=== PATIENT | female | born 1980 | race Caucasian/White ===

== ENCOUNTER 2019-12-13 16:25 | Emergency (ER) | payer OTHER, SELFPAY ==
[2019-12-13 16:40] VITALS: BP 130/88; RESP 18; TEMP 36.8; O2SAT 99
--- NOTE | 2019-12-13 17:20 | ED.URI ---
HPI - URI/Sore Throat General Chief Complaint: Upper Respiratory Infection Stated Complaint: sore throat/headache/bodyaches Source: patient Mode of arrival: ambulatory Limitations: no limitations History of Present Illness HPI Narrative: Patient is a 39-year-old female who presents complaining of sore throat starting this afternoon. Patient son was strep positive today. Patient denies taking grxw-yol-igadbld medications at this time. MD elicited complaint: sore throat Related Data Home Medications Medication Instructions Recorded Confirmed levothyroxine [Synthroid] 50 mcg PO DAILY 08/23/19 12/13/19 rosuvastatin 5 mg PO DAILY 08/23/19 12/13/19 Allergies Allergy/AdvReac Type Severity Reaction Status Date / Time No Known Allergies Allergy Verified 12/13/19 16:43 Review of Systems Review of Systems: Narrative: CONSTITUTIONAL: Denies fever, chills, or sweats. EYES: Denies visual changes, redness, or discharge. ENT: Denies rhinorrhea, congestion, or otalgia. Reports sore throat CARDIOVASCULAR: Denies chest pain, palpitations, or edema. RESPIRATORY: Denies cough or dyspnea. GASTROINTESTINAL: Denies abdominal pain, nausea, vomiting, or diarrhea. GENITOURINARY: Denies dysuria or hematuria. SKIN: Denies rash or itching. MUSCULOSKELETAL: Denies back pain, joint pain, or myalgia. NEUROLOGIC: Denies headache, numbness, dizziness, or weakness. PSYCHIATRIC: Denies anxiety or depression. [facility] Past Medical History Medical History STD (sexually transmitted disease) UTI (urinary tract infection) Surgical History Surgical History H/O dilation and curettage Exam Narrative: Exam Narrative: GENERAL: Well-appearing, well-nourished, and in no acute distress. HEAD: Normocephalic, atraumatic. EYES: EOMI. No redness or drainage. Conjunctiva are normal. ENT: Mucous membranes pink and moist. Nares clear. No rhinorrhea. TMs normal bilaterally. Throat erythema and edema without exudate. Uvula midline. NECK: AROM. Supple. No lymphadenopathy. CHEST: No respiratory distress. Clear to auscultation. HEART: Regular rate and rhythm. No murmur appreciated. Normal peripheral pulses. SKIN: Warm, dry, no rash. NEURO: No focal deficits. Alert and oriented x3. Gait steady. PSYCH: Normal affect. No signs of depression or anxiety. Course Vital Signs Vital signs: Vital Signs Temperature 36.8 C 12/13/19 16:40 Respiratory Rate 18 12/13/19 16:40 Blood Pressure 130/88 12/13/19 16:40 Pulse Oximetry 99 12/13/19 16:40 Temperature 36.8 C 12/13/19 16:40 Respiratory Rate 18 12/13/19 16:40 Blood Pressure 130/88 12/13/19 16:40 Pulse Oximetry 99 12/13/19 16:40 MDM - URI/Sore Throat MDM Narrative Medical decision making narrative: Patient's rapid strep negative, however, patient's symptoms just started this p.m. Patient's son is positive at this time. Patient to be treated in accordance tonsillitis. Patient agrees with plan of care. Patient stable for discharge home with outpatient follow-up as directed. Differential Diagnosis Differential diagnosis: Likely upper respiratory infection, influenza, pharyngitis and other (Strep throat) Lab Data Labs: Strep Screen Presumptive Negative *(Reference Range: Negative)* Critical Care Time Critical Care Time Critical Care Time: No Discharge Plan Discharge Clinical Impression: Strep throat exposure Patient Disposition: Home, Self-Care Condition: Stable Instructions: Antibiotic Form, Tonsillitis (ED) Additional Instructions: Take medication as directed. Follow-up with PCP as needed. Prescriptions: New penicillin V potassium 500 mg tablet 500 mg PO Q12H 10 Days Qty: 20 RF: 0 No Action levothyroxine [Synthroid] 50 mcg Tablet 50 mcg PO DAILY RF: 0 rosuvastatin 5 mg Tablet 5 mg PO DAILY RF
== END 2019-12-13 17:30 | disposition home or self-care (01) ==
PROVIDERS: Emergency Provider Nurse Practitioner; PCP Physician Assistant
DX: Z20.818 Contact with and (suspected) exposure to other bacterial communicable diseases (principal)
CPT/HCPCS: 87081; 87880; 99213; G0463

== ENCOUNTER 2020-04-13 08:05 | Outpatient (CLI) | payer OTHER, SELFPAY ==
--- NOTE | ~2020-04-13 | MM_ITS ---
EXAMINATION: MM screening vimal BI w willis HISTORY: Screening mammogram TECHNIQUE: Craniocaudal and mediolateral oblique 3-D tomosynthesis images were obtained and synthetic 2-D images were generated. CAD analysis was submitted and interpreted. COMPARISON: 03/25/2019 BREAST PARENCHYMAL COMPOSITION: The breasts are extremely dense, which lowers the sensitivity of mamm ography. FINDINGS: There is no evidence of suspicious mass, calcification, or architectural distortion to sugg est malignancy in either breast. There has been no suspicious interval change. IMPRESSION: 1. No mammographic evidence of malignancy. 2. Recommend routine screening mammography in one year. BI-RADS Category 1: Negative Reviewed, dictated and finalized at location A.
== END 2020-04-13 08:06 | disposition home or self-care (01) ==
LOC: ANHIMG 08:08
PROVIDERS: PCP Physician Assistant; Visit Provider Obstetrics & Gynecology Gynecology
DX: Z12.31 Encounter for screening mammogram for malignant neoplasm of breast (principal)
CPT/HCPCS: 77063; 77067

== ENCOUNTER 2020-08-03 09:02 | Outpatient (CLI) | payer OTHER, SELFPAY ==
--- NOTE | ~2020-08-03 | XR_ITS ---
XR cervical spine 4-5V DATE: 08/03/2020 09:49 INDICATION: Neck pain, radiculopathy TECHNIQUE: AP, open-mouth, lateral, swimmer views COMPARISON: None FINDINGS: There is straightening of the cervical spine. C1 and C2 are normally aligned and the odontoid process is intact. There is minimal anterolisthesis at C2-3 and C4-5. There is moderately prominent degenerative disc disease at C3-4, with posterior spurring. There is mild loss of interspace height at C5-6. No fracture or dislocation or locked facet. There is uncovertebral joint spurring, particularly bilaterally at C3-4 and C5-6. IMPRESSION: Straightening Degenerative changes Reviewed, dictated and finalized at location A.
--- NOTE | 2020-08-03 11:00 | NEURO_ITS ---
Patient Number: [id number] Impression: # Complains of numbness of hands. # Mild bilateral Carpal Tunnel Syndrome. 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 # Normal needle/EMG exam. # Clinical correlation recommended. Nerve Conduction Studies Anti Sensory Summary Table Stim Site NR Peak (ms) P-T Amp (?V) Site1 Site2 Delta-P (ms) Dist (cm) Reddy (m/s) Left Median Anti Sensory (2-3nd Digit) Wrist 3.1 89.8 Wrist 2-3nd Digit 3.1 14.0 45 Wrist 3.2 101.3 Wrist 2-3nd Digit 3.1 14.0 45 Right Median Anti Sensory (2-3nd Digit) Wrist 2.9 93.0 Wrist 2-3nd Digit 2.9 14.0 48 Wrist 2.9 95.7 Wrist 2-3nd Digit 2.9 14.0 48 Left Radial Anti Sensory (Base 1st Digit) Wrist 2.1 46.8 Wrist Base 1st Digit 2.1 0.0 Right Radial Anti Sensory (Base 1st Digit) Wrist 2.1 53.1 Wrist Base 1st Digit 2.1 0.0 Left Ulnar Anti Sensory (5th Digit) Wrist 2.5 88.0 Wrist 5th Digit 2.5 14.0 56 Right Ulnar Anti Sensory (5th Digit) Wrist 2.4 42.2 Wrist 5th Digit 2.4 14.0 58 Motor Summary Table Stim Site NR Onset (ms) O-P Amp (mV) Site1 Site2 Delta-0 (ms) Dist (cm) Reddy (m/s) Left Median Motor (Abd Poll Brev) Wrist 3.7 3.5 Elbow Wrist 4.3 26.0 60 Elbow 8.0 3.0 Right Median Motor (Abd Poll Brev) Wrist 3.6 2.6 Elbow Wrist 3.8 24.0 63 Elbow 7.4 2.9 Left Ulnar Motor (Abd Dig Minimi) Wrist 2.2 7.6 A Elbow Wrist 5.5 28.0 51 A Elbow 7.7 6.0 B Elbow Wrist 4.0 22.0 55 B Elbow 6.2 4.3 Right Ulnar Motor (Abd Dig Minimi) Wrist 2.6 6.1 A Elbow Wrist 4.6 27.0 59 A Elbow 7.2 4.7 F Wave Studies NR F-Lat (ms) L-R F-Lat (ms) Left Median (Mrkrs) (Abd Poll Brev) 26.61 0.41 Right Median (Mrkrs) (Abd Poll Brev) 26.20 0.41 Left Ulnar (Mrkrs) (Abd Dig Min) 26.98 0.33 Right Ulnar (Mrkrs) (Abd Dig Min) 27.31 0.33 EMG Side Muscle Nerve Root Ins Act Fibs Amp Dur Recrt Comment Right 1stDorInt Ulnar C8-T1 Nml Nml Nml Nml Nml Right Ext Indicis Radial (Post Int) C7-8 Nml Nml Nml Nml Nml Right Ext Digitorum Radial (Post Int) C7-8 Nml Nml Nml Nml Nml Right BrachioRad Radial C5-6 Nml Nml Nml Nml Nml Right PronatorTeres Median C6-7 Nml Nml Nml Nml Nml Right Abd Poll Brev Median C8-T1 Nml Nml Nml Nml Nml Left 1stDorInt Ulnar C8-T1 Nml Nml Nml Nml Nml Left Ext Indicis Radial (Post Int) C7-8 Nml Nml Nml Nml Nml Left Ext Digitorum Radial (Post Int) C7-8 Nml Nml Nml Nml Nml Left BrachioRad Radial C5-6 Nml Nml Nml Nml Nml Left PronatorTeres Median C6-7 Nml Nml Nml Nml Nml Left Abd Poll Brev Median C8-T1 Nml Nml Nml Nml Nml Right ABD Dig Min Ulnar C8-T1 Nml Nml Nml Nml Nml Left ABD Dig Min Ulnar C8-T1 Nml Nml Nml Nml Nml MTDD
== END 2020-08-03 09:03 | disposition home or self-care (01) ==
PROVIDERS: PCP Physician Assistant; Visit Provider Physician Assistant
DX: G56.03 Carpal tunnel syndrome, bilateral upper limbs (principal); G56.22 Lesion of ulnar nerve, left upper limb; M50.30 Other cervical disc degeneration, unspecified cervical region
CPT/HCPCS: 72050; 95886; 95911

== ENCOUNTER 2021-04-16 08:28 | Outpatient (CLI) | payer BC, SELFPAY ==
--- NOTE | ~2021-04-16 | MM_ITS ---
EXAMINATION: MM screening vimal BI w willis HISTORY: Screening mammogram TECHNIQUE: Craniocaudal and mediolateral oblique 3-D tomosynthesis images were obtained and synthetic 2-D images were generated. CAD analysis was submitted and interpreted. COMPARISON: 04/13/2020, 03/25/2019 BREAST PARENCHYMAL COMPOSITION: The breasts are extremely dense, which lowers the sensitivity of mamm ography. FINDINGS: Scattered benign-appearing calcifications are present. There is no evidence of suspicious m ass, calcification, or architectural distortion to suggest malignancy in either breast. There has bee n no suspicious interval change. IMPRESSION: 1. No mammographic evidence of malignancy. 2. Recommend routine screening mammography in one year. BI-RADS Category 2: Benign finding(s). Reviewed, dictated and finalized at location A.
== END 2021-04-16 08:29 | disposition home or self-care (01) ==
LOC: ANHIMG 08:32
PROVIDERS: PCP Physician Assistant; Visit Provider Obstetrics & Gynecology Gynecology
DX: Z12.31 Encounter for screening mammogram for malignant neoplasm of breast (principal)
CPT/HCPCS: 77063; 77067

== ENCOUNTER 2022-07-08 07:05 | Outpatient (CLI) | payer OTHER, SELFPAY ==
--- NOTE | ~2022-07-08 | MM_ITS ---
EXAMINATION: MM screening [facility] BI w willis HISTORY: Screening mammogram TECHNIQUE: Craniocaudal and mediolateral oblique 3-D tomosynthesis images were obtained and synthetic 2-D images were generated. CAD analysis was submitted and interpreted. COMPARISON: 04/16/2021, 04/13/2020, 03/25/2019 BREAST PARENCHYMAL COMPOSITION: The breasts are extremely dense, which lowers the sensitivity of mamm ography. FINDINGS: There is no suspicious mass, calcification, or architectural distortion to suggest malignan cy in either breast. There has been no suspicious interval change. IMPRESSION: 1. No mammographic evidence of malignancy. 2. Recommend routine screening mammography in one year. BI-RADS Category 1: Negative Reviewed, dictated and finalized at location A.
== END 2022-07-08 07:06 | disposition home or self-care (01) ==
LOC: ANHIMG 07:07
PROVIDERS: PCP Physician Assistant; Visit Provider Obstetrics & Gynecology Gynecology
DX: Z12.31 Encounter for screening mammogram for malignant neoplasm of breast (principal)
CPT/HCPCS: 77063; 77067

== ENCOUNTER 2022-09-02 15:37 | Emergency (ER) | payer OTHER, SELFPAY ==
[2022-09-02 16:18] VITALS: BP 126/85; PULSE 80; RESP 18; TEMP 36.4; O2SAT 100
--- NOTE | 2022-09-02 16:36 | ED.URI ---
HPI - URI/Sore Throat General Chief Complaint: Upper Respiratory Infection Stated Complaint: headache,sorethroat,bodyache Time Seen by Provider: 09/02/22 16:20 Source: patient Mode of arrival: ambulatory Limitations: no limitations History of Present Illness HPI Narrative: Ms. Burleson is a 42-year-old female patient presenting to clinic today with complaints of headache, sore throat, body aches, and fatigue x1 day. She reports her symptoms just started yesterday and she slept most of the day today and her symptoms have gradually gotten worse over the past day. He denies any known fever MD elicited complaint: sore throat and nasal congestion Related Data Home Medications Medication Instructions Recorded Confirmed levothyroxine 50 mcg tablet 50 mcg PO DAILY 08/23/19 09/02/22 (Synthroid) rosuvastatin 5 mg tablet 5 mg PO DAILY 08/23/19 09/02/22 alprazolam 0.5 mg tablet 0.5 mg PO PRN PRN Anxiety 09/02/22 09/02/22 famotidine 20 mg tablet (Pepcid) 20 mg PO DAILY 09/02/22 09/02/22 metformin 500 mg tablet,extended 500 mg PO BID 09/02/22 09/02/22 release 24 hr Allergies Allergy/AdvReac Type Severity Reaction Status Date / Time No Known Allergies Allergy Verified 09/02/22 16:23 Review of Systems Review of Systems: Pertinent positives per HPI. Patient denies any fever, chills, rash, headache, visual changes, dizziness, cough, shortness of breath, chest pain, palpitations, nausea, vomiting, diarrhea, constipation, abdominal pain, or any urinary issues. PMFSH Past Medical History Medical History (Updated 09/02/22 @ 16:53 by Osbaldo San APRN) STD (sexually transmitted disease) UTI (urinary tract infection) Surgical History Surgical History H/O dilation and curettage Comments At the time of my signature, I reviewed and agree with the nursing past medical, surgical, social, and family history. There is no relevant family history pertinent to the patient complaint. Exam Narrative: General: Well-developed, well nourished, in no apparent distress Head: Normocephalic, atraumatic Eyes: Pupils equally round and reactive to light bilaterally, EOM intact, sclera and conjunctive clear, no discharge, lids normal Ears: TMs intact and clear, ear canals clear, no drainage, grossly hearing normal. Nose: Nares patent, clear nasal discharge, no inflammation, no sinus tenderness. Mouth: Oral pharynx without lesions or masses, good dentition, MMM. Neck: Supple, trachea midline, no enlargement of anterior or posterior cervical nodes, no thyroid masses or goiter palpable. Cardio: Regular rate and rhythm, s1 and s2 normal, no murmur appreciated. Resp: Clear to auscultation bilaterally, no rhonchi, rales, wheezing or rubs Course Course Emergency Course: Portions of this record may have been created with voice recognition software. Level of Care: Express Care Visit Vital Signs Vital signs: Vital Signs Temperature 36.4 C L 09/02/22 16:18 Pulse Rate 80 09/02/22 16:18 Respiratory Rate 18 09/02/22 16:18 Blood Pressure 126/85 09/02/22 16:18 Pulse Oximetry 100 09/02/22 16:18 Oxygen Delivery Room Air 09/02/22 16:18 Temperature 36.4 C L 09/02/22 16:18 Pulse Rate 80 09/02/22 16:18 Respiratory Rate 18 09/02/22 16:18 Blood Pressure 126/85 09/02/22 16:18 Pulse Oximetry 100 09/02/22 16:18 Oxygen Delivery Room Air 09/02/22 16:18 Vital signs reviewed MDM - URI/Sore Throat MDM Narrative Medical decision making narrative: at the time of the patient is resting comfortably on exam table. Influenza testing and strep testing was obtained Differential Diagnosis Differential diagnosis: Likely sinusitis, viral infection, influenza and pharyngitis Lab Data Labs: Influenza A Screen Negative Reference Range: Negative Influenza B Screen Negative
== END 2022-09-02 16:55 | disposition home or self-care (01) ==
PROVIDERS: Emergency Provider Nurse Practitioner Family; PCP Physician Assistant
DX: J02.9 Acute pharyngitis, unspecified (principal); B34.9 Viral infection, unspecified
CPT/HCPCS: 87081; 87804; 87880; 99213; G0463

== ENCOUNTER 2022-11-07 11:21 | Emergency (ER) | payer OTHER, SELFPAY ==
[2022-11-07 12:06] VITALS: BP 145/87; PULSE 90; RESP 18; TEMP 36.4; O2SAT 97
[2022-11-07 12:58] LABS: Appearance Urine Clear (Clear); Bilirubin Urine Negative (Negative); Blood Urine Negative (Negative); Color Urine Yellow (Yellow); Glucose Urine UA Negative (Negative); Ketones Urine Negative (Negative); Leukocyte Esterase Ur Negative LEU/UL (Negative); Nitrate Urine Negative (Negative); Protein Urine Negative (Negative); Urobilinogen Urine 0.2 mg/dL (<2.0); pH Urine 5.5 (5.0-9.0)
[2022-11-07 13:03] LABS: Add Urine Microscopic? NO
--- NOTE | 2022-11-07 13:38 | ED.BACK ---
HPI - Back Pain/Injury General Chief Complaint: Back Pain/Injury Stated Complaint: lower back pain Time Seen by Provider: 11/07/22 12:41 History of Present Illness HPI Narrative: Patient is a 42-year-old female who presents ER with left-sided back pain. Sudden onset. Cramping. Associate with nausea. No fevers or chills or sweats. Worse with twisting and moving. No known trauma. No urinary frequency urgency or dysuria. Took some ibuprofen with only mild improvement Related Data Home Medications Medication Instructions Recorded Confirmed levothyroxine 50 mcg tablet 50 mcg PO DAILY 08/23/19 09/02/22 (Synthroid) rosuvastatin 5 mg tablet 5 mg PO DAILY 08/23/19 09/02/22 alprazolam 0.5 mg tablet 0.5 mg PO PRN PRN Anxiety 09/02/22 09/02/22 famotidine 20 mg tablet (Pepcid) 20 mg PO DAILY 09/02/22 09/02/22 metformin 500 mg tablet,extended 500 mg PO BID 09/02/22 09/02/22 release 24 hr Allergies Allergy/AdvReac Type Severity Reaction Status Date / Time No Known Allergies Allergy Verified 09/02/22 16:23 Review of Systems Review of Systems: All systems reviewed & are unremarkable except as noted in HPI and below Constitutional: Constitutional: Denies chills, Denies fatigue and Denies fever(s) Gastrointestinal: Gastrointestinal: Denies abdominal pain, Reports nausea and Denies vomiting Genitourinary: Genitourinary: Denies hematuria, Denies nocturia, Denies dysuria, Reports flank pain and Denies urinary incontinence Musculoskeletal: Musculoskeletal: Reports back pain, Denies arthralgias and Denies joint swelling Neurologic: Denies focal weakness and Denies numbness PMFSH Past Medical History Medical History (Updated 11/07/22 @ 13:41 by Dave Aguirre MD) STD (sexually transmitted disease) UTI (urinary tract infection) Surgical History Surgical History H/O dilation and curettage Exam Narrative: GENERAL: Well-appearing, well-nourished, and in no acute distress. HEAD: Normocephalic, atraumatic. CHEST: Clear to auscultation. No respiratory distress. HEART: Regular rate and rhythm. Normal peripheral pulses. ABDOMEN: Soft, nontender, nondistended. Back: No reproducible midline tenderness to T/L-spine. There is palpable spasm at the level of L2 on the left. No right-sided paraspinal muscular tenderness. EXTREMITIES: Normal range of motion. No edema. NEURO: Alert and oriented x3. PSYCH: Normal mood and affect. Course Course Emergency Course: Patient resting comfortably. Has point tenderness in the lateral musculature of the low lumbar region. No complaints or symptoms of spinal epidural abscess or cauda equina syndrome. No acute injury. Imaging not felt needed at this time and outpatient conservative management recommended. Patient verbalized understanding of this and is in agreement. Protocol orders for blood draw been canceled. Vital Signs Vital signs: Vital Signs Temperature 97.6 F 11/07/22 12:06 Pulse Rate 90 11/07/22 12:06 Respiratory Rate 18 11/07/22 12:06 Blood Pressure 145/87 H 11/07/22 12:06 Pulse Oximetry 97 11/07/22 12:06 Temperature 97.6 F 11/07/22 12:06 Pulse Rate 90 11/07/22 14:15 Respiratory Rate 18 11/07/22 14:15 Blood Pressure 140/80 11/07/22 14:15 Pulse Oximetry 97 11/07/22 14:15 MDM - Back Pain/Injury Lab Data Labs: Lab Results 11/07/22 Range/Units 12:32 Urine Color Yellow (Yellow) Urine Appearance Clear (Clear) Urine pH 5.5 (5.0-9.0) Ur Specific [place] 1.010 (1.001-1.035) Urine Protein Negative (Negative) mg/dL Urine Glucose (UA) Negative (Negative) mg/dL Urine Ketones Negative (Negative) mg/dL Ur Blood (Man) Negative (Negative) Urine Nitrate Negative (Negative) Urine Bilirubin Negative (Negative) Urine Urobilinogen 0.2 (<2.0) mg/dL Leukocyte Esterase Rfl Negative (Negative) DELMY/UL UCG Bedside Result
[2022-11-07 14:15] VITALS: BP 140/80; PULSE 90; RESP 18; O2SAT 97
== END 2022-11-07 14:16 | disposition home or self-care (01) ==
PROVIDERS: Emergency Provider Emergency Medicine; PCP Physician Assistant
DX: M62.830 Muscle spasm of back (principal); R73.03 Prediabetes; Z87.440 Personal history of urinary (tract) infections; Z79.84 Long term (current) use of oral hypoglycemic drugs
CPT/HCPCS: 81003; 81025; 99283

== ENCOUNTER → 2023-09-13 11:14 | Outpatient (CLI) | payer OTHER, SELFPAY ==
--- NOTE | ~2023-09-13 | MM_ITS ---
EXAMINATION: MM screening vimal BI w willis HISTORY: Screening TECHNIQUE: Craniocaudal and mediolateral oblique 3-D tomosynthesis images were obtained and synthetic 2-D images were generated. CAD analysis was submitted and interpreted. COMPARISON: Comparison to multiple prior studies sequentially, with oldest reviewed study dated 03/25. BREAST PARENCHYMAL COMPOSITION: The breasts are extremely dense, which lowers the sensitivity of mamm ography FINDINGS: There is no evidence of suspicious mass, calcification, or architectural distortion to sugg est malignancy in either breast. There has been no suspicious interval change. IMPRESSION: 1. No mammographic evidence of malignancy. 2. Recommend routine screening mammography in one year. BI-RADS Category 1: Negative Reviewed, dictated and finalized at location A. HER DANCING
== END ==
PROVIDERS: PCP Advanced Practice Midwife; Visit Provider Advanced Practice Midwife
DX: Z12.31 Encounter for screening mammogram for malignant neoplasm of breast (principal)
CPT/HCPCS: 77063; 77067

== ENCOUNTER 2023-11-03 16:34 | Emergency (ER) | payer OTHER, SELFPAY | END 2023-11-03 16:56 | disposition left against medical advice (07) | LOC: ANHED 16:51 | PROVIDERS: PCP Advanced Practice Midwife | DX: Z53.21 Procedure and treatment not carried out due to patient leaving prior to being seen by health care provider (principal) | CPT/HCPCS: 99199 ==

== ENCOUNTER 2024-11-23 12:18 | Outpatient (CLI) | payer OTHER, SELFPAY ==
--- NOTE | ~2024-11-23 | MM_ITS ---
EXAMINATION: MM screening vimal BI w willis HISTORY: Screening TECHNIQUE: Craniocaudal and mediolateral oblique 3-D tomosynthesis images were obtained and synthetic 2-D images were generated. CAD analysis was submitted and interpreted. COMPARISON: Comparison to multiple prior studies sequentially, with oldest reviewed study dated 03/25. BREAST PARENCHYMAL COMPOSITION: Dense: The breasts are extremely dense, which lowers the sensitivity of mammography. FINDINGS: There is no evidence of suspicious mass, calcification, or architectural distortion to sugg est malignancy in either breast. There has been no suspicious interval change. IMPRESSION: 1. No mammographic evidence of malignancy. 2. Recommend routine screening mammography in one year. BI-RADS Category 1: Negative Reviewed, dictated and finalized at location B. 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
== END 2024-11-23 12:19 | disposition home or self-care (01) ==
PROVIDERS: PCP Nurse Practitioner; Visit Provider Nurse Practitioner
DX: Z12.31 Encounter for screening mammogram for malignant neoplasm of breast (principal)
CPT/HCPCS: 77063; 77067

== ENCOUNTER 2025-02-07 08:52 | Outpatient (CLI) | payer OTHER, SELFPAY ==
--- NOTE | 2025-02-07 09:00 | ECG_ITS ---
Test Date: 2025-02-07 09:15:25 Measurements Intervals [place] Rate: 71 P: 28 W[place]: 164 QRS: -7 QRSD: 85 T: 39 QT: 387 QTc: 422 Interpretive Statements SINUS RHYTHM LOW QRS VOLTAGE IN PRECORDIAL LEADS [QRS DEFLECTION < 1.0 mV IN CHEST LEADS] POOR R-WAVE PROGRESSION NONSPECIFIC T-WAVE ABNORMALITY ABNORMAL ECG No previous ECG available for comparison Electronically Signed On 02-07-2025 15:40:34 CDT by Jesus Carey M.D.
--- OUTSIDE RECORDS SUMMARY | 2025-02-07 09:22 | XMS_ITS | Referral Summary ---
Author Organization [address] Address [address] [place] [id number] Care Team Providers Care Tick Inspector Name Role Phone Josselyn Garibay Primary Care Pr ovider Allergies No known active allergies Medications Synthroid 75 mcg tablet 08/11/2023 Active metFORMIN XR (GLUCOPHAGE XR) 500 mg 24 hr tablet 08/02/2023 Active rosuvastatin (CRESTOR) 10 mg tablet 08/02/2023 Active cyclobenzaprine (FLEXERIL) 10 mg tabletIndication s:Muscle Spasm Take 1 tablet (10 mg total) by mouth 3 (three) times a day as needed for muscle spasms 20 tablet 11/27/2023 Active Active Problems No known active problems Social History Tobacco Use Types Packs/Day Years Used Date Smoking Tobacco: Never Assessed Comments Unknown Sex and Gender Information Value Date Recorded Sex Assigned at Not on file Legal Sex Female 8:32 AM CDT Gender Identity Not on file Sexual Orientation Not on file Last Filed Vital Signs Vital Sign Reading Time Taken Comments Blood Pressure 120/82 11/27/2023 2:44 PM DRAG SEINER Pulse 82 11/27/2023 2:44 PM DRAG SEINER Temperature 36.9 C (98.4 F) 11/27/2023 2:44 PM DRAG SEINER Respiratory Rate 20 11/27/2023 2:44 PM DRAG SEINER Oxygen Saturation 99% 11/27/2023 2:44 PM DRAG SEINER Inhaled Oxygen Concentration - - Weight 71.7 kg (158 lb) 11/27/2023 2:44 PM DRAG SEINER Height 165.1 cm (5' 5 ) 11/27/2023 2:44 PM DRAG SEINER Body Mass Index 26.29 11/27/2023 2:44 PM DRAG SEINER Plan of Treatment Not on file Insurance [employer] OPEN ACCESS [employer] OPEN ACCESS Care Teams Tick Inspector Relationship Specialty Start Date End Date Josselyn Garibay PA PCP - General Physician Wood Gouger 11/27/23
--- OUTSIDE RECORDS SUMMARY | 2025-02-07 09:22 | XMS_ITS | Clinical Summary ---
Author Organization [address] Address [address] [place] [id number] Care Team Providers Care Project Management Manager Name Role Phone Josselyn Garibay Primary Care [...] on file Sexual Orientation Not on file Obstetrics History Last Filed Vital Signs Vital Sign Reading Time Taken Comments Blood Pressure 120/82 11/27/2023 2:44 PM [employer] Pulse 82 11/27/2023 2:44 PM [employer] Temperature 36.9 C (98.4 F) 11/27/2023 2:44 PM [employer] Respiratory Rate 20 11/27/2023 2:44 PM [employer] Oxygen Saturation 99% 11/27/2023 2:44 PM [employer] Inhaled Oxygen Concentration - - Weight 71.7 kg (158 lb) 11/27/2023 2:44 PM [employer] Height 165.1 cm (5' 5 ) 11/27/2023 2:44 PM [employer] Body Mass Index 26.29 11/27/2023 2:44 PM [employer] Plan of Treatment Health Maintenance Due Date Last Done Comments Breast Cancer Screening-Mammogram 1978 Cervical Cancer Screening 1978 Colon Cancer Screening-Colonoscopy 1978 Depression Screening 1978 Hepatitis C Screening 1978 Hepatitis B Screening 1996 Regular Well Visit/Exam 18-64 1996 DTaP/Tdap/Td Vaccine (2 - Td or Tdap) 08/14/2023 08/14/2013 Covid-19 Vaccine (3 - season) 2024 12/22/2020, 11/28/2020 Influenza Vaccine (#1) 2024 3, 06/20/2020, 06/20/2020, Additional history exists HPV Vaccines Aged Out No longer eligi ble based on patient's age to complete this topic Pneumococcal vaccine <65 Aged Out No longer eligible based on patient's age to complete this topic Insurance [employer] OPEN ACCESS [employer] ACC[employer] Care Teams Project Management Manager Relationship Specialty Start Date End Date Josselyn Garibay PA PCP - General Physician Finish Sander 11/27/23
--- OUTSIDE RECORDS SUMMARY | 2025-02-07 09:22 | XMS_ITS | Encounter Summary ---
Author Organization [facility] Address [address] [place] [address] Care Team Providers Care Sales Representative Advertising Name Role Phone Unavailable Primary Care Provider Unavailabl e Encounter Details Date Type Department Care Team (Late st Contact Info) Description 02/05/2021 Lab Requisition [facility] [address] [place] [phone] Kishan Escobedo MD [address] [place] [address] Social History Tobacco Use Types Packs/Day Years Used Date Smoking Tobacco: Never Assessed Comments Unknown Sex and Gender Information Value Date Recorded Sex Assigned at Not on file Legal Sex Female 4:11 PM CDT Gender Identity Not on file Sexual Orientation Not on file documented as of this encounter Plan of Treatment Not on file documented as of this encounter Procedures Procedure Name Priority Date/Time Associated Diagnosis Comments DERMATOPATHOLOGY Routine 02/02/2021 12:0 0 AM CDT documented in this encounter Results * DERMATOPATHOLOGY (02/02/2021 12:00 AM CDT) Case Report Dermatopathology Report Case: [id number] Authorizing Provider: Kishan Escobedo MD Collected: 02/02/2021 12:00 AM Ordering Location: [facility] Received: 02/05/2021 06:03 AM Pathologist: Brunilda Mackay MD Specimen: Skin, right post thigh 5:13 PM CDT DERMATOPATHOLOGY LABORATORY Final Diagnosis Specimen A. SKIN, right post thigh: SEBORRHEIC KERATOSIS, IRRITATED (L82.0) 5:13 PM CDT DERMATOPATHOLOGY LABORATORY Clinical History Irr nevus. Path#[id number] 5:13 PM CDT DERMATOPATHOLOGY LABORATORY Gross Description Specimen A: Received is one formalin filled container labeled with the patient's name and designated right post thigh. The specimen consists of a shave biopsy measuring 6x4x1 mm. Jar 0. 5:13 PM CDT DERMATOPATHOLOGY LABORATORY Microscopic Description Specimen A. SKIN, right post thigh: There is acanthosis consisting of fairly uniform squamous cells with eosinophilic cytoplasm and squamous eddies. 5:13 PM CDT DERMATOPATHOLOGY LABORATORY Disclaimer An external and internal positive and negative controls are appropriate for the histochemical, immunohistochemical and immunofluorescence stain(s) in this case (if any), except where stated explicitly. The performance characteristics of the stain(s) cited in this report were developed and its performance characteristic determined by the Dermatopathology Laboratory at [facility], directed by Dr. Madie Mackay. These tests need not be, and therefore are not, approved by the [place] Food and Drug Administration. The tests are used for clinical purposes. Billing Codes Specimen Charges Stain Charges 85164 1 5:13 PM CDT DERMATOPATHOLOGY LABORATORY Embedded Images 5:13 PM CDT DERMATOPATHOLOGY LABORATORY Pathology/Cytolog y TISSUE SPECIMEN FROM SKIN / Unknown 02/02/2021 02/05/2021 6:03 AM CDT us Kishan Escobedo MD LAB - PATHOLOGY/CYTOLOGY ORDER RICH Final Result DERMATOPATHOLOGY LABORATORY [facility] - Department of Dermatology [address], [address] [phone] documented in this encounter Visit Diagnoses Not on filedocumented in this encounter
--- OUTSIDE RECORDS SUMMARY | 2025-02-07 09:22 | XMS_ITS | Data Portability ---
Author Organization [facility] SHIRAFrancisco Address [address] [place] [address] Assessment Encounter Date Assessment Date Assessment LastModified by Organization Details LastModified Time 12/15/2024 12/15/2024 mammogram UTD all clear recent UTD pap smear UTD few weeks ago. Dr. Glez office. Not available 12/15/2024 16:25:01 Plan of Treatment Reminders Order Date Submit Date Provider Last Modified By Organization Details Last Modified Time Details Appointments ANY 15 2024 03:00P M BACILIO Acosta Not available Not available Not available Lab HbA1c (hemoglob in A1c), blood 2024 025 [email or web address], [address], [place], [address], 01/19/2025 14:18:29 CMP, serum or plasma 2024 025 [email or web address], [address], [place], [address], 01/19/2025 14:18:29 CBC w/ auto diff 2024 025 [email or web address], [address], [place], [address], 01/19/2025 14:18:29 lipid panel, serum 2024 025 [email or web address], [address], [place], [address], 01/19/2025 14:18:29 TSH + free T4, serum 2024 025 [email or web address] [address], [place], [address], 01/19/2025 14:18:29 HbA1c (hemoglob in A1c), blood 2023 024 [facility], [address], [place], [address], 07/11/2024 07:08:27 CMP, serum or plasma 2023 024 [facility], [address], [place], [address], 07/11/2024 07:08:26 [facility] w/ auto diff 2023 024 [facility] [address], [place], [address], 07/11/2024 07:08:28 lipid panel, serum 2023 024 [facility], [address], [place], [address], 07/11/2024 07:08:24 TSH + free T4, serum 2023 024 [facility] [address], [place], [address], 07/11/2024 07:08:25 HbA1c (hemoglob in A1c), blood 2023 024 JOAQUINJESSEE Mustafa, [address], [place], [address], 12/20/2023 06:18:43 CMP, serum or plasma 2023 024 JOAQUINJESSEE Mustafa, [address], [place], [address], 12/20/2023 06:18:42 CBC w/ auto diff 2023 024 [facility], [address], [place], [address], 12/20/2023 06:18:44 vitamin B12 + folate, serum or blood 2023 024 [facility], [address], [place], [address], 12/20/2023 06:18:43 iron + TIBC + ferritin, serum 2023 024 [facility], [address], [place], [address], 12/20/2023 06:18:44 lipid panel, serum 2023 024 [facility] [address], [place], [address], 12/20/2023 06:18:41 TSH + free T4, serum 2023 024 [facility] [address], [place], [address], 12/20/2023 06:18:41 Referral None recorded. Procedures None recorded. Surgeries None recorded. Imaging None recorded. Medication Orders Wegovy 0.25 mg/0.5 mL subcutane ous pen injector 2024 025 RAMEY [id number], [address], [place], [place], [id number], 12/15/2024 16:36:54 metformin ER 500 mg tablet,ex tended release 24 hr 2023 024 RAMEY [facility], [address], [place], [address], 06/11/2024 16:18:29 rosuvasta tin 10 mg tablet 2023 024 JOAQUIN [facility], [address], [place], [address], 06/11/2024 16:18:29 alprazola m 0.5 mg tablet 2023 024 [facility] #[id number], [address], [place], [id number], 06/11/2024 16:18:34 cefdinir 300 mg capsule 2023 024 [facility] #[id number], [address], [place], [id number], 01/16/2024 14:18:31 hydrochlo rothiazid e 12.5 mg tablet 2023 024 [facility] #[id number], [address], [place], [id number], 12/20/2023 16:50:58 Patient TargetsNo targets recorded. Patient Instructions Encounter Date Encounter Id Patient Instructions Last Modified By Organization Details Last Modified Time 12/15/2024 [id number] A healthy lifestyle: care instructions Not available 12/15/2024 16:36:49 Reason for Referral None Reported. Results Created Date Observation Date Name Description Value Unit Range Abnormal Flag Note LastModifiedBy Organization Detail LastModifiedTime 12/18/1912/19/2023 TSH+F REE T4 TSH 0.286 uIU/m L 0.450- 4.500 below low normal Not Available [facility] ([facility]) [address], [place], [address], 12/20/2023 06:18:41 12/18/1912/19/2023 TSH+F REE T4 T4,free(dire ct) 1.71 NG/dL 0.82-1 .77 Not Available [facility] ([facility]) [address] [place], [address], 12/20/2023 06:18:41 12/18/19 24 12/19/2023 LIPID PANEL cholesterol, total 114 mg/dL 100-19 9 Not Available [facility] ([facility]) [address] [place], [address], 12/20/2023 06:18:41 12/18/19 24 12/19/2023 LIPID PANEL triglyceride s 115 mg/dL 0-149 Not Available [facility] ([facility]) [address] [place], [address], 12/20/2023 06:18:41 12/18/19 24 12/19/2023 LIPID PANEL HDL cholesterol 50 mg/dL >39 Not Available [facility]) [address] [place], [address], 12/20/2023 06:18:41 12/18/19 24 12/19/2023 LIPID PANEL VLDL cholesterol maritza 21 mg/dL 5-40 Not Available [facility] ([facility]) [address] [place], [address], 12/20/2023 06:18:41 12/18/19 24 12/19/2023 LIPID PANEL LDL chol calc ([facility]) 43 mg/dL 0-99 Not Available [facility]) [address] [place], [address], 12/20/2023 06:18:41 12/18/19 24 12/19/2023 CMP14 +EGFR glucose 98 mg/dL 70-99 Not Available [facility] ([facility]) [address] [place], [address], 12/20/2023 06:18:42 12/18/19 24 12/19/2023 CMP14 +EGFR BUN 11 mg/dL 6-24 Not Available [facility] ([facility]) [address] [place], [address], 12/20/2023 06:18:42 12/18/19 24 12/19/2023 CMP14 +EGFR creatinine 0.71 mg/dL 0.57-1 .00 Not Available [facility] ([facility]) [address], [place], [address], 12/20/2023 06:18:42 12/18/19 24 12/19/2023 CMP14 +EGFR eGFR 107 mL/mi n/1.7 3 >59 Not Available [facility] ([facility]) [address], [place], [address], 12/20/2023 06:18:42 12/18/19 24 12/19/2023 CMP14 +EGFR BUN/creatini ne ratio 15 9-23 Not Available [facility] ([facility]) [address], [place], [address], 12/20/2023 06:18:42 12/18/19 24 12/19/2023 CMP14 +EGFR sodium 144 mmol/ L 134-14 4 Not Available [facility] ([facility]) [address], [place], [address], 12/20/2023 06:18:42 12/18/19 24 12/19/2023 CMP14 +EGFR potassium 4.4 mmol/ L 3.5-5. 2 Not Available [facility] ([facility]) [address] [place], [address], 12/20/2023 06:18:42 12/18/19 24 12/19/2023 CMP14 +EGFR chloride 106 mmol/ L 96-106 Not Available [facility] ([facility]) [address] [place], [address], 12/20/2023 06:18:42 12/18/19 24 12/19/2023 CMP14 +EGFR carbon dioxide, total 23 mmol/ L 20-29 Not Available [facility] ([facility]) [address], [place], [address], 12/20/2023 06:18:42 12/18/1912/19/2023 CMP14 +EGFR calcium 10.1 mg/dL 8.7-10 .2 Not Available [facility] ([facility]) [address], [place], [address], 12/20/2023 06:18:42 12/18/19 24 12/19/2023 CMP14 +EGFR protein, total 6.9 g/dL 6.0-8. 5 Not Available [facility] ([facility]) [address], [place], [address], 12/20/2023 06:18:42 12/18/19 24 12/19/2023 CMP14 +EGFR albumin 4.8 g/dL 3.9-4. 9 Not Available [facility] ([facility]) [address], [place], [address], 12/20/2023 06:18:42 12/18/1912/19/2023 CMP14 +EGFR globulin, total 2.1 g/dL 1.5-4. 5 Not Available [facility] ([facility]) [address], [place], [address], 12/20/2023 06:18:42 12/18/1912/19/2023 CMP14 +EGFR A/G ratio 2.3 1.2-2. 2 above high normal Not Available [facility] ([facility]) [address] [place] [place], [address], 12/20/2023 06:18:42 12/18/1912/19/2023 CMP14 +EGFR bilirubin, total 0.5 mg/dL 0.0-1. 2 Not Available [facility] ([facility]) [address] [place] [place], [address], 12/20/2023 06:18:42 12/18/19 24 12/19/2023 CMP14 +EGFR alkaline phosphatase 66 IU/L 44-121 Not Available [facility]) [address], [place], [address], 12/20/2023 06:18:42 12/18/19 24 12/19/2023 CMP14 +EGFR AST (SGOT) 13 IU/L 0-40 Not Available [facility] ([facility]) [address], [place], [address], 12/20/2023 06:18:42 12/18/19 24 12/19/2023 CMP14 +EGFR ALT (SGPT) 19 IU/L 0-32 Not Available [facility] ([facility]) [address], [place], [address], 12/20/2023 06:18:42 12/18/19 24 12/19/2023 VITAM IN B12 AND FOLAT E vitamin B12 1899 pg/mL 232-12 45 above high normal Not Available [facility] ([facility]) [address], [place], [address], 12/20/2023 06:18:42 12/18/1912/20/2023 VITAM IN B12 AND FOLAT E folate (folic acid), serum 19.2 NG/mL >3.0 A serum folat e laena ntrat ion of less than 3.1 ng/mL is consi dered to repre sent clini maritza defic iency . Not Available [facility] ([facility]) [address], [place], [address], 12/20/2023 06:18:42 12/18/1912/19/2023 HEMOG LOBIN A1C hemoglobin A1C 5.7 % 4.8-5. 6 above high normal Predi abete s: 5.7 - 6.4 Diabe glory: >6.4 Glyce corrine contr ol for adult s with diabe glory: <7.0 Not Available [facility] ([facility]) [address], [place], [address], 12/20/2023 06:18:43 12/18/1912/19/2023 CBC WITH DIFFE RENTI AL/PL ATELE T WBC 5.4 x10e3 /uL 3.4-10 .8 Not Available [facility] ([facility]) [address], [place], [address], 12/20/2023 06:18:44 12/18/19 24 12/19/2023 CBC WITH DIFFE RENTI AL/PL ATELE T RBC 4.79 x10e6 /uL 3.77-5 .28 Not Available [facility] ([facility]) [address], [place], [address], 12/20/2023 06:18:44 12/18/19 24 12/19/2023 CBC WITH DIFFE RENTI AL/PL ATELE T hemoglobin 14.8 g/dL 11.1-1 5.9 Not Available [facility] ([facility]) [address], [place], [address], 12/20/2023 06:18:44 12/18/19 24 12/19/2023 CBC WITH DIFFE RENTI AL/PL ATELE T hematocrit 43.8 % 34.0-4 6.6 Not Available [facility] ([facility]) [address], [place], [address], 12/20/2023 06:18:44 12/18/19 24 12/19/2023 CBC WITH DIFFE RENTI AL/PL ATELE T MCV 91 fL 79-97 Not Available [facility] ([facility]) [address], [place], [address], 12/20/2023 06:18:44 12/18/19 24 12/19/2023 CBC WITH DIFFE RENTI AL/PL ATELE T MCH 30.9 pg 26.6-3 3.0 Not Available [facility] ([facility]) [address], [place], [address], 12/20/2023 06:18:44 12/18/19 24 12/19/2023 CBC WITH DIFFE RENTI AL/PL ATELE T MCHC 33.8 g/dL 31.5-3 5.7 Not Available [facility] ([facility]) [address], [place], [address], 12/20/2023 06:18:44 12/18/19 24 12/19/2023 CBC WITH DIFFE RENTI AL/PL ATELE T RDW 12.4 % 11.7-1 5.4 Not Available [facility] ([facility]) [address], [place], [address], 12/20/2023 06:18:44 12/18/19 24 12/19/2023 CBC WITH DIFFE RENTI AL/PL ATELE T platelets 327 x10e3 /uL 150-45 0 Not Available [facility] ([facility]) [address], [place], [address], 12/20/2023 06:18:44 12/18/19 24 12/19/2023 CBC WITH DIFFE RENTI AL/PL ATELE T neutrophils 61 % notest ab. Not Available [facility] ([facility]) [address], [place], [address], 12/20/2023 06:18:44 12/18/19 24 12/19/2023 CBC WITH DIFFE RENTI AL/PL ATELE T lymphs 28 % notest ab. Not Available [facility] ([facility]) [address] [place], [address], 12/20/2023 06:18:44 12/18/19 24 12/19/2023 CBC WITH DIFFE RENTI AL/PL ATELE T monocytes 8 % notest ab. Not Available [facility] ([facility]) [address], [place], [address], 12/20/2023 06:18:44 12/18/19 24 12/19/2023 CBC WITH DIFFE RENTI AL/PL ATELE T eos 2 % notest ab. Not Available [facility] ([facility]) [address], [place], [address], 12/20/2023 06:18:44 12/18/19 24 12/19/2023 CBC WITH DIFFE RENTI AL/PL ATELE T basos 1 % notest ab. Not Available [facility] ([facility]) [address], [place], [address], 12/20/2023 06:18:44 12/18/19 24 12/19/2023 CBC WITH DIFFE RENTI AL/PL ATELE T neutrophils (absolute) 3.3 x10e3 /uL 1.4-7. 0 Not Available [facility] ([facility]) [address], [place], [address], 12/20/2023 06:18:44 12/18/19 24 12/19/2023 CBC WITH DIFFE RENTI AL/PL ATELE T lymphs (absolute) 1.5 x10e3 /uL 0.7-3. 1 Not Available [facility] ([facility]) [address], [place], [address], 12/20/2023 06:18:44 12/18/19 24 12/19/2023 CBC WITH DIFFE RENTI AL/PL ATELE T monocytes(ab solute) 0.4 x10e3 /uL 0.1-0. 9 Not Available [facility] ([facility]) [address], [place], [address], 12/20/2023 06:18:44 12/18/19 24 12/19/2023 CBC WITH DIFFE RENTI AL/PL ATELE T eos (absolute) 0.1 x10e3 /uL 0.0-0. 4 Not Available [facility] ([facility]) [address] [place], [address], 12/20/2023 06:18:44 12/18/19 24 12/19/2023 CBC WITH DIFFE RENTI AL/PL ATELE T baso (absolute) 0.0 x10e3 /uL 0.0-0. 2 Not Available [facility] ([facility]) [address] [place], [address], 12/20/2023 06:18:44 12/18/19 24 12/19/2023 CBC WITH DIFFE RENTI AL/PL ATELE T immature granulocytes 0 % notest ab. Not Available [facility] ([facility]) [address] [place], [address], 12/20/2023 06:18:44 12/18/19 24 12/19/2023 CBC WITH DIFFE RENTI AL/PL ATELE T immature grans (abs) 0.0 x10e3 /uL 0.0-0. 1 Not Available [facility] ([facility]) [address] [place], [address], 12/20/2023 06:18:44 12/18/19 24 12/19/2023 FE+TI BC+FE R iron bind.cap.(TI BC) 311 ug/dL 250-45 0 Not Available [facility] ([facility]) [address] [place], [address], 12/20/2023 06:18:44 12/18/19 24 12/19/2023 FE+TI BC+FE R UIBC 210 ug/dL 131-42 5 Not Available [facility] ([facility]) [address] [place], [address], 12/20/2023 06:18:44 12/18/19 24 12/19/2023 FE+TI BC+FE R iron 101 ug/dL 27-159 Not Available [facility] ([facility]) [address] [place], [address], 12/20/2023 06:18:44 12/18/19 24 12/19/2023 FE+TI BC+FE R iron saturation 32 % 15-55 Not Available [facility] ([facility]) [address], [place], [address], 12/20/2023 06:18:44 12/18/19 24 12/19/2023 FE+TI BC+FE R ferritin 48 NG/mL 15-150 Not Available [facility] ([facility]) [address], [place], [address], 12/20/2023 06:18:44 07/10/20 24 07/11/2024 LIPID PANEL W/ CHOL/ HDL RATIO cholesterol, total 124 mg/dL 100-19 9 Not Available [facility] ([facility]) [address] [place], [address], 07/11/2024 07:08:24 07/10/20 24 07/11/2024 LIPID PANEL W/ CHOL/ HDL RATIO triglyceride s 85 mg/dL 0-149 Not Available [facility] ([facility]) [address] [place], [address], 07/11/2024 07:08:24 07/10/20 24 07/11/2024 LIPID PANEL W/ CHOL/ HDL RATIO HDL cholesterol 57 mg/dL >39 Not Available [facility] ([facility]) [address] [place], [address], 07/11/2024 07:08:24 07/10/20 24 07/11/2024 LIPID PANEL W/ CHOL/ HDL RATIO VLDL cholesterol maritza 16 mg/dL 5-40 Not Available [facility] ([facility]) [address] [place], [address], 07/11/2024 07:08:24 07/10/20 24 07/11/2024 LIPID PANEL W/ CHOL/ HDL RATIO LDL chol calc (nih) 51 mg/dL 0-99 Not Available [facility] ([facility]) [address] [place], [address], 07/11/2024 07:08:24 07/10/20 24 07/11/2024 LIPID PANEL W/ CHOL/ HDL RATIO T. chol/HDL ratio 2.2 ratio 0.0-4. 4 T. Chol/ HDL Ratio Men Women 1/2 Avg.R isk 3.4 3.3 Avg.R isk 5.0 4.4 2X Avg.R isk 9.6 7.1 3X Avg.R isk 23.4 11.0 Not Available [facility] ([facility]) [address] [place], [address], 07/11/2024 07:08:24 07/10/20 24 07/11/2024 TSH+F REE T4 TSH 0.723 uIU/m L 0.450- 4.500 Not Available [facility] ([facility]) [address] [place], [address], 07/11/2024 07:08:25 07/10/20 24 07/11/2024 TSH+F REE T4 T4,free(dire ct) 1.11 NG/dL 0.82-1 .77 Not Available [facility] ([facility]) [address] [place], [address], 07/11/2024 07:08:25 07/10/20 24 07/11/2024 COMP. METAB OLIC PANEL (14) glucose 95 mg/dL 70-99 Not Available [facility] ([facility]) [address] [place], [address], 07/11/2024 07:08:26 07/10/20 24 07/11/2024 COMP. METAB OLIC PANEL (14) BUN 11 mg/dL 6-24 Not Available [facility] ([facility]) [address] [place], [address], 07/11/2024 07:08:26 07/10/20 24 07/11/2024 COMP. METAB OLIC PANEL (14) creatinine 0.75 mg/dL 0.57-1 .00 Not Available [facility] ([facility]) [address], [place], [address], 07/11/2024 07:08:26 07/10/20 24 07/11/2024 COMP. METAB OLIC PANEL (14) eGFR 100 mL/mi n/1.7 3 >59 Not Available [facility] ([facility]) [address], [place], [address], 07/11/2024 07:08:26 07/10/20 24 07/11/2024 COMP. METAB OLIC PANEL (14) BUN/creatini ne ratio 15 9-23 Not Available [facility] ([facility]) [address], [place], [address], 07/11/2024 07:08:26 07/10/20 24 07/11/2024 COMP. METAB OLIC PANEL (14) sodium 142 mmol/ L 134-14 4 Not Available [facility] ([facility]) [address], [place], [address], 07/11/2024 07:08:26 07/10/20 24 07/11/2024 COMP. METAB OLIC PANEL (14) potassium 4.3 mmol/ L 3.5-5. 2 Not Available [facility] ([facility]) [address], [place], [address], 07/11/2024 07:08:26 07/10/20 24 07/11/2024 COMP. METAB OLIC PANEL (14) chloride 107 mmol/ L 96-106 above high normal Not Available [facility] ([facility]) [address], [place], [address], 07/11/2024 07:08:26 07/10/20 24 07/11/2024 COMP. METAB OLIC PANEL (14) carbon dioxide, total 23 mmol/ L 20-29 Not Available [facility] ([facility]) [address], [place], [address], 07/11/2024 07:08:26 07/10/20 24 07/11/2024 COMP. METAB OLIC PANEL (14) calcium 9.4 mg/dL 8.7-10 .2 Not Available [facility] ([facility]) [address], [place], [address], 07/11/2024 07:08:26 07/10/20 24 07/11/2024 COMP. METAB OLIC PANEL (14) protein, total 6.3 g/dL 6.0-8. 5 Not Available [facility] ([facility]) [address] [facility] [address], [place], [address], 07/11/2024 07:08:26 07/10/20 24 07/11/2024 COMP. METAB OLIC PANEL (14) albumin 4.4 g/dL 3.9-4. 9 Not Available [facility] ([facility]) [address] [place] [place], [address], 07/11/2024 07:08:26 07/10/20 24 07/11/2024 COMP. METAB OLIC PANEL (14) globulin, total 1.9 g/dL 1.5-4. 5 Not Available [facility] ([facility]) [address] [place], [address], 07/11/2024 07:08:26 07/10/20 24 07/11/2024 COMP. METAB OLIC PANEL (14) bilirubin, total 0.4 mg/dL 0.0-1. 2 Not Available [facility] ([facility]) [address], [place], [address], 07/11/2024 07:08:26 07/10/20 24 07/11/2024 COMP. METAB OLIC PANEL (14) alkaline phosphatase 69 IU/L 44-121 Not Available [facility] ([facility]) [address] [place] [place], [address], 07/11/2024 07:08:26 07/10/20 24 07/11/2024 COMP. METAB OLIC PANEL (14) AST (SGOT) 13 IU/L 0-40 Not Available [facility] ([facility]) [address] [place] [place], [address], 07/11/2024 07:08:26 07/10/20 24 07/11/2024 COMP. METAB OLIC PANEL (14) ALT (SGPT) 15 IU/L 0-32 Not Available [facility] ([facility]) [address], [place], [address], 07/11/2024 07:08:26 07/10/2007/11/2024 HEMOG LOBIN A1C hemoglobin A1C 5.5 % 4.8-5. 6 Predi abete s: 5.7 - 6.4 Diabe glory: >6.4 Glyce corrine contr ol for adult s with diabe glory: <7.0 Not Available [facility] ([facility]) [address] [place] [place], [address], 07/11/2024 07:08:27 07/10/20 24 07/11/2024 CBC WITH DIFFE RENTI AL/PL ATELE T WBC 6.2 x10e3 /uL 3.4-10 .8 Not Available [facility] ([facility]) [address] [place] [place], [address], 07/11/2024 07:08:28 07/10/2007/11/2024 CBC WITH DIFFE RENTI AL/PL ATELE T RBC 4.26 x10e6 /uL 3.77-5 .28 Not Available [facility] ([facility]) [address] [facility] [facility] [address], [place], [address], 07/11/2024 07:08:28 07/10/20 07/11/2024 CBC WITH DIFFE RENTI AL/PL ATELE T hemoglobin 13.4 g/dL 11.1-1 5.9 Not Available [facility] ([facility]) [address] [facility] [address], [place], [address], 07/11/2024 07:08:28 07/10/20 24 07/11/2024 CBC WITH DIFFE RENTI AL/PL ATELE T hematocrit 40.6 % 34.0-4 6.6 Not Available [facility] ([facility]) [address] [facility], [place], [address], 07/11/2024 07:08:28 07/10/2007/11/2024 CBC WITH DIFFE RENTI AL/PL ATELE T MCV 95 fL 79-97 Not Available [facility] ([facility]) [address] [facility], [place], [address], 07/11/2024 07:08:28 07/10/2007/11/2024 CBC WITH DIFFE RENTI AL/PL ATELE T MCH 31.5 pg 26.6-3 3.0 Not Available [facility] ([facility]) [address] [facility], [place], [address], 07/11/2024 07:08:28 07/10/20 24 07/11/2024 CBC WITH DIFFE RENTI AL/PL ATELE T MCHC 33.0 g/dL 31.5-3 5.7 Not Available [facility] ([facility]) [address] [facility], [place], [address], 07/11/2024 07:08:28 07/10/2007/11/2024 CBC WITH DIFFE RENTI AL/PL ATELE T RDW 12.4 % 11.7-1 5.4 Not Available [facility] ([facility]) [address] [facility], [place], [address], 07/11/2024 07:08:28 07/10/2007/1107/11/2024 CBC WITH DIFFE RENTI AL/PL ATELE T platelets 352 x10e3 /uL 150-45 0 Not Available [facility] Services [facility]) [address] [facility], [place], [address], 07/11/2024 07:08:28 07/10/20 24 07/11/2024 CBC WITH DIFFE RENTI AL/PL ATELE T neutrophils 67 % notest ab. Not Available [facility] ([facility]) [address] [facility], [place], [address], 07/11/2024 07:08:28 07/10/2007/11/2024 CBC WITH DIFFE RENTI AL/PL ATELE T lymphs 21 % notest ab. Not Available [facility] ([facility]) [address] [facility], [place], [address], 07/11/2024 07:08:28 07/10/20 24 07/11/2024 CBC WITH DIFFE RENTI AL/PL ATELE T monocytes 7 % notest ab. Not Available [facility] ([facility]) [address] [facility], [place], [address], 07/11/2024 07:08:28 07/10/20 24 07/11/2024 CBC WITH DIFFE RENTI AL/PL ATELE T eos 3 % notest ab. Not Available [facility] ([facility]) [address] [facility], [place], [address], 07/11/2024 07:08:28 07/10/20 24 07/11/2024 CBC WITH DIFFE RENTI AL/PL ATELE T basos 1 % notest ab. Not Available [facility] ([facility]) [address] [facility], [place], [address], 07/11/2024 07:08:28 07/10/20 24 07/11/2024 CBC WITH DIFFE RENTI AL/PL ATELE T neutrophils (absolute) 4.2 x10e3 /uL 1.4-7. 0 Not Available [facility] ([facility]) [address] [facility], [place], [address], 07/11/2024 07:08:28 07/10/20 24 07/11/2024 CBC WITH DIFFE RENTI AL/PL ATELE T lymphs (absolute) 1.3 x10e3 /uL 0.7-3. 1 Not Available [facility] ([facility]) [address] [facility], [place], [address], 07/11/2024 07:08:28 07/10/20 24 07/11/2024 CBC WITH DIFFE RENTI AL/PL ATELE T monocytes(ab solute) 0.4 x10e3 /uL 0.1-0. 9 Not Available [facility] ([facility]) [address] [facility], [place], [address], 07/11/2024 07:08:28 07/10/20 24 07/11/2024 CBC WITH DIFFE RENTI AL/PL ATELE T eos (absolute) 0.2 x10e3 /uL 0.0-0. 4 Not Available [facility] ([facility]) [address] [facility], [place], [address], 07/11/2024 07:08:28 07/10/20 24 07/11/2024 CBC WITH DIFFE RENTI AL/PL ATELE T baso (absolute) 0.0 x10e3 /uL 0.0-0. 2 Not Available [facility] ([facility]) [address] [facility], [place], [address], 07/11/2024 07:08:28 07/10/20 24 07/11/2024 CBC WITH DIFFE RENTI AL/PL ATELE T immature granulocytes 1 % notest ab. Not Available [facility] ([facility]) [address] [facility], [place], [address], 07/11/2024 07:08:28 07/10/20 24 07/11/2024 CBC WITH DIFFE RENTI AL/PL ATELE T immature grans (abs) 0.0 x10e3 /uL 0.0-0. 1 Not Available [facility] ([facility]) [address] [facility], [place], [address], 07/11/2024 07:08:28 Result Notes None recorded. Problems Name Problem SNOMED Code Status Onset Date Resolution Date Notes Provider Name and Address Organization Details Recorded Time Hypothyroid ism 86894962 Active 2023 Katia Worthy [facility], [place] - [facility] 4 14:31:05 Feeling stressed 539060067 Active 2023 BACILIO Acosta Attn: David echevarria,[address] [place], [place], [address] [place] [address] 2, [place] - [facility] 4 16:18:29 Long-term drug therapy Active 2023 BACILIO Acosta Attn: David echevarria,[address] [place], [place], [address] [place] [address] 2, [place] - [facility] 4 16:18:31 Hyperlipide alonso 63280825 Active 2023 BACILIO Acosta Attn: David echevarria,[address] [place], [place], [address] [place] [address] 2, [place] [facility] 4 16:18:32 Prediabetes 768291152 Active 2023 BACILIO Acosta Attn: David echevarria,[address] [place], [place], [address] [place] [address] 2, [place] - [facility] 4 16:18:33 Benign essential hypertensio n 8684683 Active 2023 BACILIO Acosta Attn: David echevarria,[address] [place], [place], [address] [place] [address], [place] [facility] 4 16:18:36 Body mass index 30+ - obesity 612577020 Active 2024 BACILIO Acosta Attn: David echevarria,[address] [facility] [place], [address], [place] [facility] 5 16:25:25 Obesity 139152596 Active 2024 BACILIO Acosta Attn: David echevarria,[address] [facility], [place], [address], [place] [facility] 5 16:25:26 Positive screening for depression on PHQ-9 (Patient Health Questionnai re 9) 2101518944955 00 Active 2024 BACILIO Acosta Attn: David echevarria,[address] [facility], [place], [address], [place] [facility] 5 16:25:27 Problem Notes None recorded. Medical Equipment None Reported. Allergies No known drug allergies Medications Name Sig Start Date Stop Date Status Note LastModified by Organization Details LastModified Time cyclobenzap rine 10 mg tablet 06/11 completed Not Available Not Available Not Available doxycycline hyclate 100 mg capsule TAKE 1 CAPSULE BY MOUTH TWICE DAILY FOR 7 DAYS 06/11 completed Not Available Not Available Not Available tizanidine 2 mg tablet TAKE 1 TO 2 TABLETS BY MOUTH THREE TIMES DAILY NEEDED active Not Available Not Available No t Available trazodone 50 mg tablet TAKE 1 TO 2 TABLETS BY MOUTH EVERY NIGHT AT BEDTIME FOR SLEEP 06/11 completed Not Available Not Available Not Available meloxicam 15 mg tablet TAKE 1 TABLET BY MOUTH EVERY DAY active Not Available Not Available No t Available metronidazo le 500 mg tablet TAKE 1 TABLET BY MOUTH EVERY 12 HOURS 03/10 completed Not Available Not Available Not Available valacyclovi r 500 mg tablet active Not Available Not Available Not Available triamcinolo ne acetonide 0.1 % topical cream 12/07 completed Not Available Not Available Not Available alprazolam 0.5 mg tablet TAKE 1 TABLET BY MOUTH THREE TIMES DAILY active Not Available Not Available No t Available amoxicillin 875 mg tablet TAKE 1 TABLET BY MOUTH EVERY 12 HOURS 12/15 completed Not Available Not Available Not Available hydrocodone 7.5 mg-acetamin ophen 325 mg tablet TAKE ONE TABLET EVERY 4-6 HOURS NEEDED FOR PAIN 12/15 completed Not Available Not Available Not Available oseltamivir 75 mg capsule TAKE 1 CAPSULE BY MOUTH TWICE DAILY FOR 5 DAYS 12/15 completed Not Available Not Available Not Available Synthroid 75 mcg tablet 01/15 completed Not Available Not Available Not Available Synthroid 50 mcg tablet Take 1 tablet every day by oral route. active Not Available Not Available No t Available estradiol 2 mg tablet TAKE 1 TABLET BY MOUTH EVERY DAY FOR 14 DAYS active Not Available Not Available No t Available cefdinir 300 mg capsule TAKE 1 CAPSULE BY MOUTH EVERY 12 HOURS 01/15 completed Not Available Not Available Not Available metformin ER 500 mg tablet,exte nded release 24 hr Take 1 tablet every day by oral route. 2023 active Not Available Not Available Not Avai lable amoxicillin 875 mg-potassiu m clavulanate 125 mg tablet TAKE 1 TABLET BY MOUTH EVERY 12 HOURS FOR UTI 12/07 completed Not Available Not Available Not Available cyclobenzap rine 5 mg tablet TAKE 1 TABLET BY MOUTH THREE TIMES DAILY NEEDED FOR SPASMS 12/15 completed Not Available Not Available Not Available rosuvastati n 10 mg tablet Take 1 tablet every day by oral route. 2023 active Not Available Not Available Not Avai lable hydrochloro thiazide 12.5 mg tablet Take 1 tablet every day by oral route. active Not Available Not Available No t Available Wegovy 0.25 mg/0.5 mL subcutaneou s pen injector Inject 0.25 mg every week by subcutane ous route. 2024 active Not Available Not Available Not Avai lable Vitals Date Recorded Body weight Body mass index (BMI) Body height Heart rate Oxygen saturation Oxygen saturation in Arterial blood by Pulse oximetry Systolic blood pressure Diastolic blood pressure Provider Name and Address Organization Details Last Updated DateTime 4 85283.2 2 g 29.1 kg/m2 154.94 cm 82 /min 98 % 98 % 144 mm[Hg] 90 mm[Hg] Salena Loo [place] [facility] 4 11:47:07 Date Recorded Systolic blood pressure Diastolic blood pressure Provider Name and Address Organization Details Last Updated DateTime 12/08/2023 130 mm[Hg] 82 mm[Hg] BACILIO Acosta Attn: Accounting,[address] [place], [address], [facility] 12/08/2023 12:26:00 Date Recorded Body height Body mass index (BMI) Body weight Heart rate Oxygen saturation Oxygen saturation in Arterial blood by Pulse oximetry Systolic blood pressure Diastolic blood pressure Provider Name and Address Organization Details Last Updated DateTime 4 154.94 cm 28.9 kg/m2 93765.6 3 g 86 /min 97 % 97 % 138 mm[Hg] 76 mm[Hg] Liliam Downey MA [facility] 4 15:39:17 Date Recorded Systolic blood pressure Diastolic blood pressure Provider Name and Address Organization Details Last Updated DateTime 06/11/2024 130 mm[Hg] 84 mm[Hg] BAICLIO Acosta Attn: Accounting, [place], [address] 06/11/2024 16:17:59 Date Recorded Body height Body mass index (BMI) Body weight Heart rate Oxygen saturation Oxygen saturation in Arterial blood by Pulse oximetry Systolic blood pressure Diastolic blood pressure Provider Name and Address Organization Details Last Updated DateTime 5 154.94 cm 30.7 kg/m2 12663.4 g 78 /min 99 % 99 % 138 mm[Hg] 78 mm[Hg] Norris Weiss MA [facility] 5 16:11:58 Date Recorded Respiratory rate Systolic blood pressure Diastolic blood pressure Provider Name and Address Organization Details Last Updated DateTime 12/15/2024 16 /min 130 mm[Hg] 80 mm[Hg] BACILIO Acosta Attn: Accounting, [address] [place], [address] 12/15/2024 16:36:19 Social History Question Answer Notes LastModified by Organizat ion Details LastModified Time Tobacco Smoking Status Never Smoker Salena Loo MA [facility], [facility] 12/08/2023 11:47:56 Do You Have An Advance Directive? No Information not available 12/15/2024 What Is Your Level Of Alcohol Consumption? Occasional Information not available 12/15/2024 Are You Blind Or Do You Have Difficulty Seeing? Yes Information not available 12/15/2024 What Is Your Level Of Caffeine Consumption? Heavy Information not available 12/15/2024 Are You Currently Employed? Yes Information not available 12/15/2024 Are You Deaf Or Do You Have Serious Difficulty Hearing? No Information not available 12/15/2024 What Type Of Diet Are You Following? 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 No Information not available 12/15/2024 What Was The Date Of Your Most Recent Tobacco Screening? 12/15/2024 Information not available 12/15/2024 What Is Your Relationship Status? Single Information not available 12/15/2024 Do You Use Your Seat Belt Or Car Seat Routinely? Yes Information not available 12/15/2024 Do You Have Smoke And Carbon Monoxide Detectors In Your Home? Yes Information not available 12/15/2024 Do You Feel Stressed (tense, Restless, Nervous, Or Anxious, Or Unable To Sleep At Night)? [id number] Information not available 12/15/2024 Do You Use Any Illicit Or Recreational Drugs? No Information not available 12/15/2024 Do You Use Sunscreen Routinely? No Information not available 12/15/2024 Has Tobacco Cessation Counseling Been Provided? No Information not available 12/08/2023 Do You Or Have You Ever Used Any Other Forms Of Tobacco Or Nicotine? No Information not available 12/08/2023 Sex: Unknown Functional Status Question Answer Note LastModified by Organization D etails LastModified Time Are you able to care for yourself? Yes Information not available 12/15/2024 What is your exercise level? Moderate Information not available 12/15/2024 Mental Status None recorded. Family History Relationship Description Onset Age of this Age Resolved Age Notes LastModified by Organization Details LastModified Time Father No current problems or disability [email or web address] Not available 12/07 11:47:49 Mother No current problems or disability [email or web address] Not available 12/07 11:47:49 Medical History No medical history recorded. Gynecological History Statement/Question Response Date of LMP 11/22/2024 Obstetrics History GPAL:G 6 P 4 0 0 4 Type Value Full Term 4 Living 4 Total 6 Immunizations Vaccine Type Date Status Note Provider Nam e and Address Organization Details Recorded Time Influenza, recombinant, quadrivalent, PF 3 completed PORTIA [place], [place] - [facility] 12/15/2024 16:07:34 COVID-19, mRNA, LNP-S, PF, 30 mcg/0.3 mL dose 1 completed Norris Weiss [place], [place] [facility] 12/15/2024 16:07:34 COVID-19, mRNA, LNP-S, PF, 30 mcg/0.3 mL dose 1 completed Norris Weiss [place], [place] [facility] 12/15/2024 16:07:34 Tdap 3 completed Norris Weiss [place], [place] [facility] 12/15/2024 16:07:34 Influenza, split virus, trivalent, preservative 3 completed PORT[place] [facility] 12/15/2024 16:07:34 Influenza, split virus, quadrivalent, PF 0 completed [place] [facility] 12/15/2024 16:07:34 Influenza, split virus, quadrivalent, PF 8 completed [place] [facility] 12/15/2024 16:07:34 Influenza, split virus, quadrivalent, PF 9 completed PORT[place] [facility] 12/15/2024 16:07:34 Past Encounters Encounter ID Performer Location Encounter Start Date Encounter Closed Date Diagnosis/Indication Diagnosis SNOMED-CT Code Diagnosis ICD10 Code Diagnosis Note [id number] Jesus Crow MD [facility] [address] [place] [address] 12/08/2023 11:26:16 12/08/2023 12:36:49 Adult health examination 531334768 Z00.01 wellness exam completed Benign ess ential hypertension 8411862 I10 start HCTZ 12.5mg daily to help with borderline bp control. Hypothyroidism 33572015 E03.9 on synthroid 75mcg daily and due for labs Hyperlipidemia 80508671 E78.5 on crestor 10mg daily. due for fasting lipids. Long-term drug therapy 107527710 Z79.899 routine cbc, cmp, b12, folate, and iron studies due Prediabetes 442938004 R7 3.03 a1c screening due. on metformin ER 500mg daily Acute left otitis media 187239572 H66.92 start cefdinir 300mg bid course. [id number] Jesus Crow MD [facility] [address] [place] [address] 06/11/2024 15:33:13 06/11/2024 16:27:27 Benign essential hypertension 5778006 I10 Stable on hCTZ 12.5mg daily, BP is 130/84 today Hypothyroidism 56179282 E03.9 on synthroid 75mcg daily and due for labs Prediabetes 655664833 R7 3.03 a1c screening due. on metformin ER 500mg daily and refill given Hyperlipidemia 29506175 E78.5 on crestor 10mg daily. due for fasting lipids. Refill given on medication Long-term drug therapy 999192916 Z79.899 routine cbc, cmp due Feeling stressed 4872251 06 Z73.3 Refill given on alprazolam 0.5 mg 3 times daily as needed for stress/anx [facility] [id number] Jesus Crow MD [facility] [address] [place] [address] 12/15/2024 15:29:14 12/21/2024 12:02:50 Body mass index 30+ - obesity 711002470 Z68.30 bmi 30.7 Obesity 120131883 E66.9 Continue diet and exercise modificati ons Positive s creening for depression on PHQ-9 (Patient Health Questionnaire 9) 1100314410 79936 Z13.31 Patient scored a 7 on screening today. No acute concerns or questions. Uses p.r.n. alprazolam a lot of scoring comes from just stress Benign ess ential hypertension 5402639 I10 Stable on hCTZ 12.5mg daily, BP is 130/80 today Hypothyroidism 75889305 E03.9 on synthroid 50 mcg daily and due for labs Prediabetes 992217447 R7 3.03 a1c screening due. on metformin ER 500mg daily Hyperlipidemia 88431771 E78.5 on crestor 10mg daily. due for fasting lipids. Long-term drug therapy 720360495 Z79.899 routine cbc, cmp due Feeling stressed 9828435 06 Z73.3 Stable on alprazolam 0.5 mg 3 times daily as needed for stress/anx iety [facility] Adult heal th examination 781234102 Z00.01 wellness exam completed Health Concerns Section Related Observation LastModified by Organization Helio diane LastModified Time None Recorded Concern Status LastModified by Organization Details LastModified Time None Recorded Advance Directives Directive N: Payers Encounter Date Sequence Insurance Name Policy Number Policy Ordonez Covered Member ID Ordonez Member ID Guarantor Name 12/08/2023 1 [facility] [id number] Jessie Burleson [id number] Jessie Burleson 06/11/2024 1 [facility] [id number] Jessie Burleson [id number] Jessie Burleson 12/15/2024 1 [facility] [id number] Jessie Burleson [id number] Jessie Burleson Notes Date Note Type Note Provider Name and Address Organization Details Recorded Time 12/08/19 24 text/htm l Anxiety/DepressionReported bypatient.Notes:stable on alprazolam PRN useHyperlipidemiaReported bypatient.Notes:stable on rosuvastatin 10mg daily. due for labsThyroidReported bypatient.Notes:stable on synthroid 75mcg daily. due for labs. Prediabetes: taking metformin therapy, stable. BACILIO Acosta Attn: Accounting,[address] [facility], [place], [address], [facility] 12/20/2023 16:57:39 06/11/20 24 text/htm l Anxiety/DepressionReported bypatient.Notes:stable on alprazolam PRN useHyperlipidemiaReported bypatient.Notes:stable on rosuvastatin 10mg daily. due for labsThyroidReported bypatient.Notes:stable on synthroid 75mcg daily. due for labs. Prediabetes: taking metformin therapy, stable. BACILIO Acosta Attn: Accounting,[address] [facility], [place], [address], [facility] 07/04/2024 00:59:04 12/16/19 25 text/htm l Anxiety/DepressionReported bypatient.Notes:stable on alprazolam PRN useHyperlipidemiaReported bypatient.Notes:stable on rosuvastatin 10mg daily. due for labsThyroidReported bypatient.Notes:stable on synthroid 50mcg daily. due for labs. Prediabetes: taking metformin therapy, stable. BACILIO Acosta Attn: Accounting,[address] [facility], [place], [address], [facility] 01/03/2025 22:21:40 OBGyn Episode No OBEpisode recorded.
--- OUTSIDE RECORDS SUMMARY | 2025-02-07 09:22 | XMS_ITS | Clinical Summary ---
Author Organization [facility] Address [address] [place] [address] Care Team Providers Care Awning Erector Name Role Phone Unavailable Primary Care Provider Unavailabl e Source Comments [facility],non-owned Affiliates and Associated Physician Practices is amultiple site organization consisting of ambulatory clinics and hospital sitesin [place], [place], [place] and [place]. This disclosure is being madepursuant to the Care Everywhere program and may not contain all information available regarding this patient. Last updated 18.[facility] Social History Tobacco Use Types Packs/Day Years Used Date Smoking Tobacco: Never Assessed Comments Unknown Sex and Gender Information Value Date Recorded Sex Assigned at Not on file Legal Sex Female 4:11 PM CDT Gender Identity Not on file Sexual Orientation Not on file Plan of Treatment Health Maintenance Due Date Last Done Comments COLOGUARD (AGES 45-75) - COL ON CA SCREENING 1978 COLON MONITORING 1978 COLONOSCOPY - COLON CA SCREENING 1978 CT COLONOGRAPHY - COLON CA SCREENING 1978 Colorectal Cancer Screening 1978 FIT - COLON CA SCREENING 1978 FLEX SIG - COLON CA SCREENING 1978 LIPID TESTING 1978 MAMMOGRAM 1978 HIV SCREENING 1993 HEPATITIS C SCREENING 07/30/1996 DTAP/TDAP/TD VACCINES (1 - Tdap) 1997 HEPATITIS B VACCINE (1 of 3 - 19+ 3-dose series) 1997 COVID-19 VACCINE ( - 2023-2 5 season) 2024 DEPRESSION SCREENING 10/06/2024 INFLUENZA VACCINE (Season Ended) 2025 ZOSTER VACCINE (1 of 2) 2028 HIB VACCINE Aged Out No longer eligi ble based on patient's age to complete this topic HPV VACCINE Aged Out No longer eligi ble based on patient's age to complete this topic MENINGOCOCCAL (Group B) VACC INE SHARED DECISION-MAKING Aged Out No longer eligibl e based on patient's age to complete this topic MENINGOCOCCAL GROUPS A/C/Y/W VACCINE Aged Out No longer eligible b ased on patient's age to complete this topic PNEUMOCOCCAL VACCINE Aged Out No long er eligible based on patient's age to complete this topic [facility] [place] [id number] [facility]TH
--- OUTSIDE RECORDS SUMMARY | 2025-02-07 09:23 | XMS_ITS | Data Portability ---
Author Organization [facility] Address [address] [place] [address] Assessment Encounter Date Assessment Date Assessment LastModified by Organization Details LastModified Time 11/17/2024 11/17/2024 Annual gynecological exam performed. Patient will come back in a year unless there are new symptoms. [email or web address] Not available 11/17/2024 09:32:45 Plan of Treatment Reminders Order Date Submit Date Provider Last Modified By Organization Details Last Modified Time Details Appointments SURG PRE OP 2024 09:45A Brunilda GLEZ MD Not available Not available Not available Robotic TLH 2024 07:30A Brunilda GLEZ MD Not available Not available Not available SURG POST OP 2024 09:00A Brunilda GLEZ MD Not available Not available Not available Lab hormone panel, serum or plasma 2024 025 [facility] (Lab), [address], [place], [address], 11/10/2024 19:00:23 progester one, serum 2024 025 [facility] (Lab), [address], [place], [address], 11/10/2024 19:00:22 testoster one free/test osterone total, ratio, serum 2024 025 [facility] (Lab), [address], [place], [address], 11/10/2024 19:00:24 prolactin , serum 2024 025 [facility] (Lab), [address], [place], [address], 11/10/2024 19:00:23 Referral None recorded. Procedures None recorded. Surgeries robotic assisted hysterect eligio with salpingec flavio (SURG) 2024 025 [facility], [address], [place], [address], 12/16/2024 11:34:23 Imaging MAMMO, screening , digital, bilateral 2024 025 [facility], [address], [place], [address], 11/23/2024 15:39:21 US, transvagi nal [email or web address] [place] [address], [facility] [address], [place], [address], 11/12/2024 14:13:12 US, transvagi nal 2024 025 [facility], [address], [address], [place], [address], 02/06/2025 04:01:18 Medication Orders doxycycli ne hyclate 100 mg capsule 2023 024 [email or web address] [id number], [address], [place], [place], [id number], 11/04/2024 10:51:32 Patient TargetsNo targets recorded. Patient InstructionsNo instructions recorded. Reason for Referral None Reported. Results Created Date Observation Date Name Description Value Unit Range Abnormal Flag Note LastModifiedBy Organization Detail LastModifiedTime 02/19/20 24 02/19/2024 CULTU RE: AEROB IC/AN AEROB IC culture: aerobic/anae robic CANCEL LED Reord ered Not Available [facility] (Lab) [address], [place], [address], 02/20/2024 06:43:11 02/19/20 24 02/19/2024 HERPE S SIMPL EX VIRUS , TYPE 1 AND 2 MRNA, TMA,S URESW FRANK?? sureswab?, herpes simplex virus, type 1 and 2 MRNA,tma CANCEL LED Wrong Conta iner/ Swab Not Available [facility] (Lab) [address], [place], [address], 02/20/2024 10:03:51 02/19/20 24 02/19/2024 HERPE S SIMPL EX 1 & 2 PCR, LESIO N herpes simplex 1 PCR Not Detect ed not detect ed Not Available [facility] (Lab) [address], [place], [address], 02/23/2024 16:46:22 02/19/20 24 02/19/2024 HERPE S SIMPL EX 1 & 2 PCR, LESIO N herpes simplex 2 PCR Not Detect ed not detect ed Not Available [facility] (Lab) [address], [place], [address], 02/23/2024 16:46:22 02/19/20 24 02/19/2024 CULTU RE: GENIT AL result report SEE RESULT S BELOW Test: Cultu re: Genit al Speci men Sourc e: Vagin a Speci men Type: Swab Speci men Date: 2023 4:18 PM Resul t Date: 2023 3:43 PM Resul t Statu s: Final resul t Resul ting Lab: [facility] [address] [facility] [address] Tel: CULTU RE ----- ----- ----- --- No Neiss eria gonor rhoea e isola jason Moder ate Growt h Catherine l Vagin al Edenilson STAIN ----- ----- ----- --- Alter ed vagin al edenilson , indet ermin ate for bacte rial vagin osis Not Available [facility] (Lab) [address] [place], [address], 02/23/2024 16:46:22 11/04/19 25 11/04/2024 PROGE STERO NE progesterone 0.16 NG/mL This assay was perfo rmed using [employer] ratio n reage nts and test kits. Value s obtai mahesh with other assay metho ds or kits canno t be used inter [facility] . Femal e Proge stero ne Range s: Folli cular phase 0.06- 0.89 ng/mL Ovula tion phase 0.12- 12.00 ng/mL Lutea l phase 1.83- 23.90 ng/mL Postm enopa usal <0.05 -0.13 ng/mL Healt hy Pregn ant Women 1st Trime ster 11.0- 44.30 2nd Trime ster 25.40 -83.3 0 3rd Trime ster 58.70 -214. 00 Not Available [facility] (Lab) [address], [place], [address], 11/10/2024 19:00:22 11/04/19 25 11/04/2024 PROLA CTIN prolactin, total 10.70 NG/mL 4.79-2 3.30 This assay was perfo rmed using [employer] ratio n reage nts and test kits. Value s obtai mahesh with other assay metho ds or kits canno t be used inter [facility] . Not Available [facility] (Lab) [address] [place], [address], 11/10/2024 19:00:23 11/04/19 25 11/04/2024 FSH, LH, ESTRA DIOL estradiol 140.0 pg/mL This assay was perfo rmed using [employer] ratio n reage nts and test kits. Value s obtai mahesh with other assay metho ds or kits canno t be used inter [facility] . Femal e Estra diol Range s: Folli cular phase 12.4- 233 pg/mL Ovula tion phase 41.0- 398 pg/mL Lutea l phase 22.3- 341 pg/mL Postm enopa usal <5-13 8 pg/mL Healt hy Pregn ant Women 1st Trime ster 154-3 243 pg/mL 2nd Trime ster 1561- 75137 pg/mL 3rd Trime ster 8525- >3000 0 pg/mL Not Available [facility] (Lab) [address], [place], [address], 11/10/2024 19:00:23 11/04/19 25 11/04/2024 FSH, LH, ESTRA DIOL FSH 9.7 mIU/m L This assay was perfo rmed using [employer] ratio n reage nts and test kits. Value s obtai mahesh with other assay metho ds or kits canno t be used inter [facility] . Femal es Folli cular : 3.5-1 2.5 mIU/m L Ovula tion: 4.7-2 1.5 mIU/m L Lutea l: 1.7-7 .7 mIU/m L Postm enopa use: 25.8- 134.8 mIU/m L Not Available [facility] (Lab) [address], [place], [address], 11/10/2024 19:00:23 11/04/19 25 11/04/2024 FSH, LH, ESTRA DIOL LH 21.2 mIU/m L This assay was perfo rmed using [employer] ratio n reage nts and test kits. Value s obtai mahesh with other assay metho ds or kits canno t be used inter [facility] . Femal es Mid-F ollic ular: 2.4-1 2.6 mIU/m L Mid-C ycle: 14.0- 95.6 mIU/m L Mid-L uteal : 1.0-1 1.4 mIU/m L Postm enopa use: 7.7-5 8.5 mIU/m L Not Available [facility] (Lab) [address] [place], [address], 11/10/2024 19:00:23 11/04/19 25 11/04/2024 TESTO STERO NE, FREE( DIALY SIS) AND TOTAL (LC/M S/MS) testosterone , total 30 NG/dL 2-45 For addit ional ricki dangelo refer to http: //debby rizo.que stdia gnost ics.c om/fa q/ Total Testo stero neLCM SMSFA Q165 (This link is being provi ded for infor caity nal/ educa laura l purpo ses only. ) This test was devel oped and its roberto tical perfo rmanc e marcella cteri stics have been deter mined by [employer] ostic s [place], [place]. It has not been clear ed or appro lizbet by the U.S. Food and Drug Admin istra tion. This assay has been valid ated pursu ant to the [facility] regul ation s and is used for clini dimitry purpo ses. Not Available [facility] (Lab) [address], [place], [address], 11/10/2024 19:00:24 11/04/19 25 11/04/2024 TESTO STERO NE, FREE( DIALY SIS) AND TOTAL (LC/M S/MS) testosterone , free 3.0 pg/mL 0.1-6. 4 This test was devel oped and its roberto tical perfo rmanc e marcella cteri stics have been deter mined by [employer] ostheena s [place], [place]. It has not been clear ed or appro lizbet by the U.S. Food and Drug Admin istra tion. This assay has been valid ated pursu ant to the CLIA regul ation s and is used for clini dimitry purpo ses. Perfo rming Organ izati on [facility] Hospitalyordan davondavid rizo: Site ID: AMD Name: [employer] kim Luiso ls Insti jamie Addre ss: [id number] [facility] [employer] [place], [place] Direc tor: Ines Flores MD PhD Not Available [facility] (Lab) [address], [place], [address], 11/10/2024 19:00:24 11/17/19 25 11/17/2024 IMAGE GUIDE D PAP AND HPV REGAR DLESS image guided Pap, HPV regardless of Pap result SEE RESULT S BELOW CASE REPOR T: Cytol ogy Gynec ologi dimitry Repor t Case: [id number] Autho sol echevarria Provi kayode: Andressa Lynn, REINIER Colle cted: 11/17 1351 Order ing Locat ion: [place] Patho wandy Recei lizbet: 11/18 0150 First Scree n: Jose bridges, Garett don, CT Rescr een: Ariana Loo, CT Speci men: Ganesh alfonso Pap - Image d, Cervi x STATE MENT OF ADEQU ACY: Satis facto ry for evalu ation Trans forma tion zone compo nent prese nt Parti ally obscu ring infla mmati on prese nt. ----- ----- ----- ----- ----- ----- ----- ----- ----- ----- ----- ----- ----- ----- ----- ----- ----- ---- FINAL DIAGN OSIS: Negat angel for Intra epith elial Lesdavid n or Raphael swift (NIL) . 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 COMME NT: This speci men was revie wed by a Cytot echno logis t and/o r Patho logis t (as indic ated in this repor t) after evalu ation using the Thinp rep Imagi ng Syste m. CLINI DIMITRY INFOR MATIO N: Menst rual Statu s: LMP (if appli cable ): Clini dimitry Histo ry/Pr eviou s Pap: Type of Neopl landen (if appli cable ): Signi fican t Clini dimitry Findi ngs: Other Histo ry: Hormo lexis (if appli cable ): PAP EDUCA LAURA L NOTE: The Pap Test is a scree kaden test with an inher ent false negat angel rate. Liqui d-bas ed sampl ing may decre ase, but will not elimi jose, false negat angel resul ts. A negat angel resul t does not precl ude the prese nce and/o r devel opmen t of disea se, since the prese nce of abnor mal cells in the sampl e depen ds on the locat ion of the lesio n and sampl ing techn ique. Anatoly nued regul ar scree kaden is the best metho d of cance r preve ntion . If repor jason cytol ogic findi ng do not corre late with physi dimitry and/o r histo rical findi ngs, furth er inves tigat ion is recom etienne d, as clini sam matos nted. Not Available [facility] (Lab) [address], [place], [address], 11/21/2024 11:26:15 12/10/19 25 12/09/2024 OVA 1 scan result See Kandy sandy Result Not Available [facility] (Lab) [address], [place], [address], 12/14/2024 10:22:06 12/10/19 25 12/09/2024 EMPOW ER COMPR EHENS ANGEL (2+79 ) report summary NEGATI VE normal Negat angel for 81 out of 81 genes . A varia nt of uncer tain signi fican ce (VUS) was detec jason in the MSH6 gene( s). A VUS means that a bowden e in the DNA was detec jason, but there is not enoug h infor matio n to deter mine wheth er or not the bowden e incre ases the risk of cance r. The Ameri can Colle ge of Medic al Lizzeth ics and Genom ics ([facility] ) state s that VUS shoul d NOT be used in clini dimitry decis ion makin g. Tyrer -Cuzi ck breas t cance r risk asses sment : 12.3% . Pleas e see below for addit ional findi ngs. VUS: Gene: MSH6 , Varia nt: c.375 8T>A (p.V1 253E) Note: A heter ozygo us varia nt of uncer tain signi fican ce (VUS) was detec jason in the MSH6 gene as tabul ated above . Not Available [facility] [address], [place], [address], 12/26/2024 06:51:34 12/10/1912/09/2024 EMPOW ER COMPR EHENS ANGEL (2+79 ) footnotes See Notes CLIA: ID #[id number] 2 Test perfo rmed by [employer]. [address] [place] [address] Mk Mckeon, Ph.D. , [facility] , Labor atory Direc tor Not Available [facility] [address], [place], [address], 12/26/2024 06:51:34 11/11/1911/11/2024 US, trans vagin al No observ ation record ed. [email or web address] [place] [address], [place], [address], 11/11/2024 18:39:43 11/11/19 11/11/2024 US, trans vagin al No observ ation record ed. [email or web address] [address], [place], [address], 11/16/2024 14:13:46 11/23/19 25 11/23/2024 MAMMO , scree kaden, digit al, bilat eral No observ ation record ed. [facility] [address], [place], [address], 11/27/2024 13:09:54 Result Notes None recorded. Problems Name Problem SNOMED Code Status Onset Date Resolution Date Notes Provider Name and Address Organization Details Recorded Time Threaten ed miscarri age 04970359 Completed 201208/22/2021 Threaten ed , antepart um;Pract ice ID: 0001 Leah Lara [facility] 17:42:31 Multigra gabi of advanced maternal age [id number] Completed 201208/22/2021 Other advanced maternal age, antepart um conditio n or complica tion;Pra ctice ID: 0001 Leah Lara [facility], [facility] 17:41:51 Routine antenata l care Completed 201208/22/2021 Supervis ion of other normal pregnanc y;Practi ce ID: 0001 Leah posey, [facility] 17:42:19 Speciali zed medical examinat ion Completed 201208/22/2021 Routine gynecolo gical examinat ion;Prac elias ID: 0001 Leah Lara [facility] 17:42:28 Ultrason ography Completed 201208/22/2021 Antenata l screenin g for malforma tion using ultrason ics;Prac elias ID: 0001 Leah posey [facility] 17:42:33 Antenata l screenin g Completed 201208/22/2021 Antenata l screenin g for malforma tion using ultrason ics;Prac elias ID: 0001 Leahbarbara posey, [facility] 17:40:48 Congenit al malforma tion [id number] Completed 201208/22/2021 Antenata l screenin g for malforma tion using ultrason ics;Prac elias ID: 0001 Leahbarbara Lara [facility], [facility] 17:40:57 Maternal care for diminish ed movement s Completed 201208/22/2021 Decrease d movement s, affectin g manageme nt of mother, antepart um conditio n or complica tion;Pra ctice ID: 0001 Leah Lara [facility] 17:41:46 Dietary manageme nt surveill ance Completed 201208/22/2021 Dietary surveill ance and counseli ng;Pract ice ID: 0001 Leah Lara [facility], [facility] 17:41:01 Uncertai n viabilit y of pregnanc y [id number] Completed 201108/22/2021 PREG W INCONCLU SIVE VIABIL;P ractice ID: 0001 Leah posey [facility] 17:42:34 anatomy study Completed 201108/22/2021 [facility] ANATMC SURVEY;P ractice ID: 0001 Leah Lara [facility] 17:41:13 Missed miscarri age [id number] Completed 201108/22/2021 Missed ;Practic e ID: 0001 Leah posey [facility] 17:41:49 , affectin g manageme nt of mother [id number] Completed 201108/22/2021 Intraute rine , affectin g manageme nt of mother, antepart um;Pract ice ID: 0001 Leah Lara [facility], [facility] 17:41:17 Dysfunct ional uterine bleeding Completed 201108/22/2021 DUB;Prac elias ID: 0001 Leah Lara [facility], [facility] 17:41:03 Noninfla mmatory disorder of the vagina [id number] Completed 201108/22/2021 Other specifie d noninfla mmatory disorder s of vagina;P ractice ID: 0001 Leah Lara [facility], [facility] 17:41:58 Uses oral contrace ption [id number] Completed 201108/22/2021 Surveill ance of contrace ptive pill;Pra ctice ID: 0001 Leah Lara [facility] 17:42:00 Screenin g for malignan t neoplasm of cervix Completed 201208/22/2021 Pap Smear;Pr actice ID: 0001 Leah Jane [facility], [facility] 17:42:21 Vaginiti s and vulvovag initis Completed 201208/22/2021 Vaginiti s and vulvovag initis, unspecif ied;Prac elias ID: 0001 Leah Lara [facility], [facility] 17:42:37 Pregnanc y test positive [id number] Completed 201208/22/2021 Positive Pregnanc y Test;Pra ctice ID: 0001 Leah Lara [facility] 17:42:10 Amenorrh ea [id number] Completed 201208/22/2021 AMENORRH EA;Pract ice ID: 0001 Leah Lara null, [facility] 17:40:46 Glucose toleranc e test during pregnanc y - baby not yet delivere d outside referenc e range 180072102 Completed 201208/22/2021 Gestatat ional Diabetes Antepart um;Pract ice ID: 0001 Leah Lara [facility], [facility] 17:40:41 Excessiv e growth affectin g manageme nt of mother [id number] Completed 201208/22/2021 GROWTH LARGE LGA;Prac elias ID: 0001 Leah Lara [facility], [facility] 17:41:09 Primary focal hyperhid rosis of axilla [id number] 473907 Completed 201808/22/2021 Primary focal hyperhid rosis, axilla;P ractice ID: 0001 Leah Lara [facility], [facility] 17:42:12 Finding of menstrua l bleeding Completed 201808/22/2021 Excessiv e and frequent menstrua tion with regular cycle;Pr actice ID: 0001 Leah Lara [facility], [facility] 17:41:19 Finding of pattern of menstrua l cycle [id number] Completed 201608/22/2021 Menometr orrhagia ;Recorde d Elsewher e: No Locat ion: Pineda beltrán [facility] S ource: [facility] [employer] Worker jolene: N Practi ce ID: 0001 Fausto lable Time: 06:15:00 PM Leah Lara [facility] 17:41:34 Finding of pattern of menstrua l cycle Completed 201808/22/2021 Other specifie d irregula r menstrua tion;Pra ctice ID: 0001 Leah Lara [facility], [facility] 17:41:22 Procedur e on genitour inary system Completed 201408/22/2021 Encounte r for female steriliz ation;Re corded Elsewher e: No Locat ion: [facility] S ource: [facility] [employer] Worker jolene: N Bev ce ID: 0001 Fausto lable Time: 04:00:00 PM Leah posey [facility] 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 17:42:26 Neoplast ic disease [id number] Completed 201808/22/2021 Neoplasm of unsp behavior of bone, soft tissue, and skin;Pra ctice ID: 0001 Leah posey [facility] 17:41:53 Atypical squamous cells of undeterm ined signific ance on cervical Papanico laou smear [id number] Completed 201608/22/2021 Atyp squam cell of undet signfc cyto smr crvx (ASC-US) ;Recorde d Elsewher e: No Locat ion: [facility] S ource: [employer] Worker jolene: N Bev ce ID: 0001 Fausto lable Time: 08:30:00 AM Leah posey [facility] 1 17:40:52 Past pregnanc y history of gestatio nal diabetes mellitus [id number] Completed 201608/22/2021 Personal history of gestatio nal diabetes ;Recorde d Elsewher e: No Locat ion: [facility] S ource: [employer] [employer] Worker jolene: N Bev ce ID: 0001 Fausto lable Time: 03:21:25 PM Leah posey [facility] 17:41:36 Neoplasm of uncertai n behavior of breast [id number] Completed 201108/22/2021 Neoplasm of uncertai n behavior of breast;R ecorded Elsewher e: No [facility] [employer] Worker jolene: N Jammieti ce ID: 0001 Fausto lable Time: 08:30:00 AM Leah posey [facility] 1 17:41:55 Human papillom avirus deoxyrib onucleic acid detected , high risk on cervical specimen [id number] Completed 201508/22/2021 Cervical high risk HPV DNA test positive ;Recorde d Elsewher e: No [facility]: [employer] Worker jolene: N Jammieti ce ID: 0001 Fausto lable Time: 04:36:45 PM Leah Lara [facility] 1 17:41:43 Postpart um care Completed 201308/22/2021 Post Followup ;Recorde d Elsewher e: No Locat ion: [facility] S ource: EHR [employer] Worker jolene: N Jammieti ce ID: 0001 Fausto lable Time: 01:00:00 PM Leah posey [facility] 1 17:42:05 Right upper quadrant pain [id number] Completed 201208/22/2021 Abdomina l pain, right upper quadrant ;Recorde d Elsewher e: No [facility]: [facility] [employer] Worker jolene: N Jammieti ce ID: 0001 Fausto lable Time: 11:30:00 AM Leah posey [facility] 1 17:42:17 Pelvic and perineal pain [id number] Completed 201508/22/2021 Pelvic and perineal pain;Rec orded Elsewher e: No [facility]: [employer] Worker jolene: N Jammieti ce ID: 0001 Fausto lable Time: 05:00:00 PM Leah Lara null, [facility] 1 17:42:01 Educatio n about sexually transmit jason disease preventi on Completed 201408/22/2021 Counseli ng on STDs;Rec orded Elsewher e: No Locat ion: [facility] S ource: [employer] Worker jolene: N Practi ce ID: 0001 Fausto lable Time: 02:00:00 PM Leah posey, [facility] 1 17:41:05 Emotiona l state finding Completed 201708/22/2021 Anxiety depressi on;Recor ded Elsewher e: No Locat ion: [facility] S ource: [employer]er jolene: N Practi ce ID: 0001 Fausto lable Time: 08:30:00 AM Leah posey, [facility] 1 17:41:07 Postoper ative follow-u p visit Completed 201408/22/2021 Post operativ e follow-u p;Record ed Elsewher e: No Locat ion: [facility] S ource: [employer] Worker jolene: N Practi ce ID: 0001 Fausto lable Time: 04:00:00 PM Leah posey, [facility] 1 17:42:03 Glucose level outside referenc e range [id number] Completed 201408/22/2021 OTHER ABNORMAL GLUCOSE; Recorded Elsewher e: No Locat ion: [facility] S ource: [employer] Worker jolene: N Practi ce ID: 0001 Fausto lable Time: 05:01:47 PM Leah Lara [facility], [facility] 1 17:40:39 Pre-surg shelby evaluati on Completed 201408/22/2021 Pre-oper ative examinat ion, unspecif ied;Geoffrey rded Elsewher e: No Locat ion: [facility] S ource: [employer] Worker jolene: N Practi ce ID: [id number] Fausto lable Time: 04:00:00 PM Leah posey [facility] 17:42:07 Adult health examinat ion Completed 201408/22/2021 ROUTINE MEDICAL EXAM;Rec orded Elsewher e: No Locat ion: [facility] S ource: [employer] Worker jolene: N Practi ce ID: 0001 Fausto lable Time: 04:30:00 PM Leah posey [facility] 17:40:44 Pregnanc y test negative [id number] Completed 201308/22/2021 Pregnanc y examinat ion or test, negative result;R ecorded Elsewher e: No Locat ion: [facility] S ource: [employer] Worker jolene: N Jammieti ce ID: 0001 Fausto lable Time: 01:00:00 PM Leahbarbara posey [facility] 17:42:[address] Concept Completed 201608/22/2021 Encntr for general adult medical exam w/o abnormal findings ;Recorde d Elsewher e: No Locat ion: [facility] S ource: E[employer] Worker jolene: N Jammieti ce ID: 0001 Fausto lable Time: 08:30:00 AM Leahbarbara Lara kalpesh [facility] 17:42:24 History of tubal ligation [id number] Completed 201408/22/2021 Tubal ligation status;P ractice ID: 0001 Leah posey [facility] 17:41:38 Hypertro phic conditio n of skin [id number] Completed 201608/22/2021 Other hypertro phic disorder s of the skin;Pra ctice ID: 0001 Leah Lara null, [facility] 17:41:44 False labor at or after 37 complete d weeks of gestatio n [id number] Completed 201208/22/2021 Other threaten ed labor, antepart um;Pract ice ID: 0001 Leah Jane posey [facility] 17:41:11 Complica tion related to pregnanc y Completed 201208/22/2021 Weight Insuffic ient Antepart um;Pract ice ID: 0001 Leah Jane posey [facility] 17:40:55 Delivery normal [id number] Completed 201208/22/2021 Normal delivery ;Practic e ID: 0001 Leah Jane posey [facility] 17:40:59 Single live from singleto n pregnanc y [id number] Completed 201208/22/2021 Mother with single liveborn ;Practic e ID: 0001 Leah Jane posey [facility] 17:42:23 Problem Notes None recorded. Procedures Surgical History Date Name Laterality Status Provider Name and Address Organization Details Recorded Time 2023 Date of Last Pap Smear completed [facility] 11/04/2024 11:08:43 2022 Date of Last Mammogram completed [facility] 11/04/2024 11:09:33 2020 [facility] 12:01:28 2018 excision of skin tag completed Leahbarbara Lara [facility] 08/23/2021 12:05:34 2016 endometrial biopsy completed [facility] 08/23/2021 12:06:54 2016 excision of skin tag [facility] 08/23/2021 12:06:01 2016 Colposcopy completed Leah Lara [facility] 08/23/2021 10:36:50 2016 Colposcopy completed Leah Lara [facility] 08/23/2021 12:07:46 2014 fluoroscopic hysterosalpingography with contrast [facility] 08/23/2021 12:03:08 Imaging Results Imaging Date Name Status LastModified by Organization Details LastModified Time 11/11/2024 US, transvaginal completed [email or web address] Pineda beltrán [facility] [address], [place], [address], 11/11/2024 18:39:43 11/11/2024 US, transvaginal completed [email or web address], [facility], [place], [address], 11/16/2024 14:13:46 11/23/2024 MAMMO, screening, digital, bilateral completed [facility] [address], [place], [address], 11/27/2024 13:09:54 Procedure Notes None recorded. Medical Equipment None Reported. Allergies No known drug allergies Medications Name Sig Start Date Stop Date Status Note LastModified by Organization Details LastModified Time cyclobenz aprine 10 mg tablet TAKE 1 TABLET BY MOUTH THREE TIMES DAILY NEEDED FOR MUSCLE SPASM 02/18 completed Not Available Not Available Not Available amoxicill in 500 mg capsule TAKE 1 CAPSULE BY MOUTH EVERY 8 HOURS UNTIL ALL TAKEN. 08/22 completed Not Available Not Available Not Available methocarb zoie 500 mg tablet 07/04 completed Not Available Not Available Not Available Aviane 0.1 mg-20 mcg tablet take 1 tablet by oral route every day 02/05 completed Prescrib ed Elsewher e: No Locat ion: Pineda beltrán [facility] M odify By: [email or web address] trick En counter DateTime : 12/17/19 13 10:40:07 AM Not Available Not Available Not Available doxycycli ne hyclate 100 mg capsule TAKE 1 CAPSULE BY MOUTH TWICE DAILY FOR 7 DAYS 11/04 completed Not Available Not Available Not Available naproxen 375 mg tablet TAKE 1 TABLET BY MOUTH TWICE DAILY 10/31 completed Not Available Not Available Not Available tizanidin e 2 mg tablet TAKE 1 TO 2 TABLETS BY MOUTH THREE TIMES DAILY NEEDED 02/18 completed Not Available Not Available Not Available trazodone 50 mg tablet TAKE 1 TO 2 TABLETS BY MOUTH EVERY NIGHT AT BEDTIME FOR SLEEP 11/04 completed Not Available Not Available Not Available triamcino lone acetonide 0.5 % topical cream APPLY A THIN LAYER TO THE ABDOMEN AREA TWICE DAILY DIRECTED 08/22 completed Not Available Not Available Not Available tizanidin e 4 mg tablet TAKE 1 TABLET BY MOUTH EVERY 6 HOURS NEEDED 10/31 completed Not Available Not Available Not Available benzonata te 200 mg capsule TK 1 C PO TID 08/22 completed Not Available Not Available Not Available Loestrin Fe 10/25 (28-Day) 1 mg-20 mcg (21)/75 mg (7) tablet take 1 tablet by oral route every day 05/08 completed Prescrib ed Elsewher e: No Locat ion: [facility] odify By: [email or web address] Beltrán ncoluz DateTime : 04/01/20 16 05:00:00 PM Not Available Not Available Not Available meloxicam 15 mg tablet TAKE 1 TABLET BY MOUTH EVERY DAY active Not Available Not Available No t Available Paxil 20 mg tablet take 1 tablet by oral route every day 08/22 completed Prescrib ed Elsewher e: No Locat ion: [facility] M odify By: tarun norris DateTime : 09/14/20 18 01:55:31 PM Not Available Not Available Not Available prednison e 20 mg tablet TAKE 2 TABLETS BY MOUTH EVERY DAY FOR 5 DAYS 09/11 completed Not Available Not Available Not Available penicilli n V potassium 500 mg tablet 07/04 completed Not Available Not Available Not Available metronida zole 500 mg tablet TAKE 1 TABLET BY MOUTH EVERY 12 HOURS 02/18 completed Not Available Not Available Not Available valacyclo vir 500 mg tablet TAKE 1 TABLET DAILY active Not Available Not Available No t Available Reglan 10 mg tablet take 1 tablet (10MG) by oral route 4 times every day 30 minutes before meals and at bedtime 12/06 completed Prescrib ed Elsewher e: No Locat ion: [facility] odify By: [email or web address] trick En counter DateTime : 10/21/19 14 01:00:00 PM Not Available Not Available Not Available tramadol 50 mg tablet 07/04 completed Not Available Not Available Not Available triamcino lone acetonide 0.1 % topical cream 10/31 completed Not Available Not Available Not Available amoxicill in 500 mg tablet TAKE 1 TABLET BY MOUTH EVERY 8 HOURS UNTIL ALL TAKEN active Not Available Not Available No t Available ketorolac 10 mg tablet 08/22 completed Not Available Not Available Not Available Nexium 20 mg capsule,d elayed release take 1 capsule (20MG) by oral route every day 10/21 completed Prescrib ed Elsewher e: No Locat ion: [facility] odify By: [email or web address] trick En counter DateTime : 06/02/20 13 05:15:00 PM Not Available Not Available Not Available alprazola m 0.5 mg tablet TAKE 1 TABLET BY MOUTH THREE TIMES DAILY active Not Available Not Available No t Available amoxicill in 875 mg tablet TAKE 1 TABLET BY MOUTH EVERY 12 HOURS 11/04 completed Not Available Not Available Not Available alprazola m 0.25 mg tablet TAKE 1/2 TO 1 TABLET BY MOUTH TWICE DAILY NEEDED 09/11 completed Not Available Not Available Not Available Synthroid 25 mcg tablet take 1 tablet by oral route every day 09/11 completed Prescrib ed Elsewher e: Yes Loca tion: [facility] odify By: [email or web address] farr DateTime : 07/20/20 19 03:15:00 PM Not Available Not Available Not Available hydrocodo ne 7.5 mg-acetam inophen 325 mg tablet TAKE ONE TABLET EVERY 4-6 HOURS NEEDED FOR PAIN 11/04 completed Not Available Not Available Not Available Micronor (28) 0.35 mg tablet take 1 tablet by oral route every day 12/06 completed Prescrib ed Elsewher e: No Locat ion: Herminio jerel [facility] odify By: [email or web address] trick En counter DateTime : 10/21/19 14 01:00:00 PM Not Available Not Available Not Available oseltamiv ir 75 mg capsule active Not Available Not Available Not Available Synthroid 75 mcg tablet TAKE 1 TABLET BY MOUTH DAILY IN THE MORNING 02/18 completed Not Available Not Available Not Available Synthroid 50 mcg tablet active Not Available Not Available Not Available estradiol 2 mg tablet TAKE 1 TABLET BY MOUTH EVERY DAY FOR 14 DAYS active Not Available Not Available No t Available diclofena c sodium 75 mg tablet,de layed release 07/04 completed Not Available Not Available Not Available hydroxyzi ne HCl 25 mg tablet 2 tabs po take 2 hours before procedur e and prn for post op nausea 03/30 completed Prescrib ed Elsewher e: No Locat ion: [facility] odify By: [email or web address] trick En counter DateTime : 02/21/20 15 04:29:30 PM Not Available Not Available Not Available diazepam 10 mg tablet po 1-2 hours before the procedur e 03/30 completed Prescrib ed Elsewher e: No Locat ion: [facility] odify By: [email or web address] trick En counter DateTime : 02/21/20 15 04:29:30 PM Not Available Not Available Not Available levofloxa vicente 750 mg tablet 07/04 completed Not Available Not Available Not Available methylpre dnisolone 4 mg tablets in a dose pack FOLLOW PACKAGE DIRECTIO NS 08/22 completed Not Available Not Available Not Available Vitamin D2 1,250 mcg (50,000 unit) capsule take 1 capsule ([id number] ITS) by oral route every week 10/21 completed Prescrib ed Elsewher e: No Locat ion: [facility] odify By: [email or web address] trick En counter DateTime : 07/07/20 13 09:30:43 AM Not Available Not Available Not Available ketorolac 60 mg/2 mL intramusc ular solution bring to the office and given 30 minuntes before procedur e 03/30 completed Prescrib ed Elsewher e: No Locat ion: [facility] odify By: [email or web address] froylan En counter DateTime : 02/21/20 04:29:30 PM Not Available Not Available Not Available Paxil 10 mg tablet take 1 tablet by oral route every day 08/22 completed Prescrib ed Elsewher e: No Locat ion: [facility] odify By: [email or web address] tz Encou nter DateTime : 06/24/20 08:30:00 AM Not Available Not Available Not Available cefdinir 300 mg capsule TAKE 1 CAPSULE BY MOUTH EVERY 12 HOURS 02/18 completed Not Available Not Available Not Available metformin ER 500 mg tablet,ex tended release 24 hr TAKE 1 TABLET BY MOUTH EVERY DAY AT DINNER active Not Available Not Available No t Available amoxicill in 875 mg-potass ium clavulana te 125 mg tablet TAKE 1 TABLET BY MOUTH EVERY 12 HOURS FOR UTI 10/31 completed Not Available Not Available Not Available cyclobenz aprine 5 mg tablet TAKE 1 TABLET BY MOUTH THREE TIMES DAILY NEEDED FOR SPASMS 11/04 completed Not Available Not Available Not Available rosuvasta tin 5 mg tablet take 1 tablet by oral route every day 08/22 completed Not Available Not Available Not Available rosuvasta tin 10 mg tablet TAKE 1 TABLET BY MOUTH EVERY DAY active Not Available Not Available No t Available nitrofura ntoin monohydra te/macroc rystals 100 mg capsule take 1 capsule (100MG) by oral route every 12 hours with food 07/04 completed Not Available Not Available Not Available chlorhexi dine gluconate 0.12 % mouthwash SWISH 1/2 OZ FOR 30 SECONDS THEN SPIT OUT 2-3 TIMES EVERY DAY active Not Available Not Available No t Available omeprazol e active Not Available Not Available Not Available Fish Oil active Not Available Not Avai lable Not Available valacyclo vir 07/04 completed Not Available Not Available Not Available Paxil 07/04 completed Not Available Not Available Not Available Synthroid 08/22 completed Not Available Not Available Not Available rosuvasta tin 08/22 completed Not Available Not Available Not Available hydrochlo rothiazid e 12.5 mg tablet TAKE 1 TABLET BY MOUTH EVERY DAY 02/18 completed Not Available Not Available Not Available tranexami c acid 650 mg tablet take 2 tablet by oral route 3 times every day during menses 07/04 completed Not Available Not Available Not Available Lysteda 07/04 completed Not Available Not Available Not Available Lo Loestrin Fe 1 mg-10 mcg (24)/10 mcg (2) tablet take 1 tablet by oral route every day 12/31 completed Prescrib ed Elsewher e: Yes [facility] odify By: [email or web address] trick En counter DateTime : 03/30/20 15 04:00:00 PM Not Available Not Available Not Available Triveen-D uo DHA 29 mg-1 mg-400 mg oral pack take 2 by Oral route every day 10/21 completed Prescrib ed Elsewher e: No [facility] By: [email or web address] trick En counter DateTime : 03/15/20 13 04:30:00 PM Not Available Not Available Not Available Vicodin 5 mg-300 mg tablet 2 tabs po 2 hours before the procedur e and 1-2 tabs every 4 hours prn for post op pain 03/30 completed Prescrib ed Elsewher e: No Locat ion: [facility] odify By: [email or web address] trick En counter DateTime : 02/21/20 15 04:29:30 PM Not Available Not Available Not Available COVID-19 test specimen collectio n TEST DIRECTED 10/31 completed Not Available Not Available Not Available Paxlovid 300 mg (150 mg x 2)-100 mg tablets in a dose pack FOLLOW PACKAGE DIRECTIO NS 09/11 completed Not Available Not Available Not Available Vitals Date Recorded Body height Body mass index (BMI) Body weight Systolic blood pressure Diastolic blood pressure Provider Name and Address Organization Details Last Updated DateTime 02/19/2024 154.94 cm 27.6 kg/m2 79889.49 g 134 mm[Hg] 84 mm[Hg] Donna Page [facility] 4 15:29:02 Date Recorded Body height Body mass index (BMI) Body weight Systolic blood pressure Diastolic blood pressure Provider Name and Address Organization Details Last Updated DateTime 11/04/2024 154.94 cm 31.3 kg/m2 72278.9 g 137 mm[Hg] 88 mm[Hg] Ruth Mccormack [facility] 5 11:06:31 Date Recorded Body height Body mass index (BMI) Body weight Systolic blood pressure Diastolic blood pressure Provider Name and Address Organization Details Last Updated DateTime 11/17/2024 154.94 cm 31.5 kg/m2 97491.49 g 127 mm[Hg] 87 mm[Hg] Janet Rosen [facility] 5 09:34:05 Date Recorded Body height Body mass index (BMI) Body weight Systolic blood pressure Diastolic blood pressure Provider Name and Address Organization Details Last Updated DateTime 12/09/2024 154.94 cm 31.2 kg/m2 45260.74 g 134 mm[Hg] 84 mm[Hg] Daina Edgardo [facility] 5 16:37:44 Social History Question Answer Notes LastModified by Organizat ion Details LastModified Time Tobacco Smoking Status Never Smoker Carrington posey, [facility] 10/09/2022 18:19:30 Do You Have An Advance Directive? No [email or web address] Information not available 08/22/2021 What Is Your Level Of Alcohol Consumption? Occasional [email or web address] Information not available 07/04/2020 How Many Years Have You Consumed Alcohol? 20 [email or web address] Information not available 08/22/2021 Are You Blind Or Do You Have Difficulty Seeing? No [email or web address] Information not available 08/22/2021 What Is Your Level Of Caffeine Consumption? Heavy [email or web address] Information not available 08/22/2021 How Much Tobacco Do You Chew? None [email or web address] Information not available 08/22/2021 In The 14 Days Before Symptom Onset, Have You Had Close Contact With A Laboratory-confir med COVID-19 While That Case Was Ill? No [email or web address] Information not available 08/22/2021 In The 14 Days Before Symptom Onset, Have You Had Close Contact With A Person Who Is Under Investigation For COVID-19 While That Person Was Ill? No [email or web address] Information not available 08/22/2021 Have You Been To An Area Known To Be High Risk For COVID-19? No [email or web address] Information not available 08/22/2021 Are You Deaf Or Do You Have Serious Difficulty Hearing? No [email or web address] Information not available 08/22/2021 What Type Of Diet Are You Following? REGULAR [email or web address] Information not available 08/22/2021 What Is The Highest Grade Or Level Of School You Have Completed Or The Highest Degree You Have Received? 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 No [email or web address] Information not available 08/22/2021 Do You Use Protection During Sex? No [email or web address] Information not available 08/22/2021 Do You Use Your Seat Belt Or Car Seat Routinely? Yes [email or web address] Information not available 08/22/2021 Do You Have Smoke And Carbon Monoxide Detectors In Your Home? Yes [email or web address] Information not available 08/22/2021 How Much Tobacco Do You Smoke? No [email or web address] Information not available 08/22/2021 Do You Feel Stressed (tense, Restless, Nervous, Or Anxious, Or Unable To Sleep At Night)? [id number] [email or web address] Information not available 08/22/2021 Do You Use Any Illicit Or Recreational Drugs? No [email or web address] Information not available 08/22/2021 Do You Use Sunscreen Routinely? No [email or web address] Information not available 08/22/2021 Have You Used IV Drugs? No [email or web address] Information not available 08/22/2021 Sex: Unknown Functional Status Question Answer Note LastModified by Organizat ion Details LastModified Time Do you have difficulty walking or climbing stairs? No [email or web address] Information not available 10/09/2022 Are you able to walk? YESWOREST [email or web address] Information not available 08/22/2021 Are you able to care for yourself? Yes [email or web address] Information not available 10/09/2022 Do you have difficulty dressing or bathing? No [email or web address] Information not available 10/09/2022 What is your exercise level? Occasional [email or web address] Information not available 08/22/2021 Mental Status None recorded. Family History Relationship Description Onset Age of this Age Resolved Age Notes LastModified by Organization Details LastModified Time Father No current problems or disability [email or web address] Not available 03/2025 16:21:07 Father Diabetes mellitus [email or web address] Not available 08/23 12:14:17 Mother No current problems or disability [email or web address] Not available 03/2025 16:21:07 Mother Malignant neoplasm of lung 52 [email or web address] Not available 03/2025 16:21:07 Mother Malignant neoplasm of ovary [email or web address] Not available 2024 10:50:16 Maternal Aunt Malignant tumor of breast 75 [email or web address] Not available 03/2025 16:21:07 Maternal Grandmother Malignant tumor of breast [email or web address] Not available 08/23 12:14:10 Maternal Grandfather Malignant neoplasm of lung [email or web address] Not available 2024 10:50:16 Medical History Condition Response Allergies (Food, seasonal, environmental ) N Other N Breast Cancer N Drug/Latex Allergies/Reactions N Blood Transfusion N Dermatologic Disorders N Lung Disease N Defects or Inherited Disease N Breast Problem N Gestational Diabetes N Hematologic disorders N Anesthesia Complications N History of STI Y Deep Vein Thrombosis N Polycystic ovary syndrome N Anxiety Disorder Y Autoimmune disease N Arthritis N Infertility N Polyps N Acid Reflux (GERD) N History of abnormal pap Y Cancer N Stroke N Varicosities N Neurologic/Epilepsy N Endometriosis N High Cholesterol Y Headaches N Fibromyalgia N Kidney Disease N Heart Problems N Kidney or Bladder Problems N Thyroid Problems Y GI Problems N Eating Disorder N Anemia N Art (IVF or FET) N Psychiatric Illness N Ovarian Cancer N Diabetes N Pulmonary (TB, Asthma) N Hepatitis/Liver Disease N No Past Medical History N Eczema N Urinary Tract Infection N Abuse/Domestic Violence N Asthma N Trauma/Violence N Depression/ depression Y Pre-Eclampsia N Hypertension N Osteoporosis N Thrombophilias N Gynecological History Statement/Question Response Date of Last Mammogram 01/14/2023 Flow Heavy Date of LMP 11/25/2024 N Was last menstrual period normal Y STIs/STDs N Date of Last Colonoscopy Unknown Desired Control Method None Abnormal Pap Yes On BCP's at Conception? N Colposcopy 02/06/2017 HPV Vaccine N Duration of Flow (days) 7 Current Control Method Ablation Age at First Child 17 Frequency of Cycle (Q days) 28 Sexually Active? Y Menses Monthly Y Date of DEXA bone scan Age of first menstrual cycle 9 Date of Last Pap Smear 10/31/2023 Sexual Problems? N LMP Approximate N 01/06/2017 Obstetrics History GPAL:G 6 P 4 1 1 4 Type Value Full Term 4 Spontaneous 1 Premature 1 Living 4 Total 6 Past Encounters Encounter ID Performer Location Encounter Start Date Encounter Closed Date Diagnosis/Indication Diagnosis SNOMED-CT Code Diagnosis ICD10 Code Diagnosis Note [id number] Theresa Dennis CNM [place] [address] [address] 07/04/2020 17:11:46 07/04/2020 17:47:35 [id number] Theresa Dennis CNM [place] [address],[place] [address] 08/22/2021 17:15:47 08/22/2021 18:02:42 Menorrhagia 605200187 N92.0 plan us discussed slynd as an option, will f/u by phone Gynecologi c examination [id number] Z01.419 [id number] Jamal Glez MD [place] [address],[place] [address] 08/28/2021 16:39:29 08/28/2021 17:27:09 Menorrhagia 002467234 N92.0 [id number] Jamal Glez MD [place] [address],[place] [address] 10/10/2021 17:46:14 10/11/2021 10:48:14 Menorrhagia 021761933 N92.0 N83.201 [id number] Theresa Dennis CNM [place] [address],[facility] [place] [address] 09/11/2022 17:36:03 09/13/2022 15:54:00 Gynecologic examination 13745959 Z01.419 Z11.51 Herpes simplex 00483391 B00.9 Menorrhagia 470300315 N9 2.0 plan us discussed slynd as an option, will f/u by phone [id number] Jamal Glez MD [place] [address],[place] [address] 10/09/2022 18:18:06 10/10/2022 10:28:21 Dysmenorrhea [id number] N94.6 Menorrhagia 401241623 N9 2.0 N83.201 this patient is a 42-year-ol d female. She has very heavy vaginal bleeding at the time of her menses. She also has severe pain. These are both debilitati ng. They are factoring her quality of life activities daily living. She has longstandi ng very heavy bleeding. Her menses are regular. However, they require double protection . Patient has accidents, getting blood on her bedding and clothing. Is affected work. She changes a pad or tampon every hour. She leaks blood around the pad and tampon. This bleeding has a profound impact on her quality of life and her activities of daily living. We had a lengthy discussion regarding treatment. Talked about medical treatment options and surgical treatment options. Patient has tried and failed office medical treatment. She would like to proceed with definitive surgical treatment. We spent over 40 minutes face-to-fa ce. More than 50% was counseling . We made a decision day to perform surgery. We have agreed to perform robotic assisted hysterecto my with bilateral salpingect eligio for severe menorrhagi a and severe dysmenorrh ea. 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 Genital he rpes simplex [id number] A60.9 [id number] Jamal Glez MD [place] [address],[place] [address] 11/04/2024 10:39:27 11/04/2024 11:54:17 Irregular periods [id number] N92.6 Discussed possible causes of abnormal, irregular bleeding.W e discussed multiple options for menorrhagi a and irregular bleeding including: IUDs, Patch, Ring, Pills, Nexplanon, Lysteda; Endometria l ablation and hysterecto my (requires MD consult). We discussed if any are contraindi cated with her current health Hx.Recomme nded pelvic u/s to evaluate for abnormalit ies. Will check labs for perimenopa use. Patient gets thyroid checked routinely d/t hx of hypothyroi dism and she gets annual labs. Ultrasound follow-up with Dr. Glez to further discuss surgical treatments options for menorrhagi a if symptoms return. [id number] Jamal Glze MD [place] [address],[place] [address] 11/11/2024 16:56:00 11/12/2024 14:13:12 Abnormal uterine bleeding [id number] 9100 N93.9 [id number] DARBY Burrell [place] [address],[place] [address] 11/17/2024 09:16:43 11/17/2024 11:29:00 Gynecologic examination [id number] Z01.419 WWEB - EssurePap - done todaySTI screen - declinedMa mmogram - order givenColon cancer screening - options discussed. Opts to do cologuard, order placedRout ine labs - UTD/PCPRTC in 1 yr or sooner if needed Suggested Calcium with Vitamin D daily. Patient advised to get an annual flu shot in the fall and she could obtain at local pharmacy. Also to obtain TDap vaccinatio n if you have not had one in the last 10 years. Recommend yearly mammograms . Encouraged monthly self breast exams. Encourage safe sexual practices, to use condoms and limit partners if not already in a monogamous relationsh ip. Engage in regular exercise. Avoid tobacco and illicit drugs. This lifestyle behavior pattern will lead to less health conditions and longer life span. If BMI greater than 25 dietary consult advised. All questions have been answered. Screening for malignant neoplasm of breast [id number] Z12.39 Dysmenorrhea [id number] N 94.[address] Glez, pt int in surgical interventi on Family his tory of neoplasm of breast [id number] Z84.89 genetic testing discussedh andout givenif desired can place order Family his tory of malignant neoplasm of ovary [id number] Z80.41 [id number] Jamal Glez MD [place] [address],[place] [address] 12/09/2024 16:20:30 12/09/2024 17:40:22 Menorrhagia [id number] N92.0 N83.201 THIS PATIENT IS A 44-YEAR-OL D FEMALE WHO presents for heavy vaginal bleeding. She has longstandi ng very heavy bleeding. Her menses are regular. However, they require double protection . Patient has accidents, getting blood on her bedding and clothing. Is affected work. She changes a pad or tampon every hour. She leaks blood around the pad and tampon. This bleeding has a profound impact on her quality of life and her activities of daily living. SHE HAS AN ENLARGED HETEROGENE OUS UTERUS THAT APPEARS TO HAVE ADENOMYOSI S TYPE CHANGES. We discussed these findings. I shared images with her. we discussed endometria l ablation and hysterecto my. She would like to proceed with definitive surgical treatment. Discussion of the details we agreed to robotic assisted hysterecto my with bilateral salpingect eligio. She understand s the risks, benefits, and alternativ es to ovarian removal or preservati on. She does have family history of breast cancer. The patient understand s the procedure. The procedure was described to the patient in great detail. the patient also understand s the risks. The risks were also explained in detail. She understand s that injuries May occur during surgery. She understand s these injuries can result in hospitaliz ation, more surgery, and severe illness. She understand s there is risk of hemorrhage and infection. I spent over 40 minutes in the patient's care in total. Health Concerns Section Related Observation LastModified by Organization Detai ls LastModified Time None Recorded Concern Status LastModified by Organization Details LastModified Time None Recorded Advance Directives Directive N: Payers Encounter Date Sequence Insurance Name Policy Number Policy Ordonez Covered Member ID Ordonez Member ID Guarantor Name 02/19/2024 2 [facility] [id number] Jessie Burleson [id number] Jessie R Burleson 02/19/2024 1 [facility] [id number] Jessie Burleson [id number] Jessie R Burleson 11/04/2024 1 [facility] [id number] Jessie Burleson [id number] Jessie R Burleson 11/11/2024 1 [facility] [id number] Jessie Burleson [id number] Jessie R Burleson 11/17/2024 1 [facility] [id number] Jessie Burleson [id number] Jessie R Burleson 12/09/2024 1 [facility] [id number] Jessie Burleson [id number] Jessie R Burleson Notes Date Note Type Note Provider Name and Address Organization Details Recorded Time 4 text/html 43yopresents for vulvar lesion bump on right labia for the past week. Feels similar to ingrown hair/boil. Squeezed it a few days ago and it leaked blood tinged fluid. Tender to touch. - [facility], not currently SAh/o HSV, takes daily valtrex for suppression, states this feels different than previous HSV outbreaks she has had neg n/v/fneg flu-like symptomsneg pelvic painneg d/c, odors, itching DARBY Burrell [address], [place], [address], [place] [facility] 02/19/2024 16:26:42 5 text/html Patient has not had period since August, still having PMS sx closer to when she is supposed to have period. Home tests have been negative, hx of Essure in 2014. Patient states that she has never skipped a period before, and reports history of painful, heavy periods with 28 days cycles. Pt had consult with Dr. Glez in 2022 for possible hysterectomy d/t menorrhagia. Denies vasomotor symptoms. MISSY PANTOJA, REINIER [address], [place], [address], [facility] 11/04/2024 11:52:26 5 text/html Annual GYNReported bypatient.Menstrual cycle:Normal menses Urinary symptoms:No hematuria; No incontinence Vulva:No genital lesion Vagina:Normal vaginal discharge Breast:No breast pain; No breast lump; No nipple discharge Current Contraception:essure Sexual complaints:No sexual complaints; No pain during intercourse; Normal libido Menopausal Symptoms:No menopausal symptoms; Normal vaginal lubrication Psychological symptoms:No depression; No anxiety; No PMDD Preventive measures:Encourage self breast examination; Encourage regular exercise; Encourage no tobacco use; Encourage regular mammograms starting age 38Notes:44yo wweBC - essurelast pap 10/31/2023 : nilm, HPV (-)Periods painful/heavy for the past 2-3 yrs. Has MD consult scheduled with Dr. Glez to discuss surgical options.mammogram - scheduled for this monthhas not had colon cancer screening yet fam hx of mother with ovarian cancer, unknown age at diagnosismaternal aunt and maternal grandmother with BC at unknown age of diagnosis DARBY Burrell [address], [place], [address], [facility] 11/17/2024 11:23:08 5 text/html THIS PATIENT IS A 44-YEAR-OLD FEMALE WHO presents for heavy vaginal bleeding. She has longstanding very heavy bleeding. Her menses are regular. However, they require double protection. Patient has accidents, getting blood on her bedding and clothing. Is affected work. She changes a pad or tampon every hour. She leaks blood around the pad and tampon. This bleeding has a profound impact on her quality of life and her activities of daily living. SHE HAS AN ENLARGED HETEROGENEOUS UTERUS THAT APPEARS TO HAVE ADENOMYOSIS TYPE CHANGES. We discussed these findings. I shared images with her. we discussed endometrial ablation and hysterectomy. She would like to proceed with definitive surgical treatment. Discussion of the details we agreed to robotic assisted hysterectomy with bilateral salpingectomy. She understands the risks, benefits, and alternatives to ovarian removal or preservation. She does have family history of breast cancer. The patient understands the procedure. The procedure was described to the patient in great detail. the patient also understands the risks. The risks were also explained in detail. She understands that injuries May occur during surgery. She understands these injuries can result in hospitalization, more surgery, and severe illness. She understands there is risk of hemorrhage and infection. Jamal Glez MD [address], [place], [address], [facility] 12/09/2024 17:25:08 OBGyn Episode Ob Episode Information Episode Created Date Number of Fetuses Patient Bloodtype Patient rh Status Prepregnancy Weight lbs Domestic Partner Domestic Partner Phone Father Name Hostess Cashier Status 07/04/20 20 1 CLOSED Fetus Data First Name Last Name Admitted to NICU Weight (g) Sex Living Outcome Pediatric Complications Fetus ID Race Codes Race Delivery Type 3600.15 9704 M Full Term 4890 Vaginal Delivery Rohan Calculation Initial Rohan Date Initial Exam Date Initial Exam Provider Initial Ultrasound Date Last Menstrual Period Date Ultra Sound Weeks Gestation 0 Eighteen To Twenty Week Rohan Update Ultra Sound Date Fundal Height At Umbil Quickening Date Ultra Sound Latest Weeks Gestation Final Rohan Confirmed By Final Rohan Confirmed Date Final Rohan Date Ultra Sound Latest Days Gestation 0 0 Menstrual History Last Menstrual Date Menses Monthly On Bcp Conception Prior Menses Frequency Hcg Plus Date Menarche Onset Age Delivery Information Delivery Date Delivery Type Labor Anesthesia Weeks Gestation Incision Type Labor Labor Length Hrs Delivered By Post Complications Tubal Sterilization Discharge Date Comments 7 40 Discharge Information Feeding Method Contraceptive Method Maternal HG B and HCT Levels Ob Episode Information Episode Created Date Number of Fetuses Patient Bloodtype Patient rh Status Prepregnancy Weight lbs Domestic Partner Domestic Partner Phone Father Name Hostess Cashier Status 07/04/20 20 1 CLOSED Fetus Data First Name Last Name Admitted to NICU Weight (g) Sex Living Outcome Pediatric Complications Fetus ID Race Codes Race Delivery Type 4195.72 6 F Full Term 4891 Vaginal Delivery Rohan Calculation Initial Rohan Date Initial Exam Date Initial Exam Provider Initial Ultrasound Date Last Menstrual Period Date Ultra Sound Weeks Gestation 0 Eighteen To Twenty Week Rohan Update Ultra Sound Date Fundal Height At Umbil Quickening Date Ultra Sound Latest Weeks Gestation Final Rohan Confirmed By Final Rohan Confirmed Date Final Rohan Date Ultra Sound Latest Days Gestation 0 0 Menstrual History Last Menstrual Date Menses Monthly On Bcp Conception Prior Menses Frequency Hcg Plus Date Menarche Onset Age Delivery Information Delivery Date Delivery Type Labor Anesthesia Weeks Gestation Incision Type Labor Labor Length Hrs Delivered By Post Complications Tubal Sterilization Discharge Date Comments 6 40 Discharge Information Feeding Method Contraceptive Method Maternal HG B and HCT Levels Ob Episode Information Episode Created Date Number of Fetuses Patient Bloodtype Patient rh Status Prepregnancy Weight lbs Domestic Partner Domestic Partner Phone Father Name Hostess Cashier Status 07/04/20 20 1 CLOSED Fetus Data First Name Last Name Admitted to NICU Weight (g) Sex Living Outcome Pediatric Complications Fetus ID Race Codes Race Delivery Type 4082.32 8 M Full Term 4893 Vaginal Delivery Rohan Calculation Initial Rohan Date Initial Exam Date Initial Exam Provider Initial Ultrasound Date Last Menstrual Period Date Ultra Sound Weeks Gestation 0 Eighteen To Twenty Week Rohan Update Ultra Sound Date Fundal Height At Umbil Quickening Date Ultra Sound Latest Weeks Gestation Final Rohan Confirmed By Final Rohan Confirmed Date Final Rohan Date Ultra Sound Latest Days Gestation 0 0 Menstrual History Last Menstrual Date Menses Monthly On Bcp Conception Prior Menses Frequency Hcg Plus Date Menarche Onset Age Delivery Information Delivery Date Delivery Type Labor Anesthesia Weeks Gestation Incision Type Labor Labor Length Hrs Delivered By Post Complications Tubal Sterilization Discharge Date Comments 3 39 Discharge Information Feeding Method Contraceptive Method Maternal HG B and HCT Levels Ob Episode Information Episode Created Date Number of Fetuses Patient Bloodtype Patient rh Status Prepregnancy Weight lbs Domestic Partner Domestic Partner Phone Father Name Hostess Cashier Status 07/04/20 20 1 CLOSED Fetus Data First Name Last Name Admitted to NICU Weight (g) Sex Living Outcome Pediatric Complications Fetus ID Race Codes Race Delivery Type , Spontane ous 4892 Rohan Calculation Initial Rohan Date Initial Exam Date Initial Exam Provider Initial Ultrasound Date Last Menstrual Period Date Ultra Sound Weeks Gestation 0 Eighteen To Twenty Week Rohan Update Ultra Sound Date Fundal Height At Umbil Quickening Date Ultra Sound Latest Weeks Gestation Final Rohan Confirmed By Final Rohan Confirmed Date Final Rohan Date Ultra Sound Latest Days Gestation 0 0 Menstrual History Last Menstrual Date Menses Monthly On Bcp Conception Prior Menses Frequency Hcg Plus Date Menarche Onset Age Delivery Information Delivery Date Delivery Type Labor Anesthesia Weeks Gestation Incision Type Labor Labor Length Hrs Delivered By Post Complications Tubal Sterilization Discharge Date Comments 1 Discharge Information Feeding Method Contraceptive Method Maternal HG B and HCT Levels Ob Episode Information Episode Created Date Number of Fetuses Patient Bloodtype Patient rh Status Prepregnancy Weight lbs Domestic Partner Domestic Partner Phone Father Name Hostess Cashier Status 07/04/20 20 1 CLOSED Fetus Data First Name Last Name Admitted to NICU Weight (g) Sex Living Outcome Pediatric Complications Fetus ID Race Codes Race Delivery Type 4053.75 1704 F Full Term 4894 Vaginal Delivery Rohan Calculation Initial Rohan Date Initial Exam Date Initial Exam Provider Initial Ultrasound Date Last Menstrual Period Date Ultra Sound Weeks Gestation 0 Eighteen To Twenty Week Rohan Update Ultra Sound Date Fundal Height At Umbil Quickening Date Ultra Sound Latest Weeks Gestation Final Rohan Confirmed By Final Rohan Confirmed Date Final Rohan Date Ultra Sound Latest Days Gestation 0 0 Menstrual History Last Menstrual Date Menses Monthly On Bcp Conception Prior Menses Frequency Hcg Plus Date Menarche Onset Age Delivery Information Delivery Date Delivery Type Labor Anesthesia Weeks Gestation Incision Type Labor Labor Length Hrs Delivered By Post Complications Tubal Sterilization Discharge Date Comments 0 40 Discharge Information Feeding Method Contraceptive Method Maternal HG B and HCT Levels Ob Episode Information Episode Created Date Number of Fetuses Patient Bloodtype Patient rh Status Prepregnancy Weight lbs Domestic Partner Domestic Partner Phone Father Name Hostess Cashier Status 07/04/20 20 1 CLOSED Fetus Data First Name Last Name Admitted to NICU Weight (g) Sex Living Outcome Pediatric Complications Fetus ID Race Codes Race Delivery Type Demise 4895 Rohan Calculation Initial Rohan Date Initial Exam Date Initial Exam Provider Initial Ultrasound Date Last Menstrual Period Date Ultra Sound Weeks Gestation 0 Eighteen To Twenty Week Rohan Update Ultra Sound Date Fundal Height At Umbil Quickening Date Ultra Sound Latest Weeks Gestation Final Rohan Confirmed By Final Rohan Confirmed Date Final Rohan Date Ultra Sound Latest Days Gestation 0 0 Menstrual History Last Menstrual Date Menses Monthly On Bcp Conception Prior Menses Frequency Hcg Plus Date Menarche Onset Age Delivery Information Delivery Date Delivery Type Labor Anesthesia Weeks Gestation Incision Type Labor Labor Length Hrs Delivered By Post Complications Tubal Sterilization Discharge Date Comments 2 demise Discharge Information Feeding Method Contraceptive Method Maternal HG B and HCT Levels
--- OUTSIDE RECORDS SUMMARY | 2025-02-07 09:23 | XMS_ITS | CONTINUITY OF CARE DOCUMENT ---
Author Name isra dhaliwal Address Unknown Organization [facility] Address [address] [place] [address] Phone [phone] Care Team Providers Care Air Brake Tester Name Role Phone isra dhaliwal Unavailable Unavailable INSURANCE PROVIDERS Payer name Policy type / Coverage type [place] red green party ID [facility] [id number]
--- OUTSIDE RECORDS SUMMARY | 2025-02-07 09:23 | XMS_ITS | Data Portability ---
Author Organization [place] [facility] [place], Main Office Address [address] [place] [address] Assessment No assessment recorded. Plan of Treatment Reminders Order Date Submit Date Provider Last Modified By Organization Details Last Modified Time Details Appointments None recorded. Lab CBC w/ auto diff 2022 [address] [place] [id number] [facility], [address], [address], [place], [address], 3 15:08:18 urinalysis complete, reflex culture 2022 [address] [place] [address] [facility], 2022 [address]ena, [address], [place], [address], 3 15:08:18 CMP, serum or plasma 2022 [address] [place] [address] [facility], 2022 Louis[address], [place], [address], 3 15:08:18 TSH + free T4, serum 2022 023 JO[place]QUIN [facility], 2022 [address], [address], [place], [address], 3 14:21:23 T3, free, serum or plasma 2022 [address] [place] [address] [facility], 2022 Louis[address] Mena, [address], [place], [address], 3 15:08:17 lipid panel, serum 2022 023 [email or web address] [address] [facility], 2022 Louisa Mena, [address], [place], [address], 3 15:08:17 Referral None recorded. Procedures None recorded. Surgeries None recorded. Imaging None recorded. Medication Orders doxycycline hyclate 100 mg capsule 2022 023 [facility] #[id number], [address] [facility], [place], [place], [id number], 3 17:12:17 triamcinolo ne acetonide 0.1 % topical cream 2022 023 [facility] #[id number], [address] [facility], [place], [place], [id number], 3 17:12:19 Patient TargetsNo targets recorded. Patient InstructionsNo instructions recorded. Reason for Referral None Reported. Results Created Date Observation Date Name Description Value Unit Range Abnormal Flag Note LastModifiedBy Organization Detail LastModifiedTime 02/09/20 22 02/09/2022 TRIIO DOTHY ANABELA E (T3), FREE triiodothyro nine (T3), free 3.2 pg/mL 2.0-4. 4 Not Available [facility] ([facility]) [address] [facility], [place], [address], 02/09/2022 05:09:49 02/09/20 22 02/09/2022 HEMOG LOBIN A1C hemoglobin A1C 5.8 % 4.8-5. 6 above high normal Predi abete s: 5.7 - 6.4 Diabe glory: >6.4 Glyce corrine contr ol for adult s with diabe glory: <7.0 Not Available [facility] ([facility]) [address] [facility], [place], [address], 02/09/2022 05:09:48 02/09/20 22 02/09/2022 LIPID PANEL WITH LDL/H DL RATIO cholesterol, total 162 mg/dL 100-19 9 Not Available [facility] ([facility]) [address] [facility], [place], [address], 02/09/2022 05:09:48 02/09/20 22 02/09/2022 LIPID PANEL WITH LDL/H DL RATIO LDL chol calc ([facility]) 98 mg/dL 0-99 Not Available [facility] ([facility]) [address], [place], [address], 02/09/2022 05:09:48 02/09/20 22 02/09/2022 LIPID PANEL WITH LDL/H DL RATIO triglyceride s 87 mg/dL 0-149 Not Available [facility] ([facility]) [address] [facility], [place], [address], 02/09/2022 05:09:48 02/09/20 22 02/09/2022 LIPID PANEL WITH LDL/H DL RATIO HDL cholesterol 48 mg/dL >39 Not Available [facility] ([facility]) [address] [facility], [place], [address], 02/09/2022 05:09:48 02/09/20 22 02/09/2022 LIPID PANEL WITH LDL/H DL RATIO VLDL cholesterol maritza 16 mg/dL 5-40 Not Available [facility] ([facility]) [address] [place], [address], 02/09/2022 05:09:48 02/09/20 22 02/09/2022 LIPID PANEL WITH LDL/H DL RATIO comment: oncology rep specialist Not Available [facility] ([facility]) [address], [place], [address], 02/09/2022 05:09:48 02/09/20 22 02/09/2022 LIPID PANEL WITH LDL/H DL RATIO LDL/HDL ratio 2.0 ratio 0.0-3. 2 LDL/H DL Ratio Men Women 1/2 Avg.R isk 1.0 1.5 Avg.R isk 3.6 3.2 2X Avg.R isk 6.2 5.0 3X Avg.R isk 8.0 6.1 Not Available [facility] ([facility]) [address] [place], [address], 02/09/2022 05:09:48 02/09/20 22 02/09/2022 TSH+F REE T4 TSH 0.446 uIU/m L 0.450- 4.500 below low normal Not Available [facility] ([facility]) [address] [place], [address], 02/09/2022 05:09:48 02/09/20 22 02/09/2022 TSH+F REE T4 T4,free(dire ct) 1.28 NG/dL 0.82-1 .77 Not Available [facility] ([facility]) [address] [place], [address], 02/09/2022 05:09:48 02/09/20 22 02/09/2022 CMP14 +EGFR eGFR 100 mL/mi n/1.7 3 >59 Not Available [facility] ([facility]) [address] [place], [address], 02/09/2022 05:09:47 02/09/20 22 02/09/2022 CMP14 +EGFR glucose 114 mg/dL 65-99 above high normal Not Available [facility] ([facility]) [address] [place], [address], 02/09/2022 05:09:47 02/09/20 22 02/09/2022 CMP14 +EGFR BUN 11 mg/dL 6-24 Not Available [facility] ([facility]) [address] [place], [address], 02/09/2022 05:09:47 02/09/20 22 02/09/2022 CMP14 +EGFR creatinine 0.76 mg/dL 0.57-1 .00 Not Available [facility] ([facility]) [address] [place], [address], 02/09/2022 05:09:47 02/09/20 22 02/09/2022 CMP14 +EGFR BUN/creatini ne ratio 14 9-23 Not Available [facility] ([facility]) [address] [place], [address], 02/09/2022 05:09:47 02/09/20 22 02/09/2022 CMP14 +EGFR sodium 138 mmol/ L 134-14 4 Not Available [facility] ([facility]) [address] [place], [address], 02/09/2022 05:09:47 02/09/20 22 02/09/2022 CMP14 +EGFR potassium 4.8 mmol/ L 3.5-5. 2 Not Available [facility] ([facility]) [address] [place], [address], 02/09/2022 05:09:47 02/09/20 22 02/09/2022 CMP14 +EGFR chloride 101 mmol/ L 96-106 Not Available [facility] ([facility]) [address] [place], [address], 02/09/2022 05:09:47 02/09/20 22 02/09/2022 CMP14 +EGFR carbon dioxide, total 20 mmol/ L 20-29 Not Available [facility] ([facility]) [address] [place], [address], 02/09/2022 05:09:47 02/09/20 22 02/09/2022 CMP14 +EGFR calcium 9.8 mg/dL 8.7-10 .2 Not Available [facility] ([facility]) [address] [place], [address], 02/09/2022 05:09:47 02/09/20 22 02/09/2022 CMP14 +EGFR protein, total 7.1 g/dL 6.0-8. 5 Not Available [facility] ([facility]) [address] [place], [address], 02/09/2022 05:09:47 02/09/20 22 02/09/2022 CMP14 +EGFR albumin 5.0 g/dL 3.8-4. 8 above high normal Not Available [facility] ([facility]) [address] [place], [address], 02/09/2022 05:09:47 02/09/20 22 02/09/2022 CMP14 +EGFR globulin, total 2.1 g/dL 1.5-4. 5 Not Available [facility] ([facility]) [address] [place], [address], 02/09/2022 05:09:47 02/09/20 22 02/09/2022 CMP14 +EGFR A/G ratio 2.4 1.2-2. 2 above high normal Not Available [facility] ([facility]) [address] [place], [address], 02/09/2022 05:09:47 02/09/20 22 02/09/2022 CMP14 +EGFR bilirubin, total 0.3 mg/dL 0.0-1. 2 Not Available [facility] ([facility]) [address] [place], [address], 02/09/2022 05:09:47 02/09/20 22 02/09/2022 CMP14 +EGFR alkaline phosphatase 115 IU/L 44-121 Not Available [facility] ([facility]) [address] [place], [address], 02/09/2022 05:09:47 02/09/20 22 02/09/2022 CMP14 +EGFR AST (SGOT) 36 IU/L 0-40 Not Available [facility] ([facility]) [address] [place], [address], 02/09/2022 05:09:47 05/06/20 22 02/09/2022 CMP14 +EGFR ALT (SGPT) 49 IU/L 0-32 above high normal Not Available [facility] ([facility]) [address] [facility], [place], [address], 02/09/2022 05:09:47 01/15/20 23 04/16/2021 MAMMO , scree kaden, digit al, bilat eral No observ ation record ed. BARCODE Not Available 2022 15:36:19 01/15/20 23 07/08/2022 MAMMO , scree kaden, digit al, bilat eral No observ ation record ed. BARCODE Not Available 2022 15:37:47 Result Notes None recorded. Problems Name Problem SNOMED Code Status Onset Date Resolution Date Notes Provider Name and Address Organization Details Recorded Time Abnormal weight gain 371426161 Active Not Available [facility] 3 02:48:40 Generalized headache 115623380 Active Not Available [facility] 3 02:48:40 Nausea and vomiting 98365361 Active Not Available [facility] 3 02:48:40 Pain of joint of wrist 955760551 Active Not Available [facility] 3 02:48:40 Feeling stressed 820950382 Active Not Available [facility] 3 02:48:40 Muscle tension 157334882 Active Not Available [facility] 3 02:48:40 Eruption 536709332 Active Not Available [facility] 3 02:48:41 Right upper quadrant pain 046073593 Active Not Available [facility] 3 02:48:41 Vitamin D deficiency 85717572 Active Not Available [facility] 3 02:48:41 Hypothyroidis m 30977595 Active 2020 Not Available [facility] 3 02:48:41 Anxiety 03274522 Active Not Available [facility] 3 02:48:41 Flood red spot 65118770 Active 2022 Not Available [facility] 3 02:48:41 Cough 61617967 Active Not Available [facility] 3 02:48:41 Hyperlipidemi a 00563319 Active Not Available [facility] 3 02:48:41 Referred pain 2401766 Active Not Available [facility] 3 02:48:41 Strain of thoracic region 93411341 Active Not Available [facility] 3 02:48:41 Common cold 72324424 Active Not Available [facility] 3 02:48:41 COVID-19 240835314 Active 2021 Not Available [facility] 3 02:48:41 Fatigue 86308955 Active Not Available [facility] 3 02:48:41 Impaired glucose tolerance 0493308 Active 2021 Not Available [facility] 3 02:48:42 Skin lesion 94114210 Active 2022 Not Available [facility] 3 02:48:42 Folliculitis 83034580 Active 2022 BACILIO Acosta [address] [facility], [address], [address] , [employer] 3 17:11:24 Acute urinary tract infection 315263498 Active 2022 BACILIO Acosta [address] [facility], [place] [address], [place], [address] , [employer] 3 08:36:04 Problem Notes None recorded. Procedures Surgical History Date Name Laterality Status Provider Name and Address Organization Details Recorded Time Orthopedic Surgery completed Not Available [facility] 12/04/2022 02:42:54 Imaging Results Imaging Date Name Status LastModified by Organiz ation Details LastModified Time 04/16/2021 MAMMO, screening, digital, bilateral completed [facility] Information not available 01/14/2023 15:36:19 07/08/2022 MAMMO, screening, digital, bilateral completed [facility] Information not available 01/14/2023 15:37:47 Procedure Notes None recorded. Medical Equipment None Reported. Allergies No known drug allergies Medications Name Sig Start Date Stop Date Status Note LastModified by Organization Details LastModified Time celecoxib 200 mg capsule 01/05 completed Not Available Not Available Not Available cyclobenza blair 10 mg tablet TK 1 T PO TID PRN active Not Available Not Available No t Available amoxicilli n 500 mg capsule 11/20 completed Not Available Not Available Not Available methocarba mol 500 mg tablet 12/30 completed Not Available Not Available Not Available hydrocodon e 7.5 mg-ibuprof en 200 mg tablet active Not Available Not Available Not Available prednisone 10 mg tablet TAKE 8 TABS/DAY X2 DAYS, 6 TABS/DAY X 2 DAYS, 4 TABS/DAY X 2 DAYS, THEN 1/2 TAB/DAY X 8 DAYS 05/14 completed Not Available Not Available Not Available doxycyclin e hyclate 100 mg capsule TAKE 1 CAPSULE BY MOUTH TWICE DAILY active Not Available Not Available No t Available paroxetine 10 mg tablet TAKE 1 TABLET BY MOUTH EVERY DAY 01/05 completed Not Available Not Available Not Available naproxen 375 mg tablet active Not Available Not Available Not Available ipratropiu m 0.5 mg-albuter ol 3 mg (2.5 mg base)/3 mL nebulizati on soln VVN Q 6 H PRF SOB 03/15 completed Not Available Not Available Not Available triamcinol one acetonide 0.5 % topical cream APPLY A THIN LAYER TO THE Abdomen area BY TOPICAL ROUTE 2 TIMES PER DAY active Not Available Not Available No t Available cetirizine 10 mg tablet TK 1 T PO D 03/15 completed Not Available Not Available Not Available tizanidine 4 mg tablet TAKE 1 TABLET BY MOUTH EVERY 6 HOURS NEEDED active Not Available Not Available No t Available benzonatat e 200 mg capsule TK 1 C PO TID active Not Available Not Available No t Available hydrocodon e 5 mg-acetami nophen 325 mg tablet 03/10 completed Not Available Not Available Not Available phenazopyr idine 200 mg tablet active Not Available Not Available No t Available Medrol (Edison) 4 mg tablets in a dose pack use as directed active Not Available Not Available No t Available prednisone 20 mg tablet TAKE 2 TABLETS BY MOUTH EVERY DAY FOR 5 DAYS 06/28 completed Not Available Not Available Not Available prednisone 5 mg tablet 05/15 completed Not Available Not Available Not Available clobetasol 0.05 % topical cream APPLY TO AFFECTED AREA TWICE A DAY NEEDED TO HANDS 03/15 completed Not Available Not Available Not Available clindamyci n HCl 150 mg capsule 03/10 completed Not Available Not Available Not Available penicillin V potassium 500 mg tablet 12/30 completed Not Available Not Available Not Available valacyclov ir 500 mg tablet TK 1 T PO QD active Not Available Not Available No t Available ciprofloxa vicente 500 mg tablet active Not Available Not Available Not Available sulfametho xazole 800 mg-trimeth oprim 160 mg tablet Take 1 tablet every 12 hours by oral route. 03/24 completed Not Available Not Available Not Available tramadol 50 mg tablet TK 1 T PO Q 6 H PRF PAIN 01/05 completed Not Available Not Available Not Available triamcinol one acetonide 0.1 % topical cream APPLY A THIN LAYER TO THE AFFECTED AREA(S) of leg BY TOPICAL ROUTE 2 TIMES PER DAY active Not Available Not Available No t Available amoxicilli n 500 mg tablet TK 1 T PO Q 8 H TAT active Not Available Not Available No t Available ketorolac 10 mg tablet TAKE 1 TABLET BY MOUTH EVERY 6 HOURS WITH MEALS FOR 5 DAYS active Not Available Not Available No t Available levothyrox ine 75 mcg tablet TAKE 1 TABLET DAILY IN THE MORNING 2022 active Not Available Not Available Not Avai lable Kenalog 40 mg/mL suspension for injection Take 2 mL by injection route. 03/24 completed [facility]# [id number] [phone] Not Available Not Available Not Available cyprohepta dine 4 mg tablet TAKE 1 TABLET BY MOUTH TWICE A DAY FOP 3 WEEKS 05/15 completed Not Available Not Available Not Available alprazolam 0.5 mg tablet TAKE 1 TABLET BY MOUTH TWICE DAILY NEEDED 2022 active Not Available Not Available Not Avai lable amoxicilli n 875 mg tablet TAKE 1 TABLET BY MOUTH TWICE DAILY FOR 10 DAYS 06/28 completed Not Available Not Available Not Available alprazolam 0.25 mg tablet TAKE 1/2 TO 1 TABLET BY MOUTH TWICE DAILY NEEDED 07/02 completed Not Available Not Available Not Available famotidine 20 mg tablet Take by oral route as needed for 10 days. 05/15 completed Not Available Not Available Not Available methocarba mol 750 mg tablet Take 1 tablet every 4-6 hours by oral route as needed. 11/03 completed Not Available Not Available Not Available Kenalog 10 mg/mL suspension for injection In office injection administe red by the provider 06/25 completed [facility]: [phone] Not Available Not Available Not Available hydrocodon e 7.5 mg-acetami nophen 325 mg tablet TAKE 1 TABLET BY MOUTH EVERY 6 HOURS NEEDED FOR PAIN. 06/25 completed Not Available Not Available Not Available cephalexin 500 mg capsule active Not Available Not Available Not Available paroxetine 20 mg tablet TAKE 1 TABLET BY MOUTH EVERY DAY 01/05 completed Not Available Not Available Not Available prednisone 50 mg tablet 03/24 completed Not Available Not Available Not Available Synthroid 50 mcg tablet TK 1 T PO QD IN THE MORNING 12/07 completed Not Available Not Available Not Available diclofenac sodium 75 mg tablet,del ayed release TK 1 T PO BID WC active Not Available Not Available No t Available hydroxyzin e HCl 25 mg tablet Take 1 tablet every day by oral route at bedtime. active Not Available Not Available No t Available mupirocin 2 % topical ointment 05/15 completed Not Available Not Available Not Available diazepam 10 mg tablet active Not Available Not Available Not Available ibuprofen 600 mg tablet active Not Available Not Available Not Available levofloxac in 750 mg tablet Take 1 tablet every day by oral route for 5 days. 12/30 completed Not Available Not Available Not Available ketorolac 60 mg/2 mL intramuscu lar solution active Not Available Not Available Not Available ondansetro n 4 mg disintegra ting tablet active Not Available Not Available Not Available cefdinir 300 mg capsule Take 1 capsule every 12 hours by oral route. active Not Available Not Available No t Available fluticason e propionate 50 mcg/actuat ion nasal spray,susp ension 03/15 completed Not Available Not Available Not Available metformin ER 500 mg tablet,ext ended release 24 hr TAKE 1 TABLET DAILY AT DINNER 2022 active Not Available Not Available Not Avai lable Sudafed 12 Hour 120 mg tablet,ext ended release Take 1 tablet every day by oral route. 03/24 completed as needed . Not Available Not Available Not Available naproxen 500 mg tablet TK 1 T PO BID WF 03/15 completed Not Available Not Available Not Available amoxicilli n 875 mg-potassi um clavulanat e 125 mg tablet TK 1 T PO Q 12 H for UTI active Not Available Not Available No t Available Ventolin HFA 90 mcg/actuat ion aerosol inhaler INL 2 PFS PO Q 6 H PRF SOB 03/15 completed Not Available Not Available Not Available escitalopr am 10 mg tablet TAKE 1 TABLET DAILY active Not Available Not Available No t Available escitalopr am 20 mg tablet TAKE 1 TABLET BY MOUTH EVERY DAY 01/12 completed Not Available Not Available Not Available cyclobenza blair 5 mg tablet Take 1 tablet every day by oral route at bedtime. active Not Available Not Available No t Available rosuvastat in 5 mg tablet TK 1 T PO QD IN THE PHYLLIS 09/20 completed takes every other day Not Available Not Available Not Available rosuvastat in 10 mg tablet TAKE 1 TABLET DAILY 2022 active Not Available Not Available Not Avai lable nitrofuran toin monohydrat e/macrocry stals 100 mg capsule TK 1 C PO Q 12 H 12/30 completed Not Available Not Available Not Available hydrocodon e 5 mg-acetami nophen 300 mg tablet active Not Available Not Available No t Available lidocaine (PF) 10 mg/mL (1 %) injection solution In office injection administe red by the provider 06/25 completed [facility]: [phone] Not Available Not Available Not Available Gildess FE 10/25 (28) 1 mg-20 mcg (21)/75 mg (7) tablet 05/15 completed Not Available Not Available Not Available tranexamic acid 650 mg tablet 12/30 completed Not Available Not Available Not Available Lo Loestrin Fe 1 mg-10 mcg (24)/10 mcg (2) tablet active Not Available Not Available Not Available [facility]ic[facility] spacer U UTD 03/15 completed Not Available Not Available Not Available Virtussin AC 10 mg-100 mg/5 mL oral liquid TK 5 TO 10 ML PO Q 6 H PRN COU 08/13 completed Not Available Not Available Not Available Mucus Relief D (pseudoeph ed) 60 mg-600 mg tablet,ext ended release TK 1 T PO BID 03/15 completed Not Available Not Available Not Available Fluzone Quad (PF) 60 mcg (15 mcg x 4)/0.5 mL IM syringe PHARMACIS T ADMINISTE RED IMMUNIZAT ION ADMINISTE RED AT TIME OF DISPENSIN G 12/30 completed Not Available Not Available Not Available COVID-19 test specimen collection TEST DIRECTED 07/19 completed Not Available Not Available Not Available Fluzone Quad (PF) 60 mcg (15 mcg x 4)/0.5 mL IM syringe PHARMACIS T ADMINISTE RED IMMUNIZAT ION ADMINISTE RED AT TIME OF DISPENSIN G 06/23 completed Not Available Not Available Not Available Paxlovid 300 mg (150 mg x 2)-100 mg tablets in a dose pack 300 mg nirmatrel vir (two 150 mg tablets) with 100 mg ritonavir (one 100 mg tablet) with all three tablets taken together orally twice daily for 5 days. do not take rosuvasta tin 7 days active Not Available Not Available No t Available Vitals Date Recorded Body height Body temperature Body mass index (BMI) Body weight Heart rate Oxygen saturation Oxygen saturation in Arterial blood by Pulse oximetry Systolic blood pressure Diastolic blood pressure Provider Name and Address Organization Details Last Updated DateTime 3 154.94 cm 97.5 [degF] 30.6 kg/m2 77514.9 6 g 101 /min 98 % 98 % 116 mm[Hg] 74 mm[Hg] Breanna Disla RN [place] - [employer] [facility] 3 16:46:02 Date Recorded Body mass index (BMI) Body height Pain severity - 0-10 verbal numeric rating [Score] - Reported Body weight Provider Name and Address Organization Details Last Updated DateTime 11/20/2021 31.2 kg/m2 154.94 cm 2 94579.74 g Not Available [facility] 12/04/2022 02:46:42 Date Recorded Body mass index (BMI) Body height Oxygen saturation Oxygen saturation in Arterial blood by Pulse oximetry Heart rate Respiratory rate Body temperature Body weight Systolic blood pressure Diastolic blood pressure Provider Name and Address Organization Details Last Updated DateTime 2 32.4 kg/m2 154.94 cm 97 % 97 % 73 /min 16 /min 98.1 [degF] 32228.4 5 g 120 mm[Hg] 78 mm[Hg] Not Available [facility] 3 02:46:35 Date Recorded Body mass index (BMI) Body height Oxygen saturation Oxygen saturation in Arterial blood by Pulse oximetry Heart rate Body temperature Body weight Systolic blood pressure Diastolic blood pressure Provider Name and Address Organization Details Last Updated DateTime 3 32.5 kg/m2 154.94 cm 98 % 98 % 85 /min 97.9 [degF] 04323.8 9 g 120 mm[Hg] 76 mm[Hg] Not Available [facility] 3 02:46:35 Date Recorded Body height Oxygen saturation Oxygen saturation in Arterial blood by Pulse oximetry Heart rate Respiratory rate Body temperature Systolic blood pressure Diastolic blood pressure Provider Name and Address Organization Details Last Updated DateTime 2 154.94 cm 99 % 99 % 92 /min 16 /min 97.3 [degF] 122 mm[Hg] 78 mm[Hg] Not Available [facility] 3 02:46:35 Social History Question Answer Notes LastModified by Organizat ion Details LastModified Time Tobacco Smoking Status Never Smoker Not Available [facility] 12/04/2022 02:39:15 What Is Your Level Of Alcohol Consumption? Occasional [id number] Information not available 12/04/2022 What Is Your Level Of Caffeine Consumption? Moderate [id number] Information not available 12/04/2022 How Much Tobacco Do You Chew? None [id number] Information not available 12/04/2022 In The 14 Days Before Symptom Onset, Have You Had Close Contact With A Laboratory-confir med COVID-19 While That Case Was Ill? No [id number] Information not available 12/04/2022 In The 14 Days Before Symptom Onset, Have You Had Close Contact With A Person Who Is Under Investigation For COVID-19 While That Person Was Ill? No [id number] Information not available 12/04/2022 Are You Currently Employed? Yes [email or web address] Information not available 12/27/2022 What Type Of Diet Are You Following? REGULAR [id number] Information not available 12/04/2022 Which Illicit Or Recreational Drugs Have You Used? None [id number] Information not available 12/04/2022 Do You Or Have You Ever Used E-cigarettes Or Vape? 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 No [id number] Information not available 12/04/2022 Are There Any Guns Present In Your Home? No [id number] Information not available 12/04/2022 Do You Use Insect Repellent Routinely? No [id number] Information not available 12/04/2022 What Was The Date Of Your Most Recent Tobacco Screening? 11/20/2021 [id number] Information not available 12/04/2022 What Is Your Relationship Status? Single MIGRATION.61594 [id number] Information not available 12/04/2022 Do You Use Your Seat Belt Or Car Seat Routinely? Yes MIGRATION.20818 [id number] Information not available 12/04/2022 Do You Have Smoke And Carbon Monoxide Detectors In Your Home? Yes MIGRATION.70553 [id number] Information not available 12/04/2022 Do You Or Have You Ever Used Smokeless Tobacco? Never Used Smokeless Tobacco MIGRATION.20186 [id number] Information not available 12/04/2022 How Much Tobacco Do You Smoke? No MIGRATION.81874 [id number] Information not available 12/04/2022 Do You Use Any Illicit Or Recreational Drugs? No MIGRATION.01057 [id number] Information not available 12/04/2022 Do You Use Sunscreen Routinely? Yes MIGRATION.43551 [id number] Information not available 12/04/2022 How Many Years Have You Smoked Tobacco? 0 MIGRATION.75841 [id number] Information not available 12/04/2022 Have You Recently Traveled Abroad? No MIGRATION.58216 [id number] Information not available 12/04/2022 Do You Have Any Dietary Restrictions? No MIGRATION.53248 90565 Information not available 12/04/2022 Do You Or Have You Ever Used Any Other Forms Of Tobacco Or Nicotine? No MIGRATION.79936 [id number] Information not available 12/04/2022 Sex: Unknown Functional Status Question Answer Note LastModified by Organizat ion Details LastModified Time What is your exercise level? None [id number] Information not available 12/04/2022 Mental Status None recorded. Family History Relationship Description Onset Age of this Age Resolved Age Notes LastModified by Organization Details LastModified Time Mother Malignant neoplastic disease [id number] Not available 12/04/2022 02:42:58 Unspecified Relation Myocardial infarction [id number].[id number] Not available 12/04/2022 02:42:58 Father Type 2 diabetes mellitus MIGRATION.[id number] Not available 12/04/2022 02:42:58 Medical History Condition Response NERVE DISEASE N BLINDNESS N RHEUMATIC FEVER N KIDNEY STONES N BLADDER PROBLEMS N MRSA N OTHER # 1 N POLIO N LUNG DISEASE/DISORDER N RADIATION / CHEMOTHERAPY N COPD N Other # 2 N BLOOD DISEASES N SURGERY N EAR OR HEARING PROBLEMS N MUMPS N DEPRESSION (INCLUDING POST ) N BOWEL PROBLEMS N STROKE/TIA N ULCERS N BENIGN PROSTATIC HYPERPLASIA N MEASLES N MYOCARDIAL INFARCTION N OBESITY N GERD/NAUSEA N ANEURYSM N URINARY/BLADDER/KIDNEY PROBLEMS N CORONARY ARTERY DISEASE (CAD) N ADDICTION CONCERNS N Impotence N ENDOMETRIOSIS N USE OF BLOOD THINNERS N SKIN PROBLEMS Y GASTROINTESTINAL DISORDER N PERIPHERAL VASCULAR DISEASE N MUSCLE,JOINT OR BONE PROBLEMS N GASTROINTESTINAL BLEEDING N BLOOD CLOTS N ASTHMA N CATARACTS N ERECTILE DYSFUNCTION N VARICOSITIES N GI PROBLEMS N Low Testosterone N INFERTILITY N AIDS/HIV N CHEMOTHERAPY / RADIATION N LIVER DISEASE N MALE HYPOGONADISM N HYPERTENSION N Deficiency N ANXIETY DISORDER Y BLOOD TRANSFUSION N ANEMIA/BLOOD DISORDER N CHRONIC EAR INFECTIONS N BRONCHITIS Y TUBERCULOSIS N GLAUCOMA N FOOT PROBLEM N DIVERTICULITIS N SLEEP APNEA N CHICKENPOX N INFECTIOUS DISEASE N PROSTATE N HEART ARRHYTHMIA N INSOMNIA N HIGH CHOLESTEROL / HYPERLIPIDEMIA N EYE PROBLEMS N HYPERTHYROIDISM N NEUROLOGICAL PROBLEMS N EDEMA N CHRONIC PAIN SYNDROME N HYPOTHYROIDISM N CAROTID BLOCKAGE N CONSTIPATION N BACK / NECK PROBLEMS N HAVE YOU BEEN HOSPITALIZED OR SEEN IN [facility] IN THE PAST YEAR ? N ATHEROSCLEROSIS N BREAST PROBLEMS N DIALYSIS N ECZEMA N OSTEOPOROSIS N ARTHRITIS N NO SIGNIFICANT PAST MEDICAL HISTORY N APPENDICITIS N DIABETES, TYPE N BAD TEETH N ENT N HEARTBURN / REFLUX Y AUTISM SPECTRUM DISORDER (ASD) N HEPATITIS / LIVER DISEASE N GOUT N SLEEP DISORDER N ALZHEIMER'S DISEASE N Brain Problems N DEMENTIA N HERPES N SEIZURES/EPILEPSY N HEADACHES/MIGRAINES Y VASCULAR DISEASE N PACEMAKER N Blood Disorder N DIZZINESS N HEART DISEASE/HEART PROBLEMS N KIDNEY DISEASE N MULTIPLE SCLEROSIS N CANCER: SPECIFY N CARDIAC ARRHYTHMIA N ATRIAL FIBRILLATION N Gall Stones N PULMONARY EMBOLISM N AUTOIMMUNE DISEASE N Gynecological History Statement/Question Response Menses Monthly Y Abnormal Pap Y Date of Last Pap 07/04/2020 Date of Last Mammogram 04/16/2021 Sexually Active? Y Obstetrics History GPAL:G 0 P 0 0 0 0 Immunizations Vaccine Type Date Status Note Provider Nam e and Address Organization Details Recorded Time Influenza, split virus, quadrivalent, preservative 0 completed Not Available [facility] 12/04/2022 02:56:10 Influenza, split virus, quadrivalent, preservative 9 completed Not Available [facility] 12/04/2022 02:56:10 influenza, unspecified formulation 6 completed Not Available [facility] 12/04/2022 02:56:10 influenza, unspecified formulation 5 completed Not Available [facility] 12/04/2022 02:56:10 influenza, unspecified formulation 4 completed Not Available [facility] 12/04/2022 02:56:10 Past Encounters Encounter ID Performer Location Encounter Start Date Encounter Closed Date Diagnosis/Indication Diagnosis SNOMED-CT Code Diagnosis ICD10 Code Diagnosis Note [id number] [facility] [place] [address] [facility] [address] [place] [address] 12/19/2020 00:00:00 12/19/2020 17:47:50 [id number] BACILIO Acosta [facility] [place] [address] [place] [address] 12/25/2020 00:00:00 12/26/2020 15:02:54 [id number] Dwain Haskins MD [facility] [place] [address] [place] [address] 01/16/2021 00:00:00 01/16/2021 15:09:25 [id number] Dwain Haskins MD [facility] [place] [address] [place] [address] 02/13/2021 00:00:00 02/13/2021 16:22:14 [id number] Dwain Haskins MD [facility] [place] [address] [place] [address] 02/27/2021 00:00:00 02/27/2021 17:48:38 [id number] Dwain Haskins MD [facility] [place] [address] [place] [address] 04/10/2021 00:00:00 04/10/2021 16:43:00 [id number] Dwain Haskins MD [facility] [place] [address] [place] [address] 05/01/2021 00:00:00 05/01/2021 09:05:52 [id number] Dwain Haskins MD [facility] [place] [address] [place] [address] 06/12/2021 00:00:00 06/12/2021 09:40:06 [id number] BACILIO Acosta [facility] [place] [address] [place] [address] 06/25/2021 00:00:00 07/04/2021 00:27:12 [id number] BACILIO Acosta [facility] [place] [address] [place] [address] 07/19/2021 00:00:00 08/05/2021 01:26:47 [id number] Dwain Haskins MD [facility] [place] [address] [place] [address] 08/08/2021 00:00:00 08/08/2021 17:19:27 [id number] Dwain Haskins MD [facility] [place] [address] [place] [address] 11/20/2021 00:00:00 11/20/2021 15:04:54 [id number] BACILIO Acosta [facility] [place] [address] [place] [address] 12/24/2021 00:00:00 01/02/2022 00:09:09 [id number] BACILIO Acosta [facility] [place] [address] [place] [address] 07/01/2022 00:00:00 07/01/2022 23:20:36 [id number] BACILIO Acosta [facility] [place] [address] [place] [address] 11/08/2022 00:00:00 12/03/2022 17:52:28 [id number] BACILIO Acosta [facility] [place] [address] [place] [address] 12/30/2022 16:38:13 12/30/2022 17:15:55 Hyperlipidemia 62368068 E78.5 fasting lipids due before next appt, stable on statin therapy Hypothyroidism 69265725 E03.9 on supplement , due for TFTs before next appt Anxiety 28420627 F41.9 stable Long-term drug therapy [id number] Z79.899 Folliculitis 74482555 L7 3.9 Rx for doxy 100mg bid course plus triamcinol one cream Health Concerns Section Related Observation LastModified by Organization Detai ls LastModified Time None Recorded Concern Status LastModified by Organization Details LastModified Time None Recorded Advance Directives Directive None Recorded Payers Encounter Date Sequence Insurance Name Policy Number Policy Ordonez Covered Member ID Ordonez Member ID Guarantor Name 12/30/2022 1 [employer] [place] ACCESS PLUS [id number] Jessie Burleson [id number] Jessie Burleson Notes Date Note Type Note Provider Name and Address Organization Details Recorded Time 022 text/h tml Anxiety/DepressionReported bypatient.Quality:symptoms worse in the evening Severity:denies suicidal ideations; able to maintain relationships;interference with sleep Duration:symptoms lasting over 2 weeks Onset/Timing:still present Context:no major life stressors Modifying Factors:medications as directed Associated Symptoms:denies homicidal ideations; no significant weight gain; no significant weight loss; no visual/auditory hallucinations; no delusions; no shortness of breath; mood good; no anxiety; no crying spells; no panic; no isolation; sleeping well; appetite good; energy good; no apathy; maintaining functionality HyperlipidemiaReported bypatient.Duration:chronic Control:usually well controlled Current Therapy:currently taking: (rosuvastatin 10mg) Compliance:compliant; exercises;noncompliant with diet Complications:no coronary artery disease; no peripheral artery disease; no cardiovascular diseaseHypothyroidismReported bypatient.Quality:not changing Duration:constant Onset/Timing:still present Context/Risk:normal thyroid levels; no history of head or neck radiation during childhood; no history of thyroid disease; no history of hyperthyroidism; no excess iron exposure;history of hypothyroidism;female gender Modifying Factors:medication Exercisegets exercise Associated Symptoms:no cold intolerance; no heat intolerance; no weight loss; no weight gain; no double vision; no dry eyes; no hoarseness; no difficulty swallowing; no neck masses; no deepening of the voice; no fast heart rate; no increased blood pressure; no palpitations; no chest pain; no chest tightess or pressure; no constipation; no diarrhea; no vomiting; no decreased appetite; no loose stools; no irregular menstrual periods; no excessive sweating; no joint pain; no numbness; no tingling of the hands or feet; no dry skin; no tremor; no nervousness; no anxiety; no depression; no fatigue; no sleep difficulties; no skin changes; no hair changes Not Available [facility] [employer] [facility] 01/02/2022 00:09:09 022 text/h tml Anxiety/DepressionReported bypatient.Quality:All the time. Severity:denies suicidal ideations; able to maintain relationships;interference with sleep Duration:symptoms lasting over 2 weeks Onset/Timing:still present Context:major life stressors Modifying Factors:medications as directed Associated Symptoms:denies homicidal ideations; no significant weight gain; no significant weight loss; no visual/auditory hallucinations; no delusions; no shortness of breath; mood good; no anxiety; no crying spells; no panic; no isolation; sleeping well; appetite good; energy good; no apathy; maintaining functionalityHyperlipidemiaReported bypatient.Duration:chronic Control:usually well controlled Current Therapy:currently taking: (rosuvastatin 10mg) Compliance:compliant; exercises;noncompliant with diet Complications:no coronary artery disease; no peripheral artery disease; no cardiovascular diseaseHypothyroidismReported bypatient.Quality:not changing Duration:constant Onset/Timing:still present Context/Risk:normal thyroid levels; no history of head or neck radiation during childhood; no history of thyroid disease; no history of hyperthyroidism; no excess iron exposure;history of hypothyroidism;female gender Modifying Factors:medication Exercisegets exercise Associated Symptoms:no cold intolerance; no heat intolerance; no weight loss; no weight gain; no double vision; no dry eyes; no hoarseness; no difficulty swallowing; no neck masses; no deepening of the voice; no fast heart rate; no increased blood pressure; no palpitations; no chest pain; no chest tightess or pressure; no constipation; no diarrhea; no vomiting; no decreased appetite; no loose stools; no irregular menstrual periods; no excessive sweating; no joint pain; no numbness; no tingling of the hands or feet; no dry skin; no tremor; no nervousness; no anxiety; no depression; no sleep difficulties; no skin changes;fatigue;hair changes Not Available [facility] 07/01/2022 23:20:36 023 text/h tml Generic HPI TemplateReported bypatient.Location:abdomen Quality:red, small, pin prick sized spots Duration:year Not Available [facility] 12/03/2022 17:52:28 023 text/h tml Anxiety/DepressionReported bypatient.Severity:denies suicidal ideations; able to maintain relationships; does not interfere with activities of daily living Context:major life stressors Associated Symptoms:denies homicidal ideations; no significant weight gain; no significant weight loss; no visual/auditory hallucinations; no delusions; no shortness of breathHyperlipidemiaReported bypatient.Duration:chronic Control:usually well controlled; improving; at goal Compliance:compliant; compliant with diet; exercises Complications:no coronary artery disease; no peripheral artery disease; no cardiovascular diseaseHypothyroidismReported bypatient.Onset/Timing:better Context/Risk:normal thyroid levels; no history of head or neck radiation during childhood; no history of thyroid disease; no history of hypothyroidism; no history of hyperthyroidism; no excess iron exposure Exercisegets exercise Associated Symptoms:no cold intolerance; no heat intolerance; no weight loss; no weight gain; no double vision; no dry eyes; no hoarseness; no difficulty swallowing; no neck masses; no deepening of the voice; no fast heart rate; no increased blood pressure; no palpitations; no chest pain; no chest tightess or pressure; no constipation; no diarrhea; no vomiting; no decreased appetite; no loose stools; no irregular menstrual periods; no excessive sweating; no joint pain; no numbness; no tingling of the hands or feet; no dry skin; no tremor; no nervousness; no anxiety; no depression; no fatigue; no sleep difficulties; no skin changes; no hair changes pt c/o also having rash on her bilat hips BACILIO Acosta [address] [facility] [facility] [address], [place], [address], [place] [facility] [employer] [facility] 12/30/2022 23:17:59 OBGyn Episode No OBEpisode recorded.
[2025-02-07 09:42] LABS: Alanine Aminotransferase 21 U/L (6-35); Albumin Level 4.7 g/dL (3.5-5.1); Alkaline Phosphatase 64 U/L (38-126); Anion Gap 8 mmol/L (4-12); Aspartate Amino Transferase 24 U/L (14-36); Bilirubin,Total 0.3 mg/dL (0.2-1.3); Blood Urea Nitrogen 8 mg/dL (7-17); Calcium 9.4 mg/dL (8.4-10.2); Carbon Dioxide 27 mmol/L (22-30); Chloride 107 mmol/L (98-107); Estimated Glomerular Filt Rate > 60; Glucose 100 mg/dL (65-110); Potassium 4.3 mmol/L (3.4-5.0); Sodium 142 mmol/L (137-145)
== END 2025-02-07 08:53 | disposition home or self-care (01) ==
LOC: ANHSURGERY 08:55
PROVIDERS: PCP Physician Assistant; Visit Provider Obstetrics & Gynecology
DX: N92.0 Excessive and frequent menstruation with regular cycle (principal); E78.00 Pure hypercholesterolemia, unspecified
CPT/HCPCS: 36415; 80053; 86850; 86900; 86901; 93005

== ENCOUNTER 2025-02-14 00:36 | Day surgery (SDC) | payer OTHER, SELFPAY ==
[2025-02-01 13:22] VITALS: BMI 29.2
--- NOTE | 2025-02-01 13:23 | PC.NURSE ---
Report to the Outpatient Waiting Room, entrance under the green pavilion located off [facility], at time _6:00am on date __[id number] . Planned Procedure Time: ___7:30am .? Time changes happen often and if your time is changed the preop area will call you the afternoon before. - You and your visitor will be asked to self-screen and do not enter if you have any COVID symptoms. Please call surgeon if you need to reschedule. - A mask is optional within the hospital at this time. Patients may have clear liquids (water, carbonated beverages, clear teas, apple juice) until 3 hours prior to surgery with a maximum of 20 ounces. (STOP DRINKING CLEAR FLUIDS BY 4:30AM) - No food from midnight until time of surgery and no smoking, or chewing tobacco (or any form of nicotine). No chewing gum, candy or mints. Take only the following medications with a SIP of water on the morning of surgery: XANAX (ONLY IF NEEDED), SYNTHROID, CRESTOR. DO NOT TAKE YOUR PEPCID OR METFORMIN THE MORNING OF SURGERY. Hold all vitamins and supplements for 3 days per anesthesiologist. (LAST DAY TO TAKE YOUR FISH OIL IS ON 02-10-2025) Please no make-up, nail persian, hairspray, perfume, deodorant, or body powder the day of surgery.? No jewelry (including any body piercings) or valuables the day of surgery, leave them at home.? Please take a shower or bath the night before, or the morning of, surgery with an antibacterial soap.? Wear comfortable, loose fitting clothing.? - Jewelry must be removed prior to entering the operating room.? Rings and piercings that are not removed may be cut off. - The hospital will not accept responsibility for valuables.? - Please leave all valuables, including medications, at home the day of surgery. If you are going home after surgery, a licensed new car driver must drive you home.? - NO public transportation without another adult if you receive anesthesia. - We recommend that an adult stay with you for 24 hours following discharge. - We also recommend that you do not drive, make important decision, drink alcoholic beverages, or take any drugs that were not prescribed by your health care provider for at least 24 hours after your discharge time. Follow any additional instructions given to you from your surgeon. Telephone instructions given to ___PATIENT (JEM) and asked if any additional questions and then verbalized understanding. Patient advised to call surgeon office or pre surgery nurse liaison [phone] if any additional questions.
[2025-02-14] VITALS (10 sets, daily range): BP systolic 93–133; BP diastolic 50–91; PULSE 68–77; RESP 12–18; TEMP 36.1–36.6; O2SAT 92–100; BMI 30.9
--- OUTSIDE RECORDS SUMMARY | 2025-02-14 00:38 | XMS_ITS | Data Portability ---
Author Organization [facility] Address [address] [place] [address] Assessment Encounter Date Assessment Date Assessment LastModified by Organization Details LastModified Time 11/17/2024 11/17/2024 Annual gynecological exam performed. Patient will come back in a year unless there are new symptoms. [email or web address] Not available 11/17/2024 09:32:45 Plan of Treatment Reminders Order Date Submit Date Provider Last Modified By Organization Details Last Modified Time Details Appointments Robotic TLH 2024 07:30A Brunilda GLEZ MD Not available Not available Not available SURG POST OP 2024 09:00A Brunilda GLEZ MD Not available Not available Not available Lab hormone panel, serum or plasma 2024 025 [facility] (Lab), [address] , [place], [address], 11/10/2024 19:00:23 progester one, serum 2024 025 [facility] (Lab), [address], [place], [address], 11/10/2024 19:00:22 testoster one free/test osterone total, ratio, serum 2024 025 [facility] (Lab), [address] [place], [address], 11/10/2024 19:00:24 prolactin , serum 2024 025 [facility] (Lab), [address], [place], [address], 11/10/2024 19:00:23 Referral None recorded. Procedures None recorded. Surgeries robotic assisted hysterect eligio with salpingec flavio (SURG) 2024 025 [id number] [facility], [address], [place], [address], 02/10/2025 09:35:36 Imaging MAMMO, screening , digital, bilateral 2024 025 [facility], [address], [place], [address], 11/23/2024 15:39:21 US, transvagi nal 2024 025 [email or web address] [place], [facility] [address], [place], [address], 11/12/2024 14:13:12 US, transvagi nal [email or web address] [facility], [address], [place], [address], 02/11/2025 10:43:18 Medication Orders None recorded. Patient TargetsNo targets recorded. Patient InstructionsNo instructions recorded. Reason for Referral None Reported. Results Created Date Observation Date Name Description Value Unit Range Abnormal Flag Note LastModifiedBy Organization Detail LastModifiedTime 11/04/1911/04/2024 PROGE STERO NE progesterone 0.16 NG/mL This assay was perfo rmed using [employer] ratio n reage nts and test kits. Value s obtai mahesh with other assay metho ds or kits canno t be used inter bow[place] eably . Femal e Proge stero ne Range s: Folli cular phase 0.06- 0.89 ng/mL Ovula tion phase 0.12- 12.00 ng/mL Lutea l phase 1.83- 23.90 ng/mL Postm enopa usal <0.05 -0.13 ng/mL Healt hy Pregn ant Women 1st Trime ster 11.0- 44.30 2nd Trime ster 25.40 -83.3 0 3rd Trime ster 58.70 -214. 00 Not Available [facility] (Lab) [address] [place], [address], 11/10/2024 19:00:22 11/04/1911/04/2024 PROLA CTIN prolactin, total 10.70 NG/mL 4.79-2 3.30 This assay was perfo rmed using [employer] ratio n reage nts and test kits. Value s obtai mahesh with other assay metho ds or kits canno t be used inter [place] eay . Not Available [facility] (Lab) [address] [place], [address], 11/10/2024 19:00:23 11/04/1911/04/2024 FSH, LH, ESTRA DIOL estradiol 140.0 pg/mL This assay was perfo rmed using [employer] ratio n reage nts and test kits. Value s obtai mahesh with other assay metho ds or kits canno t be used inter [facility] eay . Femal e Estra diol Range s: Folli cular phase 12.4- 233 pg/mL Ovula tion phase 41.0- 398 pg/mL Lutea l phase 22.3- 341 pg/mL Postm enopa usal <5-13 8 pg/mL Healt hy Pregn ant Women 1st Trime ster 154-3 243 pg/mL 2nd Trime ster 1561- 51057 pg/mL 3rd Trime ster 8525- >3000 0 pg/mL Not Available [facility] (Lab) [address] [facility], [place], [address], 11/10/2024 19:00:23 11/04/1911/04/2024 FSH, LH, ESTRA DIOL FSH 9.7 mIU/m L This assay was perfo rmed using [employer] ratio n reage nts and test kits. Value s obtai mahesh with other assay metho ds or kits canno t be used inter [facility] . Femal es Folli cular : 3.5-1 2.5 mIU/m L Ovula tion: 4.7-2 1.5 mIU/m L Lutea l: 1.7-7 .7 mIU/m L Postm enopa use: 25.8- 134.8 mIU/m L Not Available [facility] (Lab) [address] [place], [address], 11/10/2024 19:00:23 11/04/19 25 11/04/2024 FSH, LH, ESTRA DIOL LH 21.2 mIU/m L This assay was perfo rmed using [employer] ratio n reage nts and test kits. Value s obtai mahesh with other assay metho ds or kits canno t be used inter [facility] . Femal es Mid-F ollic ular: 2.4-1 2.6 mIU/m L Mid-C ycle: 14.0- 95.6 mIU/m L Mid-L uteal : 1.0-1 1.4 mIU/m L Postm enopa use: 7.7-5 8.5 mIU/m L Not Available [facility] (Lab) [address] [place], [address], 11/10/2024 19:00:23 11/04/19 25 11/04/2024 TESTO STERO NE, FREE( DIALY SIS) AND TOTAL (LC/M S/MS) testosterone , total 30 NG/dL 2-45 For addit ional infor ricki mendez e refer to http: //debby rizo.que stdia gnost ics.c om/fa q/ Total Testo stero neLCM [facility] Q165 (This link is being provi ded for infor caity lorenzo/ educa laura l purpo ses only. ) This test was devel oped and its roberto tical perfo rmanc e marcella cteri stics have been deter mined by [facility] [place]. It has not been clear ed or appro lizbet by the U.S. Food and Drug Admin istra tion. This assay has been valid ated pursu ant to the CLIA regul ation s and is used for clini dimitry purpo ses. Not Available [facility] (Lab) [address] [facility], [place], [address], 11/10/2024 19:00:24 11/04/19 25 11/04/2024 TESTO STERO NE, FREE( DIALY SIS) AND TOTAL (LC/M S/MS) testosterone , free 3.0 pg/mL 0.1-6. 4 This test was devel toried and its roberto tical perfo rmanc e marcella cteri stics have been deter mined by [employer] [place], [place]. It has not been clear ed or appro lizbet by the U.S. Food and Drug Admin istra tion. This assay has been valid ated pursu ant to the CLIA regul ation s and is used for clini dimitry purpo ses. Perfo rming Organ izati on Infor matio n: Site ID: AMD Name: [employer] [facility] [facility] Addre ss: [id number] [place], [place] Direc tor: Ines Flores MD PhD Not Available [facility] (Lab) [address] [facility] [facility], [place], [address], 11/10/2024 19:00:24 11/17/19 25 11/17/2024 IMAGE GUIDE D PAP AND HPV REGAR DLESS image guided Pap, HPV regardless of Pap result SEE RESULT S BELOW CASE REPOR T: Cytol ogy Gynec ologi dimitry Repor t Case: [id number] Autho sol g Provi kayode: Andressa Lynn, LACQUER MIXER Colle cted: 11/17 1351 Order ing Locat ion: [place] [facility] Recei lizbet: 11/18 0150 First Scree n: Garett Merida ed, CT Rescr een: Ariana Loo ay, CT Speci men: Scree kaden Pap - Image d, Cervi x STATE MENT OF ADEQU ACY: Satis facto ry for evalu ation Trans forma tion zone compo jaime prese nt Caleb porter ring infla mmati on prese nt. ----- ----- ----- ----- ----- ----- ----- ----- ----- ----- ----- ----- ----- ----- ----- ----- ----- ---- FINAL DIAGN OSIS: Negat angel for Intra epith linda rizo or Raphael swift ([facility]) . Elect eliud sandy by Ariana Loo , [place] on 2024 at 1022 [employer] PAR[employer]OF[employer]AL ----- ----- ----- ----- ----- ----- ----- [...] lesio n and sampl ing techn ique. Antaoly nued regul ar scree kaden is the best metho d of cance r preve ntion . If repor jason cytol ogic findi ng do not corre late with physi dimitry and/o r histo rical findi ngs, furth er inves tigat ion is recom etienne d, as clini sam matos nted. Not Available [facility] (Lab) [address] [facility], [place], [address], 11/21/2024 11:26:15 12/10/19 25 12/09/2024 OVA 1 scan result See Scanne d Result Not Available [facility] (Lab) [address] [facility], [place], [address], 12/14/2024 10:22:06 12/10/19 25 12/09/2024 EMPOW ER COMPR EHENS ANGEL (2+79 ) report summary NEGATI VE normal Negat angel for 81 out of 81 genes . A varia nt of anam grier ce (VUS) was detec jason in the MSH6 gene( s). A VUS means that a bowden e in the DNA was detec jason, but there is not enoug h infor matio n to deter mine wheth er or not the bowden e incre ases the risk of cance r. The [employer] al Lizzeth ics and Genom ics (AC ) state s that VUS shoul d NOT be used in clini dimitry decis ion arsalan Zhang -Jailyn ck breas t cance r risk asses sment : 12.3% . Pleas e see below for addit ional findi ngs. VUS: Gene: MSH6 , Varia nt: c.375 8T>A (p.V1 253E) Note: A heter ozygo us varia nt of anam senior (VUS) was detec jason in the MSH6 gene as tabul ated above . Not Available [facility] [address], [place], [address], 12/26/2024 06:51:34 12/10/19 25 12/09/2024 EMPOW ER COMPR EHENS ANGEL (2+79 ) footnotes See Notes CLIA: ID #[id number] 2 Test perfo rmed by [employer]. [address] [facility] [address] [place] [address] Mk Mckeon, Ph.D. , [facility] , Labor atory Dire tor Not Available [facility] [address], [place], [address], 12/26/2024 06:51:34 11/11/19 25 11/11/2024 US, trans vagin al No observ ation record ed. [email or web address] [place] [address], [place], [address], 11/11/2024 18:39:43 11/11/19 25 11/11/2024 US, trans vagin al No observ ation record ed. [email or web address] [address] [address], [place], [address], 11/16/2024 14:13:46 11/23/19 25 11/23/2024 MAMMO , scree kaden, digit al, bilat eral No observ ation record ed. JOAQUIN [facility] [address], [place], [address], 11/27/2024 13:09:54 Result Notes None recorded. Problems Name Problem SNOMED Code Status Onset Date Resolution Date Notes Provider Name and Address Organization Details Recorded Time Threaten ed miscarri age [id number] Completed 201208/22/2021 Threaten ed , antepart um;Pract ice ID: 0001 Leah posey, [facility] 17:42:31 Multigra gabi of advanced maternal age [id number] Completed 201208/22/2021 Other advanced maternal age, antepart um conditio n or complica tion;Pra ctice ID: 0001 Leah posey, [facility] 17:41:51 Routine antenata l care Completed 201208/22/2021 Supervis ion of other normal pregnanc y;Jammieti ce ID: 0001 [facility], [facility] 17:42:19 Speciali zed medical examinat ion Completed 201208/22/2021 Routine gynecolo gical examinat ion;Prac elias ID: 0001 [facility], [facility] 17:42:28 Ultrason ography Completed 201208/22/2021 Antenata l screenin g for malforma tion using ultrason ics;Prac elias ID: 0001 Leahbarbara Lara [facility], [facility] 17:42:33 Antenata l screenin g Completed 201208/22/2021 Antenata l screenin g for malforma tion using ultrason ics;Prac elias ID: 0001 Leahbarbara Lara [facility], [facility] 17:40:48 Congenit al malforma tion [id number] Completed 201208/22/2021 Antenata l screenin g for malforma tion using ultrason ics;Prac elias ID: 0001 [facility]barbara Lara [facility], [facility] 17:40:57 Maternal care for diminish ed movement s Completed 201208/22/2021 Decrease d movement s, affectin g manageme nt of mother, antepart um conditio n or complica tion;Pra ctice ID: 0001 Leah posey, [facility] 17:41:46 Dietary manageme nt surveill ance Completed 201208/22/2021 Dietary surveill ance and counseli ng;Pract ice ID: 0001 Leah posey, [facility] 17:41:01 Uncertai n viabilit y of pregnanc y [id number] Completed 201108/22/2021 PREG W INCONCLU SIVE VIABIL;P ractice ID: 0001 Leah posey [facility] 17:42:34 anatomy study Completed 201108/22/2021 [facility] SURVEY;P ractice ID: 0001 Leah posey [facility] 17:41:13 Missed miscarri age 07504056 Completed 201108/22/2021 Missed ;Practic e ID: 0001 Leah posey, [facility] 17:41:49 , affectin g manageme nt of mother 54977037 Completed 201108/22/2021 Intraute rine , affectin g manageme nt of mother, antepart um;Pract ice ID: 0001 Leah posey, [facility] 17:41:17 Dysfunct ional uterine bleeding Completed 201108/22/2021 DUB;Prac elias ID: 0001 Leah posey [facility] 17:41:03 Noninfla mmatory disorder of the vagina 42191301 Completed 201108/22/2021 Other specifie d noninfla mmatory disorder s of vagina;P ractice ID: 0001 Leah posey [facility] 17:41:58 Uses oral contrace ption 5166813 Completed 201108/22/2021 Surveill ance of contrace ptive pill;Pra ctice ID: 0001 Leah posey, [facility] 17:42:00 Screenin g for malignan t neoplasm of cervix Completed 201208/22/2021 Pap Smear;Pr actice ID: 0001 [facility], [facility] 17:42:21 Vaginiti s and vulvovag initis Completed 201208/22/2021 Vaginiti s and vulvovag initis, unspecif ied;Prac elias ID: 0001 Leah Lara [facility] 17:42:37 Pregnanc y test positive 433865675 Completed 201208/22/2021 Positive Pregnanc y Test;Pra ctice ID: 0001 Leah Lara [facility] 17:42:10 Amenorrh ea [id number] Completed 201208/22/2021 AMENORRH EA;Pract ice ID: 0001 Leah Lara [facility] 17:40:46 Glucose toleranc e test during pregnanc y - baby not yet delivere d outside referenc e range 105465373 Completed 201208/22/2021 Gestatat ional Diabetes Antepart um;Pract ice ID: 0001 Leah Lara [facility] 17:40:41 Excessiv e growth affectin g manageme nt of mother 02160481 Completed 201208/22/2021 GROWTH LARGE LGA;Prac elias ID: 0001 Leahbarbara Lara [facility] 17:41:09 Primary focal hyperhid rosis of axilla [id number] 440280 Completed 201808/22/2021 Primary focal hyperhid rosis, axilla;P ractice ID: 0001 [facility] 17:42:12 Finding of menstrua l bleeding Completed 201808/22/2021 Excessiv e and frequent menstrua tion with regular cycle;Pr actice ID: 0001 Leah posey, [facility] 17:41:19 Finding of pattern of menstrua l cycle 763196945 Completed 201608/22/2021 Menometr orrhagia ;Recorde d Elsewher e: No Locat ion: [facility] S ource: EHR Personnel Recruiter jolene: N Practi ce ID: 0001 Fausto lable Time: 06:15:00 PM [facility] 17:41:34 Finding of pattern of menstrua l cycle Completed 201808/22/2021 Other specifie d irregula r menstrua tion;Pra ctice ID: 0001 Leah Lara [facility] 17:41:22 Procedur e on genitour inary system Completed 201408/22/2021 Encounte r for female steriliz ation;Re corded Elsewher e: No Locat ion: [facility] S ource: EHR Personnel Recruiter jolene: N Practi ce ID: 0001 Fausto lable Time: 04:00:00 PM Leah Larestz kalpesh [facility] 17:42:[address] Concept Completed 201708/22/2021 Encntr for revenue field agent exam (general ) (routine ) w/o abn findings ;Practic e ID: 0001 Leah Larestz kalpesh [facility] 17:42:26 Neoplast ic disease [id number] Completed 201808/22/2021 Neoplasm of unsp behavior of bone, soft tissue, and skin;Pra ctice ID: 0001 Leah posey [facility] 1 17:41:53 Atypical squamous cells of undeterm ined signific ance on cervical Papanico laou smear 258974346 Completed 201608/22/2021 Atyp squam cell of undet signfc cyto smr crvx (ASC-US) ;Recorde d Elsewher e: No Locat ion: [facility] S ource: EHR Personnel Recruiter jolene: N Practi ce ID: 0001 Fausto lable Time: 08:30:00 AM Leah posey [facility] 17:40:52 Past pregnanc y history of gestatio nal diabetes mellitus 648297727 Completed 201608/22/2021 Personal history of gestatio nal diabetes ;Recorde d Elsewher e: No Locat ion: [facility] S ource: EHR Personnel Recruiter jolene: N Practi ce ID: 0001 Fausto lable Time: 03:21:25 PM Leah posey [facility] 1 17:41:36 Neoplasm of uncertai n behavior of breast 659692590 Completed 201108/22/2021 Neoplasm of uncertai n behavior of breast;R ecorded Elsewher e: No Locat ion: [facility] S ource: EHR Personnel Recruiter jolene: N Practi ce ID: 0001 Fausto lable Time: 08:30:00 AM Leah posey [facility] 1 17:41:55 Human papillom avirus deoxyrib onucleic acid detected , high risk on cervical specimen 077030638 Completed 201508/22/2021 Cervical high risk HPV DNA test positive ;Recorde d Elsewher e: No [facility]: EHR Personnel Recruiter jolene: N Practi ce ID: 0001 Fausto lable Time: 04:36:45 PM Leah posey, [facility] 1 17:41:43 Postpart um care Completed 201308/22/2021 Post Followup ;Recordjerel d Elsewher e: No [facility]: E[facility] Personnel Recruiter jolene: N Practi ce ID: 0001 Fausto lable Time: 01:00:00 PM Leah posey, [facility] 1 17:42:05 Right upper quadrant pain 014977777 Completed 201208/22/2021 Abdomina l pain, right upper quadrant ;Recordjerel sandy Elsewher e: No [facility]at [facility] N Jammieti ce ID: 0001 Fausto lable Time: 11:30:00 AM Leah posey, [facility] 1 17:42:17 Pelvic and perineal pain 254505095 Completed 201508/22/2021 Pelvic and perineal pain;Rec orded Elsewher e: No Locat ion: [facility] S ource: EHR Personnel Recruiter jolene: N Jammieti ce ID: 0001 Fausto lable Time: 05:00:00 PM Leah posey, [facility] 17:42:01 Educatio n about sexually transmit jason disease preventi on Completed 201408/22/2021 Counseli ng on STDs;Rec orded Elsewher e: No Locat ion: [facility] S ource: EHR Personnel Recruiter jolene: N Practi ce ID: 0001 Fausto lable Time: 02:00:00 PM Leah posey [facility] 17:41:05 Emotiona l state finding Completed 201708/22/2021 Anxiety depressi on;Recor ded Elsewher e: No Locat ion: [facility] S ource: EHR Personnel Recruiter jolene: N Practi ce ID: 0001 Fausto lable Time: 08:30:00 AM Leah posey, [facility] 17:41:07 Postoper ative follow-u p visit Completed 201408/22/2021 Post operativ e follow-u p;Record ed Elsewher e: No Locat ion: [facility] S ource: EHR Personnel Recruiter jolene: N Jammieti ce ID: 0001 Fausto lable Time: 04:00:00 PM Leah posey, [facility] 17:42:03 Glucose level outside referenc e range 780168560 Completed 201408/22/2021 OTHER ABNORMAL GLUCOSE; Recorded Elsewher e: No Locat ion: [facility] S ource: EHR Personnel Recruiter jolene: N Jammieti ce ID: 0001 Fausto lable Time: 05:01:47 PM [facility], [facility] 17:40:39 Pre-surg shelby evaluati on Completed 201408/22/2021 Pre-oper ative examinat ion, unspecif ied;Geoffrey rded Elsewher e: No Locat ion: [facility] S ource: EHR [facility] jolene: N Jammieti ce ID: 0001 Fausto lable Time: 04:00:00 PM Leah posey, [facility] 17:42:07 Adult health examinat ion Completed 201408/22/2021 ROUTINE MEDICAL EXAM;Rec orded Elsewher e: No Locat ion: [facility] S ource: EHR [facility] jolene: N Jammieti ce ID: 0001 Fausto lable Time: 04:30:00 PM Leah posey, [facility] 17:40:44 Pregnanc y test negative [id number] Completed 201308/22/2021 Pregnanc y examinat ion or test, negative result;R ecorded Elsewher e: No Locat ion: [facility] S ource: EHR Personnel Recruiter jolene: N Jammieti ce ID: 0001 Fausto lable Time: 01:00:00 PM Leah Jane posey [facility] 17:42:[address] Concept Completed 201608/22/2021 Encntr for general adult medical exam w/o abnormal findings ;Recorde d Elsewher e: No Locat ion: [facility] S ource: EHR Personnel Recruiter jolene: N Practi ce ID: 0001 Fausto lable Time: 08:30:00 AM Leah Jane kalpesh [facility] 17:42:24 History of tubal ligation 332922197 Completed 201408/22/2021 Tubal ligation status;P ractice ID: 0001 [facility] 17:41:38 Hypertro phic conditio n of skin 85656008 Completed 201608/22/2021 Other hypertro phic disorder s of the skin;Pra ctice ID: 0001 [facility] 17:41:44 False labor at or after 37 complete d weeks of gestatio n [id number] Completed 201208/22/2021 Other threaten ed labor, antepart um;Pract ice ID: 0001 Leah posey [facility] 17:41:11 Complica tion related to pregnanc y Completed 201208/22/2021 Weight Insuffic ient Antepart um;Pract ice ID: 0001 [facility] 17:40:55 Delivery normal 57461792 Completed 201208/22/2021 Normal delivery ;Practic e ID: 0001 Leah posey [facility] 17:40:59 Single live from [place] n fabriceanc y 616970753 Completed 201208/22/2021 Mother with single liveborn ;Practic e ID: 0001 Leah Lara [facility] 17:42:23 Problem Notes None recorded. Procedures Surgical History Date Name Laterality Status Provider Name and Address Organization Details Recorded Time 2024 Date of Last Colonoscopy completed [facility] 02/07/2025 10:37:23 2024 Date of Last Mammogram completed [facility] 02/07/2025 10:36:38 2024 Date of Last Pap Smear completed [facility] 02/07/2025 10:36:05 2020 Orthopedic Surgery completed Leah Lara [facility] 08/23/2021 12:01:28 2018 excision of skin tag completed Leah Lara [facility] 08/23/2021 12:05:34 2016 endometrial biopsy completed Leahbarbara Lara [facility] 08/23/2021 12:06:54 2016 excision of skin tag completed Leah Lara [facility] 08/23/2021 12:06:01 2016 Colposcopy completed Leah Lara [facility] 08/23/2021 10:36:50 2016 Colposcopy completed Leah Lara [facility] 08/23/2021 12:07:46 2014 fluoroscopic hysterosalpingography with contrast completed Leahbarbara Lara [facility] 08/23/2021 12:03:08 Imaging Results Imaging Date Name Status LastModified by Organization Details LastModified Time 11/11/2024 [facility], [facility]inal [email or web address] [address], [place], [address], 11/11/2024 18:39:43 11/11/2024 US, transvaginal completed [email or web address] [facility] [address], [place], [address], 11/16/2024 14:13:46 11/23/2024 MAMMO, screening, digital, bilateral completed JOAQUIN [facility] [address], [place], [address], 11/27/2024 13:09:54 Procedure Notes None recorded. Medical [...] Elsewher e: No Locat ion: [facility] M odify By: [email or web address] trick En [...] Prescrib ed Elsewher e: No Locat ion: [facility] odify By: bossman whitehead DateTime : 04/01/20 16 05:00:00 PM Not Available Not Available Not Available meloxicam 15 mg tablet TAKE 1 TABLET BY MOUTH EVERY DAY 02/07 completed Not Available Not Available Not Available Paxil 20 mg tablet take 1 tablet by oral route every day 08/22 completed Prescrib ed Elsewher e: No Locat ion: [facility] odify By: tarun norris DateTime : 09/14/20 [...] Prescrib ed Elsewher e: No Locat ion: [facility] odify By: [email or web address] trick En counter DateTime : 10/21/19 14 01:00:00 PM Not Available Not Available Not Available tramadol 50 mg tablet 07/04 completed Not Available Not Available Not Available triamcino lone acetonide 0.1 % topical cream 10/31 completed Not Available Not Available Not Available amoxicill in 500 mg tablet TAKE 1 TABLET BY MOUTH EVERY 8 HOURS UNTIL ALL TAKEN 02/07 completed Not Available Not Available Not Available ketorolac 10 mg tablet 08/22 completed Not Available Not Available Not Available Nexium 20 mg capsule,d elayed release take 1 capsule (20MG) by oral route every day 10/21 completed Prescrib ed Elsewher e: No Locat ion: [facility] odify By: [email or web address] trick En counter [...] Prescrib ed Elsewher e: Yes [facility] By: [email or web address] farr DateTime : [...] Prescrib ed Elsewher e: No Locat ion: [facility] odify By: [email or web address] trick En counter DateTime : 10/21/19 14 01:00:00 PM Not Available Not Available Not Available oseltamiv ir 75 mg capsule 02/07 completed Not Available Not Available Not Available Synthroid 75 mcg tablet TAKE 1 TABLET BY MOUTH DAILY IN THE MORNING 02/18 completed Not Available Not Available Not Available Synthroid 50 mcg tablet 02/07 completed Not Available Not Available Not Available estradiol 2 mg tablet TAKE 1 TABLET BY MOUTH EVERY DAY FOR 14 DAYS 02/07 completed Not Available Not Available Not Available diclofena c sodium 75 mg tablet,de layed release 07/04 completed Not Available Not Available Not Available hydroxyzi ne HCl 25 mg tablet 2 tabs po take 2 hours before procedur e and prn for post op nausea 03/30 completed Prescrib ed Elsewher e: No Locat ion: [facility] odify By: [email or web address] trick En counter DateTime : 02/21/20 15 04:29:30 PM Not Available Not Available Not Available diazepam 10 mg tablet po 1-2 hours before the procedur e 03/30 completed Prescrib ed Elsewher e: No Locat ion: [facility] odify By: [email or web address] trick En counter DateTime : 02/21/20 15 04:29:30 PM Not Available Not Available Not Available levofloxa vicente 750 mg tablet 07/04 completed Not Available Not Available Not Available methylpre dnisolone 4 mg tablets in a dose pack FOLLOW PACKAGE DIRECTIO NS 08/22 completed Not Available Not Available Not Available Vitamin D2 1,250 mcg (50,000 unit) capsule take 1 capsule (16776FR ITS) by oral route every week 10/21 completed Prescrib ed Elsewher e: No Locat ion: [facility] odify By: [email or web address] trick En counter DateTime : 07/07/20 13 09:30:43 AM Not Available Not Available Not Available ketorolac 60 mg/2 mL intramusc ular solution bring to the office and given 30 minuntes before procedur e 03/30 completed Prescrib ed Elsewher e: No Locat ion: [facility] odify By: [email or web address] trick En counter DateTime : 02/21/20 15 04:29:30 PM Not Available Not Available Not Available Paxil 10 mg tablet take 1 tablet by oral route every day 08/22 completed Prescrib ed Elsewher e: No Locat ion: [facility] Brunilda odify By: [email or web address] tz Encou nter DateTime : 06/24/20 18 08:30:00 AM Not Available Not Available Not Available cefdinir 300 mg capsule TAKE 1 CAPSULE BY MOUTH EVERY 12 HOURS 02/18 completed Not Available Not Available Not Available metformin ER 500 mg tablet,ex tended release 24 hr TAKE 1 TABLET BY MOUTH EVERY DAY AT DINNER 02/07 completed Not Available Not Available Not Available amoxicill in 875 mg-potass ium clavulana [...] TAKE 1 TABLET BY MOUTH EVERY DAY 02/07 completed Not Available Not Available Not Available nitrofura ntoin monohydra te/macroc rystals 100 mg capsule take 1 capsule (100MG) by oral route every 12 hours with food 07/04 completed Not Available Not Available Not Available chlorhexi dine gluconate 0.12 % mouthwash SWISH 1/2 OZ FOR 30 SECONDS THEN SPIT OUT 2-3 TIMES EVERY DAY 02/07 completed Not Available Not Available Not Available omeprazol e active Not Available Not [...] Prescrib ed Elsewher e: Yes Loca tion: [facility] odify By: [email or web address] trick En counter DateTime : 03/30/20 15 04:00:00 PM Not Available Not Available Not Available Radha-D uo DHA 29 mg-1 mg-400 mg oral pack take 2 by Oral route every day 10/21 completed Prescrib ed Elsewher e: No Locat ion: [facility] odify By: [email or web address] trick En counter DateTime : 03/15/20 13 04:30:00 PM Not Available Not Available Not Available Vicodin 5 mg-300 mg tablet 2 tabs po 2 hours before the procedur e and 1-2 tabs every 4 hours prn for post op pain 03/30 completed Prescrib ed Elsewher e: No Locat ion: [facility] odify By: [email or web address] trick En counter [...] Updated DateTime 11/04/2024 154.94 cm 31.3 kg/m2 18161.9 g 137 mm[Hg] 88 mm[Hg] Ruth Mccormack [facility] 11:06:31 Date Recorded Body height Body mass index (BMI) Body weight Systolic blood pressure Diastolic blood pressure Provider Name and Address Organization Details Last Updated DateTime 11/17/2024 154.94 cm 31.5 kg/m2 58489.49 g 127 mm[Hg] 87 mm[Hg] Janet Rosen [facility] 5 09:34:05 Date Recorded Body height Body mass index (BMI) Body weight Systolic blood pressure Diastolic blood pressure Provider Name and Address Organization Details Last Updated DateTime 12/09/2024 154.94 cm 31.2 kg/m2 43370.74 g 134 mm[Hg] 84 mm[Hg] Daina [facility] 5 16:37:44 Date Recorded Body height Body mass index (BMI) Body weight Systolic blood pressure Diastolic blood pressure Provider Name and Address Organization Details Last Updated DateTime 02/07/2025 154.94 cm 29.9 kg/m2 25476.59 g 134 mm[Hg] 81 mm[Hg] Daina [facility] 5 10:34:53 Social History Question Answer Notes LastModified by Organizat ion Details LastModified Time Tobacco Smoking Status Never Smoker Carrington posey, [facility] 10/09/2022 18:19:30 Do You Have An Advance Directive? No Information n ot available 08/22/2021 How Many Years Have You Consumed Alcohol? 20 [email or web address] Information not available 08/22/2021 Are You Blind Or Do You Have Difficulty Seeing? No [email or web address] Information n ot available 08/22/2021 What Is Your Level Of Caffeine Consumption? Heavy Information not available 08/22/2021 How Much Tobacco Do You Chew? None [email or web address] Information not available 08/22/2021 In The 14 Days Before Symptom Onset, Have You Had Close Contact With A Laboratory-confirm ed COVID-19 While That Case Was Ill? No [email or web address] Information n ot available 08/22/2021 In The 14 Days Before Symptom Onset, Have You Had Close Contact With A Person Who Is Under Investigation For COVID-19 While That Person Was Ill? No [email or web address] Information not available 08/22/2021 Have You Been To An Area Known To Be High Risk For COVID-19? No [email or web address] Information not available 08/22/2021 Are You Deaf Or Do You Have Serious Difficulty Hearing? No [email or web address] Information not available 08/22/2021 What Type Of Diet Are You Following? REGULAR [email or web address] Information n ot available 08/22/2021 What Is The Highest Grade Or Level Of School You Have Completed Or The Highest Degree You Have Received? [id number] [email or web address] Information not available 08/22/2021 Are There Any Guns Present In Your Home? No [email or web address] Information not available 08/22/2021 Do You Use Protection During Sex? No [email or web address] Information not available 08/22/2021 Do You Use Your Seat Belt Or Car Seat Routinely? Yes [email or web address] Information not available 08/22/2021 Do You Have Smoke And Carbon Monoxide Detectors In Your Home? Yes [email or web address] Information not available 08/22/2021 How Much Tobacco Do You Smoke? No [email or web address] Information not available 08/22/2021 Do You Use Sunscreen Routinely? No [email or web address] Information not available 08/22/2021 Have You Used IV Drugs? No [email or web address] Information not available 08/22/2021 Sex: Unknown Functional Status Question Answer Note LastModified by Organizat ion Details LastModified Time Do you use any illicit or recreational drugs? No [email or web address] Information not available 08/22/2021 What is your level of alcohol consumption? Occasional jgumber Information not available 07/04/2020 Do you have difficulty walking or climbing stairs? No [email or web address] Information not available 10/09/2022 Are you able to walk? YESWOREST [email or web address] Information not available 08/22/2021 Are you able to care for yourself? 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 No [email or web address] Information not available 10/09/2022 What is your exercise level? Occasional [email or web address] Information not available 08/22/2021 Mental Status Question Answer Note LastModified by Organization D etails LastModified Time Do you feel stressed (tense, restless, nervous, or anxious, or unable to sleep at night)? [id number] [email or web address] Information not available 08/22/2021 Family History Relationship Description Onset Age of this Age Resolved Age Notes LastModified by Organization Details LastModified Time Father No current problems or disability [email or web address] Not available 03/2025 16:21:07 Father Diabetes mellitus [email or web address] Not available 08/23 12:14:17 Mother No current problems or disability [email or web address] Not available 03/2025 16:21:07 Mother Malignant neoplasm of lung 52 [email or web address] Not available 03/2025 16:21:07 Mother Malignant neoplasm of ovary [email or web address] Not available 2024 10:50:16 Maternal Aunt Malignant tumor of breast 75 [email or web address] Not available 03/2025 16:21:07 Maternal Grandmother Malignant tumor of breast [email or web address] Not available 08/23 12:14:10 Maternal Grandfather Malignant neoplasm of lung [email or web address] Not available 2024 10:50:16 Medical History Condition Response Other N Blood Transfusion N Dermatologic Disorders N Gestational Diabetes N Anxiety Disorder Y Autoimmune disease N Arthritis N Polyps N Infertility N Acid Reflux (GERD) N Cancer N Varicosities N Stroke N Neurologic/Epilepsy N Fibromyalgia N Headaches N Kidney Disease N Heart Problems N Kidney or Bladder Problems N Eating Disorder N Art (IVF or FET) N Hepatitis/Liver Disease N No Past Medical History N Urinary Tract Infection N Asthma N Trauma/Violence N Thrombophilias N Allergies (Food, seasonal, environmental ) N Breast Cancer N Drug/Latex Allergies/Reactions N Lung Disease N Defects or Inherited Disease N Breast Problem N Hematologic disorders N Anesthesia Complications N History of STI Y Deep Vein Thrombosis N Polycystic ovary syndrome N History of abnormal pap Y Endometriosis N High Cholesterol Y Thyroid Problems Y GI Problems N Anemia N Psychiatric Illness N Ovarian Cancer N Diabetes N Pulmonary (TB, Asthma) N Eczema N Abuse/Domestic Violence N Depression/ depression Y Pre-Eclampsia N Hypertension N Osteoporosis N Gynecological History Statement/Question Response Date of Last Mammogram 11/23/2024 Flow Heavy Date of LMP 02/03/2025 N Was last menstrual period normal Y STIs/STDs N Date of Last Colonoscopy 12/21/2024 Unknown Desired Control Method Hysterectom y Abnormal Pap Yes On BCP's at Conception? N Colposcopy 02/06/2017 HPV Vaccine N Duration of Flow (days) 7 Current Control Method Ablation Age at First Child 17 Frequency of Cycle (Q days) 30 Sexually Active? Y Menses Monthly Y Date of DEXA bone scan Age of first menstrual cycle 9 Date of Last Pap Smear 11/17/2024 Sexual Problems? N LMP Approximate N 01/06/2017 Obstetrics History GPAL:G 6 P 4 1 1 4 Type Value Full Term 4 Spontaneous 1 Premature 1 Living 4 Total 6 Past Encounters Encounter ID Performer Location Encounter Start Date Encounter Closed Date Diagnosis/Indication Diagnosis SNOMED-CT Code Diagnosis ICD10 Code [id number] [address] [address] 07/04/2020 17:11:46 07/04/2020 17:47:35 [id number] [address],[place] [address] 08/22/2021 17:15:47 08/22/2021 18:02:42 Menorrhagia 936194469 N92.0 plan us discussed slynd as an option, will f/u by phone Gynecologi c examination 69325759 Z01.419 [id number] Jamal Glez MD [place] [address],[place] [address] 08/28/2021 16:39:29 08/28/2021 17:27:09 Menorrhagia 615254545 N92.0 [id number] Jamal Glez MD [place] [address],[place] [address] 10/10/2021 17:46:14 10/11/2021 10:48:14 Menorrhagia 475045969 N92.0 N83.201 [id number] [facility] [address],[place] [address] 09/11/2022 17:36:03 09/13/2022 15:54:00 Gynecologic examination 60842451 Z01.419 Z11.51 Herpes simplex 19971891 B00.9 Menorrhagia 536619124 N9 2.0 plan us discussed slynd as an option, will f/u by phone [id number] Jamal Glez MD [place] [facility] [address] [address] 10/09/2022 18:18:06 10/10/2022 10:28:21 Dysmenorrhea 622876763 N94.6 Menorrhagia 093150279 N9 2.0 N83.201 this patient is a [...] severe menorrhagi a and severe dysmenorrh ea. [id number] Theresa Dennis CNM [place] [address] [address] 10/31/2023 10:32:51 10/31/2023 11:02:04 Gynecologic examination 08263550 Z01.419 Z11.51 [id number] DARBY Burrell [facility] [address] [address] 02/19/2024 15:21:03 02/19/2024 17:02:13 Lesion of vulva 575556762 N90.89 cx sentHSV PCR sentdiscus sed HSV [...] plan of care. Genital he rpes simplex 43117737 A60.9 [id number] Jamal Glez MD [place] [facility] [address],[place] [address] 11/04/2024 10:39:27 11/04/2024 11:54:17 Irregular periods 74854078 N92.6 Discussed possible causes of abnormal, irregular [...] options for menorrhagi a if symptoms return. [id number] Jamal Glez MD [place] [address],[place] [address] 11/11/2024 16:56:00 11/12/2024 14:13:12 Abnormal uterine bleeding 1592553179 9100 N93.9 [id number] DARBY Burrell [facility] [address],[place] [address] 11/17/2024 09:16:43 11/17/2024 11:29:00 Gynecologic examination 07941583 Z01.419 WWEB - EssurePap - done todaySTI [...] answered. Screening for malignant neoplasm of breast 250712365 Z12.39 Dysmenorrhea 005828515 N 94.[address] Glez, pt int in surgical interventi on Family his tory of neoplasm of breast 240917626 Z84.89 genetic testing discussedh andout givenif desired can place order Family his tory of malignant neoplasm of ovary 864752405 Z80.41 [id number] Jamal Glez MD [place] [address] [address] 12/09/2024 16:20:30 12/09/2024 17:40:22 Menorrhagia 194842879 N92.0 N83.201 THIS PATIENT IS A 44-YEAR-OL [...] minutes in the patient's care in total. [id number] Jamal Glez MD [place] [facility] [address] [address] 02/07/2025 10:23:59 02/07/2025 11:50:59 Menorrhagia 242128634 N92.0 This patient is a 44-year-ol d female with severe menorrhagi a. We have agreed to perform robotic assisted hysterecto my with bilateral salpingect eligio. She understand s the risks, benefits, and alternativ es. She has completed the informed consent process and is ready to proceed. Health Concerns Section Related Observation LastModified by Organization Detai ls LastModified Time None Recorded Concern Status LastModified by Organization Details LastModified Time None Recorded Advance Directives Directive N: Payers Encounter Date Sequence Insurance Name Policy Number Policy Ordonez Covered Member ID Ordonez Member ID Guarantor Name 11/04/2024 1 [facility] [id number] Jessie Burleson [id number] Jessie R Burleson 11/11/2024 1 [facility] [id number] Jessie Burleson [id number] Jessie R Burleson 11/17/2024 1 [facility] [id number] Jessie Burleson [id number] Jessie R Burleson 12/09/2024 1 [facility] [id number] Jessie Burleson [id number] Jessie R Burleson 02/07/2025 1 [facility] [id number] Jessie Burleson [id number] Jessie R Burleson Notes Date Note Type Note Provider Name and Address Organization Details Recorded Time 5 text/html Patient has not had period [...] hysterectomy d/t menorrhagia. Denies vasomotor symptoms. MISSY PANTOJA NP [address], [place], [address], [facility] 11/04/2024 11:52:26 5 text/html Annual GYNReported [...] unknown age of diagnosis DARBY Burrell [address], [place], [address], [facility] 11/17/2024 11:23:08 5 text/html THIS PATIENT [...] infection. Jamal Glez MD [address], [place], [address], [facility] 12/09/2024 17:25:08 5 text/html This patient is a 44-year-old female with severe menorrhagia. We have agreed to perform robotic assisted hysterectomy with bilateral salpingectomy. She understands the risks, benefits, and alternatives. She has completed the informed consent process and is ready to proceed. The patient understands the procedure. The procedure was described to the patient in great detail. the patient also understands the risks. The risks were also explained in detail. She understands that injuries May occur during surgery. She understands these injuries can result in hospitalization, more surgery, and severe illness. She understands there is risk of hemorrhage and infection. Jamal Glez MD [address], [place], [address], [facility] 02/07/2025 11:48:16 OBGyn Episode Ob Episode Information Episode Created Date Number of Fetuses Patient Bloodtype Patient rh Status Prepregnancy Weight lbs Domestic Partner Domestic Partner Phone Father Name [employer] Consultant Status 07/04/20 20 1 CLOSED Fetus Data [...] Domestic Partner Domestic Partner Phone Father Name [employer] Consultant Status 07/04/20 20 1 CLOSED Fetus Data [...] Domestic Partner Domestic Partner Phone Father Name [employer] Consultant Status 07/04/20 20 1 CLOSED Fetus Data [...] Domestic Partner Domestic Partner Phone Father Name [employer] Consultant Status 07/04/20 20 1 CLOSED Fetus Data [...] Domestic Partner Domestic Partner Phone Father Name [employer] Consultant Status 07/04/20 20 1 CLOSED Fetus Data [...] Domestic Partner Domestic Partner Phone Father Name [employer] Consultant Status 07/04/20 20 1 CLOSED Fetus Data [...]
--- OUTSIDE RECORDS SUMMARY | 2025-02-14 00:38 | XMS_ITS | Encounter Summary ---
Author Organization [facility] Address [address] [facility] [facility] [place] [address] Care Team Providers Care Lead Mechanical Engineer Name Role Phone Unavailable Primary Care Provider Unavailabl e Encounter Details Date Type Department Care Team (Late st Contact Info) Description 02/05/2021 Lab Requisition [facility] [address] [place] [id number] Kishan Escobedo MD [address] [place] [address] Social History Tobacco Use Types Packs/Day Years [...] AM CDT) Case Report Dermatopathology Report Case: [id number] Authorizing Provider: Kishan Escobedo MD Collected: 02/02/2021 12:00 AM Ordering Location: [facility] Received: 02/05/2021 06:03 AM Pathologist: Brunilda Mackay MD Specimen: Skin, right post thigh 5:13 PM CDT DERMATOPATHOLOGY LABORATORY Final Diagnosis Specimen A. SKIN, right post thigh: SEBORRHEIC KERATOSIS, IRRITATED (L82.0) 5:13 PM CDT DERMATOPATHOLOGY LABORATORY Clinical History Irr nevus. Path#[id number] 5:13 PM CDT DERMATOPATHOLOGY LABORATORY Gross Description [...] characteristic determined by the Dermatopathology Laboratory at [facility], directed by Dr. Madie Mackay. These tests need not be, and therefore are not, approved by the [place] Food and Drug Administration. The tests are used for clinical purposes. Billing Codes Specimen Charges Stain Charges 45332 1 5:13 PM CDT DERMATOPATHOLOGY LABORATORY Embedded Images 5:13 PM CDT DERMATOPATHOLOGY LABORATORY Pathology/Cytolog y TISSUE SPECIMEN FROM SKIN / Unknown 02/02/2021 02/05/2021 6:03 AM CDT us Kishan Escobedo MD LAB - PATHOLOGY/CYTOLOGY ORDER RICH Final Result DERMATOPATHOLOGY LABORATORY [facility] - Department of Dermatology [address], [address] [phone] documented in this encounter Visit Diagnoses Not on filedocumented in this encounter
--- OUTSIDE RECORDS SUMMARY | 2025-02-14 00:38 | XMS_ITS | Clinical Summary ---
Author Organization [facility] Address [address] [facility] [facility] [place] [address] Care Team Providers Care Care Transitions Nurse Name Role Phone Unavailable Primary Care Provider Unavailabl e Source Comments [facility] [employer],non-owned Affiliates and Associated Physician Practices is amultiple site organization consisting of ambulatory clinics and hospital sitesin [place], [place], [place] and [place]. This disclosure is being madepursuant to the Care Everywhere program and may not contain all information available regarding this patient. Last updated 18.[facility] [employer] Social History Tobacco Use Types Packs/Day Years [...] patient's age to complete this topic [facility] [place] [id number] [facility]
--- OUTSIDE RECORDS SUMMARY | 2025-02-14 00:38 | XMS_ITS | Data Portability ---
Author Organization [facility] SHIRAFranc[place] Address [address] [place] [address] Assessment Encounter Date Assessment Date Assessment LastModified [...] HbA1c (hemoglob in A1c), blood 2024 025 JOAQUIN Mustafa, [address], [place], [address], 02/13/2025 09:08:17 CMP, serum or plasma 2024 025 JOAQUIN Mustafa, [address], [place], [address], 02/13/2025 09:08:16 CBC w/ auto diff 2024 025 JOAQUIN Mustafa, [address], [place], [address], 02/13/2025 09:08:18 lipid panel, serum 2024 025 JOAQUIN Mustafa, [address], [place], [address], 02/13/2025 09:08:15 TSH + free T4, serum 2024 025 JOAQUIN Mustafa, [address], [place], [address], 02/13/2025 09:08:15 HbA1c (hemoglob in A1c), blood 2023 024 JOAQUIN Mustafa, [address], [place], [address], 07/11/2024 07:08:27 CMP, serum or plasma 2023 024 JOAQUIN Mustafa, [address], [place], [address], 07/11/2024 07:08:26 CBC w/ auto diff 2023 024 JOAQUIN Mustafa, [address], [place], [address], 07/11/2024 07:08:28 lipid panel, serum 2023 024 JOAQUIN Mustafa, [address], [place], [address], 07/11/2024 07:08:24 TSH + free T4, serum 2023 024 JOAQUIN Mustafa, [address], [place], [address], 07/11/2024 07:08:25 HbA1c (hemoglob in A1c), blood 2023 024 JOAQUIN Mustafa, [address], [place], [address], 12/20/2023 06:18:43 CMP, serum or plasma 2023 024 JOAQUIN Mustafa, [address], [place], [address], 12/20/2023 06:18:42 CBC w/ auto diff 2023 024 [facility], [address], [place], [address], 12/20/2023 06:18:44 vitamin B12 + folate, serum or blood 2023 024 [facility], [address], [place], [address], 12/20/2023 06:18:43 iron + TIBC + ferritin, serum 2023 024 [facility], [address], [place], [address], 12/20/2023 06:18:44 lipid panel, serum 2023 024 [facility], [address], [place], [address], 12/20/2023 06:18:41 TSH + free T4, serum 2023 024 [facility], [address], [place], [address], 12/20/2023 06:18:41 Referral None recorded. Procedures None recorded. Surgeries None recorded. Imaging None recorded. Medication Orders Wegovy 0.25 mg/0.5 mL subcutane ous pen injector 2024 025 [facility][id number], [address], [place], [place], [id number], 12/15/2024 16:36:54 metformin ER 500 mg tablet,ex tended release 24 hr 2023 024 [facility], [address], [place], [address], 06/11/2024 16:18:29 rosuvasta tin 10 mg tablet 2023 024 JOAQUIN [facility], [address], [place], [address], 06/11/2024 16:18:29 alprazola m 0.5 mg tablet 2023 024 [facility] #[id number], [address], [place], [id number], 06/11/2024 16:18:34 cefdinir 300 mg capsule 2023 024 [facility] #[id number], [address], [place], [id number], 01/16/2024 14:18:31 hydrochlo rothiazid e 12.5 mg tablet 2023 024 [facility] #[id number], [address], [place], [id number], 12/20/2023 16:50:58 Patient TargetsNo targets recorded. Patient Instructions Encounter Date Encounter Id Patient Instructions Last Modified By Organization Details Last Modified Time 12/15/2024 [id number] A healthy lifestyle: care instructions Not available 12/15/2024 16:36:49 Reason for Referral None Reported. Results Created Date Observation Date Name Description Value Unit Range Abnormal Flag Note LastModifiedBy Organization Detail LastModifiedTime 12/18/1912/19/2023 TSH+F REE T4 TSH 0.286 uIU/m L 0.450- 4.500 below low normal Not Available [facility] ([facility]) [address] [place], [address], 12/20/2023 06:18:41 12/18/1912/19/2023 TSH+F REE T4 T4,free(dire ct) 1.71 NG/dL 0.82-1 .77 Not Available [facility] ([facility]) [address] [facility] [place], [address], 12/20/2023 06:18:41 12/18/19 24 12/19/2023 LIPID PANEL cholesterol, total 114 mg/dL 100-19 9 Not Available [facility] ([facility]) [address] [facility], [place], [address], 12/20/2023 06:18:41 12/18/19 24 12/19/2023 LIPID PANEL triglyceride s 115 mg/dL 0-149 Not Available [facility] ([facility]) [address] [place], [address], 12/20/2023 06:18:41 12/18/1912/19/2023 LIPID PANEL HDL cholesterol 50 mg/dL >39 Not Available [facility] ([facility]) [address] [place], [address], 12/20/2023 06:18:41 12/18/19 24 12/19/2023 LIPID PANEL VLDL cholesterol maritza 21 mg/dL 5-40 Not Available [facility] ([facility]) [address] [place], [address], 12/20/2023 06:18:41 12/18/19 24 12/19/2023 LIPID PANEL LDL chol calc ([facility]) 43 mg/dL 0-99 Not Available [facility] ([facility]) [address] [place], [address], 12/20/2023 06:18:41 12/18/19 24 12/19/2023 CMP14 +EGFR glucose 98 mg/dL 70-99 Not Available [facility] ([facility]) [address] [place], [address], 12/20/2023 06:18:42 12/18/19 24 12/19/2023 CMP14 +EGFR BUN 11 mg/dL 6-24 Not Available [facility] ([facility]) [address] [place], [address], 12/20/2023 06:18:42 12/18/19 24 12/19/2023 CMP14 +EGFR creatinine 0.71 mg/dL 0.57-1 .00 Not Available [facility] ([facility]) [address] [facility], [place], [address], 12/20/2023 06:18:42 12/18/19 24 12/19/2023 CMP14 +EGFR eGFR 107 mL/mi n/1.7 3 >59 Not Available [facility] ([facility]) [address] [facility], [place], [address], 12/20/2023 06:18:42 12/18/19 24 12/19/2023 CMP14 +EGFR BUN/creatini ne ratio 15 9-23 Not Available [facility] ([facility]) [address] [facility], [place], [address], 12/20/2023 06:18:42 12/18/19 24 12/19/2023 CMP14 +EGFR sodium 144 mmol/ L 134-14 4 Not Available [facility] ([facility]) [address] [facility], [place], [address], 12/20/2023 06:18:42 12/18/19 24 12/19/2023 CMP14 +EGFR potassium 4.4 mmol/ L 3.5-5. 2 Not Available [facility] ([facility]) [address] [place], [address], 12/20/2023 06:18:42 12/18/19 24 12/19/2023 CMP14 +EGFR chloride 106 mmol/ L 96-106 Not Available [facility] ([facility]) [address] [place], [address], 12/20/2023 06:18:42 12/18/19 24 12/19/2023 CMP14 +EGFR carbon dioxide, total 23 mmol/ L 20-29 Not Available [facility] ([facility]) [address], [place], [address], 12/20/2023 06:18:42 12/18/1912/19/2023 CMP14 +EGFR calcium 10.1 mg/dL 8.7-10 .2 Not Available [facility] ([facility]) [address], [place], [address], 12/20/2023 06:18:42 12/18/1912/19/2023 CMP14 +EGFR protein, total 6.9 g/dL 6.0-8. 5 Not Available [facility] ([facility]) [address] [place], [address], 12/20/2023 06:18:42 12/18/19 24 12/19/2023 CMP14 +EGFR albumin 4.8 g/dL 3.9-4. 9 Not Available [facility] ([facility]) [address] [place], [address], 12/20/2023 06:18:42 12/18/1912/19/2023 CMP14 +EGFR globulin, total 2.1 g/dL 1.5-4. 5 Not Available [facility] ([facility]) [address] [place], [address], 12/20/2023 06:18:42 12/18/1912/19/2023 CMP14 +EGFR A/G ratio 2.3 1.2-2. 2 above high normal Not Available [facility] ([facility]) [address] [place], [address], 12/20/2023 06:18:42 12/18/1912/19/2023 CMP14 +EGFR bilirubin, total 0.5 mg/dL 0.0-1. 2 Not Available [facility] ([facility] [address] [place], [address], 12/20/2023 06:18:42 12/18/19 24 12/19/2023 CMP14 +EGFR alkaline phosphatase 66 IU/L 44-121 Not Available [facility] ([facility]) [address] [facility], [place], [address], 12/20/2023 06:18:42 12/18/19 24 12/19/2023 CMP14 +EGFR AST (SGOT) 13 IU/L 0-40 Not Available [facility] ([facility]) [address] [facility], [place], [address], 12/20/2023 06:18:42 12/18/19 24 12/19/2023 CMP14 +EGFR ALT (SGPT) 19 IU/L 0-32 Not Available [facility] ([facility]) [address], [place], [address], 12/20/2023 06:18:42 12/18/19 24 12/19/2023 VITAM IN B12 AND FOLAT E vitamin B12 1899 pg/mL 232-12 45 above high normal Not Available [facility] ([facility]) [address] [facility], [place], [address], 12/20/2023 06:18:42 12/18/19 24 12/20/2023 VITAM IN B12 AND FOLAT E folate (folic acid), serum 19.2 NG/mL >3.0 A serum folat e leana ntrat ion of less than 3.1 ng/mL is consi dered to repre sent clini maritza defic iency . Not Available [facility] ([facility]) [address], [place], [address], 12/20/2023 06:18:42 12/18/1912/19/2023 HEMOG LOBIN A1C hemoglobin A1C 5.7 % 4.8-5. 6 above high normal Predi abete s: 5.7 - 6.4 Diabe glory: >6.4 Glyce corrine contr ol for adult s with diabe glory: <7.0 Not Available [facility] ([facility]) [address] [facility] [address], [place], [address], 12/20/2023 06:18:43 12/18/1912/19/2023 CBC WITH DIFFE RENTI AL/PL ATELE T WBC 5.4 x10e3 /uL 3.4-10 .8 Not Available [facility] ([facility]) [address] [facility], [place], [address], 12/20/2023 06:18:44 12/18/19 24 12/19/2023 CBC WITH DIFFE RENTI AL/PL ATELE T RBC 4.79 x10e6 /uL 3.77-5 .28 Not Available [facility] ([facility]) [address], [place], [address], 12/20/2023 06:18:44 12/18/19 24 12/19/2023 CBC WITH DIFFE RENTI AL/PL ATELE T hemoglobin 14.8 g/dL 11.1-1 5.9 Not Available [facility] ([facility]) [address], [place], [address], 12/20/2023 06:18:44 12/18/19 24 12/19/2023 CBC WITH DIFFE RENTI AL/PL ATELE T hematocrit 43.8 % 34.0-4 6.6 Not Available [facility] ([facility]) [address] [facility], [place], [address], 12/20/2023 06:18:44 12/18/19 24 12/19/2023 CBC WITH DIFFE RENTI AL/PL ATELE T MCV 91 fL 79-97 Not Available [facility] ([facility]) [address], [place], [address], 12/20/2023 06:18:44 12/18/19 24 12/19/2023 CBC WITH DIFFE RENTI AL/PL ATELE T MCH 30.9 pg 26.6-3 3.0 Not Available [facility] ([facility]) [address], [place], [address], 12/20/2023 06:18:44 12/18/19 24 12/19/2023 CBC WITH DIFFE RENTI AL/PL ATELE T MCHC 33.8 g/dL 31.5-3 5.7 Not Available [facility] ([facility]) [address], [place], [address], 12/20/2023 06:18:44 12/18/19 24 12/19/2023 CBC WITH DIFFE RENTI AL/PL ATELE T RDW 12.4 % 11.7-1 5.4 Not Available [facility] ([facility]) [address], [place], [address], 12/20/2023 06:18:44 12/18/19 24 12/19/2023 CBC WITH DIFFE RENTI AL/PL ATELE T platelets 327 x10e3 /uL 150-45 0 Not Available [facility] ([facility]) [address], [place], [address], 12/20/2023 06:18:44 12/18/19 24 12/19/2023 CBC WITH DIFFE RENTI AL/PL ATELE T neutrophils 61 % notest ab. Not Available [facility] ([facility]) [address], [place], [address], 12/20/2023 06:18:44 12/18/19 24 12/19/2023 CBC WITH DIFFE RENTI AL/PL ATELE T lymphs 28 % notest ab. Not Available [facility] ([facility]) [address] [facility], [place], [address], 12/20/2023 06:18:44 12/18/19 24 12/19/2023 CBC WITH DIFFE RENTI AL/PL ATELE T monocytes 8 % notest ab. Not Available [facility] ([facility]) [address] [facility], [place], [address], 12/20/2023 06:18:44 12/18/19 24 12/19/2023 CBC WITH DIFFE RENTI AL/PL ATELE T eos 2 % notest ab. Not Available [facility] ([facility]) [address] [facility] [address] [facility], [place], [address], 12/20/2023 06:18:44 12/18/19 24 12/19/2023 CBC WITH DIFFE RENTI AL/PL ATELE T basos 1 % notest ab. Not Available [facility] ([facility]) [address] [place], [address], 12/20/2023 06:18:44 12/18/19 24 12/19/2023 CBC WITH DIFFE RENTI AL/PL ATELE T neutrophils (absolute) 3.3 x10e3 /uL 1.4-7. 0 Not Available [facility] ([facility]) [address] [place], [address], 12/20/2023 06:18:44 12/18/19 24 12/19/2023 CBC WITH DIFFE RENTI AL/PL ATELE T lymphs (absolute) 1.5 x10e3 /uL 0.7-3. 1 Not Available [facility] ([facility]) [address] [place], [address], 12/20/2023 06:18:44 12/18/19 24 12/19/2023 CBC WITH DIFFE RENTI AL/PL ATELE T monocytes(ab solute) 0.4 x10e3 /uL 0.1-0. 9 Not Available [facility] ([facility]) [address] [place], [address], 12/20/2023 06:18:44 12/18/19 24 12/19/2023 CBC WITH DIFFE RENTI AL/PL ATELE T eos (absolute) 0.1 x10e3 /uL 0.0-0. 4 Not Available [facility] ([facility]) [address] [facility], [place], [address], 12/20/2023 06:18:44 12/18/19 24 12/19/2023 CBC WITH DIFFE RENTI AL/PL ATELE T baso (absolute) 0.0 x10e3 /uL 0.0-0. 2 Not Available [facility] ([facility]) [address] [facility] [address] [facility], [place], [address], 12/20/2023 06:18:44 12/18/19 24 12/19/2023 CBC WITH DIFFE RENTI AL/PL ATELE T immature granulocytes 0 % notest ab. Not Available [facility] ([facility]) [address] [facility], [place], [address], 12/20/2023 06:18:44 12/18/19 24 12/19/2023 CBC WITH DIFFE RENTI AL/PL ATELE T immature grans (abs) 0.0 x10e3 /uL 0.0-0. 1 Not Available [facility] ([facility]) [address] [facility], [place], [address], 12/20/2023 06:18:44 12/18/19 24 12/19/2023 FE+TI BC+FE R iron bind.cap.(TI BC) 311 ug/dL 250-45 0 Not Available [facility] ([facility]) [address] [place], [address], 12/20/2023 06:18:44 12/18/19 24 12/19/2023 FE+TI BC+FE R UIBC 210 ug/dL 131-42 5 Not Available [facility] ([facility]) [address] [place], [address], 12/20/2023 06:18:44 12/18/19 24 12/19/2023 FE+TI BC+FE R iron 101 ug/dL 27-159 Not Available [facility] ([facility]) [address] [place], [address], 12/20/2023 06:18:44 12/18/19 24 12/19/2023 FE+TI BC+FE R iron saturation 32 % 15-55 Not Available [facility] ([facility]) [address] [place], [address], 12/20/2023 06:18:44 12/18/19 24 12/19/2023 FE+TI BC+FE R ferritin 48 NG/mL 15-150 Not Available [facility] ([facility]) [address] [facility], [place], [address], 12/20/2023 06:18:44 07/10/20 24 07/11/2024 LIPID PANEL W/ CHOL/ HDL RATIO cholesterol, total 124 mg/dL 100-19 9 Not Available [facility] ([facility]) [address] [place], [address], 07/11/2024 07:08:24 07/10/20 24 07/11/2024 LIPID PANEL W/ CHOL/ HDL RATIO triglyceride s 85 mg/dL 0-149 Not Available [facility] ([facility]) [address] [place], [address], 07/11/2024 07:08:24 07/10/20 24 07/11/2024 LIPID PANEL W/ CHOL/ HDL RATIO HDL cholesterol 57 mg/dL >39 Not Available [facility] ([facility]) [address] [place], [address], 07/11/2024 07:08:24 07/10/20 24 07/11/2024 LIPID PANEL W/ CHOL/ HDL RATIO VLDL cholesterol maritza 16 mg/dL 5-40 Not Available [facility] ([facility]) [address] [place], [address], 07/11/2024 07:08:24 07/10/20 24 07/11/2024 LIPID PANEL W/ CHOL/ HDL RATIO LDL chol calc ([facility]) 51 mg/dL 0-99 Not Available [facility] ([facility]) [address] [place], [address], 07/11/2024 07:08:24 07/10/20 24 07/11/2024 LIPID PANEL W/ CHOL/ HDL RATIO T. chol/HDL ratio 2.2 ratio 0.0-4. 4 T. Chol/ HDL Ratio Men Women 1/2 Avg.R isk 3.4 3.3 Avg.R isk 5.0 4.4 2X Avg.R isk 9.6 7.1 3X Avg.R isk 23.4 11.0 Not Available [facility] ([facility]) [address] [place], [address], 07/11/2024 07:08:24 07/10/20 24 07/11/2024 TSH+F REE T4 TSH 0.723 uIU/m L 0.450- 4.500 Not Available [facility] ([facility]) [address] [place], [address], 07/11/2024 07:08:25 07/10/20 24 07/11/2024 TSH+F REE T4 T4,free(dire ct) 1.11 NG/dL 0.82-1 .77 Not Available [facility] ([facility]) [address] [place], [address], 07/11/2024 07:08:25 07/10/20 24 07/11/2024 COMP. METAB OLIC PANEL (14) glucose 95 mg/dL 70-99 Not Available [facility] ([facility]) [address] [place], [address], 07/11/2024 07:08:26 07/10/20 24 07/11/2024 COMP. METAB OLIC PANEL (14) BUN 11 mg/dL 6-24 Not Available [facility] ([facility]) [address] [place], [address], 07/11/2024 07:08:26 07/10/20 24 07/11/2024 COMP. METAB OLIC PANEL (14) creatinine 0.75 mg/dL 0.57-1 .00 Not Available [facility] ([facility]) [address] [facility], [place], [address], 07/11/2024 07:08:26 07/10/20 24 07/11/2024 COMP. METAB OLIC PANEL (14) eGFR 100 mL/mi n/1.7 3 >59 Not Available [facility] ([facility]) [address] [facility], [place], [address], 07/11/2024 07:08:26 07/10/20 24 07/11/2024 COMP. METAB OLIC PANEL (14) BUN/creatini ne ratio 15 9-23 Not Available [facility] ([facility]) [address] [facility], [place], [address], 07/11/2024 07:08:26 07/10/20 24 07/11/2024 COMP. METAB OLIC PANEL (14) sodium 142 mmol/ L 134-14 4 Not Available [facility] ([facility]) [address] [facility], [place], [address], 07/11/2024 07:08:26 07/10/20 24 07/11/2024 COMP. METAB OLIC PANEL (14) potassium 4.3 mmol/ L 3.5-5. 2 Not Available [facility] ([facility]) [address] [facility], [place], [address], 07/11/2024 07:08:26 07/10/20 24 07/11/2024 COMP. METAB OLIC PANEL (14) chloride 107 mmol/ L 96-106 above high normal Not Available [facility] ([facility]) [address] [facility], [place], [address], 07/11/2024 07:08:26 07/10/20 24 07/11/2024 COMP. METAB OLIC PANEL (14) carbon dioxide, total 23 mmol/ L 20-29 Not Available [facility] ([facility]) [address] [facility], [place], [address], 07/11/2024 07:08:26 07/10/20 24 07/11/2024 COMP. METAB OLIC PANEL (14) calcium 9.4 mg/dL 8.7-10 .2 Not Available [facility] ([facility]) [address] [facility], [place], [address], 07/11/2024 07:08:26 07/10/20 24 07/11/2024 COMP. METAB OLIC PANEL (14) protein, total 6.3 g/dL 6.0-8. 5 Not Available [facility] ([facility]) [address] [facility], [place], [address], 07/11/2024 07:08:26 07/10/20 24 07/11/2024 COMP. METAB OLIC PANEL (14) albumin 4.4 g/dL 3.9-4. 9 Not Available [facility] ([facility]) [address] [place], [address], 07/11/2024 07:08:26 07/10/20 24 07/11/2024 COMP. METAB OLIC PANEL (14) globulin, total 1.9 g/dL 1.5-4. 5 Not Available [facility] ([facility]) [address] [place], [address], 07/11/2024 07:08:26 07/10/20 24 07/11/2024 COMP. METAB OLIC PANEL (14) bilirubin, total 0.4 mg/dL 0.0-1. 2 Not Available [facility] ([facility]) [address] [facility], [place], [address], 07/11/2024 07:08:26 07/10/20 24 07/11/2024 COMP. METAB OLIC PANEL (14) alkaline phosphatase 69 IU/L 44-121 Not Available [facility] ([facility]) [address] [facility], [place], [address], 07/11/2024 07:08:26 07/10/20 24 07/11/2024 COMP. METAB OLIC PANEL (14) AST (SGOT) 13 IU/L 0-40 Not Available [facility] ([facility]) [address] [facility], [place], [address], 07/11/2024 07:08:26 07/10/20 24 07/11/2024 COMP. METAB OLIC PANEL (14) ALT (SGPT) 15 IU/L 0-32 Not Available [facility] ([facility]) [address] [facility], [place], [address], 07/11/2024 07:08:26 07/10/20 24 07/11/2024 HEMOG LOBIN A1C hemoglobin A1C 5.5 % 4.8-5. 6 Predi abete s: 5.7 - 6.4 Diabe glory: >6.4 Glyce corrine contr ol for adult s with diabe glory: <7.0 Not Available [facility] ([facility]) [address] [facility], [place], [address], 07/11/2024 07:08:27 07/10/20 24 07/11/2024 CBC WITH DIFFE RENTI AL/PL ATELE T WBC 6.2 x10e3 /uL 3.4-10 .8 Not Available [facility] ([facility]) [address] [place], [address], 07/11/2024 07:08:28 07/10/20 24 07/11/2024 CBC WITH DIFFE RENTI AL/PL ATELE T RBC 4.26 x10e6 /uL 3.77-5 .28 Not Available [facility] ([facility]) [address] [facility], [place], [address], 07/11/2024 07:08:28 1007/11/2024 CBC WITH DIFFE RENTI AL/PL ATELE T hemoglobin 13.4 g/dL 11.1-1 5.9 Not Available [facility] ([facility]) [address] [facility], [place], [address], 07/11/2024 07:08:28 07/10/20 24 07/11/2024 CBC WITH DIFFE RENTI AL/PL ATELE T hematocrit 40.6 % 34.0-4 6.6 Not Available [facility] ([facility]) [address] [facility], [place], [address], 07/11/2024 07:08:28 07/10/2007/11/2024 CBC WITH DIFFE RENTI AL/PL ATELE T MCV 95 fL 79-97 Not Available [facility] ([facility]) [address] [facility], [place], [address], 07/11/2024 07:08:28 07/10/2007/11/2024 CBC WITH DIFFE RENTI AL/PL ATELE T MCH 31.5 pg 26.6-3 3.0 Not Available [facility] ([facility]) [address] [place], [address], 07/11/2024 07:08:28 07/10/20 24 07/11/2024 CBC WITH DIFFE RENTI AL/PL ATELE T MCHC 33.0 g/dL 31.5-3 5.7 Not Available [facility] ([facility]) [address] [place], [address], 07/11/2024 07:08:28 07/10/2007/11/2024 CBC WITH DIFFE RENTI AL/PL ATELE T RDW 12.4 % 11.7-1 5.4 Not Available [facility] ([facility]) [address] [place], [address], 07/11/2024 07:08:28 07/10/2007/11/2024 CBC WITH DIFFE RENTI AL/PL ATELE T platelets 352 x10e3 /uL 150-45 0 Not Available [facility] ([facility]) [address] [facility], [place], [address], 07/11/2024 07:08:28 07/10/20 24 07/11/2024 CBC WITH DIFFE RENTI AL/PL ATELE T neutrophils 67 % notest ab. Not Available [facility] ([facility]) [address] [facility], [place], [address], 07/11/2024 07:08:28 07/10/2007/11/2024 CBC WITH DIFFE RENTI AL/PL ATELE T lymphs 21 % notest ab. Not Available [facility] ([facility]) [address] [facility], [place], [address], 07/11/2024 07:08:28 07/10/20 24 07/11/2024 CBC WITH DIFFE RENTI AL/PL ATELE T monocytes 7 % notest ab. Not Available [facility] ([facility]) [address] [facility], [place], [address], 07/11/2024 07:08:28 07/10/20 24 07/11/2024 CBC WITH DIFFE RENTI AL/PL ATELE T eos 3 % notest ab. Not Available [facility] ([facility]) [address] [facility], [place], [address], 07/11/2024 07:08:28 07/10/20 24 07/11/2024 CBC WITH DIFFE RENTI AL/PL ATELE T basos 1 % notest ab. Not Available [facility] ([facility]) [address] [facility], [place], [address], 07/11/2024 07:08:28 07/10/20 24 07/11/2024 CBC WITH DIFFE RENTI AL/PL ATELE T neutrophils (absolute) 4.2 x10e3 /uL 1.4-7. 0 Not Available [facility] ([facility]) [address] [facility], [place], [address], 07/11/2024 07:08:28 07/10/20 24 07/11/2024 CBC WITH DIFFE RENTI AL/PL ATELE T lymphs (absolute) 1.3 x10e3 /uL 0.7-3. 1 Not Available [facility] ([facility]) [address] [facility], [place], [address], 07/11/2024 07:08:28 07/10/20 24 07/11/2024 CBC WITH DIFFE RENTI AL/PL ATELE T monocytes(ab solute) 0.4 x10e3 /uL 0.1-0. 9 Not Available [facility] ([facility]) [address] [facility], [place], [address], 07/11/2024 07:08:28 07/10/20 24 07/11/2024 CBC WITH DIFFE RENTI AL/PL ATELE T eos (absolute) 0.2 x10e3 /uL 0.0-0. 4 Not Available [facility] [place] [facility] [address] [facility], [place], [address], 07/11/2024 07:08:28 07/10/20 24 07/11/2024 CBC WITH DIFFE RENTI AL/PL ATELE T baso (absolute) 0.0 x10e3 /uL 0.0-0. 2 Not Available [facility] ([facility]) [address] [facility], [place], [address], 07/11/2024 07:08:28 07/10/20 24 07/11/2024 CBC WITH DIFFE RENTI AL/PL ATELE T immature granulocytes 1 % notest ab. Not Available [facility] ([facility]) [address] [facility], [place], [address], 07/11/2024 07:08:28 07/10/20 24 07/11/2024 CBC WITH DIFFE RENTI AL/PL ATELE T immature grans (abs) 0.0 x10e3 /uL 0.0-0. 1 Not Available [facility] ([facility]) [address] [facility], [place], [address], 07/11/2024 07:08:28 Result Notes None recorded. Problems Name Problem SNOMED Code Status Onset Date Resolution Date Notes Provider Name and Address Organization Details Recorded Time Hypothyroid ism 76794325 Active 2023 Katia Worthy [facility], [place] - [facility] 4 14:31:05 Feeling stressed 655373574 Active 2023 BACILIO Acosta Attn: David echevarria,[address] [place], [place], [address] [place] [address] 2, [facility] [place] 4 16:18:29 Long-term drug therapy Active 2023 BACILIO Acosta Attn: David echevarria,[address] [place], [place], [address] [place] [address] 2, [facility] - [facility] 4 16:18:31 Hyperlipide alonso 51326097 Active 2023 BACILIO Acosta Attn: David echevarria,[address] [place], [place], [address] [place] [address] 2, [facility] 4 16:18:32 Prediabetes 745510678 Active 2023 BACILIO Acosta Attn: David echevarria,[address] [place], [place], [address] [place] [address] 2, [facility] - [facility] 4 16:18:33 Benign essential hypertensio n 0323890 Active 2023 BACILIO Acosta Attn: David echevarria,[address] [place], [place], [address] [place] [address] 2, [facility] - [facility] 4 16:18:36 Body mass index 30+ - obesity 110730204 Active 2024 BACILIO Acosta Attn: David echevarria,[address] [place], [address], [place] [facility] 5 16:25:25 Obesity 214316148 Active 2024 BACILIO Acosta Attn: Daivd echevarria,[address], [place], [address], [place] [facility] 5 16:25:26 Positive screening for depression on PHQ-9 (Patient Health Questionnai re 9) 4283998664198 00 Active 2024 BACILIO Acosta Attn: David echevarria,[address], [place], [address], [place] [facility] 5 16:25:27 Problem Notes None recorded. Medical [...] Available Not Available alprazolam 0.5 mg tablet Take 1 tablet 3 times a day by oral route. 2024 active Not Available Not Available Not Avai lable amoxicillin 875 mg tablet TAKE 1 TABLET BY MOUTH EVERY 12 HOURS 12/15 completed Not Available Not Available Not Available hydrocodone 7.5 mg-acetamin ophen 325 mg tablet TAKE ONE TABLET EVERY 4-6 HOURS NEEDED FOR PAIN 03/12 /2025 completed Not Available Not Available Not Available [...] Address Organization Details Last Updated DateTime 4 09024.2 2 g 29.1 kg/m2 154.94 cm 82 /min 98 % 98 % 144 mm[Hg] 90 mm[Hg] Salena Loo [place] - [facility] 4 11:47:07 Date Recorded Systolic blood pressure Diastolic blood pressure Provider Name and Address Organization Details Last Updated DateTime 12/08/2023 130 mm[Hg] 82 mm[Hg] BACILIO Acosta Attn: Accounting,[address] [place], [address], [facility] 12/08/2023 12:26:00 Date Recorded Body height Body mass index (BMI) Body weight Heart rate Oxygen saturation Oxygen saturation in Arterial blood by Pulse oximetry Systolic blood pressure Diastolic blood pressure Provider Name and Address Organization Details Last Updated DateTime 4 154.94 cm 28.9 kg/m2 02275.6 3 g 86 /min 97 % 97 % 138 mm[Hg] 76 mm[Hg] Liliam Downey MA [facility] 4 15:39:17 Date Recorded Systolic blood pressure Diastolic blood pressure Provider Name and Address Organization Details Last Updated DateTime 06/11/2024 130 mm[Hg] 84 mm[Hg] BACILIO Acosta Attn: Accounting, [place], [address], [facility] 06/11/2024 16:17:59 Date Recorded Body height Body mass index (BMI) Body weight Heart rate Oxygen saturation Oxygen saturation in Arterial blood by Pulse oximetry Systolic blood pressure Diastolic blood pressure Provider Name and Address Organization Details Last Updated DateTime 154.94 cm 30.7 kg/m2 60374.4 g 78 /min 99 % 99 % 138 mm[Hg] 78 mm[Hg] Norris Weiss MA [facility] 16:11:58 Date Recorded Respiratory rate Systolic blood pressure Diastolic blood pressure Provider Name and Address Organization Details Last Updated DateTime 12/15/2024 16 /min 130 mm[Hg] 80 mm[Hg] BACILIO Acosta Attn: Accounting, [address] [place], [address], [facility] 12/15/2024 16:36:19 Social History Question Answer Notes LastModified by Organizat ion Details LastModified Time Tobacco Smoking Status Never Smoker Salena Loo MA [facility], [facility] 12/08/2023 11:47:56 Do You Have An Advance Directive? No Information not available 12/15/2024 Are You Blind Or Do You Have Difficulty Seeing? Yes Information not available 12/15/2024 What Is Your Level Of Caffeine Consumption? Heavy Information not available 12/15/2024 Are You Deaf Or Do You Have Serious Difficulty Hearing? No Information not available 12/15/2024 What Type Of Diet Are You Following? REGULAR Information not available 12/15/2024 Are There Any [...] Yes Information not available 12/15/2024 Do You Use Sunscreen Routinely? No Information not available 12/15/2024 Has Tobacco Cessation Counseling Been Provided? No Information not available 12/08/2023 Sex: Unknown Functional Status Question Answer Note LastModified by Organizat ion Details LastModified Time Do you use any illicit or recreational drugs? No Information not available 12/15/2024 Do you or have you ever used any other forms of tobacco or nicotine? No Information not available 12/08/2023 What is your level of alcohol consumption? Occasional Information not available 12/15/2024 Are you currently employed? Yes Information not available 12/15/2024 Are you able to care for yourself? 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 Moderate Information not available 12/15/2024 Mental Status Question Answer Note LastModified by Organization D etails LastModified Time Do you feel stressed (tense, restless, nervous, or anxious, or unable to sleep at night)? [id number] Information not available 12/15/2024 Family History Relationship Description Onset Age of [...] PF, 30 mcg/0.3 mL dose 1 completed PORTIA [place], [place] - [facility] 12/15/2024 16:07:34 COVID-19, mRNA, LNP-S, PF, 30 mcg/0.3 mL dose 1 completed [place] [facility] 12/15/2024 16:07:34 Tdap 3 completed [place] [facility] 12/15/2024 16:07:34 Influenza, split virus, trivalent, preservative 3 completed Norris Weiss [place] null, [place] [...] SNOMED-CT Code Diagnosis ICD10 Code Diagnosis Note [id number] Jesus Crow MD [facility] [address] [place] [address] 12/08/2023 11:26:16 12/08/2023 12:36:49 Adult health examination 382850733 Z00.01 wellness exam completed Benign ess ential hypertension 6478700 I10 start HCTZ 12.5mg daily to help with borderline bp control. Hypothyroidism 31948146 E03.9 on synthroid 75mcg daily and due for labs Hyperlipidemia 64787940 E78.5 on crestor 10mg daily. due for fasting lipids. Long-term drug therapy 499793494 Z79.899 routine cbc, cmp, b12, folate, and iron studies due Prediabetes 327236201 R7 3.03 a1c screening due. on metformin ER 500mg daily Acute left otitis media 649521588 H66.92 start cefdinir 300mg bid course. [id number] Jesus Crow MD [facility] [address] [place] [address] 06/11/2024 15:33:13 06/11/2024 16:27:27 Benign essential hypertension 7222469 I10 Stable on hCTZ 12.5mg daily, BP is 130/84 today Hypothyroidism 74955423 E03.9 on synthroid 75mcg daily and due for labs Prediabetes 666520638 R7 3.03 a1c screening due. on metformin ER 500mg daily and refill given Hyperlipidemia 54991281 E78.5 on crestor 10mg daily. due for fasting lipids. Refill given on medication Long-term drug therapy 568504224 Z79.899 routine cbc, cmp due Feeling stressed 3132942 06 Z73.3 Refill given on alprazolam 0.5 mg 3 times daily as needed for stress/anx [facility] [id number] Jesus Crow MD [facility] [address] [place] [address] 12/15/2024 15:29:14 12/21/2024 12:02:50 Body mass index 30+ - obesity 183779417 Z68.30 bmi 30.7 Obesity 262496383 E66.9 Continue diet and exercise modificati ons Positive s creening for depression on PHQ-9 (Patient Health Questionnaire 9) 7254068800 32576 Z13.31 Patient scored a 7 on screening today. No acute concerns or questions. Uses p.r.n. alprazolam a lot of scoring comes from just stress Benign ess ential hypertension 7093056 I10 Stable on hCTZ 12.5mg daily, BP is 130/80 today Hypothyroidism 84960395 E03.9 on synthroid 50 mcg daily and due for labs Prediabetes 456591645 R7 3.03 a1c screening due. on metformin ER 500mg daily Hyperlipidemia 43324014 E78.5 on crestor 10mg daily. due for fasting lipids. Long-term drug therapy 940750769 Z79.899 routine cbc, cmp due Feeling stressed 7344064 06 Z73.3 Stable on alprazolam 0.5 mg 3 times daily as needed for stress/anx iety [facility] Adult heal th examination 789822374 Z00.01 wellness exam completed Health Concerns Section Related Observation LastModified by Organization Detai ls LastModified Time None Recorded Concern Status LastModified by Organization Details LastModified Time None Recorded Advance Directives Directive N: Payers Encounter Date Sequence Insurance Name Policy Number Policy Ordonez Covered Member ID Ordonez Member ID Guarantor Name 12/08/2023 1 [facility] [id number] Jessie Burleson [id number] Jessie Burleson 06/11/2024 1 [facility] [id number] Jessie Burleson [id number] Jessie Burleson 12/15/2024 1 [facility] [id number] Jessie Burleson [id number] Jessie Burleson Notes Date Note Type Note Provider Name and Address Organization Details Recorded Time 12/08/19 24 text/htm l Anxiety/DepressionReported bypatient.Notes:stable on alprazolam PRN useHyperlipidemiaReported bypatient.Notes:stable on rosuvastatin 10mg daily. due for labsThyroidReported bypatient.Notes:stable on synthroid 75mcg daily. due for labs. Prediabetes: taking metformin therapy, stable. BACILIO Acosta Attn: Accounting,[address], [place], [address], [place] [facility] 12/20/2023 16:57:39 06/11/20 24 text/htm l Anxiety/DepressionReported bypatient.Notes:stable on alprazolam PRN useHyperlipidemiaReported bypatient.Notes:stable on rosuvastatin 10mg daily. due for labsThyroidReported bypatient.Notes:stable on synthroid 75mcg daily. due for labs. Prediabetes: taking metformin therapy, stable. BACILIO Acosta Attn: Accounting,[address], [place], [address], [facility] 07/04/2024 00:59:04 12/16/19 25 text/htm l Anxiety/DepressionReported bypatient.Notes:stable on alprazolam PRN useHyperlipidemiaReported bypatient.Notes:stable on rosuvastatin 10mg daily. due for labsThyroidReported bypatient.Notes:stable on synthroid 50mcg daily. due for labs. Prediabetes: taking metformin therapy, stable. BACILIO Acosta Attn: Accounting,[address], [place], [address], [facility] 01/03/2025 22:21:40 OBGyn Episode No OBEpisode recorded.
--- OUTSIDE RECORDS SUMMARY | 2025-02-14 00:38 | XMS_ITS | Data Portability ---
Author Organization [facility], Main Office Address [address] [place] [address] Assessment No assessment recorded. Plan of Treatment Reminders Order Date Submit Date Provider Last Modified By Organization Details Last Modified Time Details Appointments None recorded. Lab CBC w/ auto diff 2022 023 [place] [address] [facility], [address], [place], [address], 3 15:08:18 urinalysis complete, reflex culture 2022 023 [place] [address] [facility], 2022 Louis[address], [place], [address], 3 15:08:18 CMP, serum or plasma 2022 023 [place] [address] [facility], 2022 Louis[address]ena[address], [place], [address], 3 15:08:18 TSH + free T4, serum 2022 023 [email or web address] [facility], 2022 Louis[address], [place], [address], 3 14:21:23 T3, free, serum or plasma 2022 023 [place] [address] [facility], 2022 Louisa Mena[address], [place], [address], 3 15:08:17 lipid panel, serum 2022 023 [email or web address] [facility], 2022 Louisa Mena, [address], [place], [address], 3 15:08:17 Referral None recorded. Procedures None recorded. Surgeries None recorded. Imaging None recorded. Medication Orders doxycycline hyclate 100 mg capsule 2022 023 [facility] #[id number], [address] [facility], [place], [place], [id number], 3 17:12:17 triamcinolo ne acetonide 0.1 % topical cream 2022 023 [facility] #[id number], [address] [facility], [place], [place], [id number], 3 17:12:19 Patient TargetsNo targets recorded. Patient InstructionsNo instructions recorded. Reason for Referral None Reported. Results Created Date Observation Date Name Description Value Unit Range Abnormal Flag Note LastModifiedBy Organization Detail LastModifiedTime 02/09/20 22 02/09/2022 TRIIO DOTHY ANABELA E (T3), FREE triiodothyro nine (T3), free 3.2 pg/mL 2.0-4. 4 Not Available [facility] ([facility]) [address] [facility], [place], [address], 02/09/2022 05:09:49 02/09/20 22 02/09/2022 HEMOG LOBIN A1C hemoglobin A1C 5.8 % 4.8-5. 6 above high normal Predi abete s: 5.7 - 6.4 Diabe glory: >6.4 Glyce corrine contr ol for adult s with diabe glory: <7.0 Not Available [facility] ([facility]) [address] [facility] [facility], [place], [address], 02/09/2022 05:09:48 02/09/20 22 02/09/2022 LIPID PANEL WITH LDL/H DL RATIO cholesterol, total 162 mg/dL 100-19 9 Not Available [facility] ([facility]) [address] [facility], [place], [address], 02/09/2022 05:09:48 02/09/20 22 02/09/2022 LIPID PANEL WITH LDL/H DL RATIO LDL chol calc ([facility]) 98 mg/dL 0-99 Not Available [facility] ([facility]) [address] [facility] [facility], [place], [address], 02/09/2022 05:09:48 02/09/20 22 02/09/2022 LIPID PANEL WITH LDL/H DL RATIO triglyceride s 87 mg/dL 0-149 Not Available [facility] ([facility]) [address] [facility] [facility], [place], [address], 02/09/2022 05:09:48 02/09/20 22 02/09/2022 LIPID PANEL WITH LDL/H DL RATIO HDL cholesterol 48 mg/dL >39 Not Available [facility] ([facility]) [address] [facility] [facility], [place], [address], 02/09/2022 05:09:48 02/09/20 22 02/09/2022 LIPID PANEL WITH LDL/H DL RATIO VLDL cholesterol maritza 16 mg/dL 5-40 Not Available [facility] ([facility]) [address] [place], [address], 02/09/2022 05:09:48 02/09/20 22 02/09/2022 LIPID PANEL WITH LDL/H DL 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 2 LDL/H DL Ratio Men Women 1/2 Avg.R isk 1.0 1.5 Avg.R isk 3.6 3.2 2X Avg.R isk 6.2 5.0 3X Avg.R isk 8.0 6.1 Not Available [facility] ([facility]) [address] [place], [address], 02/09/2022 05:09:48 02/09/20 22 02/09/2022 TSH+F REE T4 TSH 0.446 uIU/m L 0.450- 4.500 below low normal Not Available [facility] ([facility]) [address] [place], [address], 02/09/2022 05:09:48 02/09/20 22 02/09/2022 TSH+F REE T4 T4,free(dire ct) 1.28 NG/dL 0.82-1 .77 Not Available [facility] ([facility]) [address] [place], [address], 02/09/2022 05:09:48 02/09/20 22 02/09/2022 CMP14 +EGFR eGFR 100 mL/mi n/1.7 3 >59 Not Available [facility] ([facility]) [address] [place], [address], 02/09/2022 05:09:47 02/09/20 22 02/09/2022 CMP14 +EGFR glucose 114 mg/dL 65-99 above high normal Not Available [facility] ([facility]) [address] [place], [address], 02/09/2022 05:09:47 02/09/20 22 02/09/2022 CMP14 +EGFR BUN 11 mg/dL 6-24 Not Available [facility] ([facility]) [address] [place], [address], 02/09/2022 05:09:47 02/09/20 22 02/09/2022 CMP14 +EGFR creatinine 0.76 mg/dL 0.57-1 .00 Not Available [facility] ([facility]) [address] [place], [address], 02/09/2022 05:09:47 02/09/20 22 02/09/2022 CMP14 +EGFR BUN/creatini ne ratio 14 9-23 Not Available [facility] ([facility]) [address] [facility] [place], [address], 02/09/2022 05:09:47 02/09/20 22 02/09/2022 CMP14 +EGFR sodium 138 mmol/ L 134-14 4 Not Available [facility] ([facility]) [address] [facility] [place], [address], 02/09/2022 05:09:47 02/09/20 22 02/09/2022 CMP14 +EGFR potassium 4.8 mmol/ L 3.5-5. 2 Not Available [facility] ([facility]) [address] [place], [address], 02/09/2022 05:09:47 02/09/20 22 02/09/2022 CMP14 +EGFR chloride 101 mmol/ L 96-106 Not Available [facility] ([facility]) [address] [place], [address], 02/09/2022 05:09:47 02/09/20 22 02/09/2022 CMP14 +EGFR carbon dioxide, total 20 mmol/ L 20-29 Not Available [facility] ([facility]) [address] [place], [address], 02/09/2022 05:09:47 02/09/20 22 02/09/2022 CMP14 +EGFR calcium 9.8 mg/dL 8.7-10 .2 Not Available [facility] ([facility]) [address] [place], [address], 02/09/2022 05:09:47 02/09/20 22 02/09/2022 CMP14 +EGFR protein, total 7.1 g/dL 6.0-8. 5 Not Available [facility] ([facility]) [address] [place], [address], 02/09/2022 05:09:47 02/09/20 22 02/09/2022 CMP14 +EGFR albumin 5.0 g/dL 3.8-4. 8 above high normal Not Available [facility] ([facility]) [address] [place], [address], 02/09/2022 05:09:47 02/09/20 22 02/09/2022 CMP14 +EGFR globulin, total 2.1 g/dL 1.5-4. 5 Not Available [facility] ([facility]) [address] [place], [address], 02/09/2022 05:09:47 02/09/20 22 02/09/2022 CMP14 +EGFR A/G ratio 2.4 1.2-2. 2 above high normal Not Available [facility] ([facility]) [address] [facility] [place], [address], 02/09/2022 05:09:47 02/09/20 22 02/09/2022 CMP14 +EGFR bilirubin, total 0.3 mg/dL 0.0-1. 2 Not Available [facility] ([facility]) [address] [facility] [place], [address], 02/09/2022 05:09:47 02/09/20 22 02/09/2022 CMP14 +EGFR alkaline phosphatase 115 IU/L 44-121 Not Available [facility] ([facility]) [address] [facility] [place], [address], 02/09/2022 05:09:47 02/09/20 22 02/09/2022 CMP14 +EGFR AST (SGOT) 36 IU/L 0-40 Not Available [facility] ([facility]) [address] [facility] [place], [address], 02/09/2022 05:09:47 05/06/20 22 02/09/2022 CMP14 +EGFR ALT (SGPT) 49 IU/L 0-32 above high normal Not Available [facility] ([facility]) [address] [facility], [place], [address], 02/09/2022 05:09:47 01/15/20 23 04/16/2021 MAMMO , [...] Organization Details Recorded Time Abnormal weight gain 752155841 Active Not Available [facility] 3 02:48:40 Generalized headache 379827094 Active Not Available [facility] 3 02:48:40 Nausea and vomiting 76058738 Active Not Available [facility] 3 02:48:40 Pain of joint of wrist 659927568 Active Not Available [facility] 3 02:48:40 Feeling stressed 736239465 Active Not Available [facility] 3 02:48:40 Muscle tension 273593073 Active Not Available [facility] 3 02:48:40 Eruption 861692927 Active Not Available [facility] 3 02:48:41 Right upper quadrant pain 846166067 Active Not Available [facility] 3 02:48:41 Vitamin D deficiency 78623559 Active Not Available [facility] 3 02:48:41 Hypothyroidis m 51879448 Active 2020 Not Available [facility] 3 02:48:41 Anxiety 25948759 Active Not Available [facility] 3 02:48:41 Flood red spot 77374919 Active 2022 Not Available [facility] 3 02:48:41 Cough 86855530 Active Not Available [facility] 3 02:48:41 Hyperlipidemi a 84886776 Active Not Available [facility] 3 02:48:41 Referred pain 2413693 Active Not Available [facility] 3 02:48:41 Strain of thoracic region 97775770 Active Not Available [facility] 3 02:48:41 Common cold 33069625 Active Not Available [facility] 3 02:48:41 COVID-19 769553911 Active 2021 Not Available [facility] 3 02:48:41 Fatigue 83261433 Active Not Available [facility] 3 02:48:41 Impaired glucose tolerance 6296751 Active 2021 Not Available [facility] 3 02:48:42 Skin lesion 60458839 Active 2022 Not Available [facility] 3 02:48:42 Folliculitis 45141014 Active 2022 BACILIO Acosta [address] [facility], [address], [address] , [facility] 3 17:11:24 Acute urinary tract infection 054515716 Active 2022 BACILIO Acosta [address] [facility], [place] [address], [place], [address] , [facility] 3 08:36:04 Problem Notes None recorded. Procedures Surgical History Date Name Laterality Status Provider Name and Address Organization Details Recorded Time Orthopedic Surgery completed Not Available [facility] 12/04/2022 02:42:54 Imaging Results Imaging Date [...] 2 mL by injection route. 03/24 completed [facility]# [id number] 8 Not Available Not Available Not [...] administe red by the provider 06/25 completed [facility]: 0003-0 494-20 Not Available Not Available [...] administe red by the provider 06/25 completed [facility]: 0409-4 276-17 Not Available Not Available Not Available [facility] 10/25 (28) 1 mg-20 mcg (21)/75 mg (7) tablet 05/15 completed Not Available Not Available Not Available tranexamic acid 650 mg tablet 12/30 completed Not Available Not Available Not Available Lo Loestrin Fe 1 mg-10 mcg (24)/10 mcg (2) tablet active Not Available Not Available Not Available Carl Hickey [facility] spacer U UTD 03/15 completed Not Available [...] 3 154.94 cm 97.5 [degF] 30.6 kg/m2 99441.9 6 g 101 /min 98 % 98 % 116 mm[Hg] 74 mm[Hg] Breanna Disla RN [place] [facility] 3 16:46:02 Date Recorded Body mass index (BMI) Body height Pain severity - 0-10 verbal numeric rating [Score] - Reported Body weight Provider Name and Address Organization Details Last Updated DateTime 11/20/2021 31.2 kg/m2 154.94 cm 2 53658.74 g Not Available [facility] 12/04/2022 02:46:42 Date Recorded Body mass index (BMI) Body height Oxygen saturation Oxygen saturation in Arterial blood by Pulse oximetry Heart rate Respiratory rate Body temperature Body weight Systolic blood pressure Diastolic blood pressure Provider Name and Address Organization Details Last Updated DateTime 2 32.4 kg/m2 154.94 cm 97 % 97 % 73 /min 16 /min 98.1 [degF] 35627.4 5 g 120 mm[Hg] 78 mm[Hg] Not Available [facility] 3 02:46:35 Date Recorded Body mass index (BMI) Body height Oxygen saturation Oxygen saturation in Arterial blood by Pulse oximetry Heart rate Body temperature Body weight Systolic blood pressure Diastolic blood pressure Provider Name and Address Organization Details Last Updated DateTime 3 32.5 kg/m2 154.94 cm 98 % 98 % 85 /min 97.9 [degF] 87242.8 9 g 120 mm[Hg] 76 mm[Hg] Not Available [facility] 3 02:46:35 Date Recorded Body height Oxygen saturation Oxygen saturation in Arterial blood by Pulse oximetry Heart rate Respiratory rate Body temperature Systolic blood pressure Diastolic blood pressure Provider Name and Address Organization Details Last Updated DateTime 2 154.94 cm 99 % 99 % 92 /min 16 /min 97.3 [degF] 122 mm[Hg] 78 mm[Hg] Not Available [facility] 3 02:46:35 Social History Question Answer Notes LastModified by Organizat ion Details LastModified Time Tobacco Smoking Status Never Smoker Not Available [facility] 12/04/2022 02:39:15 What Is Your Level Of Caffeine Consumption? Moderate [id number] Information not available 12/04/2022 How Much Tobacco Do You Chew? None MIGRATION.[id number] 5479 Information not available 12/04/2022 In The 14 Days Before Symptom Onset, Have You Had Close Contact With A Laboratory-confirm ed COVID-19 While That Case Was Ill? No [id number] 1822 Information not available 12/04/2022 In The 14 Days Before Symptom Onset, Have You Had Close Contact With A Person Who Is Under Investigation For COVID-19 While That Person Was Ill? No [id number].[id number] 4031 Information not available 12/04/2022 What Type Of Diet Are You Following? REGULAR MIGRATION.149480 3594 Information not available 12/04/2022 Which Illicit Or Recreational Drugs Have You Used? None MIGRATION.768981 9030 Information not available 12/04/2022 Have There Been Any Changes To Your Family Or Social Situation? No MIGRATION.877883 2392 Information not available 12/04/2022 Are There Any Guns Present In Your Home? No MIGRATION.578535 0890 Information not available 12/04/2022 Do You Use Insect Repellent Routinely? No MIGRATION.794296 2966 Information not available 12/04/2022 What Was The Date Of Your Most Recent Tobacco Screening? 11/20/2021 [id number].[id number] 6386 Information not available 12/04/2022 What Is Your Relationship Status? Single MIGRATION.700737 6525 Information not available 12/04/2022 Do You Use Your Seat Belt Or Car Seat Routinely? Yes MIGRATION.144861 6200 Information not available 12/04/2022 Do You Have Smoke And Carbon Monoxide Detectors In Your Home? Yes MIGRATION.050484 3735 Information not available 12/04/2022 How Much Tobacco Do You Smoke? No MIGRATION.610320 0538 Information not available 12/04/2022 Do You Use Sunscreen Routinely? Yes MIGRATION.528630 4608 Information not available 12/04/2022 How Many Years Have You Smoked Tobacco? 0 MIGRATION.851442 6566 Information not available 12/04/2022 Have You Recently Traveled Abroad? No MIGRATION.039824 5407 Information not available 12/04/2022 Do You Have Any Dietary Restrictions? No MIGRATION.625552 1528 Information not available 12/04/2022 Sex: Unknown Functional Status Question Answer Note LastModified by Organizat ion Details LastModified Time Do you use any illicit or recreational drugs? No MIGRATION.904569 2078 Information not available 12/04/2022 Do you or have you ever used any other forms of tobacco or nicotine? No MIGRATION.041701 5682 Information not available 12/04/2022 What is your level of alcohol consumption? Occasional MIGRATION.949866 4404 Information not available 12/04/2022 Do you or have you ever used smokeless tobacco? Never used smokeless tobacco MIGRATION.823388 1742 Information not available 12/04/2022 Are you currently employed? 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 Never used electronic cigarettes MIGRATION.669387 4358 Information not available 12/04/2022 What is your exercise level? None MIGRATION.528696 5227 Information not available 12/04/2022 Mental Status None recorded. Family History Relationship Description Onset Age of this Age Resolved Age Notes LastModified by Organization Details LastModified Time Mother Malignant neoplastic disease [id number].[id number] Not available 12/04/2022 02:42:58 Unspecified Relation Myocardial infarction MIGRATION.[id number] Not available 12/04/2022 02:42:58 Father Type 2 diabetes mellitus MIGRATION.170 [id number] Not available 12/04/2022 02:42:58 Medical History Condition Response BLINDNESS N NERVE DISEASE N RHEUMATIC FEVER N BLADDER PROBLEMS N KIDNEY STONES N MRSA N OTHER # 1 N POLIO N LUNG DISEASE/DISORDER N RADIATION / CHEMOTHERAPY N COPD N Other # 2 N BLOOD DISEASES N SURGERY N EAR OR HEARING PROBLEMS N MUMPS N BOWEL PROBLEMS N DEPRESSION (INCLUDING POST ) N STROKE/TIA N ULCERS N BENIGN PROSTATIC [...] HAVE YOU BEEN HOSPITALIZED OR SEEN IN [facility] IN THE PAST YEAR ? N ATHEROSCLEROSIS [...] virus, quadrivalent, preservative 0 completed Not Available [facility] 12/04/2022 02:56:10 Influenza, split virus, quadrivalent, preservative 9 completed Not Available [facility] 12/04/2022 02:56:10 influenza, unspecified formulation 6 completed Not Available [facility] 12/04/2022 02:56:10 influenza, unspecified formulation 5 completed Not Available [facility] 12/04/2022 02:56:10 influenza, unspecified formulation 4 completed Not Available [facility] 12/04/2022 02:56:10 Past Encounters Encounter ID Performer Location Encounter Start Date Encounter Closed Date Diagnosis/Indication Diagnosis SNOMED-CT Code Diagnosis ICD10 Code Diagnosis Note [id number] [facility] [address] [place] [address] 12/19/2020 00:00:00 12/19/2020 17:47:50 [id number] BACILIO Acosta [facility] [address] [place] [address] 12/25/2020 00:00:00 12/26/2020 15:02:54 [id number] Dwain Haskins MD [facility] [address] [place] [address] 01/16/2021 00:00:00 01/16/2021 15:09:25 [id number] Dwain Haskins MD [facility] [address] [place] [address] 02/13/2021 00:00:00 02/13/2021 16:22:14 [id number] Dwain Haskins MD [facility] [address] [place] [address] 02/27/2021 00:00:00 02/27/2021 17:48:38 [id number] Dwain Haskins MD [facility] [address] [place] [address] 04/10/2021 00:00:00 04/10/2021 16:43:00 [id number] Dwain Haskins MD [facility] [address] [place] [address] 05/01/2021 00:00:00 05/01/2021 09:05:52 [id number] Dwain Haskins MD [facility] [address] [place] [address] 06/12/2021 00:00:00 06/12/2021 09:40:06 [id number] BACILIO Acosta [facility] [address] [place] [address] 06/25/2021 00:00:00 07/04/2021 00:27:12 [id number] BACILIO Acosta [facility] [address] [place] [address] 07/19/2021 00:00:00 08/05/2021 01:26:47 [id number] Dwain Haskins MD [facility] [address] [place] [address] 08/08/2021 00:00:00 08/08/2021 17:19:27 [id number] Dwain Haskins MD [facility] [address] [place] [address] 11/20/2021 00:00:00 11/20/2021 15:04:54 [id number] BACILIO Acosta [facility] [address] [place] [address] 12/24/2021 00:00:00 01/02/2022 00:09:09 [id number] BACILIO Acosta [facility] [address] [place] [address] 07/01/2022 00:00:00 07/01/2022 23:20:36 [id number] BACILIO Acosta [facility] [address] [place] [address] 11/08/2022 00:00:00 12/03/2022 17:52:28 [id number] [facility] Ac[facility] [address] [place] [address] 12/30/2022 16:38:13 12/30/2022 17:15:55 Hyperlipidemia 12743970 E78.5 fasting lipids due before next appt, stable on statin therapy Hypothyroidism 89632037 E03.9 on supplement , due for TFTs before next appt Anxiety 17931207 F41.9 stable Long-term drug therapy 746573574 Z79.899 Folliculitis 22643098 L7 3.9 Rx for doxy 100mg bid course plus triamcinol one cream Health Concerns Section Related Observation LastModified by Organization Detai ls LastModified Time None Recorded Concern Status LastModified by Organization Details LastModified Time None Recorded Advance Directives Directive None Recorded Payers Encounter Date Sequence Insurance Name Policy Number Policy Ordonez Covered Member ID Ordonez Member ID Guarantor Name 12/30/2022 1 [employer] - [employer] ACCESS PLUS [id number] Jessie Burleson [id number] Jessie Burleson Notes Date Note Type Note [...] skin changes; no hair changes Not Available [facility] 01/02/2022 00:09:09 022 text/h tml Anxiety/DepressionReported [...] difficulties; no skin changes;fatigue;hair changes Not Available [facility] 07/01/2022 23:20:36 023 text/h tml Generic HPI TemplateReported bypatient.Location:abdomen Quality:red, small, pin prick sized spots Duration:year Not Available [facility] 12/03/2022 17:52:28 023 text/h tml Anxiety/DepressionReported bypatient.Severity:denies [...] on her bilat hips BACILIO Acosta [address] [facility], [facility] [address], [place], [address], [place] [facility] [place] [facility] [facility] 12/30/2022 23:17:59 OBGyn Episode No OBEpisode recorded.
--- OUTSIDE RECORDS SUMMARY | 2025-02-14 00:39 | XMS_ITS | CONTINUITY OF CARE DOCUMENT ---
Author Name isra dhaliwal Address Unknown Organization [facility] Address [address] [place] [address] Phone [phone] Care Team Providers Care Sampler And Test Preparer Name Role Phone isra dhaliwal Unavailable Unavailable INSURANCE PROVIDERS Payer name Policy type / Coverage type [place] red democrat ID [facility] [id number]
[2025-02-14 06:30] LABS: Glucose Point of Care 100 mg/dl (65-105)
[2025-02-14] MEDS: LACTATED RINGERS 1,000 ML 30 ML IV CONT ×2 (06:45→10:09)
[2025-02-14] MEDS: KETOROLAC 15 MG/ML VIAL (*BKC) IV PUSH (07:00)
[2025-02-14] MEDS: ACETAMINOPHEN 500 MG TABLET 1000 MG PO ×3 (07:00→17:59)
--- NOTE | 2025-02-14 07:16 | WPDHPUPDATE1 ---
History and Physical Update Update Date/Time: 02/14/25 07:16 History and Physical has been reviewed, including an updated exam of the patient. There are NO changes in the patient's condition. Risks, benefits, and alternatives have been discussed and questions answered. Patient agrees to proceed with procedure.
[2025-02-14 07:25] LABS: BEDSIDEPREGUCG Negative (Negative)
[2025-02-14] MEDS: ceFAZolin 2 GM/D5W 50 ML 2 GM/50 ML BAG IVPB (07:27)
[2025-02-14] MEDS: ceFAZolin SODIUM 1 GM VIAL (08:15)
[2025-02-14] MEDS: METHYLENE BLUE 0.5% INJ 10 ML AMPULE IV PUSH (09:05)
--- NOTE | 2025-02-14 09:53 | W.PM.PROC2 ---
Procedure Note - Detailed Date of Procedure 02/14/25 Pre-op Diagnosis menorrhagia Post-op Diagnosis Same Procedure Performed Robot assisted Total hysterectomy with bilateral salpingectomy. Surgeon Jamal Glez MD Anesthesia General Indications heavy vaginal bleeding Findings normal-appearing uterus, ovaries,and fallopian tubes. Description of Procedure This patient was taken to the operating room. She was prepped and draped in the dorsal lithotomy position after induction of general anesthesia. The uterine manipulator and Darnell cup were placed. This was done with a speculum and tenaculum. The speculum was placed. The cervix was grasped with a tenaculum. The stay sutures were placed at 3 and 9:00 a.m.. The stay sutures of 0 Vicryl were tied to the appropriately Size scope after it was slipped around the cervix.. The tip of the JAY manipulator was placed in the intrauterine cavity. The cup was slid into place around the cervix and into the fornices. It was locked into place. The sutures were then wrapped around the handle and tied under tension. A 8 mm skin incision was made in the left upper quadrant the abdomen. a 5 mm Visiport trocar was inserted into abdominal cavity and pneumoperitoneum was achieved. A 8 mm supraumbilical incision was made and a 8 mm trocar was inserted into the intrauterine cavity under direct visualization of the scope. an 8 mm incision was made in the right upper quadrant of the abdomen and an 8 mm robotic trocar was placed the inter uterine cavity under direct visualization the scope. An 11 mm trocar was inserted in the right upper quadrant of the abdomen rectal is a cystoscope after an incision was made there as well. The robot was docked. Electronic Orientation of the robot was performed. Bilateral ureteral lysis was performed. This was done from the pelvic brim down to the uterine artery. This was done with careful dissection using sharp and blunt dissection. The fallopian tubes were removed bilaterally. The mesosalpinx around the fallopian tubes were cauterized transected with LigaSure cautery. This was done in a bilateral fashion from the ovary to the uterine cornua. The fallopian tube was transected at the uterine cornu and amputated. The tube was taken out the left lower quadrant trocar site. In a stepwise fashion along the lateral aspects of the uterus the round ligament and broad ligaments were cauterized transected down to the level of the uterine arteries. A bladder flap was created in the bladder was moved distally to the end of the cervix and over the Darnell cup. The bilateral uterine arteries were cauterized and transected. Colpotomy was then performed. In a circumferential fashion the vagina was transected using unipolar cautery. The incision was made down on the Darnell cup. The uterus and cervix were taken out through the vagina. A pneumo occluder was placed in the vagina. The vaginal cuff was closed with a 0 V lock suture in a running fashion. The pelvis was irrigated with copious amounts antibiotic irrigation. The ureters were again examined and found to be intact and flowing freely under the uterine arteries into the bladder. The bladder was intact. It was examined directly. Cystoscopy was performed after administration of methylene blue. The cystoscope was inserted. Bladder was distended with fluid. The ureteric meatus was observed bilaterally. Blue fluid was seen to egress bilaterally. The bladder was drained and the cystoscope was withdrawn. The vagina was irrigated with Betadine solution after removal of the Pneumo occluder. the trocars were removed after the robot was undocked. The skin was closed with subacute or Dermabond. The patient was taken to recovery room. She was stable condition. Sponge lap and needle counts were correct x2. Estimated Blood Loss 125 Urine Output 800 Drains Yes Packing No Pathology Yes Complications No immediate complications Condition Stable Disposition Floor
[2025-02-14 10:14] LABS: Glucose Point of Care 133 mg/dl (65-105)
--- NOTE | 2025-02-14 10:25 | P.PNAN_ITS ---
Anes - Initial Pre Proc Eval Procedure: Operation Date: 02/14/25 07:30 Proposed Procedures p Robotic Assisted Hysterectomy with Bilateral Salpingectomy - Jamal Glez MD Date/Time: 02/14/25 10:25 Surgeon: Jamal Glez MD Pre Op Diagnosis: menorrhagia Patient Data Age: 44 Gender: F Height: 1.52 m Weight: 71.7 kg Last Vital Signs Temp 36.3 C L 02/14/25 09:47 Pulse 77 02/14/25 10:15 Resp 14 02/14/25 10:15 BP 107/59 L 02/14/25 10:15 Pulse Ox 99 02/14/25 10:15 O2 Del Method Simple Face Mask 02/14/25 10:15 O2 Flow Rate 6 02/14/25 10:15 Allergies Allergy/AdvReac Type Severity Reaction Status Date / Time No Known Allergies Allergy Verified 02/14/25 07:26 Home Medications ?Medication ?Instructions ?Recorded ?Confirmed ?Type levothyroxine 50 mcg tablet 50 mcg PO DAILY 08/23/19 02/14/25 History (Synthroid) rosuvastatin 5 mg tablet 5 mg PO DAILY 08/23/19 02/14/25 History alprazolam 0.5 mg tablet 0.5 mg PO PRN PRN Anxiety 09/02/22 02/14/25 History famotidine 20 mg tablet (Pepcid) 20 mg PO DAILY 09/02/22 02/14/25 History metformin 500 mg tablet,extended 500 mg PO BID 09/02/22 02/14/25 History release 24 hr Fish Oil 3000 3,000 mg PO DAILY 02/01/25 02/14/25 History Laboratory Tests 02/14/25 02/14/25 02/14/25 06:15 06:27 10:12 POC Capillary Glucose 100 mg/dl 133 H mg/dl (65-105) (65-105) POC Urine HCG, Qual Negative (Negative) Patient hx anesthesia problems: none Family hx anesthesia problems: none Results Review: All pre-operative results and documents have been reviewed as part of the pre- operative evaluation. [facility] Past Medical History Medical History Partial tear of common extensor tendon of left elbow 2020- Dr. 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 Informed Consent: The patient's anesthetic plan and its attendant risks and benefits were discussed with the patient/family/POA. Questions were solicited and answers provided to the satisfaction of the patient/family/POA.
[2025-02-14] MEDS: LACTATED RINGERS 1,000 ML 125 ML IV CONT (11:32)
[2025-02-14] MEDS: SIMETHICONE 80 MG TAB.CHEW PO ×2 (12:00→16:57)
[2025-02-14] MEDS: KETOROLAC 30 MG/ML VIAL (*BKC) IV PUSH ×2 (12:00→17:58)
[2025-02-14] MEDS: metFORMIN HCL XR 500 MG TAB.SR.24H PO (16:57)
[2025-02-14] MEDS: DOCUSATE SODIUM 100 MG CAPSULE PO (16:57)
[2025-02-14] MEDS: oxyCODONE HCL (*CRX) 5 MG TAB IR PO (22:09)
[2025-02-15] MEDS: KETOROLAC 30 MG/ML VIAL (*BKC) IV PUSH
[2025-02-15 00:07] VITALS: BP 112/68; PULSE 62; RESP 16; TEMP 36.6; O2SAT 98
[2025-02-15 05:06] VITALS: BP 92/59; PULSE 60; RESP 16; TEMP 36.6; O2SAT 99
[2025-02-15] MEDS: LEVOTHYROXINE SODIUM 50 MCG TABLET PO (05:57)
[2025-02-15] MEDS: ACETAMINOPHEN 500 MG TABLET 1000 MG PO ×2 (05:57)
[2025-02-15] MEDS: IBUPROFEN 600 MG TABLET PO (05:58)
[2025-02-15 07:25] VITALS: BP 113/70; PULSE 72; RESP 16; TEMP 37.3; O2SAT 99
[2025-02-15] MEDS: DOCUSATE SODIUM 100 MG CAPSULE PO (08:14)
[2025-02-15] MEDS: SIMETHICONE 80 MG TAB.CHEW PO (08:14)
[2025-02-15] MEDS: OMEGA 3 POLYUNSAT FATTY ACIDS 1 GM CAP 3 GM PO (08:15)
[2025-02-15] MEDS: ROSUVASTATIN 5 MG TABLET PO (08:16)
[2025-02-15] MEDS: metFORMIN HCL XR 500 MG TAB.SR.24H PO (08:16)
--- NOTE | 2025-02-15 10:31 | PM.GYNPNOP ---
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 Postoperative Procedures: Procedures Operation Date: 02/14/25 07:30 Actual Procedure Side Surgeon p Robotic Assisted Hysterectomy with Bilateral Salpingectomy Bilateral Jamal Glez MD Postoperative day: 1 Postoperative status: doing well Postoperative plan: see orders Time Spent With Patient Time: Total time spent is greater than 50% in coordination of care (as documented) at patient's floor/unit and/or counseling patient: Time with patient: less than 15 minutes POLYSTYRENE MOLDING MACHINE TENDER- PN:Subj Post-Op Subjective Date/time seen: 02/15/25 10:31 Subjective: patient reports feeling better, patient has no complaints and pain is well controlled Exam Const: General: healthy appearing, comfortable and no acute distress Resp: Auscultation: clear to auscultation bilaterally, no rales, no rhonchi and no wheezes Cardio: Rate: regular rate Heart sounds: no click, no murmurs and no rubs GI: Inspection: non-distended Auscultation: normal bowel sounds Extrem: General: normal to inspection, no pedal edema and no calf tenderness POLYSTYRENE MOLDING MACHINE TENDER - PN: Obj Data Vital Signs Vital Signs: Vital Signs - 24 hr 02/14/25 10:45 02/14/25 10:53 02/14/25 10:55 Temperature 97.0 F L Pulse Rate 69 72 Respiratory Rate 14 16 Blood Pressure 112/61 105/61 Pulse Oximetry 94 95 Oxygen Delivery Room Air Room Air 02/14/25 12:00 02/14/25 16:00 02/14/25 16:00 Temperature 97.4 F L 97.6 F Pulse Rate 68 Respiratory Rate 18 Blood Pressure 109/66 Pulse Oximetry 97 Oxygen Delivery Room Air 02/14/25 20:05 02/14/25 20:05 02/15/25 00:07 Temperature 97.9 F 98 F Pulse Rate 74 74 62 Respiratory Rate 16 16 16 Blood Pressure 102/60 112/68 Pulse Oximetry 98 98 98 Oxygen Delivery Room Air 02/15/25 05:06 02/15/25 07:25 02/15/25 08:00 Temperature 97.9 F 99.2 F Pulse Rate 60 72 Respiratory Rate 16 16 Blood Pressure 92/59 L 113/70 Pulse Oximetry 99 99 Oxygen Delivery Room Air Intake/Output Intake/Output: Intake & Output 02/12/25 02/13/25 02/14/25 02/15/25 23:59 23:59 23:59 23:59 Intake Total 1730 Output Total 1370 Balance 360 Meds/Results Medications: Active Medications Generic Name Dose Route Start Last Admin Trade Name Genaroq PRN Reason Stop Dose Admin Acetaminophen 1,000 mg 02/14/25 12:00 02/15/25 05:57 Acetaminophen 500 Mg Tablet PO 1,000 mg Q6HR YAMILETH Administration Alprazolam 0.5 mg 02/14/25 10:49 Alprazolam (*Crx) 0.5 Mg Tablet PO PRN PRN Anxiety Docusate Sodium 100 mg 02/14/25 17:00 02/15/25 08:14 Docusate Sodium 100 Mg Capsule PO 100 mg BID YAMILETH Administration Famotidine 20 mg 02/15/25 09:00 Famotidine 20 Mg Tablet PO DAILY YAMILETH Fish Oil 3 gm 02/15/25 09:00 02/15/25 08:15 [place] 3 Polyunsat Fatty Acids 1 Gm Cap PO 3 gm QAM YAMILETH Administration Lactated Ringer's 1,000 mls @ 125 mls/hr 02/14/25 11:15 02/14/25 11:32 Lr - Lactated Ringers Iv IV CONT 125 mls/hr .Q8H YAMILETH Administration Ibuprofen 600 mg 02/15/25 06:00 02/15/25 05:58 Ibuprofen 600 Mg Tablet PO 600 mg Q6HR YAMILETH Administration Levothyroxine Sodium 50 mcg 02/15/25 06:30 02/15/25 05:57 Levothyroxine Sodium 50 Mcg Tablet PO 50 mcg DAILY@0630 YAMILETH Administration Metformin HCl 500 mg 02/14/25 17:00 02/15/25 08:16 Metformin Hcl Xr 500 Mg Tab.Sr.24h PO 500 mg BIDWM YAMILETH Administration Naloxone HCl 0.1 mg 02/14/25 10:49 Naloxone Hcl 0.4 Mg/Ml Vial IV PUSH Q2M PRN Respiratory rate less than 10 Ondansetron HCl 4 mg 02/14/25 10:49 Ondansetron Inj 4 Mg/2 Ml Vial IV PUSH Q6H PRN Nausea And Vomiting Oxycodone HCl 5 mg 02/14/25 10:49 02/14/25 22:09 Oxycodone Hcl (*Crx) 5 Mg Tab Ir PO 5 mg Q4H PRN Administration Pain Rated 4-6 Oxycodone HCl 10 mg 02/14/25 10:49 Oxycodone Hcl (*Crx) 5 Mg Tab Ir PO Q6H PRN Pain Rated 7-10 Rosuvastatin Calcium 5 mg 02/15/25 09:00 02/15/25 08:16 Rosuvastatin 5 Mg Tablet PO 5 mg DAILY YAMILETH Administration Simethicone 80 mg 02/14/25 12:00 02/15/25 08:14 Simethicone 80 Mg Tab.Chew PO 80 mg TIDWM YAMILETH Administration
== END 2025-02-15 10:37 | disposition home or self-care (01) ==
LOC: ANHSURGERY 05:54 → ANHOB2 10:52
PROVIDERS: PCP Physician Assistant; Visit Provider Obstetrics & Gynecology
PROC: (CPT 58571; principal; 2025-02-14 07:30)
DX: N92.0 Excessive and frequent menstruation with regular cycle (principal); G89.18 Other acute postprocedural pain; F41.9 Anxiety disorder, unspecified; F32.A Depression, unspecified; E78.00 Pure hypercholesterolemia, unspecified; E07.9 Disorder of thyroid, unspecified; Z79.84 Long term (current) use of oral hypoglycemic drugs; Z98.890 Other specified postprocedural states; Z80.41 Family history of malignant neoplasm of ovary; Z80.3 Family history of malignant neoplasm of breast; Z80.1 Family history of malignant neoplasm of trachea, bronchus and lung
CPT/HCPCS: 58571; S2900; 82948; 88307; 99199; A9270; J0690; J1100; J1165; J1885; J2250; J2270; J2405; J2704; J7030; J7120; Q9968

== ENCOUNTER 2025-03-02 14:28 | Outpatient (CLI) | payer OTHER, SELFPAY ==
--- NOTE | ~2025-03-02 | MR_ITS ---
EXAMINATION: MR elbow RT wo con DATE: 03/02/2025 15:08 INDICATION: Right elbow lateral epicondylitis TECHNIQUE: Magnetic resonance imaging (MRI) of the right elbow was performed without intravenous cont rast. Sequences included coronal, axial, and sagittal PD-weighted FS FSE and coronal, axial, and sagi ttal PD-weighted FSE. COMPARISON: None FINDINGS: Osseous/other: Normal alignment. Normal marrow signal with no marrow edema, fracture, osteochondral lesion or abnor mal marrow replacing process. Tendons: Triceps, biceps brachii and brachialis tendons are normal. Common flexor tendon wad is normal. There is moderate tendinopathy without discrete tear of the common extensor tendon wad. Ligaments: The medial collateral ligament complex is normal. There is at least partial if not complete tear of t he humeral attachment of the radial collateral ligament. The lateral ulnar collateral ligament and th e annular ligament remains normal. Cubital tunnel: There is a normal variant anconeus epitrochlear is muscle which appears to narrow the AP diameter of the cubital tunnel with flattening of the ulnar nerve as it passes through the tunnel. Fluid: Physiologic amount of fluid the elbow joint. IMPRESSION: 1. Lateral epicondylitis with partial if not complete tear of the humeral attachment of the radial co llateral ligament and moderate tendinopathy without discrete tear at the lateral epicondylar origin o f the common extensor tendon wad. 2. Normal variant and conus epitrochlear is muscle which appears to compress the ulnar nerve as it pa sses through the narrowed tibial tunnel. Correlate clinically for signs/symptoms of cubital tunnel sy ndrome. Reviewed, dictated and finalized at location A. IMPRESSION: 1. Lateral epicondylitis with partial if not complete tear of the humeral attac hment of the radial collateral ligament and moderate tendinopathy without discr ete tear at the lateral epicondylar origin of the common extensor tendon wad. 2. Normal variant and conus epitrochlear is muscle which appears to compress th e ulnar nerve as it passes through the narrowed tibial tunnel. Correlate clinic ally for signs/symptoms of cubital tunnel syndrome.
== END 2025-03-02 14:29 | disposition home or self-care (01) ==
PROVIDERS: PCP Orthopaedic Surgery; Visit Provider Orthopaedic Surgery
DX: M77.11 Lateral epicondylitis, right elbow (principal); S53.431A Radial collateral ligament sprain of right elbow, initial encounter; X58.XXXA Exposure to other specified factors, initial encounter; G56.21 Lesion of ulnar nerve, right upper limb
CPT/HCPCS: 73221

== ENCOUNTER 2025-04-07 14:23 | Outpatient (CLI) | payer OTHER, SELFPAY ==
--- OUTSIDE RECORDS SUMMARY | 2025-04-07 14:27 | XMS_ITS | Referral Summary ---
Author Organization [address] Address [address] [place] [id number] Care Team Providers Care Shot Hole Shooter Name Role Phone Josselyn Garibay Primary Care [...] Comments Blood Pressure 120/82 11/27/2023 2:44 PM COOKER SULFATE Pulse 82 11/27/2023 2:44 PM COOKER SULFATE Temperature 36.9 C (98.4 F) 11/27/2023 2:44 PM COOKER SULFATE Respiratory Rate 20 11/27/2023 2:44 PM COOKER SULFATE Oxygen Saturation 99% 11/27/2023 2:44 PM COOKER SULFATE Inhaled Oxygen Concentration - - Weight 71.7 kg (158 lb) 11/27/2023 2:44 PM COOKER SULFATE Height 165.1 cm (5' 5) 11/27/2023 2:44 PM COOKER SULFATE Body Mass Index 26.29 11/27/2023 2:44 PM COOKER SULFATE Plan of Treatment Not on file Insurance [employer] OPEN ACCESS [employer] OPEN ACCESS Care Teams Shot Hole Shooter Relationship Specialty Start Date End Date Josselyn Garibay PA PCP - General 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
--- OUTSIDE RECORDS SUMMARY | 2025-04-07 14:27 | XMS_ITS | Clinical Summary ---
Author Organization [facility] Address [address] [place] [address] Care Team Providers Care Parachute Panel Joiner Name Role Phone Unavailable Primary Care Provider Unavailabl e Source Comments [facility],non-owned Affiliates and Associated Physician Practices is amultiple site organization consisting of ambulatory clinics and hospital sitesin [place], [place], [place] and [place]. This disclosure is being madepursuant to the Care Everywhere program and may not contain all information available regarding this patient. Last updated 18.[facility] [employer] Social History Tobacco Use Types Packs/Day Years [...] of 3 - 19+ 3-dose series) 1997 PAP SMEAR 1999 COVID-19 VACCINE ( - 2023-2 5 season) [...] patient's age to complete this topic Insurance [employer] SELF PAY NO INSURANCE Member Subscriber Plan / Payer (Ef fective for All Dates) Name:Jem Burleson Member ID:Not on file Relation to Subscriber:Not on file Name:JEM BURLESON Subscriber ID:Not on file (Home) Address: [address] [place] [id number] Payer ID:Not on file Group ID:Not on file Type:Self Pay Address: [facility]
--- OUTSIDE RECORDS SUMMARY | 2025-04-07 14:27 | XMS_ITS | Clinical Summary ---
Author Organization [address] Address [address] [place] [id number] Care Team Providers Care Color Blender Name Role Phone Josselyn Garibay Primary Care [...] Comments Blood Pressure 120/82 11/27/2023 2:44 PM TOOLS DEVELOPER Pulse 82 11/27/2023 2:44 PM TOOLS DEVELOPER Temperature 36.9 C (98.4 F) 11/27/2023 2:44 PM TOOLS DEVELOPER Respiratory Rate 20 11/27/2023 2:44 PM TOOLS DEVELOPER Oxygen Saturation 99% 11/27/2023 2:44 PM TOOLS DEVELOPER Inhaled Oxygen Concentration - - Weight 71.7 kg (158 lb) 11/27/2023 2:44 PM TOOLS DEVELOPER Height 165.1 cm (5' 5) 11/27/2023 2:44 PM TOOLS DEVELOPER Body Mass Index 26.29 11/27/2023 2:44 PM TOOLS DEVELOPER Plan of Treatment Health Maintenance Due Date Last Done Comments Breast Cancer Screening-Mammogram 1978 Cervical Cancer Screening 1978 Colon Cancer Screening-Colonoscopy 1978 Depression Screening 1978 Hepatitis C Screening 1978 Hepatitis B Screening 1996 Regular Well Visit/Exam 18-64 1996 DTaP/Tdap/Td Vaccine (2 - Td or Tdap) 08/14/2023 08/14/2013 Covid-19 Vaccine (3 - season) 2024 12/22/2020, 11/28/2020 Influenza Vaccine (Season Ended) 2025 08/11/2023, 06/20/2020, 06/20/2020, Additional history exists HPV Vaccines Aged Out No longer eligi ble based on patient's age to complete this topic Pneumococcal vaccine <65 Aged Out No longer eligible based on patient's age to complete this topic Insurance [employer] OPEN ACCESS [employer] ACCESS Care Teams Color Blender Relationship Specialty Start Date End Date Josselyn Garibay PA PCP - General Physician Industrial Robotics Mechanic 11/27/23
--- OUTSIDE RECORDS SUMMARY | 2025-04-07 14:27 | XMS_ITS | Data Portability ---
Author Organization [facility] Address [address] [place] [address] Assessment Encounter Date Assessment Date Assessment LastModified [...] JOAQUIN Mustafa, [address], [place], [address], 02/13/2025 09:08:17 CMP, serum or plasma 2024 025 JOAQUIN Mustafa, [address], [place], [address], 02/13/2025 09:08:16 CBC w/ auto diff 2024 025 JOAQUIN Mustafa, [address], [place], [address], 02/13/2025 09:08:18 lipid panel, serum 2024 025 JOAQUIN Mustafa, [address], [place], [address], 02/13/2025 09:08:15 TSH + free T4, serum 2024 025 JOAQUIN Mustafa, [address], [place], [address], 02/13/2025 09:08:15 HbA1c (hemoglob in A1c), blood 2023 024 JOAQUIN Mustafa, [address], [place], [address], 07/11/2024 07:08:27 CMP, serum or plasma 2023 024 JOAQUIN Mustafa, [address], [place], [address], 07/11/2024 07:08:26 CBC w/ auto diff 2023 024 JOAQUIN Mustafa, [address], [place], [address], 07/11/2024 07:08:28 lipid panel, serum 2023 024 JOAQUIN Mustafa, [address], [place], [address], 07/11/2024 07:08:24 TSH + free T4, serum 2023 024 JOAQUIN Mustafa, [address], [place], [address], 07/11/2024 07:08:25 HbA1c (hemoglob in A1c), blood 2023 024 JOAQUIN Mustafa, [address], [place], [address], 12/20/2023 06:18:43 CMP, serum or plasma 2023 024 JOAQUIN Mustafa, [address], [place], [address], 12/20/2023 06:18:42 CBC w/ auto diff 2023 024 [facility], [address], [place], [address], 12/20/2023 06:18:44 vitamin B12 + folate, serum or blood 2023 024 [facility], [address], [place], [address], 12/20/2023 06:18:43 iron + TIBC + ferritin, serum 2023 024 [facility], [address], [place], [address], 12/20/2023 06:18:44 lipid panel, serum 2023 024 [facility], [address], [place], [address], 12/20/2023 06:18:41 TSH + free T4, serum 2023 024 [facility], [address], [place], [address], 12/20/2023 06:18:41 Referral None recorded. Procedures None recorded. Surgeries None recorded. Imaging None recorded. Medication Orders Wegovy 0.25 mg/0.5 mL subcutane ous pen injector 2024 025 JULIAN [id number], [address], [place], [place], [id number], 12/15/2024 16:36:54 metformin ER 500 mg tablet,ex tended release 24 hr 2023 024 JULIAN [facility], [address], [place], [address], 06/11/2024 16:18:29 rosuvasta tin 10 mg tablet 2023 024 JOAQUIN [facility], [address], [place], [address], 06/11/2024 16:18:29 alprazola m 0.5 mg tablet 2023 024 [facility] [place] [facility] #[id number], [address], [place], [place], [id number], 06/11/2024 16:18:34 cefdinir 300 mg capsule 2023 024 [facility] #[id number], [address], [place], [id number], 01/16/2024 14:18:31 hydrochlo rothiazid e 12.5 mg tablet 2023 024 [facility] #[id number], [address], [place], [id number], 12/20/2023 16:50:58 Patient TargetsNo targets recorded. Patient Instructions Encounter Date Encounter Id Patient Instructions Last Modified By Organization Details Last Modified Time 12/15/2024 [id number] A healthy lifestyle: care instructions Not available 12/15/2024 16:36:49 Reason for Referral None Reported. Results Created Date Observation Date Name Description Value Unit Range Abnormal Flag Note LastModifiedBy Organization Detail LastModifiedTime 12/18/1912/19/2023 TSH+F REE T4 TSH 0.286 uIU/m L 0.450- 4.500 below low normal Not Available [facility] ([facility]) [address], [place], [address], 12/20/2023 06:18:41 12/18/1912/19/2023 TSH+F REE T4 T4,free(dire ct) 1.71 NG/dL 0.82-1 .77 Not Available [facility] ([facility]) [address] [place], [address], 12/20/2023 06:18:41 12/18/19 24 12/19/2023 LIPID PANEL cholesterol, total 114 mg/dL 100-19 9 Not Available [facility] ([facility]) [address] [place], [address], 12/20/2023 06:18:41 12/18/19 24 12/19/2023 LIPID PANEL triglyceride s 115 mg/dL 0-149 Not Available [facility]) [address] [place], [address], 12/20/2023 06:18:41 12/18/19 24 12/19/2023 LIPID PANEL HDL cholesterol 50 mg/dL >39 Not Available [facility]) [address] [place], [address], 12/20/2023 06:18:41 12/18/19 24 12/19/2023 LIPID PANEL VLDL cholesterol maritza 21 mg/dL 5-40 Not Available [facility] ([facility]) [address] [place], [address], 12/20/2023 06:18:41 12/18/19 24 12/19/2023 LIPID PANEL LDL chol calc ([email or web address] 43 mg/dL 0-99 Not Available [facility]) [address] [place], [address], 12/20/2023 06:18:41 12/18/19 24 12/19/2023 CMP14 +EGFR glucose 98 mg/dL 70-99 Not Available [facility] ([facility]) [address] [place], [address], 12/20/2023 06:18:42 12/18/19 24 12/19/2023 CMP14 +EGFR BUN 11 mg/dL 6-24 Not Available [facility] ([facility]) [address] [place], [address], 12/20/2023 06:18:42 12/18/19 24 12/19/2023 CMP14 +EGFR creatinine 0.71 mg/dL 0.57-1 .00 Not Available [facility] ([facility]) [address], [place], [address], 12/20/2023 06:18:42 12/18/19 24 12/19/2023 CMP14 +EGFR eGFR 107 mL/mi n/1.7 3 >59 Not Available [facility] ([facility]) [address], [place], [address], 12/20/2023 06:18:42 12/18/19 24 12/19/2023 CMP14 +EGFR BUN/creatini ne ratio 15 9-23 Not Available [facility] ([facility]) [address], [place], [address], 12/20/2023 06:18:42 12/18/19 24 12/19/2023 CMP14 +EGFR sodium 144 mmol/ L 134-14 4 Not Available [facility] ([facility]) [address], [place], [address], 12/20/2023 06:18:42 12/18/19 24 12/19/2023 CMP14 +EGFR potassium 4.4 mmol/ L 3.5-5. 2 Not Available [facility] ([facility]) [address], [place], [address], 12/20/2023 06:18:42 12/18/19 24 12/19/2023 CMP14 +EGFR chloride 106 mmol/ L 96-106 Not Available [facility] ([facility]) [address], [place], [address], 12/20/2023 06:18:42 12/18/19 24 12/19/2023 CMP14 +EGFR carbon dioxide, total 23 mmol/ L 20-29 Not Available [facility] ([facility]) [address], [place], [address], 12/20/2023 06:18:42 12/18/19 24 12/19/2023 CMP14 +EGFR calcium 10.1 mg/dL 8.7-10 .2 Not Available [facility] ([facility]) [address] [place], [address], 12/20/2023 06:18:42 12/18/19 24 12/19/2023 CMP14 +EGFR protein, total 6.9 g/dL 6.0-8. 5 Not Available [facility] ([facility]) [address], [place], [address], 12/20/2023 06:18:42 12/18/19 24 12/19/2023 CMP14 +EGFR albumin 4.8 g/dL 3.9-4. 9 Not Available [facility] ([facility]) [address], [place], [address], 12/20/2023 06:18:42 12/18/19 24 12/19/2023 CMP14 +EGFR globulin, total 2.1 g/dL 1.5-4. 5 Not Available [facility] ([facility]) [address], [place], [address], 12/20/2023 06:18:42 12/18/19 24 12/19/2023 CMP14 +EGFR A/G ratio 2.3 1.2-2. 2 above high normal Not Available [facility] ([facility]) [address] [facility] [place], [address], 12/20/2023 06:18:42 12/18/19 24 12/19/2023 CMP14 +EGFR bilirubin, total 0.5 mg/dL 0.0-1. 2 Not Available [facility] ([facility]) [address] [facility] [place], [address], 12/20/2023 06:18:42 12/18/19 24 12/19/2023 CMP14 +EGFR alkaline phosphatase 66 IU/L 44-121 Not Available [facility] ([facility]) [address], [place], [address], 12/20/2023 06:18:42 12/18/19 24 12/19/2023 CMP14 +EGFR AST (SGOT) 13 IU/L 0-40 Not Available [facility] ([facility]) [address], [place], [address], 12/20/2023 06:18:42 12/18/19 24 12/19/2023 CMP14 +EGFR ALT (SGPT) 19 IU/L 0-32 Not Available [facility] ([facility]) [address], [place], [address], 12/20/2023 06:18:42 12/18/19 24 12/19/2023 VITAM IN B12 AND FOLAT E vitamin B12 1899 pg/mL 232-12 45 above high normal Not Available [facility] ([facility]) [address], [place], [address], 12/20/2023 06:18:42 12/18/1912/20/2023 VITAM IN B12 AND FOLAT E folate (folic acid), serum 19.2 NG/mL >3.0 A serum folat e leana ntrat ion of less than 3.1 ng/mL is consi dered to repre sent clini maritza defic iency . Not Available [facility] ([facility]) [address], [place], [address], 12/20/2023 06:18:42 12/18/19 24 12/19/2023 HEMOG LOBIN A1C hemoglobin A1C 5.7 % 4.8-5. 6 above high normal Predi abete s: 5.7 - 6.4 Diabe glory: >6.4 Glyce corrine contr ol for adult s with diabe glory: <7.0 Not Available [facility] ([facility]) [address], [place], [address], 12/20/2023 06:18:43 12/18/1912/19/2023 CBC WITH DIFFE RENTI AL/PL ATELE T WBC 5.4 x10e3 /uL 3.4-10 .8 Not Available [facility] ([facility]) [address], [place], [address], 12/20/2023 06:18:44 12/18/19 24 12/19/2023 CBC WITH DIFFE RENTI AL/PL ATELE T RBC 4.79 x10e6 /uL 3.77-5 .28 Not Available [facility] ([facility]) [address], [place], [address], 12/20/2023 06:18:44 12/18/19 24 12/19/2023 CBC WITH DIFFE RENTI AL/PL ATELE T hemoglobin 14.8 g/dL 11.1-1 5.9 Not Available [facility] ([facility]) [address], [place], [address], 12/20/2023 06:18:44 12/18/19 24 12/19/2023 CBC WITH DIFFE RENTI AL/PL ATELE T hematocrit 43.8 % 34.0-4 6.6 Not Available [facility] ([facility]) [address], [place], [address], 12/20/2023 06:18:44 12/18/19 24 12/19/2023 CBC WITH DIFFE RENTI AL/PL ATELE T MCV 91 fL 79-97 Not Available [facility] ([facility]) [address], [place], [address], 12/20/2023 06:18:44 12/18/19 24 12/19/2023 CBC WITH DIFFE RENTI AL/PL ATELE T MCH 30.9 pg 26.6-3 3.0 Not Available [facility] ([facility]) [address], [place], [address], 12/20/2023 06:18:44 12/18/19 24 12/19/2023 CBC WITH DIFFE RENTI AL/PL ATELE T MCHC 33.8 g/dL 31.5-3 5.7 Not Available [facility] ([facility]) [address], [place], [address], 12/20/2023 06:18:44 12/18/19 24 12/19/2023 CBC WITH DIFFE RENTI AL/PL ATELE T RDW 12.4 % 11.7-1 5.4 Not Available [facility] ([facility]) [address], [place], [address], 12/20/2023 06:18:44 12/18/19 24 12/19/2023 CBC WITH DIFFE RENTI AL/PL ATELE T platelets 327 x10e3 /uL 150-45 0 Not Available [facility] ([facility]) [address], [place], [address], 12/20/2023 06:18:44 12/18/19 24 12/19/2023 CBC WITH DIFFE RENTI AL/PL ATELE T neutrophils 61 % notest ab. Not Available [facility] ([facility]) [address] [place], [address], 12/20/2023 06:18:44 12/18/19 24 12/19/2023 CBC WITH DIFFE RENTI AL/PL ATELE T lymphs 28 % notest ab. Not Available [facility] ([facility]) [address] [place], [address], 12/20/2023 06:18:44 12/18/19 24 12/19/2023 CBC WITH DIFFE RENTI AL/PL ATELE T monocytes 8 % notest ab. Not Available [facility] ([facility]) [address] [place], [address], 12/20/2023 06:18:44 12/18/19 24 12/19/2023 CBC WITH DIFFE RENTI AL/PL ATELE T eos 2 % notest ab. Not Available [facility] ([facility]) [address], [place], [address], 12/20/2023 06:18:44 12/18/19 24 12/19/2023 CBC WITH DIFFE RENTI AL/PL ATELE T basos 1 % notest ab. Not Available [facility] ([facility]) [address], [place], [address], 12/20/2023 06:18:44 12/18/19 24 12/19/2023 CBC WITH DIFFE RENTI AL/PL ATELE T neutrophils (absolute) 3.3 x10e3 /uL 1.4-7. 0 Not Available [facility] ([facility]) [address], [place], [address], 12/20/2023 06:18:44 12/18/19 24 12/19/2023 CBC WITH DIFFE RENTI AL/PL ATELE T lymphs (absolute) 1.5 x10e3 /uL 0.7-3. 1 Not Available [facility] ([facility]) [address] [place], [address], 12/20/2023 06:18:44 12/18/19 24 12/19/2023 CBC WITH DIFFE RENTI AL/PL ATELE T monocytes(ab solute) 0.4 x10e3 /uL 0.1-0. 9 Not Available [facility] ([facility]) [address] [place], [address], 12/20/2023 06:18:44 12/18/19 24 12/19/2023 CBC WITH DIFFE RENTI AL/PL ATELE T eos (absolute) 0.1 x10e3 /uL 0.0-0. 4 Not Available [facility] ([facility]) [address] [place], [address], 12/20/2023 06:18:44 12/18/19 24 12/19/2023 CBC WITH DIFFE RENTI AL/PL ATELE T baso (absolute) 0.0 x10e3 /uL 0.0-0. 2 Not Available [facility] ([facility]) [address] [place], [address], 12/20/2023 06:18:44 12/18/19 24 12/19/2023 CBC WITH DIFFE RENTI AL/PL ATELE T immature granulocytes 0 % notest ab. Not Available [facility] ([facility]) [address] [place], [address], 12/20/2023 06:18:44 12/18/19 24 12/19/2023 CBC WITH DIFFE RENTI AL/PL ATELE T immature grans (abs) 0.0 x10e3 /uL 0.0-0. 1 Not Available [facility] ([facility]) [address] [place], [address], 12/20/2023 06:18:44 12/18/19 24 12/19/2023 FE+TI BC+FE R iron bind.cap.(TI BC) 311 ug/dL 250-45 0 Not Available [facility] ([facility]) [address] [place], [address], 12/20/2023 06:18:44 12/18/19 24 12/19/2023 FE+TI BC+FE R UIBC 210 ug/dL 131-42 5 Not Available [facility] ([facility]) [address] [place], [address], 12/20/2023 06:18:44 12/18/19 24 12/19/2023 FE+TI BC+FE R iron 101 ug/dL 27-159 Not Available [facility] ([facility]) [address] [place], [address], 12/20/2023 06:18:44 12/18/19 24 12/19/2023 FE+TI BC+FE R iron saturation 32 % 15-55 Not Available [facility] ([facility]) [address], [place], [address], 12/20/2023 06:18:44 12/18/19 24 12/19/2023 FE+TI BC+FE R ferritin 48 NG/mL 15-150 Not Available [facility] ([facility]) [address], [place], [address], 12/20/2023 06:18:44 07/10/20 24 07/11/2024 LIPID PANEL W/ CHOL/ HDL RATIO cholesterol, total 124 mg/dL 100-19 9 Not Available [facility] ([facility]) [address] [place], [address], 07/11/2024 07:08:24 07/10/20 24 07/11/2024 LIPID PANEL W/ CHOL/ HDL RATIO triglyceride s 85 mg/dL 0-149 Not Available [facility] ([facility]) [address] [place], [address], 07/11/2024 07:08:24 07/10/20 24 07/11/2024 LIPID PANEL W/ CHOL/ HDL RATIO HDL cholesterol 57 mg/dL >39 Not Available [facility] ([facility]) [address] [place], [address], 07/11/2024 07:08:24 07/10/20 24 07/11/2024 LIPID PANEL W/ CHOL/ HDL RATIO VLDL cholesterol maritza 16 mg/dL 5-40 Not Available [facility] ([facility]) [address] [place], [address], 07/11/2024 07:08:24 07/10/20 24 07/11/2024 LIPID PANEL W/ CHOL/ HDL RATIO LDL chol calc (nih) 51 mg/dL 0-99 Not Available [facility] ([facility]) [address] [place], [address], 07/11/2024 07:08:24 07/10/20 24 07/11/2024 LIPID PANEL W/ CHOL/ HDL RATIO T. chol/HDL ratio 2.2 ratio 0.0-4. 4 T. Chol/ HDL Ratio Men Women 1/2 Avg.R isk 3.4 3.3 Avg.R isk 5.0 4.4 2X Avg.R isk 9.6 7.1 3X Avg.R isk 23.4 11.0 Not Available [facility] ([facility]) [address] [place], [address], 07/11/2024 07:08:24 07/10/20 24 07/11/2024 TSH+F REE T4 TSH 0.723 uIU/m L 0.450- 4.500 Not Available [facility] ([facility]) [address] [place], [address], 07/11/2024 07:08:25 07/10/20 24 07/11/2024 TSH+F REE T4 T4,free(dire ct) 1.11 NG/dL 0.82-1 .77 Not Available [facility] ([facility]) [address] [place], [address], 07/11/2024 07:08:25 07/10/20 24 07/11/2024 COMP. METAB OLIC PANEL (14) glucose 95 mg/dL 70-99 Not Available [facility] ([facility]) [address] [place], [address], 07/11/2024 07:08:26 07/10/20 24 07/11/2024 COMP. METAB OLIC PANEL (14) BUN 11 mg/dL 6-24 Not Available [facility] ([facility]) [address] [place], [address], 07/11/2024 07:08:26 07/10/20 24 07/11/2024 COMP. METAB OLIC PANEL (14) creatinine 0.75 mg/dL 0.57-1 .00 Not Available [facility] ([facility]) [address], [place], [address], 07/11/2024 07:08:26 07/10/20 24 07/11/2024 COMP. METAB OLIC PANEL (14) eGFR 100 mL/mi n/1.7 3 >59 Not Available [facility] ([facility]) [address], [place], [address], 07/11/2024 07:08:26 07/10/20 24 07/11/2024 COMP. METAB OLIC PANEL (14) BUN/creatini ne ratio 15 9-23 Not Available [facility] ([facility]) [address], [place], [address], 07/11/2024 07:08:26 07/10/20 24 07/11/2024 COMP. METAB OLIC PANEL (14) sodium 142 mmol/ L 134-14 4 Not Available [facility] ([facility]) [address], [place], [address], 07/11/2024 07:08:26 07/10/20 24 07/11/2024 COMP. METAB OLIC PANEL (14) potassium 4.3 mmol/ L 3.5-5. 2 Not Available [facility] ([facility]) [address], [place], [address], 07/11/2024 07:08:26 07/10/20 24 07/11/2024 COMP. METAB OLIC PANEL (14) chloride 107 mmol/ L 96-106 above high normal Not Available [facility] ([facility]) [address], [place], [address], 07/11/2024 07:08:26 07/10/20 24 07/11/2024 COMP. METAB OLIC PANEL (14) carbon dioxide, total 23 mmol/ L 20-29 Not Available [facility] ([facility]) [address] [facility] [place], [address], 07/11/2024 07:08:26 07/10/20 24 07/11/2024 COMP. METAB OLIC PANEL (14) calcium 9.4 mg/dL 8.7-10 .2 Not Available [facility] ([facility]) [address], [place], [address], 07/11/2024 07:08:26 07/10/20 24 07/11/2024 COMP. METAB OLIC PANEL (14) protein, total 6.3 g/dL 6.0-8. 5 Not Available [facility] ([facility]) [address] [facility] [place], [address], 07/11/2024 07:08:26 07/10/20 24 07/11/2024 COMP. METAB OLIC PANEL (14) albumin 4.4 g/dL 3.9-4. 9 Not Available [facility] ([facility]) [address] [place], [address], 07/11/2024 07:08:26 07/10/20 24 07/11/2024 COMP. METAB OLIC PANEL (14) globulin, total 1.9 g/dL 1.5-4. 5 Not Available [facility] ([facility]) [address] [place], [address], 07/11/2024 07:08:26 07/10/20 24 07/11/2024 COMP. METAB OLIC PANEL (14) bilirubin, total 0.4 mg/dL 0.0-1. 2 Not Available [facility] ([facility]) [address] [place], [address], 07/11/2024 07:08:26 07/10/20 24 07/11/2024 COMP. METAB OLIC PANEL (14) alkaline phosphatase 69 IU/L 44-121 Not Available [facility]) [address] [facility] [place], [address], 07/11/2024 07:08:26 07/10/20 24 07/11/2024 COMP. METAB OLIC PANEL (14) AST (SGOT) 13 IU/L 0-40 Not Available [facility] ([facility]) [address] [facility] [place], [address], 07/11/2024 07:08:26 07/10/20 24 07/11/2024 COMP. METAB OLIC PANEL (14) ALT (SGPT) 15 IU/L 0-32 Not Available [facility] ([facility]) [address] [facility] [place], [address], 07/11/2024 07:08:26 07/10/20 24 07/11/2024 HEMOG LOBIN A1C hemoglobin A1C 5.5 % 4.8-5. 6 Predi abete s: 5.7 - 6.4 Diabe glory: >6.4 Glyce corrine contr ol for adult s with diabe glory: <7.0 Not Available [facility] ([facility]) [address] [facility] [place], [address], 07/11/2024 07:08:27 07/10/20 24 07/11/2024 CBC WITH DIFFE RENTI AL/PL ATELE T WBC 6.2 x10e3 /uL 3.4-10 .8 Not Available [facility] ([facility]) [address] [facility] [place], [address], 07/11/2024 07:08:28 07/10/20 24 07/11/2024 CBC WITH DIFFE RENTI AL/PL ATELE T RBC 4.26 x10e6 /uL 3.77-5 .28 Not Available [facility] ([facility]) [address] [facility], [place], [address], 07/11/2024 07:08:28 07/10/20 24 07/11/2024 CBC WITH DIFFE RENTI AL/PL ATELE T hemoglobin 13.4 g/dL 11.1-1 5.9 Not Available [facility] ([facility]) [address] [facility], [place], [address], 07/11/2024 07:08:28 07/10/20 24 07/11/2024 CBC WITH DIFFE RENTI AL/PL ATELE T hematocrit 40.6 % 34.0-4 6.6 Not Available [facility] ([facility]) [address] [facility], [place], [address], 07/11/2024 07:08:28 07/10/2007/11/2024 CBC WITH DIFFE RENTI AL/PL ATELE T MCV 95 fL 79-97 Not Available [facility] ([facility]) [address] [facility], [place], [address], 07/11/2024 07:08:28 07/10/2007/11/2024 CBC WITH DIFFE RENTI AL/PL ATELE T MCH 31.5 pg 26.6-3 3.0 Not Available [facility] ([facility]) [address] [facility], [place], [address], 07/11/2024 07:08:28 07/10/2007/11/2024 CBC WITH DIFFE RENTI AL/PL ATELE T MCHC 33.0 g/dL 31.5-3 5.7 Not Available [facility] ([facility]) [address] [facility], [place], [address], 07/11/2024 07:08:28 07/10/2007/11/2024 CBC WITH DIFFE RENTI AL/PL ATELE T RDW 12.4 % 11.7-1 5.4 Not Available [facility] ([facility]) [address] [facility], [place], [address], 07/11/2024 07:08:28 07/10/2007/11/2024 CBC WITH DIFFE RENTI AL/PL ATELE T platelets 352 x10e3 /uL 150-45 0 Not Available [facility] ([facility]) [address] [facility], [place], [address], 07/11/2024 07:08:28 07/10/20 24 07/11/2024 CBC WITH DIFFE RENTI AL/PL ATELE T neutrophils 67 % notest ab. Not Available [facility] ([facility]) [address] [facility], [place], [address], 07/11/2024 07:08:28 07/10/2007/11/2024 CBC WITH DIFFE RENTI AL/PL ATELE T lymphs 21 % notest ab. Not Available [facility] ([facility]) [address] [facility], [place], [address], 07/11/2024 07:08:28 07/10/20 24 07/11/2024 CBC WITH DIFFE RENTI AL/PL ATELE T monocytes 7 % notest ab. Not Available [facility] ([facility]) [address] [facility], [place], [address], 07/11/2024 07:08:28 07/10/20 24 07/11/2024 CBC WITH DIFFE RENTI AL/PL ATELE T eos 3 % notest ab. Not Available [facility] ([facility]) [address] [facility], [place], [address], 07/11/2024 07:08:28 07/10/20 24 07/11/2024 CBC WITH DIFFE RENTI AL/PL ATELE T basos 1 % notest ab. Not Available [facility] ([facility]) [address] [facility], [place], [address], 07/11/2024 07:08:28 07/10/20 24 07/11/2024 CBC WITH DIFFE RENTI AL/PL ATELE T neutrophils (absolute) 4.2 x10e3 /uL 1.4-7. 0 Not Available [facility] ([facility]) [address] [facility], [place], [address], 07/11/2024 07:08:28 07/10/20 24 07/11/2024 CBC WITH DIFFE RENTI AL/PL ATELE T lymphs (absolute) 1.3 x10e3 /uL 0.7-3. 1 Not Available [facility] ([facility]) [address] [facility], [place], [address], 07/11/2024 07:08:28 07/10/2007/11/2024 CBC WITH DIFFE RENTI AL/PL ATELE T monocytes(ab solute) 0.4 x10e3 /uL 0.1-0. 9 Not Available [facility] ([facility]) [address] [facility], [place], [address], 07/11/2024 07:08:28 07/10/20 24 07/11/2024 CBC WITH DIFFE RENTI AL/PL ATELE T eos (absolute) 0.2 x10e3 /uL 0.0-0. 4 Not Available [facility] ([facility]) [address] [facility], [place], [address], 07/11/2024 07:08:28 07/10/20 24 07/11/2024 CBC WITH DIFFE RENTI AL/PL ATELE T baso (absolute) 0.0 x10e3 /uL 0.0-0. 2 Not Available [facility] ([facility]) [address] [facility], [place], [address], 07/11/2024 07:08:28 07/10/20 24 07/11/2024 CBC WITH DIFFE RENTI AL/PL ATELE T immature granulocytes 1 % notest ab. Not Available [facility] ([facility]) [address] [facility], [place], [address], 07/11/2024 07:08:28 07/10/2007/11/2024 CBC WITH DIFFE RENTI AL/PL ATELE T immature grans (abs) 0.0 x10e3 /uL 0.0-0. 1 Not Available [facility] ([facility]) [address] [facility], [place], [address], 07/11/2024 07:08:28 02/13/20 25 02/13/2025 LIPID PANEL W/ CHOL/ HDL RATIO cholesterol, total 123 mg/dL 100-19 9 Not Available [facility] ([facility]) [address] [facility], [place], [address], 02/13/2025 09:08:15 02/13/20 25 02/13/2025 LIPID PANEL W/ CHOL/ HDL RATIO triglyceride s 74 mg/dL 0-149 Not Available [facility] ([facility]) [address] [facility], [place], [address], 02/13/2025 09:08:15 02/13/20 25 02/13/2025 LIPID PANEL W/ CHOL/ HDL RATIO HDL cholesterol 53 mg/dL >39 Not Available [facility] ([facility]) [address] [facility], [place], [address], 02/13/2025 09:08:15 02/13/20 25 02/13/2025 LIPID PANEL W/ CHOL/ HDL RATIO VLDL cholesterol maritza 15 mg/dL 5-40 Not Available [facility] ([facility]) [address] [place], [address], 02/13/2025 09:08:15 02/13/20 25 02/13/2025 LIPID PANEL W/ CHOL/ HDL RATIO LDL chol calc ([email or web address] 55 mg/dL 0-99 Not Available [facility] ([facility]) [address] [place], [address], 02/13/2025 09:08:15 02/13/20 25 02/13/2025 LIPID PANEL W/ CHOL/ HDL RATIO T. chol/HDL ratio 2.3 ratio 0.0-4. 4 T. Chol/ HDL Ratio Men Women 1/2 Avg.R isk 3.4 3.3 Avg.R isk 5.0 4.4 2X Avg.R isk 9.6 7.1 3X Avg.R isk 23.4 11.0 Not Available [facility] ([facility]) [address] [place], [address], 02/13/2025 09:08:15 02/13/20 25 02/13/2025 TSH+F REE T4 TSH 0.975 uIU/m L 0.450- 4.500 Not Available [facility] ([facility]) [address] [place], [address], 02/13/2025 09:08:15 02/13/20 25 02/13/2025 TSH+F REE T4 T4,free(dire ct) 1.21 NG/dL 0.82-1 .77 Not Available [facility] ([facility]) [address] [place], [address], 02/13/2025 09:08:15 02/13/20 25 02/13/2025 COMP. METAB OLIC PANEL (14) glucose 103 mg/dL 70-99 above high normal Not Available [facility] ([facility]) [address] [place], [address], 02/13/2025 09:08:16 02/13/2002/13/2025 COMP. METAB OLIC PANEL (14) BUN 12 mg/dL 6-24 Not Available [facility] ([facility]) [address] [place], [address], 02/13/2025 09:08:16 02/13/20 25 02/13/2025 COMP. METAB OLIC PANEL (14) creatinine 0.77 mg/dL 0.57-1 .00 Not Available [facility] ([facility]) [address] [place], [address], 02/13/2025 09:08:16 02/13/20 25 02/13/2025 COMP. METAB OLIC PANEL (14) eGFR 96 mL/mi n/1.7 3 >59 Not Available [facility] ([facility]) [address] [place], [address], 02/13/2025 09:08:16 02/13/20 25 02/13/2025 COMP. METAB OLIC PANEL (14) BUN/creatini ne ratio 16 9-23 Not Available [facility] ([facility]) [address] [place], [address], 02/13/2025 09:08:16 02/13/20 25 02/13/2025 COMP. METAB OLIC PANEL (14) sodium 142 mmol/ L 134-14 4 Not Available [facility] ([facility]) [address] [facility], [place], [address], 02/13/2025 09:08:16 02/13/20 25 02/13/2025 COMP. METAB OLIC PANEL (14) potassium 4.6 mmol/ L 3.5-5. 2 Not Available [facility] ([facility]) [address] [place], [address], 02/13/2025 09:08:16 02/13/20 25 02/13/2025 COMP. METAB OLIC PANEL (14) chloride 105 mmol/ L 96-106 Not Available [facility] ([facility]) [address] [place], [address], 02/13/2025 09:08:16 02/13/20 25 02/13/2025 COMP. METAB OLIC PANEL (14) carbon dioxide, total 22 mmol/ L 20-29 Not Available [facility] ([facility]) [address] [place], [address], 02/13/2025 09:08:16 02/13/20 25 02/13/2025 COMP. METAB OLIC PANEL (14) calcium 9.7 mg/dL 8.7-10 .2 Not Available [facility] ([facility]) [address] [facility], [place], [address], 02/13/2025 09:08:16 02/13/20 25 02/13/2025 COMP. METAB OLIC PANEL (14) protein, total 6.6 g/dL 6.0-8. 5 Not Available [facility] ([facility]) [address] [facility], [place], [address], 02/13/2025 09:08:16 02/13/20 25 02/13/2025 COMP. METAB OLIC PANEL (14) albumin 4.5 g/dL 3.9-4. 9 Not Available [facility] ([facility]) [address] [facility], [place], [address], 02/13/2025 09:08:16 02/13/20 25 02/13/2025 COMP. METAB OLIC PANEL (14) globulin, total 2.1 g/dL 1.5-4. 5 Not Available [facility] ([facility]) [address] [facility] [place], [address], 02/13/2025 09:08:16 02/13/20 25 02/13/2025 COMP. METAB OLIC PANEL (14) bilirubin, total 0.3 mg/dL 0.0-1. 2 Not Available [facility] ([facility]) [address] [facility], [place], [address], 02/13/2025 09:08:16 02/13/20 25 02/13/2025 COMP. METAB OLIC PANEL (14) alkaline phosphatase 76 IU/L 44-121 Not Available [facility] ([facility]) [address] [facility], [place], [address], 02/13/2025 09:08:16 02/13/20 25 02/13/2025 COMP. METAB OLIC PANEL (14) AST (SGOT) 21 IU/L 0-40 Not Available [facility] ([facility]) [address] [facility], [place], [address], 02/13/2025 09:08:16 02/13/2002/13/2025 COMP. METAB OLIC PANEL (14) ALT (SGPT) 16 IU/L 0-32 Not Available [facility] ([facility]) [address] [facility], [place], [address], 02/13/2025 09:08:16 02/13/2002/13/2025 HEMOG LOBIN A1C hemoglobin A1C 5.6 % 4.8-5. 6 Predi abete s: 5.7 - 6.4 Diabe glory: >6.4 Glyce corrine contr ol for adult s with diabe glory: <7.0 Not Available [facility] ([facility]) [address] [facility], [place], [address], 02/13/2025 09:08:17 02/13/2002/13/2025 CBC WITH DIFFE RENTI AL/PL ATELE T WBC 5.9 x10e3 /uL 3.4-10 .8 Not Available [facility] ([facility]) [address] [facility], [place], [address], 02/13/2025 09:08:18 02/13/20 25 02/13/2025 CBC WITH DIFFE RENTI AL/PL ATELE T RBC 4.77 x10e6 /uL 3.77-5 .28 Not Available [facility] ([facility]) [address] [facility], [place], [address], 02/13/2025 09:08:18 02/13/2002/13/2025 CBC WITH DIFFE RENTI AL/PL ATELE T hemoglobin 14.4 g/dL 11.1-1 5.9 Not Available [facility] ([facility]) [address] [facility], [place], [address], 02/13/2025 09:08:18 02/13/2002/13/2025 CBC WITH DIFFE RENTI AL/PL ATELE T hematocrit 44.5 % 34.0-4 6.6 Not Available [facility] ([facility]) [address] [place], [address], 02/13/2025 09:08:18 02/13/2002/13/2025 CBC WITH DIFFE RENTI AL/PL ATELE T MCV 93 fL 79-97 Not Available [facility] ([facility]) [address] [facility], [place], [address], 02/13/2025 09:08:18 02/13/2002/13/2025 CBC WITH DIFFE RENTI AL/PL ATELE T MCH 30.2 pg 26.6-3 3.0 Not Available [facility] ([facility]) [address] [facility], [place], [address], 02/13/2025 09:08:18 02/13/2002/13/2025 CBC WITH DIFFE RENTI AL/PL ATELE T MCHC 32.4 g/dL 31.5-3 5.7 Not Available [facility] ([facility]) [address] [place], [address], 02/13/2025 09:08:18 02/13/2002/13/2025 CBC WITH DIFFE RENTI AL/PL ATELE T RDW 12.6 % 11.7-1 5.4 Not Available [facility] ([facility]) [address] [place], [address], 02/13/2025 09:08:18 02/13/2002/13/2025 CBC WITH DIFFE RENTI AL/PL ATELE T platelets 342 x10e3 /uL 150-45 0 Not Available [facility] ([facility]) [address] [place], [address], 02/13/2025 09:08:18 02/13/2002/13/2025 CBC WITH DIFFE RENTI AL/PL ATELE T neutrophils 60 % notest ab. Not Available [facility] ([facility]) [address] [facility], [place], [address], 02/13/2025 09:08:18 02/13/2002/13/2025 CBC WITH DIFFE RENTI AL/PL ATELE T lymphs 31 % notest ab. Not Available [facility] ([facility]) [address] [facility], [place], [address], 02/13/2025 09:08:18 02/13/2002/13/2025 CBC WITH DIFFE RENTI AL/PL ATELE T monocytes 6 % notest ab. Not Available [facility] ([facility]) [address] [facility], [place], [address], 02/13/2025 09:08:18 02/13/2002/13/2025 CBC WITH DIFFE RENTI AL/PL ATELE T eos 2 % notest ab. Not Available [facility] ([facility]) [address] [facility], [place], [address], 02/13/2025 09:08:18 02/13/2002/13/2025 CBC WITH DIFFE RENTI AL/PL ATELE T basos 1 % notest ab. Not Available [facility] ([facility]) [address] [facility], [place], [address], 02/13/2025 09:08:18 02/13/2002/13/2025 CBC WITH DIFFE RENTI AL/PL ATELE T neutrophils (absolute) 3.5 x10e3 /uL 1.4-7. 0 Not Available [facility] ([facility]) [address] [facility], [place], [address], 02/13/2025 09:08:18 02/13/20 25 02/13/2025 CBC WITH DIFFE RENTI AL/PL ATELE T lymphs (absolute) 1.8 x10e3 /uL 0.7-3. 1 Not Available [facility] ([facility]) [address] [facility], [place], [address], 02/13/2025 09:08:18 02/13/2002/13/2025 CBC WITH DIFFE RENTI AL/PL ATELE T monocytes(ab solute) 0.4 x10e3 /uL 0.1-0. 9 Not Available [facility] ([facility]) [address] [facility], [place], [address], 02/13/2025 09:08:18 02/13/2002/13/2025 CBC WITH DIFFE RENTI AL/PL ATELE T eos (absolute) 0.1 x10e3 /uL 0.0-0. 4 Not Available [facility] ([facility]) [address] [facility], [place], [address], 02/13/2025 09:08:18 02/13/2002/13/2025 CBC WITH DIFFE RENTI AL/PL ATELE T baso (absolute) 0.0 x10e3 /uL 0.0-0. 2 Not Available [facility] ([facility]) [address] [facility], [place], [address], 02/13/2025 09:08:18 02/13/2002/13/2025 CBC WITH DIFFE RENTI AL/PL ATELE T immature granulocytes 0 % notest ab. Not Available [facility] ([facility]) [address] [place], [address], 02/13/2025 09:08:18 02/13/2002/13/2025 CBC WITH DIFFE RENTI AL/PL ATELE T immature grans (abs) 0.0 x10e3 /uL 0.0-0. 1 Not Available [facility] ([facility]) [address] [place], [address], 02/13/2025 09:08:18 Result Notes None recorded. Problems Name Problem SNOMED Code Status Onset Date Resolution Date Notes Provider Name and Address Organization Details Recorded Time Hypothyroid ism 43145359 Active 2023 Katia Worthy [place], [place] - [facility] 4 14:31:05 Feeling stressed 998679084 Active 2023 BACILIO Acosta Attn: Accountin g,[address] [facility], [place], [address], [place] - [facility] 4 16:18:29 Long-term drug therapy Active 2023 BACILIO Acosta Attn: Accountin g,[address] [facility], [place], [address], [facility] - [facility] 4 16:18:31 Hyperlipide alonso 63525365 Active 2023 BACILIO Acosta Attn: Accountin g,[address] [facility], [place], [address], [place] - [facility] 4 16:18:32 Prediabetes 792552518 Active 2023 BACILIO Acosta Attn: Accountin g,[address] [facility], [place], [address], [place] [facility] 4 16:18:33 Benign essential hypertensio n 8285259 Active 2023 BACILIO Acosta Attn: Accountin g,[address] [facility], [place], [address], [place] - [facility] 4 16:18:36 Body mass index 30+ - obesity 637041618 Active 2024 BACILIO Acosta Attn: Accountin g,[address] [facility], [place], [address], [place] [facility] 5 16:25:25 Obesity 436712994 Active 2024 BACILIO Acosta Attn: Accountin g,[address] [facility], [place], [address], [place] - [facility] 5 16:25:26 Positive screening for depression on PHQ-9 (Patient Health Questionnai re 9) 9052160505802 00 Active 2024 BACILIO Acosta Attn: David swathi,[address] [facility], [place], [address], [facility] - [facility] 16:25:27 Problem Notes None recorded. Medical Equipment [...] Not Available Not Available Not Available hydrocodone 5 mg-acetamin ophen 325 mg tablet TAKE 1 TO 2 TABLETS BY MOUTH EVERY 6 HOURS NEEDED FOR PAIN active Not Available Not Available No t Available meloxicam 15 mg tablet TAKE 1 [...] completed Not Available Not Available Not Available amoxicillin 500 mg tablet TAKE 1 TABLET BY MOUTH EVERY 8 HOURS UNTIL ALL TAKEN 03/31 completed Not Available Not Available Not Available [...] 1 tablet every day by oral route. 2024 active Not Available Not Available Not Avai lable estradiol 2 mg tablet TAKE 1 TABLET [...] Not Available Not Available Not Avai lable chlorhexidi ne gluconate 0.12 % mouthwash SWISH 1/2 OZ FOR 30 SECONDS THEN SPIT OUT 2-3 TIMES EVERY DAY active Not Available Not Available No t Available hydrochloro thiazide 12.5 mg tablet Take 1 tablet every day by oral route. active Not Available Not Available No t Available Wegovy 0.25 mg/0.5 mL subcutaneou s pen injector Inject 0.25 mg every week by subcutane ous route. 2024 active Not Available Not Available Not Avai lable Vitals Date Recorded Systolic And Diastolic Provider Name and Address Organization Details Last Updated DateTime 12/08/2023 130/82 mm[Hg] BACILIO Acosta Attn: Accounting,[address] [place], [address], [place] - [facility] 12/08/2023 12:26:00 Date Recorded Body weight Body mass index (BMI) Body height Heart rate Oxygen saturation Oxygen saturation in Arterial blood by Pulse oximetry Systolic And Diastolic Provider Name and Address Organization Details Last Updated DateTime 82106.2 2 g 29.1 kg/m2 154.94 cm 82 /min 98 % 98 % 144/90 mm[Hg] Salena Loo MA [facility] 4 11:47:07 Date Recorded Respiratory rate Systolic And Diastolic Provider Name and Address Organization Details Last Updated DateTime 12/15/2024 16 /min 130/80 mm[Hg] BACILIO Acosta Attn: Accounting,[address] [place], [address], [facility] 12/15/2024 16:36:19 Date Recorded Body height Body mass index (BMI) Body weight Heart rate Oxygen saturation Oxygen saturation in Arterial blood by Pulse oximetry Systolic And Diastolic Provider Name and Address Organization Details Last Updated DateTime 154.94 cm 30.7 kg/m2 04273.4 g 78 /min 99 % 99 % 138/78 mm[Hg] Norris Weiss MA [facility] 5 16:11:58 Date Recorded Systolic And Diastolic Provider Name and Address Organization Details Last Updated DateTime 06/11/2024 130/84 mm[Hg] BACILIO Acosta Attn: Accounting,[address] [place], [address], [facility] 06/11/2024 16:17:59 Date Recorded Body height Body mass index (BMI) Body weight Heart rate Oxygen saturation Oxygen saturation in Arterial blood by Pulse oximetry Systolic And Diastolic Provider Name and Address Organization Details Last Updated DateTime 154.94 cm 28.9 kg/m2 72751.6 3 g 86 /min 97 % 97 % 138/76 mm[Hg] Liliam Downey MA [facility] 4 15:39:17 Social History Question Answer Notes LastModified by Organizat ion Details LastModified Time Tobacco Smoking Status Never Smoker Salena Loo MA null, [facility] 12/08/2023 11:47:56 Do You Have An [...] anxious, or unable to sleep at night)? [id number] Information not available 12/15/2024 Family History Relationship [...] Influenza, split virus, quadrivalent, PF 0 completed Norris Weiss [place] null, [place] [facility] 12/15/2024 16:07:34 Influenza, split virus, quadrivalent, PF 8 completed Norris Weiss [place], [place] [facility] 12/15/2024 16:07:34 Influenza, split virus, quadrivalent, PF 9 completed Norris Weiss [place], [place] [facility] 12/15/2024 16:07:34 Past Encounters Encounter ID Performer Location Encounter Start Date Encounter Closed Date Diagnosis/Indication Diagnosis SNOMED-CT Code Diagnosis ICD10 Code Diagnosis Note [id number] Jesus Crow MD [facility] [address] [place] [address] 12/08/2023 11:26:16 12/08/2023 12:36:49 Adult health examination 710874387 Z00.01 wellness exam completed Benign ess ential hypertension 4395416 I10 start HCTZ 12.5mg daily to help with borderline bp control. Hypothyroidism 70004439 E03.9 on synthroid 75mcg daily and due for labs Hyperlipidemia 93869068 E78.5 on crestor 10mg daily. due for fasting lipids. Long-term drug therapy 224468755 Z79.899 routine cbc, cmp, b12, folate, and iron studies due Prediabetes 206492416 R7 3.03 a1c screening due. on metformin ER 500mg daily Acute left otitis media 491746430 H66.92 start cefdinir 300mg bid course. [id number] Jesus Crow MD [facility] [employer] [address] [place] [address] 06/11/2024 15:33:13 06/11/2024 16:27:27 Benign essential hypertension 5585058 I10 Stable on hCTZ 12.5mg daily, BP is 130/84 today Hypothyroidism 90692296 E03.9 on synthroid 75mcg daily and due for labs Prediabetes 923957414 R7 3.03 a1c screening due. on metformin ER 500mg daily and refill given Hyperlipidemia 59936734 E78.5 on crestor 10mg daily. due for fasting lipids. Refill given on medication Long-term drug therapy 272438463 Z79.899 routine cbc, cmp due Feeling stressed 2653167 06 Z73.3 Refill given on alprazolam 0.5 mg 3 times daily as needed for stress/anx [facility] [id number] Jesus Crow MD [facility] [employer] [address] [place] [address] 12/15/2024 15:29:14 12/21/2024 12:02:50 Body mass index 30+ - obesity 372618260 Z68.30 bmi 30.7 Obesity 554493443 E66.9 Continue diet and exercise modificati ons Positive s creening for depression on PHQ-9 (Patient Health Questionnaire 9) 4413656021 09812 Z13.31 Patient scored a 7 on screening today. No acute concerns or questions. Uses p.r.n. alprazolam a lot of scoring comes from just stress Benign ess ential hypertension 5631862 I10 Stable on hCTZ 12.5mg daily, BP is 130/80 today Hypothyroidism 31516492 E03.9 on synthroid 50 mcg daily and due for labs Prediabetes 449436118 R7 3.03 a1c screening due. on metformin ER 500mg daily Hyperlipidemia 24071215 E78.5 on crestor 10mg daily. due for fasting lipids. Long-term drug therapy 873632287 Z79.899 routine cbc, cmp due Feeling stressed 4845061 06 Z73.3 Stable on alprazolam 0.5 mg 3 times daily as needed for stress/anx iety breakthrou gh Adult heal th examination 889290086 Z00.01 wellness exam completed Health Concerns Section Related Observation LastModified by Organization Detai ls LastModified Time None Recorded Concern Status LastModified by Organization Details LastModified Time None Recorded Advance Directives Directive N: Payers Insurance Date Sequence Insurance Name Policy Number Policy Ordonez Covered Member ID Ordonez Member ID Guarantor Name 01/05/2025 1 [employer] [id number] Jessie Burleson [id number] Jessie Burleson 12/08/2023 1 *SELF PAY* rachel Burleson Notes Date Note Type Note Provider Name and Address Organization Details Recorded Time 12/08/19 24 text/htm l Anxiety/DepressionReported bypatient.Notes:stable on alprazolam PRN useHyperlipidemiaReported bypatient.Notes:stable on rosuvastatin 10mg daily. due for labsThyroidReported bypatient.Notes:stable on synthroid 75mcg daily. due for labs. Prediabetes: taking metformin therapy, stable. BACILIO Acosta Attn: Accounting,[address] [place], [address], [facility] - [facility] 12/20/2023 16:57:39 06/11/20 24 text/htm l Anxiety/DepressionReported bypatient.Notes:stable on alprazolam PRN useHyperlipidemiaReported bypatient.Notes:stable on rosuvastatin 10mg daily. due for labsThyroidReported bypatient.Notes:stable on synthroid 75mcg daily. due for labs. Prediabetes: taking metformin therapy, stable. BACILIO Acosta Attn: Accounting,[address], [place], [address], [facility] - [facility] 07/04/2024 00:59:04 12/16/19 25 text/htm l Anxiety/DepressionReported bypatient.Notes:stable on alprazolam PRN useHyperlipidemiaReported bypatient.Notes:stable on rosuvastatin 10mg daily. due for labsThyroidReported bypatient.Notes:stable on synthroid 50mcg daily. due for labs. Prediabetes: taking metformin therapy, stable. BACILIO Acosta Attn: Accounting,[address], [place], [address], [facility] - [facility] 01/03/2025 22:21:40 OBGyn Episode No OBEpisode recorded.
--- OUTSIDE RECORDS SUMMARY | 2025-04-07 14:27 | XMS_ITS | Data Portability ---
Author Organization [facility] [place] Address [address] [place] [address] [place] [address] Assessment Encounter Date Assessment Date Assessment LastModified by Organization Details LastModified Time 11/17/2024 11/17/2024 Annual gynecological exam performed. Patient will come back in a year unless there are new symptoms. Not available 11/17/2024 09:32:45 Plan of Treatment Reminders Order Date Submit Date Provider Last Modified By Organization Details Last Modified Time Details Appointments None recorded. Lab None recorded. Referral None recorded. Procedures None recorded. Surgeries robotic assisted hysterectom y with salpingecto my (SURG) 2024 025 [facility], [address], [place], [address], 5 13:08:20 Imaging MAMMO, screening, digital, bilateral 2024 025 [facility], [address], [address], [place], [address], 5 15:39:21 Medication Orders None recorded. Patient TargetsNo targets recorded. Patient InstructionsNo instructions recorded. Reason for Referral None Reported. Results Created Date Observation Date Name Description Value Unit Range Abnormal Flag Note LastModifiedBy Organization Detail LastModifiedTime 11/04/19 25 11/04/2024 PROGE STERO NE progesterone 0.16 NG/mL This assay was perfo rmed using [employer] ratio n reage nts and test kits. Value s obtai mahesh with other assay metho ds or kits canno t be used inter [facility] . Femal e Proge stero ne Range s: Folli cular phase 0.06- 0.89 ng/mL Ovula tion phase 0.12- 12.00 ng/mL Lutea l phase 1.83- 23.90 ng/mL Postm enopa usal <0.05 -0.13 ng/mL Healt hy Pregn ant Women 1st Trime ster 11.0- 44.30 2nd Trime ster 25.40 -83.3 0 3rd Trime ster 58.70 -214. 00 Not Available [facility] (Lab) [address] [place], [address], 11/10/2024 19:00:22 11/04/19 25 11/04/2024 PROLA CTIN prolactin, total 10.70 NG/mL 4.79-2 3.30 This assay was perfo rmed using [employer] n reage nts and test kits. Value s obtai mahesh with other assay metho ds or kits canno t be used inter [facility] . Not Available [facility] (Lab) [address] [place], [address], 11/10/2024 19:00:23 11/04/19 25 11/04/2024 FSH, LH, ESTRA DIOL estradiol 140.0 pg/mL This assay was perfo rmed using [employer] reage nts and test kits. Value s obtai mahesh with other assay metho ds or kits canno t be used inter [facility] . Femal e Estra diol Range s: Folli cular phase 12.4- 233 pg/mL Ovula tion phase 41.0- 398 pg/mL Lutea l phase 22.3- 341 pg/mL Postm enopa usal <5-13 8 pg/mL Healt hy Pregn ant Women 1st Trime ster 154-3 243 pg/mL 2nd Trime ster 1561- 74303 pg/mL 3rd Trime ster 8525- >3000 0 pg/mL Not Available [facility] (Lab) [address] [place], [address], 11/10/2024 19:00:23 11/04/19 25 11/04/2024 FSH, LH, ESTRA DIOL FSH 9.7 mIU/m L This assay was perfo rmed using [employer] reage nts and test kits. Value s obtai mahesh with other assay metho ds or kits canno t be used inter [facility] . Femal es Folli cular : 3.5-1 2.5 mIU/m L Ovula tion: 4.7-2 1.5 mIU/m L Lutea l: 1.7-7 .7 mIU/m L Postm enopa use: 25.8- 134.8 mIU/m L Not Available [facility] (Lab) [address] [facility], [place], [address], 11/10/2024 19:00:23 11/04/19 25 11/04/2024 FSH, LH, ESTRA DIOL LH 21.2 mIU/m L This assay was perfo rmed using [employer] reage nts and test kits. Value s obtai mahesh with other assay metho ds or kits canno t be used inter [facility] . Femal es Mid-F ollic ular: 2.4-1 2.6 mIU/m L Mid-C ycle: 14.0- 95.6 mIU/m L Mid-L uteal : 1.0-1 1.4 mIU/m L Postm enopa use: 7.7-5 8.5 mIU/m L Not Available [facility] (Lab) [address] [facility] [facility], [place], [address], 11/10/2024 19:00:23 11/04/19 25 11/04/2024 TESTO STERO NE, FREE( DIALY SIS) AND TOTAL (LC/M S/MS) testosterone , total 30 NG/dL 2-45 For addit ional infor trinidad mendez e refer to http: //debby rizo.jessica stdia gnost ics.c om/fa q/ Total Testo stero neLCM SMSFA Q165 (This link is being provi ded for infor matio nal/ educa laura l purpo ses only. ) This test was devel oped and its roberto tical perfo rmanc e marcella cteri stics have been deter mined by [facility] [place]. It has not been clear ed or appro lizbet by the U.S. Food and Drug Admin istra tion. This assay has been valid ated pursu ant to the CLIA regul ation s and is used for clini dimitry purpo ses. Not Available [facility] (Lab) [address] [facility] [facility], [place], [address], 11/10/2024 19:00:24 11/04/1911/04/2024 TESTO STERO NE, FREE( DIALY SIS) AND TOTAL (LC/M S/MS) testosterone , free 3.0 pg/mL 0.1-6. 4 This test was devel oped and its roberto tical perfo rmanc e marcella cteri stics have been deter mined by [facility] [place] [place]. It has not been clear ed or appro lizbet by the U.S. Food and Drug Admin istra tion. This assay has been valid ated pursu ant to the CLIA regul ation s and is used for clini dimitry purpo ses. Perfo rming Organ izati on [facility] n: Site ID: AMD Name: [employer] Insti tute Addre ss: [id number] [place], [place] Direc tor: Ines Flores MD PhD Not Available [facility] (Lab) [address] [facility] [facility], [place], [address], 11/10/2024 19:00:24 11/17/1911/17/2024 IMAGE GUIDE D PAP AND HPV REGAR DLESS image guided Pap, HPV regardless of Pap result SEE RESULT S BELOW CASE REPOR T: Cytol ogy Gynec ologi dimitry Repor t Case: [id number] Autho sol echevarria Provi kayode: Lamay , Andressa C, REINIER Nava cted: 11/17 1351 Order ing Locat ion: [place] Patho wandy [facility] lizbet: 11/18 0150 First Ganesh n: Jose bridges, Garett don, CT Rescr [...] Negat angel for Intra epith elial Lesdavid rizo or Raphael swift (NIL) . 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 Not Available [facility] (Lab) [address] , [place], [address], 11/21/2024 11:26:15 12/10/19 25 12/09/2024 OVA 1 scan result See Scanne d Result Not Available [facility] (Lab) [address], [place], [address], 12/14/2024 10:22:06 12/10/19 25 12/09/2024 EMPOW ER [...] Medic al Lizzeth ics and Genom ics ([facility] ) state s that VUS shoul d NOT be used in clini dimitry decis ion arsalan echevarria. Leatha Harden ck breas t cance r risk asses sment : 12.3% . Trinidad e see below for addit ional findi ngs. 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 Not Available [facility] [address], [place], [address], 12/26/2024 06:51:34 12/10/19 25 12/09/2024 EMPOW ER COMPR EHENS ANGEL (2+79 ) footnotes See Notes CLIA: ID #[id number] 2 Test perfo rmed by [facility]. [address] [facility] [address] [place] [address] Mk Mckeon, Ph.D. , [facility] , Labor atory Direc tor Not Available [facility] [address], [place], [address], 12/26/2024 06:51:34 11/11/19 25 11/11/2024 US, trans vagin al No observ ation record ed. [email or web address] [place] [address], [place], [address], 11/11/2024 18:39:43 11/11/19 25 11/11/2024 US, trans vagin al No observ ation record ed. [email or web address] [address] [address], [place], [address], 11/16/2024 14:13:46 11/23/19 25 11/23/2024 MAMMO , scree kaden, digit al, bilat eral No observ ation record ed. [facility] [address], [place], [address], 11/27/2024 13:09:54 Result Notes None recorded. Problems Name Problem SNOMED Code Status Onset Date Resolution Date Notes Provider Name and Address Organization Details Recorded Time Threaten ed miscarri age 35089863 Completed 201208/22/2021 Threaten ed , antepart um;Pract ice ID: 0001 Leah Lara [facility], [facility] 17:42:31 Multigra gabi of advanced maternal age [id number] Completed 201208/22/2021 Other advanced maternal age, antepart um conditio n or complica tion;Pra ctice ID: 0001 Leah Lara [facility], [facility] 17:41:51 Routine antenata l care Completed 201208/22/2021 Supervis ion of other normal pregnanc y;Practi ce ID: 0001 Leah Lara [facility], [facility] 17:42:19 Speciali zed medical examinat ion Completed 201208/22/2021 Routine gynecolo gical examinat ion;Prac elias ID: 0001 Leah Lara [facility], [facility] 17:42:28 Ultrason ography Completed 201208/22/2021 Antenata l screenin g for malforma tion using ultrason ics;Prac elias ID: 0001 Leah Lara [facility], [facility] 17:42:33 Antenata l screenin g Completed 201208/22/2021 Antenata l screenin g for malforma tion using ultrason ics;Prac elias ID: 0001 Leah Lara [facility], [facility] 17:40:48 Congenit al malforma tion [id number] Completed 201208/22/2021 Antenata l screenin g for malforma tion using ultrason ics;Prac elias ID: 0001 Leah posey, [facility] 17:40:57 Maternal care for diminish ed movement s Completed 201208/22/2021 Decrease d movement s, affectin g manageme nt of mother, antepart um conditio n or complica tion;Pra ctice ID: 0001 Leah posey, [facility] 17:41:46 Dietary manageme nt surveill ance Completed 201208/22/2021 Dietary surveill ance and counseli ng;Pract ice ID: 0001 Leah Lara [facility] 17:41:01 Uncertai n viabilit y of pregnanc y [id number] Completed 201108/22/2021 PREG W INCONCLU SIVE VIABIL;P ractice ID: 0001 Leah Lara [facility], [facility] 17:42:34 anatomy study Completed 201108/22/2021 [facility] ANAT SURVEY;P ractice ID: 0001 Leah posey, [facility] 17:41:13 Missed miscarri age [id number] Completed 201108/22/2021 Missed ;Practic e ID: 0001 Leah Lara [facility] 17:41:49 , affectin g manageme nt of mother [id number] Completed 201108/22/2021 Intraute rine , affectin g manageme nt of mother, antepart um;Pract ice ID: 0001 Leah posey [facility] 17:41:17 Dysfunct ional uterine bleeding Completed 201108/22/2021 DUB;Prac elias ID: 0001 Leah Lara [facility], [facility] 17:41:03 Noninfla mmatory disorder of the vagina [id number] Completed 201108/22/2021 Other specifie d noninfla mmatory disorder s of vagina;P ractice ID: 0001 Leah Lara kalpesh, [facility] 17:41:58 Uses oral contrace ption [id number] Completed 201108/22/2021 Surveill ance of contrace ptive pill;Pra ctice ID: 0001 Leah posey, [facility] 17:42:00 Screenin g for malignan t neoplasm of cervix Completed 201208/22/2021 Pap Smear;Pr actice ID: 0001 Leah Lara kalpesh, [facility] 17:42:21 Vaginiti s and vulvovag initis Completed 201208/22/2021 Vaginiti s and vulvovag initis, unspecif ied;Prac elias ID: 0001 Leah Lara [facility], [facility] 17:42:37 Pregnanc y test positive [id number] Completed 201208/22/2021 Positive Pregnanc y Test;Pra ctice ID: 0001 Leah Laresgarrett posey, [facility] 17:42:10 Amenorrh ea [id number] Completed 201208/22/2021 AMENORRH EA;Pract ice ID: 0001 Leahbarbara Lara [facility], [facility] 17:40:46 Glucose toleranc e test during pregnanc y - baby not yet delivere d outside referenc e range [id number] Completed 201208/22/2021 Gestatat ional Diabetes Antepart um;Pract ice ID: 0001 Leah posey, [facility] 17:40:41 Excessiv e growth affectin g manageme nt of mother [id number] Completed 201208/22/2021 GROWTH LARGE LGA;Prac elias ID: 0001 Leah posey, [facility] 17:41:09 Primary focal hyperhid rosis of axilla [id number] 869807 Completed 201808/22/2021 Primary focal hyperhid rosis, axilla;P ractice ID: 0001 Leah Lara [facility], [facility] 17:42:12 Finding of menstrua l bleeding Completed 201808/22/2021 Excessiv e and frequent menstrua tion with regular cycle;Pr actice ID: 0001 Leah Lara [facility], [facility] 17:41:19 Finding of pattern of menstrua l cycle [id number] Completed 201608/22/2021 Menometr orrhagia ;Recorde d Elsewher e: No Locat ion: [facility] S ource: EHR New Car Sales Manager jolene: N Practi ce ID: 0001 Fausto lable Time: 06:15:00 PM Leah Larestz [facility] 17:41:34 Finding of pattern of menstrua l cycle Completed 201808/22/2021 Other specifie d irregula r menstrua tion;Pra ctice ID: 0001 Leah Lara [facility], [facility] 17:41:22 Procedur e on genitour inary system Completed 201408/22/2021 Encounte r for female steriliz ation;Re corded Elsewher e: No [facility] S ource: EHR New Car Sales Manager jolene: N Practi ce ID: 0001 Fausto lable Time: 04:00:00 PM Leah Jane [facility], [facility] 17:42:[address] Concept Completed 201708/22/2021 Encntr for instructor robotics exam (general ) (routine ) w/o abn findings ;Practic e ID: 0001 Leah Lara [facility] 17:42:26 Neoplast ic disease [id number] Completed 201808/22/2021 Neoplasm of unsp behavior of bone, soft tissue, and skin;Pra ctice ID: 0001 Leah Larestz kalpesh [facility] 17:41:53 Atypical squamous cells of undeterm ined signific ance on cervical Papanico laou smear [id number] Completed 201608/22/2021 Atyp squam cell of undet signfc cyto smr crvx (ASC-US) ;Recorde d Elsewher e: No Locat ion: [facility] S ource: EHR New Car Sales Manager jloene: N Bev ce ID: 0001 Fausto lable Time: 08:30:00 AM Leah Lara [facility] 17:40:52 Past pregnanc y history of gestatio nal diabetes mellitus [id number] Completed 201608/22/2021 Personal history of gestatio nal diabetes ;Recorde d Elsewher e: No Locat ion: [facility] S ource: EHR New Car Sales Manager jolene: N Bev ce ID: 0001 Fausto lable Time: 03:21:25 PM Leah Lara [facility] 17:41:36 Neoplasm of uncertai n behavior of breast [id number] Completed 201108/22/2021 Neoplasm of uncertai n behavior of breast;R ecorded Elsewher e: No Locat ion: [facility] S ource: EHR New Car Sales Manager jolene: N Practi ce ID: 0001 Fausto lable Time: 08:30:00 AM Leah Lara [facility] 17:41:55 Human papillom avirus deoxyrib onucleic acid detected , high risk on cervical specimen [id number] Completed 201508/22/2021 Cervical high risk HPV DNA test positive ;Recordjerel d Elsewher e: No [facility] S ource: EHR New Car Sales Manager jolene: N Practi ce ID: 0001 Fausto lable Time: 04:36:45 PM Leah posey [facility] 1 17:41:43 Postpart um care Completed 201308/22/2021 Post Followup ;Recorde d Elsewher e: No Locat ion: [facility] S ource: EHR New Car Sales Manager jolene: N Practi ce ID: 0001 Fausto lable Time: 01:00:00 PM Leah Lara [facility] 1 17:42:05 Right upper quadrant pain [id number] Completed 201208/22/2021 Abdomina l pain, right upper quadrant ;Recorde d Elsewher e: No Locat ion: [facility] S ource: EHR New Car Sales Manager jolene: N Practi ce ID: 0001 Fausto lable Time: 11:30:00 AM Leah posey [facility] 1 17:42:17 Pelvic and perineal pain [id number] Completed 201508/22/2021 Pelvic and perineal pain;Rec orded Elsewher e: No Locat ion: [facility] S ource: EHR New Car Sales Manager jolene: N Practi ce ID: 0001 Fausto lable Time: 05:00:00 PM Leah posey [facility] 1 17:42:01 Educatio n about sexually transmit jason disease preventi on Completed 201408/22/2021 Counseli ng on STDs;Rec orded Elsewher e: No Locat ion: [facility] S ource: EHR New Car Sales Manager jolene: N Practi ce ID: 0001 Fausto lable Time: 02:00:00 PM Leah posey [facility] 1 17:41:05 Emotiona l state finding Completed 201708/22/2021 Anxiety depressi on;Recor ded Elsewher e: No Locat ion: [facility] beltrán [facility] S ource: EHR New Car Sales Manager jolene: N Practi ce ID: 0001 Fausto lable Time: 08:30:00 AM Leah posey, [facility] 1 17:41:07 Postoper ative follow-u p visit Completed 201408/22/2021 Post operativ e follow-u p;Record ed Elsewher e: No Locat ion: Herminio jerel [facility] S ource: EHR New Car Sales Manager jolene: N Practi ce ID: 0001 Fausto lable Time: 04:00:00 PM Leah posey, [facility] 1 17:42:03 Glucose level outside referenc e range [id number] Completed 201408/22/2021 OTHER ABNORMAL GLUCOSE; Recorded Elsewher e: No Locat ion: Herminio jerel [facility] S ource: EHR New Car Sales Manager jolene: N Practi ce ID: 0001 Fausto lable Time: 05:01:47 PM Leah posey, [facility] 1 17:40:39 Pre-surg shelby evaluati on Completed 201408/22/2021 Pre-oper ative examinat ion, unspecif ied;Geoffrey rded Elsewher e: No Locat ion: Herminio jerel [facility] S ource: EHR New Car Sales Manager jolene: N Practi ce ID: 0001 Fausto lable Time: 04:00:00 PM Leah posey, [facility] 1 17:42:07 Adult health examinat ion Completed 201408/22/2021 ROUTINE MEDICAL EXAM;Rec orded Elsewher e: No Locat ion: [facility] beltr[facility] S ource: EHR New Car Sales Manager jolene: N Practi ce ID: 0001 Fausto lable Time: 04:30:00 PM Leah posey, [facility] 17:40:44 Pregnanc y test negative [id number] Completed 201308/22/2021 Pregnanc y examinat ion or test, negative result;R ecorded Elsewher e: No Locat ion: [facility] S ource: EHR New Car Sales Manager jolene: N Bev ce ID: 0001 Fausto lable Time: 01:00:00 PM Leah posey, [facility] 17:42:[address] Concept Completed 201608/22/2021 Encntr for general adult medical exam w/o abnormal findings ;Recorde d Elsewher e: No Locat ion: [facility] S ource: EHR New Car Sales Manager jolene: N Bev ce ID: 0001 Fausto lable Time: 08:30:00 AM [facility] 17:42:24 History of tubal ligation [id number] Completed 201408/22/2021 Tubal ligation status;P ractice ID: 0001 Leah posey, [facility] 17:41:38 Hypertro phic conditio n of skin [id number] Completed 201608/22/2021 Other hypertro phic disorder s of the skin;Pra ctice ID: 0001 Leah posey, [facility] 17:41:44 False labor at or after 37 complete d weeks of gestatio n [id number] Completed 201208/22/2021 Other threaten ed labor, antepart um;Pract ice ID: 0001 Leah Lara kalpesh, [facility] 17:41:11 Complica tion related to pregnanc y Completed 201208/22/2021 Weight Insuffic ient Antepart um;Pract ice ID: 0001 Leah posey, [facility] 17:40:55 Delivery normal [id number] Completed 201208/22/2021 Normal delivery ;Practic e ID: 0001 Leah posey, [facility] 17:40:59 Single live from singleto n pregnanc y [id number] Completed 201208/22/2021 Mother with single liveborn ;Practic e ID: 0001 Leah posey, [facility] 17:42:23 Problem Notes None recorded. Procedures Surgical History Date Name Laterality Status Provider Name and Address Organization Details Recorded Time 2024 ROBOTIC ASSISTED HYSTERECTOMY WITH SAL[facility]ECTOMY [facility] 20:17:12 2024 Date of Last Colonoscopy completed [facility] 02/07/2025 10:37:23 2024 Date of Last Mammogram completed [facility] 02/07/2025 10:36:38 2024 Date of Last Pap Smear completed [facility] 02/07/2025 10:36:05 2020 Orthopedic Surgery completed Leah Lara [facility] 08/23/2021 12:01:28 2018 excision of skin tag completed Leah Lara [facility] 08/23/2021 12:05:34 2016 endometrial biopsy completed Leahbarbara Lara [facility] 08/23/2021 12:06:54 2016 excision of skin tag completed Leahbarbara Lara [facility] 08/23/2021 12:06:01 2016 [facility]21 10:36:50 2016 Colposcopy completed Leah [facility] 08/23/2021 12:07:46 2014 fluoroscopic hysterosalpingography with contrast completed [facility] 08/23/2021 12:03:08 Imaging Results None recorded. Procedure Notes None recorded. Medical Equipment None [...] Prescrib ed Elsewher e: No Locat ion: [facility] M odify By: [email or web address] trick En counter [...] Prescrib ed Elsewher e: No Locat ion: [facility] odify By: bossman whitehead DateTime : 04/01/20 16 05:00:00 PM Not Available Not Available Not Available hydrocodo ne 5 mg-acetam inophen 325 mg tablet TAKE 1 TO 2 TABLETS BY MOUTH EVERY 6 HOURS NEEDED FOR PAIN 02/24 completed Not Available Not Available Not Available meloxicam 15 mg tablet TAKE 1 TABLET BY MOUTH EVERY DAY 02/07 completed Not Available Not Available Not Available Paxil 20 mg tablet take 1 tablet by oral route every day 08/22 completed Prescrib ed Elsewher e: No Locat ion: [facility] odify By: [email or web address] antonio norris DateTime : 09/14/20 18 01:55:31 PM [...] Prescrib ed Elsewher e: No Locat ion: [facility] odify By: [email or web address] berthak En counter DateTime : 10/21/19 14 01:00:00 [...] Prescrib ed Elsewher e: No Locat ion: [facility] odify By: [email or web address] trick En counter DateTime [...] Prescrib ed Elsewher e: Yes Loca tion: [facility] odify By: az farr DateTime : 07/20/20 19 03:15:00 PM Not Available Not Available Not Available hydrocodo ne 7.5 mg-acetam inophen 325 mg tablet TAKE ONE TABLET EVERY 4-6 HOURS NEEDED FOR PAIN 11/04 completed Not Available Not Available Not Available Micronor (28) 0.35 mg tablet take 1 tablet by oral route every day 12/06 completed Prescrib ed Elsewher e: No Locat ion: [facility] odify By: [email or web address] trick En counter DateTime [...] Elsewher e: No Locat ion: Pineda beltrán [facility] odify By: [email or web address] trick En counter DateTime : 02/21/20 15 04:29:30 PM Not Available Not Available Not Available diazepam 10 mg tablet po 1-2 hours before the procedur e 03/30 completed Prescrib ed Elsewher e: No Locat ion: [facility] beltrán [facility] odify By: [email or web address] trick En counter DateTime : 02/21/20 15 04:29:30 PM Not Available Not Available Not Available levofloxa vicente 750 mg tablet 07/04 completed Not Available Not Available Not Available methylpre dnisolone 4 mg tablets in a dose pack FOLLOW PACKAGE DIRECTIO NS 08/22 completed Not Available Not Available Not Available Vitamin D2 1,250 mcg (50,000 unit) capsule take 1 capsule ([id number] ITS) by oral route every week 10/21 completed Prescrib ed Elsewher e: No Locat ion: Pienda beltrán [facility] odify By: [email or web address] trick En counter DateTime : 07/07/20 13 09:30:43 AM Not Available Not Available Not Available ketorolac 60 mg/2 mL intramusc ular solution bring to the office and given 30 minuntes before procedur e 03/30 completed Prescrib ed Elsewher e: No Locat ion: Pineda beltrán [facility] odify By: [email or web address] trick En counter DateTime : 02/21/20 15 04:29:30 PM Not Available Not Available Not Available Paxil 10 mg tablet take 1 tablet by oral route every day 08/22 completed Prescrib ed Elsewher e: No Locat ion: Herminio jerel [facility] odify By: juan carlos tz Feiou nter DateTime : 06/24/20 18 08:30:00 AM [...] Prescrib ed Elsewher e: Yes Loca tion: Herminio jerel [facility] odify By: [email or web address] trick En counter DateTime : 03/30/20 15 04:00:00 PM Not Available Not Available Not Available Souleymane uo DHA 29 mg-1 mg-400 mg oral pack take 2 by Oral route every day 10/21 completed Prescrib ed Elsewher e: No Locat ion: [facility] jerel [facility] odify By: [email or web address] trick En counter DateTime : 03/15/20 13 04:30:00 PM Not Available Not Available Not Available Vicodin 5 mg-300 mg tablet 2 tabs po 2 hours before the procedur e and 1-2 tabs every 4 hours prn for post op pain 03/30 completed Prescrib ed Elsewher e: No Locat ion: [facility] odify By: [email or web address] trick En counter DateTime [...] Body mass index (BMI) Body weight Systolic And Diastolic Provider Name and Address Organization Details Last Updated DateTime 11/17/2024 154.94 cm 31.5 kg/m2 80103.49 g 127/87 mm[Hg] Janet Rosen [facility] 11/17/2024 09:34:05 Date Recorded Body height Body mass index (BMI) Body weight Systolic And Diastolic Provider Name and Address Organization Details Last Updated DateTime 12/09/2024 154.94 cm 31.2 kg/m2 28339.74 g 134/84 mm[Hg] Daina Reynoso [facility] 12/09/2024 16:37:44 Date Recorded Body height Body mass index (BMI) Body weight Systolic And Diastolic Provider Name and Address Organization Details Last Updated DateTime 02/07/2025 154.94 cm 29.9 kg/m2 94214.59 g 134/81 mm[Hg] Daina Amadorer [facility] 02/07/2025 10:34:53 Date Recorded Body height Body mass index (BMI) Body weight Systolic And Diastolic Provider Name and Address Organization Details Last Updated DateTime 02/24/2025 154.94 cm 29.9 kg/m2 15914.59 g 132/82 mm[Hg] Daina Edgardo [facility] 02/24/2025 10:30:11 Social History Question Answer Notes LastModified by Organizat ion Details LastModified Time Tobacco Smoking Status Never Smoker Carrington posey, [facility] 10/09/2022 18:19:30 Do You Have An Advance Directive? No [email or web address] Information n ot available 08/22/2021 How Many Years Have You Consumed Alcohol? 20 [email or web address] Information not available 08/22/2021 Are You Blind Or Do You Have Difficulty Seeing? No [email or web address] Information n ot available 08/22/2021 What Is Your Level Of Caffeine Consumption? Heavy [email or web address] Information not available 08/22/2021 How Much Tobacco Do You Chew? None [email or web address] Information not available 08/22/2021 In The 14 Days Before Symptom Onset, Have You Had Close Contact With A Laboratory-confirm ed COVID-19 While That Case Was Ill? No [email or web address] Information n ot available 08/22/2021 In The 14 Days Before Symptom Onset, Have You Had Close Contact With A Person Who Is Under Investigation For COVID-19 While That Person Was Ill? No [email or web address] Information not available 08/22/2021 Have You Been To An Area Known To Be High Risk For COVID-19? No Information not available 08/22/2021 Are You Deaf Or Do You Have Serious Difficulty Hearing? No [email or web address] Information not available 08/22/2021 What Type Of Diet Are You Following? REGULAR [email or web address] Information n ot available 08/22/2021 What Is The Highest Grade Or Level Of School You Have Completed Or The Highest Degree You Have Received? [id number] [email or web address] Information not available 08/22/2021 Are There Any Guns Present In Your Home? No [email or web address] Information not available 08/22/2021 Do You Use Protection During Sex? No [email or web address] Information not available 08/22/2021 Do You Use Your Seat Belt Or Car Seat Routinely? Yes [email or web address] Information not available 08/22/2021 Do You Have Smoke And Carbon Monoxide Detectors In Your Home? Yes [email or web address] Information not available 08/22/2021 How Much Tobacco Do You Smoke? No [email or web address] Information not available 08/22/2021 Do You Use Sunscreen Routinely? No [email or web address] Information not available 08/22/2021 Have You Used IV Drugs? No [email or web address] Information not available 08/22/2021 Do You Have Difficulty Walking Or Climbing Stairs? No [email or web address] Information not available 10/09/2022 Sex: Unknown Functional Status Question Answer Note LastModified by Organizat ion Details LastModified Time Do you use any illicit or recreational drugs? No Information not available 08/22/2021 What is your level of alcohol consumption? Occasional jgumber Information not available 07/04/2020 Are you able to walk? YESWOREST [email or web address] Information not available 08/22/2021 Are you able to care for yourself? 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 No [email or web address] Information not available 10/09/2022 What is your exercise level? Occasional [email or web address] Information not available 08/22/2021 Mental Status Question Answer Note LastModified by Organization D etails LastModified Time Do you feel stressed (tense, restless, nervous, or anxious, or unable to sleep at night)? [id number] [email or web address] Information not available 08/22/2021 Family History Relationship Description Onset Age of this Age Resolved Age Notes LastModified by Organization Details LastModified Time Father No current problems or disability [email or web address] Not available 03/2025 16:21:07 Father Diabetes mellitus [email or web address] Not available 08/23 12:14:17 Mother No current problems or disability [email or web address] Not available 03/2025 16:21:07 Mother Malignant neoplasm of lung 52 [email or web address] Not available 03/2025 16:21:07 Mother Malignant neoplasm of ovary Not available 2024 10:50:16 Maternal Aunt Malignant tumor of breast 75 [email or web address] Not available 03/2025 16:21:07 Maternal Grandmother Malignant tumor of breast [email or web address] Not available 08/23 12:14:10 Maternal Grandfather Malignant neoplasm of lung [email or web address] Not available 2024 10:50:16 Medical History Condition [...] SNOMED-CT Code Diagnosis ICD10 Code Diagnosis Note [id number] Theresa Dennis [facility] [address] [address] 07/04/2020 17:11:46 07/04/2020 17:47:35 [id number] Theresa Dennis [facility] [address],[place] [address] 08/22/2021 17:15:47 08/22/2021 18:02:42 Menorrhagia 575112254 N92.0 plan us discussed slynd as an option, will f/u by phone Gynecologi c examination 65224219 Z01.419 [id number] Jamal Glez MD [facility] [address],[place] [address] 08/28/2021 16:39:29 08/28/2021 17:27:09 Menorrhagia 104252898 N92.0 [id number] Jamal Glez MD [facility] [address],[place] [address] 10/10/2021 17:46:14 10/11/2021 10:48:14 Menorrhagia 003394076 N92.0 N83.201 [id number] Theresa Dennis [facility] [address],[place] [address] 09/11/2022 17:36:03 09/13/2022 15:54:00 Gynecologic examination 57552907 Z01.419 Z11.51 Herpes simplex 08141597 B00.9 Menorrhagia 288023702 N9 2.0 plan us discussed slynd as an option, will f/u by phone [id number] Jamal Glez MD [facility] [address],[place] [address] 10/09/2022 18:18:06 10/10/2022 10:28:21 Dysmenorrhea 176200043 N94.6 Menorrhagia 342317943 N9 2.0 N83.201 this patient is a [...] severe menorrhagi a and severe dysmenorrh ea. [id number] Theresa Dennis CNM [facility] [address] [address] 10/31/2023 10:32:51 10/31/2023 11:02:04 Gynecologic examination 22851722 Z01.419 Z11.51 [id number] DARBY Burrell [facility] [address] [address] 02/19/2024 15:21:03 02/19/2024 17:02:13 Lesion of vulva 432029494 N90.89 cx sentHSV PCR sentdiscus sed HSV [...] plan of care. Genital he rpes simplex 86191679 A60.9 [id number] Jamal Glez MD [facility] [address],[place] [address] 11/04/2024 10:39:27 11/04/2024 11:54:17 Irregular periods 52158088 N92.6 Discussed possible causes of abnormal, irregular [...] options for menorrhagi a if symptoms return. [id number] Jamal Glez MD [facility] [address] [address] 11/11/2024 16:56:00 11/12/2024 14:13:12 Abnormal uterine bleeding 1108306238 9100 N93.9 [id number] DARBY Burrell [facility] [address],[facility] [place] [address] 11/17/2024 09:16:43 11/17/2024 11:29:00 Gynecologic examination 28900108 Z01.419 [facility] - [facility] - done todaySTI screen - [...] answered. Screening for malignant neoplasm of breast 673518020 Z12.39 Dysmenorrhea 770439574 N 94.[address] Glez, pt int in surgical interventi on Family his tory of neoplasm of breast 629291287 Z84.89 genetic testing discussedh andout givenif desired can place order Family his tory of malignant neoplasm of ovary 684464512 Z80.41 [id number] Jamal Glez MD [facility] [address] [address] 12/09/2024 16:20:30 12/09/2024 17:40:22 Menorrhagia 676817029 N92.0 N83.201 THIS PATIENT IS A 44-YEAR-OL [...] minutes in the patient's care in total. [id number] Jamal Glez MD [facility] [address] [address] 02/07/2025 10:23:59 02/07/2025 11:50:59 Menorrhagia 511601179 N92.0 This patient is a 44-year-ol d female with severe menorrhagi a. We have agreed to perform robotic assisted hysterecto my with bilateral salpingect eligio. She understand s the risks, benefits, and alternativ es. She has completed the informed consent process and is ready to proceed. [id number] Jamal Glez MD [facility] [address] [address] 02/14/2025 09:01:24 02/15/2025 10:14:11 [id number] Jamal Glez MD [facility] [address] [address] 02/24/2025 09:50:04 02/24/2025 11:17:02 Postoperative state 38350753 Z98.890 female Patient presents for postop follow-up. She is 1 week postop from a total robotic hysterecto my bilateral salpingect eligio . She has no complaints . Her incisions are clean dry and intact. She is recovering normally. She will follow-up as needed. Health Concerns Section Related Observation LastModified by Organization Detai ls LastModified Time None Recorded Concern Status LastModified by Organization Details LastModified Time None Recorded Advance Directives Directive N: Payers Insurance Date Sequence Insurance Name Policy Number Policy Ordonez Covered Member ID Ordonez Member ID Guarantor Name 02/19/2024 2 [employer] [id number] Jessie Burleson [id number] Jessie Burleson 06/21/2021 1 [facility] [id number] Jessie Burleson [id number] Jessie Burleson 08/16/2022 1 [facility] ([facility] [id number] Jessie Burleson [id number] Jessie Burleson 02/21/2025 1 [employer] [id number] Jessie Burleson [id number] Jessie Burleson Notes Date Note Type Note Provider Name and Address Organization Details Recorded Time 5 text/html Annual GYNReported bypatient.Menstrual cycle:Normal menses [...] of diagnosis DARBY Burrell [address], [place], [address], [facility] 11/17/2024 11:23:08 5 text/html THIS PATIENT [...] infection. Jamal Glez MD [address], [place], [address], [facility] 12/09/2024 17:25:08 5 text/html This patient [...] infection. Jamal Glez MD [address], [place], [address], [facility] 02/07/2025 11:48:16 5 text/html female Patient presents for postop follow-up. She is 1 week postop from a total robotic hysterectomy bilateral salpingectomy . She has no complaints. Her incisions are clean dry and intact. She is recovering normally. She will follow-up as needed. Jamal Glez MD [address], [place], [address], [facility] 02/24/2025 10:48:35 OBGyn Episode Ob Episode Information Episode Created Date Number of Fetuses Patient Bloodtype Patient rh Status Prepregnancy Weight lbs Domestic Partner Domestic Partner Phone Father Name Tram Driver Status 07/04/20 20 1 CLOSED Fetus Data [...] Domestic Partner Domestic Partner Phone Father Name Tram Driver Status 07/04/20 20 1 CLOSED Fetus Data [...] Domestic Partner Domestic Partner Phone Father Name Tram Driver Status 07/04/20 20 1 CLOSED Fetus Data [...] Domestic Partner Domestic Partner Phone Father Name Tram Driver Status 07/04/20 1 CLOSED Fetus Data First Name Last [...] Domestic Partner Domestic Partner Phone Father Name Tram Driver Status 07/04/20 1 CLOSED Fetus Data First Name Last [...] Domestic Partner Domestic Partner Phone Father Name Tram Driver Status 07/04/20 1 CLOSED Fetus Data First Name Last [...]
--- OUTSIDE RECORDS SUMMARY | 2025-04-07 14:27 | XMS_ITS | Encounter Summary ---
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 Name Role Phone Unavailable Primary Care Provider Unavailabl e Encounter Details Date Type Department Care Team (Late st Contact Info) Description 02/05/2021 Lab Requisition [facility] [address] [place] [address] Kishan Escobedo MD [address] [place] [address] Social History Tobacco Use Types Packs/Day Years [...] AM CDT) Case Report Dermatopathology Report Case: [id number] Authorizing Provider: Kishan Escobedo MD Collected: 02/02/2021 12:00 AM Ordering Location: [facility] Received: 02/05/2021 06:03 AM Pathologist: Brunilda Mackay MD Specimen: Skin, right post thigh 5:13 PM CDT DERMATOPATHOLOGY LABORATORY Final Diagnosis Specimen A. SKIN, right post thigh: SEBORRHEIC KERATOSIS, IRRITATED (L82.0) 5:13 PM CDT DERMATOPATHOLOGY LABORATORY at 1713 CDT Clinical History Irr nevus. Path#[id number] 5:13 PM CDT DERMATOPATHOLOGY LABORATORY Gross Description [...] characteristic determined by the Dermatopathology Laboratory at [facility], directed by Dr. Madie Mackay. These tests need not be, and therefore are not, approved by the [place] Food and Drug Administration. The tests are used for clinical purposes. Billing Codes Specimen Charges Stain Charges 06991 1 5:13 PM CDT DERMATOPATHOLOGY LABORATORY Embedded Images 5:13 PM CDT DERMATOPATHOLOGY LABORATORY Pathology/Cytolog y TISSUE SPECIMEN FROM SKIN / Unknown 02/02/2021 02/05/2021 6:03 AM CDT us Kishan Escobedo MD LAB - PATHOLOGY/CYTOLOGY ORDER RICH Final Result DERMATOPATHOLOGY LABORATORY [facility] - Department of Dermatology [address] [place] [address], [facility] [phone] documented in this encounter Visit Diagnoses Not on filedocumented in this encounter
--- OUTSIDE RECORDS SUMMARY | 2025-04-07 14:28 | XMS_ITS | Data Portability ---
Author Organization [place] [facility] [employer], Main Office Address [address] [place] [address] Assessment No assessment recorded. Plan of Treatment Reminders Order Date Submit Date Provider Last Modified By Organization Details Last Modified Time Details Appointments None recorded. Lab CBC w/ auto diff 2022 023 [facility] 146 [facility], 2022 Louisa Mena, [address], [place], [address], 3 15:08:18 urinalysis complete, reflex culture 2022 023 [place] [address] [facility], 2022 Louisa Mena, [address], [place], [address], 3 15:08:18 CMP, serum or plasma 2022 023 [place] [address] [facility], 2022 Louisa Mena, [address], [place], [address], 3 15:08:18 TSH + free T4, serum 2022 023 [place] [facility], 2022 Louisa Mena, [address], [place], [address], 3 14:21:23 T3, free, serum or plasma 2022 023 [facility] 146 [facility], 2022 Louisa Mena, [address], [place], [address], 3 15:08:17 lipid panel, serum 2022 023 [place] [facility], 2022 Louisa Mena, [address] [address], [place], [address], 15:08:17 Referral None recorded. Procedures None recorded. Surgeries None recorded. Imaging None recorded. Medication Orders doxycycline hyclate 100 mg capsule 2022 023 [facility][id number], [address] [facility] [address] [facility], [place], [place], [id number], 3 17:12:17 triamcinolo ne acetonide 0.1 % topical cream 2022 023 [facility] #[id number], [address] [facility], [place], [place], [id number], 3 17:12:19 Patient TargetsNo targets recorded. Patient InstructionsNo instructions recorded. Reason for Referral None Reported. Results Created Date Observation Date Name Description Value Unit Range Abnormal Flag Note LastModifiedBy Organization Detail LastModifiedTime 02/09/2002/09/2022 TRIIO DOTHY ANABELA E (T3), FREE triiodothyro nine (T3), free 3.2 pg/mL 2.0-4. 4 Not Available [facility] ([facility]) [address] [facility] [address], [place], [address], 02/09/2022 05:09:49 02/09/20 22 02/09/2022 HEMOG LOBIN A1C hemoglobin A1C 5.8 % 4.8-5. 6 above high normal Predi abete s: 5.7 - 6.4 Diabe glory: >6.4 Glyce corrine contr ol for adult s with diabe glory: <7.0 Not Available [facility] ([facility]) [address] [facility] [address], [place], [address], 02/09/2022 05:09:48 02/09/20 22 02/09/2022 LIPID PANEL WITH LDL/H DL RATIO cholesterol, total 162 mg/dL 100-19 9 Not Available [facility] ([facility]) [address] [facility] [address], [place], [address], 02/09/2022 05:09:48 02/09/20 22 02/09/2022 LIPID PANEL WITH LDL/H DL RATIO LDL chol calc ([facility]) 98 mg/dL 0-99 Not Available [facility] ([facility]) [address] [facility] [address], [place], [address], 02/09/2022 05:09:48 02/09/20 22 02/09/2022 LIPID PANEL WITH LDL/H DL RATIO triglyceride s 87 mg/dL 0-149 Not Available [facility] ([facility]) [address] [facility] [address], [place], [address], 02/09/2022 05:09:48 02/09/20 22 02/09/2022 LIPID PANEL WITH LDL/H DL RATIO HDL cholesterol 48 mg/dL >39 Not Available [facility] ([facility]) [address] [facility] [address], [place], [address], 02/09/2022 05:09:48 02/09/20 22 02/09/2022 LIPID PANEL WITH LDL/H DL RATIO VLDL cholesterol maritza 16 mg/dL 5-40 Not Available [facility] ([facility]) [address] [facility] [place], [address], 02/09/2022 05:09:48 02/09/20 22 02/09/2022 LIPID PANEL WITH LDL/H DL RATIO comment: bun icer Not Available [facility] ([facility]) [address] [facility] [place], [address], 02/09/2022 05:09:48 02/09/20 22 02/09/2022 LIPID PANEL WITH LDL/H DL RATIO LDL/HDL ratio 2.0 ratio 0.0-3. 2 LDL/H DL Ratio Men Women 1/2 Avg.R isk 1.0 1.5 Avg.R isk 3.6 3.2 2X Avg.R isk 6.2 5.0 3X Avg.R isk 8.0 6.1 Not Available [facility] ([facility]) [address] [place], [address], 02/09/2022 05:09:48 02/09/20 22 02/09/2022 TSH+F REE T4 TSH 0.446 uIU/m L 0.450- 4.500 below low normal Not Available [facility] ([facility]) [address] [place], [address], 02/09/2022 05:09:48 02/09/20 22 02/09/2022 TSH+F REE T4 T4,free(dire ct) 1.28 NG/dL 0.82-1 .77 Not Available [facility] ([facility]) [address] [place], [address], 02/09/2022 05:09:48 02/09/20 22 02/09/2022 CMP14 +EGFR eGFR 100 mL/mi n/1.7 3 >59 Not Available [facility] ([facility]) [address] [place], [address], 02/09/2022 05:09:47 02/09/20 22 02/09/2022 CMP14 +EGFR glucose 114 mg/dL 65-99 above high normal Not Available [facility] ([facility]) [address] [place], [address], 02/09/2022 05:09:47 02/09/20 22 02/09/2022 CMP14 +EGFR BUN 11 mg/dL 6-24 Not Available [facility] ([facility]) [address] [place], [address], 02/09/2022 05:09:47 02/09/20 22 02/09/2022 CMP14 +EGFR creatinine 0.76 mg/dL 0.57-1 .00 Not Available [facility] ([facility]) [address] [place], [address], 02/09/2022 05:09:47 02/09/20 22 02/09/2022 CMP14 +EGFR BUN/creatini ne ratio 14 9-23 Not Available [facility] ([facility]) [address] [facility] [place], [address], 02/09/2022 05:09:47 02/09/20 22 02/09/2022 CMP14 +EGFR sodium 138 mmol/ L 134-14 4 Not Available [facility] ([facility]) [address] [facility] [place], [address], 02/09/2022 05:09:47 02/09/20 22 02/09/2022 CMP14 +EGFR potassium 4.8 mmol/ L 3.5-5. 2 Not Available [facility] ([facility]) [address] [facility] [address], [place], [address], 02/09/2022 05:09:47 02/09/20 22 02/09/2022 CMP14 +EGFR chloride 101 mmol/ L 96-106 Not Available [facility] ([facility]) [address] [facility] [place], [address], 02/09/2022 05:09:47 02/09/20 22 02/09/2022 CMP14 +EGFR carbon dioxide, total 20 mmol/ L 20-29 Not Available [facility] ([facility]) [address] [place], [address], 02/09/2022 05:09:47 02/09/20 22 02/09/2022 CMP14 +EGFR calcium 9.8 mg/dL 8.7-10 .2 Not Available [facility] ([facility]) [address] [place], [address], 02/09/2022 05:09:47 02/09/20 22 02/09/2022 CMP14 +EGFR protein, total 7.1 g/dL 6.0-8. 5 Not Available [facility] ([facility]) [address] [place], [id number], 02/09/2022 05:09:47 02/09/20 22 02/09/2022 CMP14 +EGFR albumin 5.0 g/dL 3.8-4. 8 above high normal Not Available [facility] ([facility]) [address] [place], [id number], 02/09/2022 05:09:47 02/09/20 22 02/09/2022 CMP14 +EGFR globulin, total 2.1 g/dL 1.5-4. 5 Not Available [facility] ([facility]) [address] [place], [id number], 02/09/2022 05:09:47 02/09/20 22 02/09/2022 CMP14 +EGFR A/G ratio 2.4 1.2-2. 2 above high normal Not Available [facility] ([facility]) [address] [place], [id number], 02/09/2022 05:09:47 02/09/2002/09/2022 CMP14 +EGFR bilirubin, total 0.3 mg/dL 0.0-1. 2 Not Available [facility] ([facility]) [address] [place], [id number], 02/09/2022 05:09:47 02/09/20 22 02/09/2022 CMP14 +EGFR alkaline phosphatase 115 IU/L 44-121 Not Available [facility] ([facility]) [address] [place], [id number], 02/09/2022 05:09:47 02/09/20 22 02/09/2022 CMP14 +EGFR AST (SGOT) 36 IU/L 0-40 Not Available [facility] ([facility]) [address] [place], [id number], 02/09/2022 05:09:47 02/09/20 22 02/09/2022 CMP14 +EGFR ALT (SGPT) 49 IU/L 0-32 above high normal Not Available [facility] ([facility]) [address] [facility] [address], [place], [address], 02/09/2022 05:09:47 01/15/20 23 04/16/2021 MAMMO , [...] Organization Details Recorded Time Abnormal weight gain 591414682 Active Not Available [facility] 3 02:48:40 Generalized headache 767261237 Active Not Available [facility] 3 02:48:40 Nausea and vomiting 21474025 Active Not Available [facility] 3 02:48:40 Pain of joint of wrist 035114395 Active Not Available [facility] 3 02:48:40 Feeling stressed 292455978 Active Not Available [facility] 3 02:48:40 Muscle tension 245683288 Active Not Available [facility] 3 02:48:40 Eruption 585594168 Active Not Available [facility] 3 02:48:41 Right upper quadrant pain 260493321 Active Not Available [facility] 3 02:48:41 Vitamin D deficiency 71412467 Active Not Available [facility] 3 02:48:41 Hypothyroidis m 57359523 Active 2020 Not Available [facility] 3 02:48:41 Anxiety 33781603 Active Not Available [facility] 3 02:48:41 Flood red spot 63233463 Active 2022 Not Available [facility] 3 02:48:41 Cough 43232476 Active Not Available [facility] 3 02:48:41 Hyperlipidemi a 13987534 Active Not Available [facility] 3 02:48:41 Referred pain 3023506 Active Not Available [facility] 3 02:48:41 Strain of thoracic region 80126934 Active Not Available [facility] 3 02:48:41 Common cold 60442286 Active Not Available [facility] 3 02:48:41 COVID-19 488721593 Active 2021 Not Available [facility] 3 02:48:41 Fatigue 37436725 Active Not Available [facility] 3 02:48:41 Impaired glucose tolerance 9608035 Active 2021 Not Available [facility] 3 02:48:42 Skin lesion 26519572 Active 2022 Not Available [facility] 3 02:48:42 Folliculitis 67445197 Active 2022 BACILIO Acosta [address] [facility], [address], [address] , [facility] 3 17:11:24 Acute urinary tract infection 579358646 Active 2022 BACILIO Acosta [address], [address] [address], [place], [address] , [employer] 3 08:36:04 Problem Notes None recorded. Procedures Surgical History Date Name Laterality Status Provider Name and Address Organization Details Recorded Time 1 Orthopedic Surgery completed Not Available [facility] 12/04/2022 02:42:54 Imaging Results None recorded. Procedure Notes None [...] 2 mL by injection route. 03/24 completed [facility]# [id number]- 0293-2 8 Not Available Not Available Not [...] administe red by the provider 06/25 completed NDC: 0003-0 494-20 Not Available Not Available Not [...] administe red by the provider 06/25 completed [facility]: 0409-4 276-17 Not Available Not Available Not Available [facility] FE 10/25 (28) 1 mg-20 mcg (21)/75 mg (7) tablet 05/15 completed Not Available Not Available Not Available tranexamic acid 650 mg tablet 12/30 completed Not Available Not Available Not Available Lo Loestrin Fe 1 mg-10 mcg (24)/10 mcg (2) tablet active Not Available Not Available Not Available Carl Hickey [facility] spacer U UTD 03/15 completed [...] No t Available Vitals Date Recorded Body mass index (BMI) Body height Oxygen saturation Oxygen saturation in Arterial blood by Pulse oximetry Heart rate Body temperature Body weight Systolic And Diastolic Provider Name and Address Organization Details Last Updated DateTime 3 32.5 kg/m2 154.94 cm 98 % 98 % 85 /min 97.9 [degF] 17985.8 9 g 120/76 mm[Hg] Not Available [facility] 3 02:46:35 Date Recorded Body mass index (BMI) Body height Body weight Provider Name and Address Organization Details Last Updated DateTime 11/20/2021 31.2 kg/m2 154.94 cm 75755.74 g Not Available [facility] 12/04/2022 02:46:42 Date Recorded Body mass index (BMI) Body height Oxygen saturation Oxygen saturation in Arterial blood by Pulse oximetry Heart rate Respiratory rate Body temperature Body weight Systolic And Diastolic Provider Name and Address Organization Details Last Updated DateTime 2 32.4 kg/m2 154.94 cm 97 % 97 % 73 /min 16 /min 98.1 [degF] 63207.4 5 g 120/78 mm[Hg] Not Available [facility] 3 02:46:35 Date Recorded Body height Body temperature Body mass index (BMI) Body weight Heart rate Oxygen saturation Oxygen saturation in Arterial blood by Pulse oximetry Systolic And Diastolic Provider Name and Address Organization Details Last Updated DateTime 3 154.94 cm 97.5 [degF] 30.6 kg/m2 91587.9 6 g 101 /min 98 % 98 % 116/74 mm[Hg] Breanna Disla RN [place] [facility] 3 16:46:02 Date Recorded Body height Oxygen saturation Oxygen saturation in Arterial blood by Pulse oximetry Heart rate Respiratory rate Body temperature Systolic And Diastolic Provider Name and Address Organization Details Last Updated DateTime 2 154.94 cm 99 % 99 % 92 /min 16 /min 97.3 [degF] 122/78 mm[Hg] Not Available [facility] 02:46:35 Social History Question Answer Notes LastModified by Organizat ion Details LastModified Time Tobacco Smoking Status Never Smoker Not Available [facility] 12/04/2022 02:39:15 What Is Your Level Of Caffeine Consumption? Moderate [id number] Information not available 12/04/2022 How Much Tobacco Do You Chew? None MIGRATION.[id number] Information not available 12/04/2022 In The 14 Days Before Symptom Onset, Have You Had Close Contact With A Laboratory-confirm ed COVID-19 While That Case Was Ill? No MIGRATION.[id number] 9354 Information not available 12/04/2022 In The 14 Days Before Symptom Onset, Have You Had Close Contact With A Person Who Is Under Investigation For COVID-19 While That Person Was Ill? No MIGRATION.[id number] 7024 Information not available 12/04/2022 What Type Of Diet Are You Following? REGULAR MIGRATION.299696 2308 Information not available 12/04/2022 Which Illicit Or Recreational Drugs Have You Used? None MIGRATION.365785 3224 Information not available 12/04/2022 Have There Been Any Changes To Your Family Or Social Situation? No MIGRATION.251254 3329 Information not available 12/04/2022 Are There Any Guns Present In Your Home? No MIGRATION.168168 4027 Information not available 12/04/2022 Do You Use Insect Repellent Routinely? No MIGRATION.883951 9932 Information not available 12/04/2022 What Was The Date Of Your Most Recent Tobacco Screening? 11/20/2021 [id number].[id number] 0923 Information not available 12/04/2022 What Is Your Relationship Status? Single MIGRATION.890565 5756 Information not available 12/04/2022 Do You Use Your Seat Belt Or Car Seat Routinely? Yes MIGRATION.268576 6441 Information not available 12/04/2022 Do You Have Smoke And Carbon Monoxide Detectors In Your Home? Yes MIGRATION.164637 5802 Information not available 12/04/2022 How Much Tobacco Do You Smoke? No MIGRATION.516128 2830 Information not available 12/04/2022 Do You Use Sunscreen Routinely? Yes MIGRATION.281042 2531 Information not available 12/04/2022 How Many Years Have You Smoked Tobacco? 0 MIGRATION.413643 8359 Information not available 12/04/2022 Have You Recently Traveled Abroad? No MIGRATION.492845 7331 Information not available 12/04/2022 Do You Have Any Dietary Restrictions? No MIGRATION.357089 3906 Information not available 12/04/2022 Sex: Unknown Functional Status Question Answer Note LastModified by Organizat ion Details LastModified Time Do you use any illicit or recreational drugs? No MIGRATION.603238 7275 Information not available 12/04/2022 Do you or have you ever used any other forms of tobacco or nicotine? No MIGRATION.796410 8191 Information not available 12/04/2022 What is your level of alcohol consumption? Occasional MIGRATION.653508 6652 Information not available 12/04/2022 Do you or have you ever used smokeless tobacco? Never used smokeless tobacco MIGRATION.192488 6239 Information not available 12/04/2022 Are you currently employed? 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 Never used electronic cigarettes MIGRATION.782199 6355 Information not available 12/04/2022 What is your exercise level? None MIGRATION.805190 3261 Information not available 12/04/2022 Mental Status None recorded. Family History Relationship Description Onset Age of this Age Resolved Age Notes LastModified by Organization Details LastModified Time Mother Malignant neoplastic disease [id number] Not available 12/04/2022 02:42:58 Unspecified Relation Myocardial infarction MIGRATION.960 [id number] Not available 12/04/2022 02:42:58 Father Type 2 diabetes mellitus MIGRATION.708 [id number] Not available 12/04/2022 02:42:58 Medical History Condition [...] INSOMNIA N HIGH CHOLESTEROL / HYPERLIPIDEMIA N HYPERTHYROIDISM N EYE PROBLEMS N NEUROLOGICAL PROBLEMS N EDEMA N CHRONIC PAIN SYNDROME N HYPOTHYROIDISM N CONSTIPATION N CAROTID BLOCKAGE N BACK / NECK PROBLEMS N HAVE YOU BEEN HOSPITALIZED OR SEEN IN [facility] IN THE PAST YEAR ? N ATHEROSCLEROSIS N BREAST PROBLEMS N DIALYSIS N ECZEMA N OSTEOPOROSIS N ARTHRITIS N NO SIGNIFICANT PAST MEDICAL HISTORY N APPENDICITIS N DIABETES, TYPE N BAD TEETH N ENT N HEARTBURN / REFLUX Y AUTISM SPECTRUM DISORDER (ASD) N HEPATITIS / LIVER DISEASE N GOUT N SLEEP DISORDER N ALZHEIMER'S DISEASE N Brain Problems N HERPES N DEMENTIA N SEIZURES/EPILEPSY N HEADACHES/MIGRAINES Y VASCULAR DISEASE N PACEMAKER N Blood Disorder N DIZZINESS N KIDNEY DISEASE N HEART DISEASE/HEART PROBLEMS N MULTIPLE SCLEROSIS N CARDIAC ARRHYTHMIA N CANCER: SPECIFY N Gall Stones N ATRIAL FIBRILLATION N PULMONARY EMBOLISM N AUTOIMMUNE DISEASE N Gynecological History Statement/Question Response Menses Monthly Y Abnormal Pap Y Date of Last Pap 07/04/2020 Date of Last Mammogram 04/16/2021 Sexually Active? Y Obstetrics History GPAL:G 0 P 0 0 0 0 Immunizations Vaccine Type Date Status Note Provider Nam e and Address Organization Details Recorded Time Influenza, split virus, quadrivalent, preservative 0 completed Not Available [facility] 12/04/2022 02:56:10 Influenza, split virus, quadrivalent, preservative 9 completed Not Available [facility] 12/04/2022 02:56:10 influenza, unspecified formulation 6 completed Not Available [facility] 12/04/2022 02:56:10 influenza, unspecified formulation 5 completed Not Available [facility] 12/04/2022 02:56:10 influenza, unspecified formulation 4 completed Not Available [facility] 12/04/2022 02:56:10 Past Encounters Encounter ID Performer Location Encounter Start Date Encounter Closed Date Diagnosis/Indication Diagnosis SNOMED-CT Code Diagnosis ICD10 Code Diagnosis Note [id number] [facility] [address] [place] [address] 12/19/2020 00:00:00 12/19/2020 17:47:50 [id number] BACILIO Acosta [facility] [address] [place] [address] 12/25/2020 00:00:00 12/26/2020 15:02:54 [id number] Dwain Haskins MD [facility] [address] [place] [address] 01/16/2021 00:00:00 01/16/2021 15:09:25 [id number] Dwain Haskins MD [facility] [address] [place] [address] 02/13/2021 00:00:00 02/13/2021 16:22:14 [id number] Dwain Haskins MD [facility] [address] [place] [address] 02/27/2021 00:00:00 02/27/2021 17:48:38 [id number] Dwain Haskins MD [facility] [address] [place] [address] 04/10/2021 00:00:00 04/10/2021 16:43:00 [id number] Dwain Haskins MD [facility] [address] [place] [address] 05/01/2021 00:00:00 05/01/2021 09:05:52 [id number] Dwain Haskins MD [facility] [address] [place] [address] 06/12/2021 00:00:00 06/12/2021 09:40:06 [id number] BACILIO Acosta [facility] [address] [place] [address] 06/25/2021 00:00:00 07/04/2021 00:27:12 [id number] BACILIO Acosta [facility] [address] [place] [address] 07/19/2021 00:00:00 08/05/2021 01:26:47 [id number] Dwain Haskins MD [facility] [address] [place] [address] 08/08/2021 00:00:00 08/08/2021 17:19:27 [id number] Dwain Haskins MD [facility] [address] [place] [address] 11/20/2021 00:00:00 11/20/2021 15:04:54 [id number] BACILIO Acosta [facility] [address] [place] [address] 12/24/2021 00:00:00 01/02/2022 00:09:09 [id number] BACILIO Acosta [facility] [address] [place] [address] 07/01/2022 00:00:00 07/01/2022 23:20:36 [id number] BACILIO Acosta [facility] [address] [place] [address] 11/08/2022 00:00:00 12/03/2022 17:52:28 [id number] BACILIO Acosta [facility] [address] [place] [address] 12/30/2022 16:38:13 12/30/2022 17:15:55 Hyperlipidemia 19674302 E78.5 fasting lipids due before next appt, stable on statin therapy Hypothyroidism 27295734 E03.9 on supplement , due for TFTs before next appt Anxiety 93730069 F41.9 stable Long-term drug therapy 898183524 Z79.899 Folliculitis 24505014 L7 3.9 Rx for doxy 100mg bid course plus triamcinol one cream Health Concerns Section Related Observation LastModified by Organization Detai ls LastModified Time None Recorded Concern Status LastModified by Organization Details LastModified Time None Recorded Advance Directives Directive None Recorded Payers Insurance Date Sequence Insurance Name Policy Number Policy Ordonez Covered Member ID Ordonez Member ID Guarantor Name 08/22/2023 1 [employer] - [employer]NA [id number] Jessie Burleson [id number] Jessie Burleson Notes Date Note Type Note [...] skin changes; no hair changes Not Available [facility] 01/02/2022 00:09:09 022 text/h tml Anxiety/DepressionReported [...] difficulties; no skin changes;fatigue;hair changes Not Available [facility] 07/01/2022 23:20:36 023 text/h tml Generic HPI TemplateReported bypatient.Location:abdomen Quality:red, small, pin prick sized spots Duration:year Not Available [facility] 12/03/2022 17:52:28 023 text/h tml Anxiety/DepressionReported bypatient.Severity:denies [...] on her bilat hips BACILIO Acosta [address] [facility], [facility] [address], [place], [address], [facility] 12/30/2022 23:17:59 OBGyn Episode No OBEpisode recorded.
[2025-04-07 14:54] LABS: Anion Gap 9 mmol/L (4-12); Blood Urea Nitrogen 8 mg/dL (7-17); Calcium 9.5 mg/dL (8.4-10.2); Carbon Dioxide 27 mmol/L (22-30); Chloride 104 mmol/L (98-107); Estimated Glomerular Filt Rate > 60; Glucose 90 mg/dL (65-110); Potassium 3.6 mmol/L (3.4-5.0); Sodium 140 mmol/L (137-145)
== END 2025-04-07 14:24 | disposition home or self-care (01) ==
LOC: ANHLAB 14:24
PROVIDERS: PCP Physician Assistant; Visit Provider Anesthesiology
DX: Z01.818 Encounter for other preprocedural examination (principal); E11.9 Type 2 diabetes mellitus without complications
CPT/HCPCS: 36415; 80048

== ENCOUNTER 2025-04-12 02:05 | Day surgery (SDC) | payer OTHER, SELFPAY ==
[2025-03-29 14:38] VITALS: BMI 31.8
--- NOTE | 2025-03-29 14:41 | PC.NURSE ---
Report to the Outpatient Waiting Room, entrance under the green pavilion located off [facility], at time _1000_ on date _04/05/25 Planned Procedure Time: _1200_.? Time changes happen often and if your time is changed the preop area will call you the afternoon before. - You and your visitor will be asked to self-screen and do not enter if you have any COVID symptoms. Please call surgeon if you need to reschedule. - A mask is optional within the hospital at this time. Patients may have clear liquids (water, carbonated beverages, clear teas, apple juice) until 3 hours prior to surgery with a maximum of 20 ounces. - No food from midnight until time of surgery and no smoking, or chewing tobacco (or any form of nicotine). No chewing gum, candy or mints. - Infants may have breast milk until 4 hours before surgery, infant formula 6 hours prior to surgery. - Children will be allowed to drink immediately following surgery.? If applicable, please bring a bottle or sippy cup to assist with drinking. Juice, water, soda, and popsicles are readily available.? For infants on formula, please bring formula the day of surgery.? Pacifiers are allowed. Take only the following medications with a SIP of water on the morning of surgery: ____XANAX, LEVOTHYROXINE DO NOT STOP ANY OF YOUR OTHER PRESCRIPTION MEDICATIONS PRIOR TO SURGERY EXCEPT THE FOLLOWING Hold all vitamins and supplements for 3 days per anesthesiologist. Medications to discontinue per physician Date to take last dose Please no make-up, nail algerian, hairspray, perfume, deodorant, or body powder the day of surgery.? No jewelry (including any body piercings) or valuables the day of surgery, leave them at home.? Please take a shower or bath the night before, or the morning of, surgery with an antibacterial soap.? Wear comfortable, loose fitting clothing.? Children are encouraged to wear pajamas. - Jewelry must be removed prior to entering the operating room.? Rings and piercings that are not removed may be cut off. - The hospital will not accept responsibility for valuables.? - Please leave all valuables, including medications, at home the day of surgery. If you are going home after surgery, a licensed parts driver must drive you home.? - NO public transportation without another adult if you receive anesthesia. - We recommend that an adult stay with you for 24 hours following discharge. - We also recommend that you do not drive, make important decision, drink alcoholic beverages, or take any drugs that were not prescribed by your health care provider for at least 24 hours after your discharge time. For Pediatric surgeries, we recommend two adults accompany the child home. Follow any additional instructions given to you from your surgeon. Telephone instructions given to _PATIENT_and asked if any additional questions and then verbalized understanding. Patient advised to call surgeon office or pre surgery nurse liaison [phone] if any additional questions.
--- NOTE | 2025-04-05 08:49 | PC.NURSE ---
Report to the Outpatient Waiting Room, entrance under the green pavilion located off [facility], at time __1145 on date _04/12/25_. Planned Procedure Time: _1345 .? Time changes happen often and if your time is changed the preop area will call you the afternoon before. - You and your visitor will be asked to self-screen and do not enter if you have any COVID symptoms. Please call surgeon if you need to reschedule. - A mask is optional within the hospital at this time. Patients may have clear liquids (water, carbonated beverages, clear teas, apple juice) until 3 hours prior to surgery with a maximum of 20 ounces. - No food from midnight until time of surgery and no smoking, or chewing tobacco (or any form of nicotine). No chewing gum, candy or mints. - Infants may have breast milk until 4 hours before surgery, infant formula 6 hours prior to surgery. - Children will be allowed to drink immediately following surgery.? If applicable, please bring a bottle or sippy cup to assist with drinking. Juice, water, soda, and popsicles are readily available.? For infants on formula, please bring formula the day of surgery.? Pacifiers are allowed. Take only the following medications with a SIP of water on the morning of surgery: __LEVOTHYROXINE DO NOT STOP ANY OF YOUR OTHER PRESCRIPTION MEDICATIONS PRIOR TO SURGERY EXCEPT THE FOLLOWING Hold all vitamins and supplements for 3 days per anesthesiologist. Medications to discontinue per physician Date to take last dose Please no make-up, nail mongolian, hairspray, perfume, deodorant, or body powder the day of surgery.? No jewelry (including any body piercings) or valuables the day of surgery, leave them at home.? Please take a shower or bath the night before, or the morning of, surgery with an antibacterial soap.? Wear comfortable, loose fitting clothing.? Children are encouraged to wear pajamas. - Jewelry must be removed prior to entering the operating room.? Rings and piercings that are not removed may be cut off. - The hospital will not accept responsibility for valuables.? - Please leave all valuables, including medications, at home the day of surgery. If you are going home after surgery, a licensed cart driver must drive you home.? - NO public transportation without another adult if you receive anesthesia. - We recommend that an adult stay with you for 24 hours following discharge. - We also recommend that you do not drive, make important decision, drink alcoholic beverages, or take any drugs that were not prescribed by your health care provider for at least 24 hours after your discharge time. For Pediatric surgeries, we recommend two adults accompany the child home. Follow any additional instructions given to you from your surgeon. Telephone instructions given to __PATIENT_and asked if any additional questions and then verbalized understanding. Patient advised to call surgeon office or pre surgery nurse liaison [phone] if any additional questions.
--- NOTE | 2025-04-05 09:15 | PC.NURSE ---
PT DENIES ANY CHANGE IN HEALTH OR MEDICATION SINCE PRIOR INTERVIEW. NEW INSTRUCTIONS GIVEN, QUESTIONS ANSWERED
[2025-04-12] VITALS (8 sets, daily range): BP systolic 123–145; BP diastolic 70–97; PULSE 64–78; RESP 12–19; TEMP 36.1–36.9; O2SAT 96–100; BMI 31.1
--- OUTSIDE RECORDS SUMMARY | 2025-04-12 02:07 | XMS_ITS | Clinical Summary ---
Author Organization [facility] Address [address] 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,non-owned Affiliates and Associated Physician Practices is amultiple site organization consisting of ambulatory clinics and hospital sitesin [place], [place], [place] and [place]. This disclosure is being madepursuant to the Care Everywhere program and may not contain all information available regarding this patient. Last updated 18.[facility] [employer] Social History Tobacco Use Types Packs/Day Years [...] series) 1997 PAP SMEAR 1999 COVID-19 VACCINE (2023-2 5 season) 2024 DEPRESSION SCREENING 10/06/2024 INFLUENZA VACCINE (#1) 2025 ZOSTER VACCINE (1 of 2) 2028 [...] ID:Not on file (Home) Address: [address] [place] [id number] Payer ID:Not on file Group ID:Not on file Type:Self Pay Address: [facility]
--- OUTSIDE RECORDS SUMMARY | 2025-04-12 02:07 | XMS_ITS | Encounter Summary ---
Author Organization [facility] Address [address] [place] [address] Care Team Providers Care Employment And Claims Aide Name Role Phone Unavailable Primary Care Provider Unavailabl e Encounter Details Date Type Department Care Team (Late st Contact Info) Description 02/05/2021 Lab Requisition [facility] [address] [place] [address] Kishan Escobedo MD [address] [address] Social History Tobacco Use Types [...] AM CDT) Case Report Dermatopathology Report Case: [id number] Authorizing Provider: Kishan Escobedo MD Collected: 02/02/2021 12:00 AM Ordering Location: [facility] Received: 02/05/2021 06:03 AM Pathologist: Brunilda Mackay MD Specimen: Skin, right post thigh 5:13 PM CDT DERMATOPATHOLOGY LABORATORY Final Diagnosis Specimen A. SKIN, right post thigh: SEBORRHEIC KERATOSIS, IRRITATED (L82.0) 5:13 PM CDT DERMATOPATHOLOGY LABORATORY at 1713 CDT Clinical History Irr nevus. Path#[id number] 5:13 PM CDT DERMATOPATHOLOGY LABORATORY Gross Description [...] characteristic determined by the Dermatopathology Laboratory at [facility], directed by Dr. Madie Mackay. These tests need not be, and therefore are not, approved by the [place] Food and Drug Administration. The tests are used for clinical purposes. Billing Codes Specimen Charges Stain Charges 63706 1 5:13 PM CDT DERMATOPATHOLOGY LABORATORY Embedded Images 5:13 PM CDT DERMATOPATHOLOGY LABORATORY Pathology/Cytolog y TISSUE SPECIMEN FROM SKIN / Unknown 02/02/2021 02/05/2021 6:03 AM CDT us Kishan Escobedo MD LAB - PATHOLOGY/CYTOLOGY ORDER RICH Final Result DERMATOPATHOLOGY LABORATORY [facility] - Department of Dermatology [address] [place] [address], [facility] [phone] documented in this encounter Visit Diagnoses Not on filedocumented in this encounter
--- OUTSIDE RECORDS SUMMARY | 2025-04-12 02:07 | XMS_ITS | Clinical Summary ---
Author Organization [address] Address [address] [place] [id number] Care Team Providers Care Electric Meter Repairer Helper Name Role Phone Josselyn Garibay Primary Care [...] Comments Blood Pressure 120/82 11/27/2023 2:44 PM LEASE ADMINISTRATION ANALYST Pulse 82 11/27/2023 2:44 PM LEASE ADMINISTRATION ANALYST Temperature 36.9 C (98.4 F) 11/27/2023 2:44 PM LEASE ADMINISTRATION ANALYST Respiratory Rate 20 11/27/2023 2:44 PM LEASE ADMINISTRATION ANALYST Oxygen Saturation 99% 11/27/2023 2:44 PM LEASE ADMINISTRATION ANALYST Inhaled Oxygen Concentration - - Weight 71.7 kg (158 lb) 11/27/2023 2:44 PM LEASE ADMINISTRATION ANALYST Height 165.1 cm (5' 5) 11/27/2023 2:44 PM LEASE ADMINISTRATION ANALYST Body Mass Index 26.29 11/27/2023 2:44 PM LEASE ADMINISTRATION ANALYST Plan of Treatment Health Maintenance Due Date [...] patient's age to complete this topic Insurance [employer] OPEN ACCESS [employer] OPEN ACCESS Care Teams Electric Meter Repairer Helper Relationship Specialty Start Date End Date Josselyn Garibay PA PCP - General Physician Auxiliary Equipment Tender 11/27/23
--- OUTSIDE RECORDS SUMMARY | 2025-04-12 02:07 | XMS_ITS | Data Portability ---
Author Organization [facility] Address [address] [place] [address] Assessment Encounter Date Assessment Date Assessment LastModified [...] A1c), blood 2024 [id number] JOAQUIN Mustafa, [address], [place], [address], 02/13/2025 09:08:17 CMP, serum or plasma 2024 025 JOAQUIN Mustafa, [address], [place], [address], 02/13/2025 09:08:16 CBC w/ auto diff 2024 025 JOAQUIN Mustafa, [address], [place], [address], 02/13/2025 09:08:18 lipid panel, serum 2024 025 JOAQUIN Msutafa, [address], [place], [address], 02/13/2025 09:08:15 TSH + free T4, serum 2024 025 JOAQUIN Mustafa, [address], [place], [address], 02/13/2025 09:08:15 HbA1c (hemoglob in A1c), blood 2023 024 JOAQUIN Mustafa, [address], [place], [address], 07/11/2024 07:08:27 CMP, serum or plasma 2023 024 JOAQUIN Mustafa, [address], [place], [address], 07/11/2024 07:08:26 CBC w/ auto diff 2023 024 JOAQUIN Mustafa, [address], [place], [address], 07/11/2024 07:08:28 lipid panel, serum 2023 024 JOAQUIN Mustafa, [address], [place], [address], 07/11/2024 07:08:24 TSH + free T4, serum 2023 024 JOAQUIN Mustafa, [address], [place], [address], 07/11/2024 07:08:25 HbA1c (hemoglob in A1c), blood 2023 024 JOAQUIN Mustafa, [address], [place], [address], 12/20/2023 06:18:43 CMP, serum or plasma 2023 024 JOAQUIN Mustafa, [address], [place], [address], 12/20/2023 06:18:42 CBC w/ auto diff 2023 024 [facility], [address], [place], [address], 12/20/2023 06:18:44 vitamin B12 + folate, serum or blood 2023 024 [facility], [address], [place], [address], 12/20/2023 06:18:43 iron + TIBC + ferritin, serum 2023 024 [facility], [address], [place], [address], 12/20/2023 06:18:44 lipid panel, serum 2023 024 [facility], [address], [place], [address], 12/20/2023 06:18:41 TSH + free T4, serum 2023 024 [facility], [address], [place], [address], 12/20/2023 06:18:41 Referral None recorded. Procedures None recorded. Surgeries None recorded. Imaging None recorded. Medication Orders Wegovy 0.25 mg/0.5 mL subcutane ous pen injector 2024 025 [facility] #[id number], [address], [place], [place], [id number], 12/15/2024 16:36:54 metformin ER 500 mg tablet,ex tended release 24 hr 2023 024 [facility], [address], [place], [address], 06/11/2024 16:18:29 rosuvasta tin 10 mg tablet 2023 024 JOAQUIN [facility], [address], [place], [address], 06/11/2024 16:18:29 alprazola m 0.5 mg tablet 2023 024 [facility] #[id number], [address], [place], [place], [id number], 06/11/2024 16:18:34 cefdinir 300 mg capsule 2023 024 [facility] #[id number], [address], [place], [id number], 01/16/2024 14:18:31 hydrochlo rothiazid e 12.5 mg tablet 2023 024 [facility] #[id number], [address], [place], [id number], 12/20/2023 16:50:58 Patient TargetsNo targets recorded. Patient Instructions Encounter Date Encounter Id Patient Instructions Last Modified By Organization Details Last Modified Time 12/15/2024 [id number] A healthy lifestyle: care instructions Not available 12/15/2024 16:36:49 Reason for Referral None Reported. Results Created Date Observation Date Name Description Value Unit Range Abnormal Flag Note LastModifiedBy Organization Detail LastModifiedTime 12/18/1912/19/2023 TSH+F REE T4 TSH 0.286 uIU/m L 0.450- 4.500 below low normal Not Available [facility] ([facility]) [address], [place], [address], 12/20/2023 06:18:41 12/18/1912/19/2023 TSH+F REE T4 T4,free(dire ct) 1.71 NG/dL 0.82-1 .77 Not Available [facility] ([facility]) [address] [place], [address], 12/20/2023 06:18:41 12/18/19 24 12/19/2023 LIPID PANEL cholesterol, total 114 mg/dL 100-19 9 Not Available [facility] ([facility]) [address] [place], [address], 12/20/2023 06:18:41 12/18/19 24 12/19/2023 LIPID PANEL triglyceride s 115 mg/dL 0-149 Not Available [facility]) [address] [place], [address], 12/20/2023 06:18:41 12/18/19 24 12/19/2023 LIPID PANEL HDL cholesterol 50 mg/dL >39 Not Available [facility]) [address] [place], [address], 12/20/2023 06:18:41 12/18/19 24 12/19/2023 LIPID PANEL VLDL cholesterol maritza 21 mg/dL 5-40 Not Available [facility] ([facility]) [address] [place], [address], 12/20/2023 06:18:41 12/18/19 24 12/19/2023 LIPID PANEL LDL chol calc ([facility]) 43 mg/dL 0-99 Not Available [facility]) [address] [place], [address], 12/20/2023 06:18:41 12/18/19 24 12/19/2023 CMP14 +EGFR glucose 98 mg/dL 70-99 Not Available [facility] ([facility]) [address] [place], [address], 12/20/2023 06:18:42 12/18/19 24 12/19/2023 CMP14 +EGFR BUN 11 mg/dL 6-24 Not Available [facility] ([facility]) [address] [place], [address], 12/20/2023 06:18:42 12/18/19 24 12/19/2023 CMP14 +EGFR creatinine 0.71 mg/dL 0.57-1 .00 Not Available [facility] ([facility]) [address], [place], [address], 12/20/2023 06:18:42 12/18/19 24 12/19/2023 CMP14 +EGFR eGFR 107 mL/mi n/1.7 3 >59 Not Available [facility] ([facility]) [address], [place], [address], 12/20/2023 06:18:42 12/18/19 24 12/19/2023 CMP14 +EGFR BUN/creatini ne ratio 15 9-23 Not Available [facility] ([facility]) [address] [facility], [place], [address], 12/20/2023 06:18:42 12/18/19 24 12/19/2023 CMP14 +EGFR sodium 144 mmol/ L 134-14 4 Not Available [facility] ([facility]) [address], [place], [address], 12/20/2023 06:18:42 12/18/19 24 12/19/2023 CMP14 +EGFR potassium 4.4 mmol/ L 3.5-5. 2 Not Available [facility] ([facility]) [address], [place], [address], 12/20/2023 06:18:42 12/18/19 24 12/19/2023 CMP14 +EGFR chloride 106 mmol/ L 96-106 Not Available [facility] ([facility]) [address], [place], [address], 12/20/2023 06:18:42 12/18/19 24 12/19/2023 CMP14 +EGFR carbon dioxide, total 23 mmol/ L 20-29 Not Available [facility] ([facility]) [address], [place], [address], 12/20/2023 06:18:42 12/18/19 24 12/19/2023 CMP14 +EGFR calcium 10.1 mg/dL 8.7-10 .2 Not Available [facility] ([facility]) [address] [place], [address], 12/20/2023 06:18:42 12/18/19 24 12/19/2023 CMP14 +EGFR protein, total 6.9 g/dL 6.0-8. 5 Not Available [facility] ([facility]) [address], [place], [address], 12/20/2023 06:18:42 12/18/19 24 12/19/2023 CMP14 +EGFR albumin 4.8 g/dL 3.9-4. 9 Not Available [facility] ([facility]) [address], [place], [address], 12/20/2023 06:18:42 12/18/19 24 12/19/2023 CMP14 +EGFR globulin, total 2.1 g/dL 1.5-4. 5 Not Available [facility] ([facility]) [address], [place], [address], 12/20/2023 06:18:42 12/18/19 24 12/19/2023 CMP14 +EGFR A/G ratio 2.3 1.2-2. 2 above high normal Not Available [facility] ([facility]) [address] [place], [address], 12/20/2023 06:18:42 12/18/19 24 12/19/2023 CMP14 +EGFR bilirubin, total 0.5 mg/dL 0.0-1. 2 Not Available [facility] ([facility]) [address] [place], [address], 12/20/2023 06:18:42 12/18/19 24 12/19/2023 CMP14 +EGFR alkaline phosphatase 66 IU/L 44-121 Not Available [facility] ([facility]) [address], [place], [address], 12/20/2023 06:18:42 12/18/19 24 12/19/2023 CMP14 +EGFR AST (SGOT) 13 IU/L 0-40 Not Available [facility] ([facility]) [address], [place], [address], 12/20/2023 06:18:42 12/18/19 24 12/19/2023 CMP14 +EGFR ALT (SGPT) 19 IU/L 0-32 Not Available [facility] ([facility]) [address], [place], [address], 12/20/2023 06:18:42 12/18/19 24 12/19/2023 VITAM IN B12 AND FOLAT E vitamin B12 1899 pg/mL 232-12 45 above high normal Not Available [facility] ([facility]) [address], [place], [address], 12/20/2023 06:18:42 12/18/1912/20/2023 VITAM IN B12 AND FOLAT E folate (folic acid), serum 19.2 NG/mL >3.0 A serum folat e leana ntrat ion of less than 3.1 ng/mL is consi dered to repre sent clini maritza defic iency . Not Available [facility] ([facility]) [address], [place], [address], 12/20/2023 06:18:42 12/18/19 24 12/19/2023 HEMOG LOBIN A1C hemoglobin A1C 5.7 % 4.8-5. 6 above high normal Predi abete s: 5.7 - 6.4 Diabe glory: >6.4 Glyce corrine contr ol for adult s with diabe glory: <7.0 Not Available [facility] ([facility]) [address], [place], [address], 12/20/2023 06:18:43 12/18/1912/19/2023 CBC WITH DIFFE RENTI AL/PL ATELE T WBC 5.4 x10e3 /uL 3.4-10 .8 Not Available [facility] ([facility]) [address], [place], [address], 12/20/2023 06:18:44 12/18/19 24 12/19/2023 CBC WITH DIFFE RENTI AL/PL ATELE T RBC 4.79 x10e6 /uL 3.77-5 .28 Not Available [facility] ([facility]) [address], [place], [address], 12/20/2023 06:18:44 12/18/19 24 12/19/2023 CBC WITH DIFFE RENTI AL/PL ATELE T hemoglobin 14.8 g/dL 11.1-1 5.9 Not Available [facility] ([facility]) [address], [place], [address], 12/20/2023 06:18:44 12/18/19 24 12/19/2023 CBC WITH DIFFE RENTI AL/PL ATELE T hematocrit 43.8 % 34.0-4 6.6 Not Available [facility] ([facility]) [address], [place], [address], 12/20/2023 06:18:44 12/18/19 24 12/19/2023 CBC WITH DIFFE RENTI AL/PL ATELE T MCV 91 fL 79-97 Not Available [facility] ([facility]) [address], [place], [address], 12/20/2023 06:18:44 12/18/19 24 12/19/2023 CBC WITH DIFFE RENTI AL/PL ATELE T MCH 30.9 pg 26.6-3 3.0 Not Available [facility] ([facility]) [address], [place], [address], 12/20/2023 06:18:44 12/18/19 24 12/19/2023 CBC WITH DIFFE RENTI AL/PL ATELE T MCHC 33.8 g/dL 31.5-3 5.7 Not Available [facility] ([facility]) [address], [place], [address], 12/20/2023 06:18:44 12/18/19 24 12/19/2023 CBC WITH DIFFE RENTI AL/PL ATELE T RDW 12.4 % 11.7-1 5.4 Not Available [facility] ([facility]) [address], [place], [address], 12/20/2023 06:18:44 12/18/19 24 12/19/2023 CBC WITH DIFFE RENTI AL/PL ATELE T platelets 327 x10e3 /uL 150-45 0 Not Available [facility] ([facility]) [address], [place], [address], 12/20/2023 06:18:44 12/18/19 24 12/19/2023 CBC WITH DIFFE RENTI AL/PL ATELE T neutrophils 61 % notest ab. Not Available [facility] ([facility]) [address] [place], [address], 12/20/2023 06:18:44 12/18/19 24 12/19/2023 CBC WITH DIFFE RENTI AL/PL ATELE T lymphs 28 % notest ab. Not Available [facility] ([facility]) [address] [place], [address], 12/20/2023 06:18:44 12/18/19 24 12/19/2023 CBC WITH DIFFE RENTI AL/PL ATELE T monocytes 8 % notest ab. Not Available [facility] ([facility]) [address] [place], [address], 12/20/2023 06:18:44 12/18/19 24 12/19/2023 CBC WITH DIFFE RENTI AL/PL ATELE T eos 2 % notest ab. Not Available [facility] ([facility]) [address], [place], [address], 12/20/2023 06:18:44 12/18/19 24 12/19/2023 CBC WITH DIFFE RENTI AL/PL ATELE T basos 1 % notest ab. Not Available [facility] ([facility]) [address], [place], [address], 12/20/2023 06:18:44 12/18/19 24 12/19/2023 CBC WITH DIFFE RENTI AL/PL ATELE T neutrophils (absolute) 3.3 x10e3 /uL 1.4-7. 0 Not Available [facility] ([facility]) [address], [place], [address], 12/20/2023 06:18:44 12/18/19 24 12/19/2023 CBC WITH DIFFE RENTI AL/PL ATELE T lymphs (absolute) 1.5 x10e3 /uL 0.7-3. 1 Not Available [facility] ([facility]) [address] [place], [address], 12/20/2023 06:18:44 12/18/19 24 12/19/2023 CBC WITH DIFFE RENTI AL/PL ATELE T monocytes(ab solute) 0.4 x10e3 /uL 0.1-0. 9 Not Available [facility] ([facility]) [address] [place], [address], 12/20/2023 06:18:44 12/18/19 24 12/19/2023 CBC WITH DIFFE RENTI AL/PL ATELE T eos (absolute) 0.1 x10e3 /uL 0.0-0. 4 Not Available [facility] ([facility]) [address] [place], [address], 12/20/2023 06:18:44 12/18/19 24 12/19/2023 CBC WITH DIFFE RENTI AL/PL ATELE T baso (absolute) 0.0 x10e3 /uL 0.0-0. 2 Not Available [facility] ([facility]) [address] [place], [address], 12/20/2023 06:18:44 12/18/19 24 12/19/2023 CBC WITH DIFFE RENTI AL/PL ATELE T immature granulocytes 0 % notest ab. Not Available [facility] ([facility]) [address] [place], [address], 12/20/2023 06:18:44 12/18/19 24 12/19/2023 CBC WITH DIFFE RENTI AL/PL ATELE T immature grans (abs) 0.0 x10e3 /uL 0.0-0. 1 Not Available [facility] ([facility]) [address] [place], [address], 12/20/2023 06:18:44 12/18/19 24 12/19/2023 FE+TI BC+FE R iron bind.cap.(TI BC) 311 ug/dL 250-45 0 Not Available [facility] ([facility]) [address] [place], [address], 12/20/2023 06:18:44 12/18/19 24 12/19/2023 FE+TI BC+FE R UIBC 210 ug/dL 131-42 5 Not Available [facility] ([facility]) [address] [place], [address], 12/20/2023 06:18:44 12/18/19 24 12/19/2023 FE+TI BC+FE R iron 101 ug/dL 27-159 Not Available [facility] ([facility]) [address] [place], [address], 12/20/2023 06:18:44 12/18/19 24 12/19/2023 FE+TI BC+FE R iron saturation 32 % 15-55 Not Available [facility] ([facility]) [address], [place], [address], 12/20/2023 06:18:44 12/18/19 24 12/19/2023 FE+TI BC+FE R ferritin 48 NG/mL 15-150 Not Available [facility] ([facility]) [address], [place], [address], 12/20/2023 06:18:44 07/10/20 24 07/11/2024 LIPID PANEL W/ CHOL/ HDL RATIO cholesterol, total 124 mg/dL 100-19 9 Not Available [facility] ([facility]) [address] [place], [address], 07/11/2024 07:08:24 07/10/20 24 07/11/2024 LIPID PANEL W/ CHOL/ HDL RATIO triglyceride s 85 mg/dL 0-149 Not Available [facility] ([facility]) [address] [place], [address], 07/11/2024 07:08:24 07/10/20 24 07/11/2024 LIPID PANEL W/ CHOL/ HDL RATIO HDL cholesterol 57 mg/dL >39 Not Available [facility] ([facility]) [address] [place], [address], 07/11/2024 07:08:24 07/10/20 24 07/11/2024 LIPID PANEL W/ CHOL/ HDL RATIO VLDL cholesterol maritza 16 mg/dL 5-40 Not Available [facility] ([facility]) [address] [place], [address], 07/11/2024 07:08:24 07/10/20 24 07/11/2024 LIPID PANEL W/ CHOL/ HDL RATIO LDL chol calc (nih) 51 mg/dL 0-99 Not Available [facility] ([facility]) [address] [place], [address], 07/11/2024 07:08:24 07/10/20 24 07/11/2024 LIPID PANEL W/ CHOL/ HDL RATIO T. chol/HDL ratio 2.2 ratio 0.0-4. 4 T. Chol/ HDL Ratio Men Women 1/2 Avg.R isk 3.4 3.3 Avg.R isk 5.0 4.4 2X Avg.R isk 9.6 7.1 3X Avg.R isk 23.4 11.0 Not Available [facility] ([facility]) [address] [place], [address], 07/11/2024 07:08:24 07/10/20 24 07/11/2024 TSH+F REE T4 TSH 0.723 uIU/m L 0.450- 4.500 Not Available [facility] ([facility]) [address] [place], [address], 07/11/2024 07:08:25 07/10/20 24 07/11/2024 TSH+F REE T4 T4,free(dire ct) 1.11 NG/dL 0.82-1 .77 Not Available [facility] ([facility]) [address] [place], [address], 07/11/2024 07:08:25 07/10/20 24 07/11/2024 COMP. METAB OLIC PANEL (14) glucose 95 mg/dL 70-99 Not Available [facility] ([facility]) [address] [place], [address], 07/11/2024 07:08:26 07/10/20 24 07/11/2024 COMP. METAB OLIC PANEL (14) BUN 11 mg/dL 6-24 Not Available [facility] ([facility]) [address] [place], [address], 07/11/2024 07:08:26 07/10/20 24 07/11/2024 COMP. METAB OLIC PANEL (14) creatinine 0.75 mg/dL 0.57-1 .00 Not Available [facility] ([facility]) [address], [place], [address], 07/11/2024 07:08:26 07/10/20 24 07/11/2024 COMP. METAB OLIC PANEL (14) eGFR 100 mL/mi n/1.7 3 >59 Not Available [facility] ([facility]) [address] [facility], [place], [address], 07/11/2024 07:08:26 07/10/20 24 07/11/2024 COMP. METAB OLIC PANEL (14) BUN/creatini ne ratio 15 9-23 Not Available [facility] ([facility]) [address], [place], [address], 07/11/2024 07:08:26 07/10/20 24 07/11/2024 COMP. METAB OLIC PANEL (14) sodium 142 mmol/ L 134-14 4 Not Available [facility] ([facility]) [address], [place], [address], 07/11/2024 07:08:26 07/10/20 24 07/11/2024 COMP. METAB OLIC PANEL (14) potassium 4.3 mmol/ L 3.5-5. 2 Not Available [facility] ([facility]) [address], [place], [address], 07/11/2024 07:08:26 07/10/20 24 07/11/2024 COMP. METAB OLIC PANEL (14) chloride 107 mmol/ L 96-106 above high normal Not Available [facility] ([facility]) [address], [place], [address], 07/11/2024 07:08:26 07/10/20 24 07/11/2024 COMP. METAB OLIC PANEL (14) carbon dioxide, total 23 mmol/ L 20-29 Not Available [facility] ([facility]) [address] [place], [address], 07/11/2024 07:08:26 07/10/20 24 07/11/2024 COMP. METAB OLIC PANEL (14) calcium 9.4 mg/dL 8.7-10 .2 Not Available [facility] ([facility]) [address], [place], [address], 07/11/2024 07:08:26 07/10/20 24 07/11/2024 COMP. METAB OLIC PANEL (14) protein, total 6.3 g/dL 6.0-8. 5 Not Available [facility] ([facility]) [address] [place], [address], 07/11/2024 07:08:26 07/10/20 24 07/11/2024 COMP. METAB OLIC PANEL (14) albumin 4.4 g/dL 3.9-4. 9 Not Available [facility] ([facility]) [address] [place], [address], 07/11/2024 07:08:26 07/10/20 24 07/11/2024 COMP. METAB OLIC PANEL (14) globulin, total 1.9 g/dL 1.5-4. 5 Not Available [facility] ([facility]) [address] [place], [address], 07/11/2024 07:08:26 07/10/20 24 07/11/2024 COMP. METAB OLIC PANEL (14) bilirubin, total 0.4 mg/dL 0.0-1. 2 Not Available [facility] ([facility]) [address] [place], [address], 07/11/2024 07:08:26 07/10/20 24 07/11/2024 COMP. METAB OLIC PANEL (14) alkaline phosphatase 69 IU/L 44-121 Not Available [facility] ([facility]) [address] [place], [address], 07/11/2024 07:08:26 07/10/20 24 07/11/2024 COMP. METAB OLIC PANEL (14) AST (SGOT) 13 IU/L 0-40 Not Available [facility] ([facility]) [address] [place], [address], 07/11/2024 07:08:26 07/10/20 24 07/11/2024 COMP. METAB OLIC PANEL (14) ALT (SGPT) 15 IU/L 0-32 Not Available [facility] ([facility]) [address] [place], [address], 07/11/2024 07:08:26 07/10/20 24 07/11/2024 HEMOG LOBIN A1C hemoglobin A1C 5.5 % 4.8-5. 6 Predi abete s: 5.7 - 6.4 Diabe glory: >6.4 Glyce corrine contr ol for adult s with diabe glory: <7.0 Not Available [facility] ([facility]) [address] [place], [address], 07/11/2024 07:08:27 07/10/20 24 07/11/2024 CBC WITH DIFFE RENTI AL/PL ATELE T WBC 6.2 x10e3 /uL 3.4-10 .8 Not Available [facility] ([facility]) [address] [place], [address], 07/11/2024 07:08:28 07/10/20 24 07/11/2024 CBC WITH DIFFE RENTI AL/PL ATELE T RBC 4.26 x10e6 /uL 3.77-5 .28 Not Available [facility] ([facility]) [address] [facility], [place], [address], 07/11/2024 07:08:28 07/10/20 24 07/11/2024 CBC WITH DIFFE RENTI AL/PL ATELE T hemoglobin 13.4 g/dL 11.1-1 5.9 Not Available [facility] ([facility]) [address] [facility], [place], [address], 07/11/2024 07:08:28 07/10/20 24 07/11/2024 CBC WITH DIFFE RENTI AL/PL ATELE T hematocrit 40.6 % 34.0-4 6.6 Not Available [facility] ([facility]) [address] [facility] [address], [place], [address], 07/11/2024 07:08:28 07/10/2007/11/2024 CBC WITH DIFFE RENTI AL/PL ATELE T MCV 95 fL 79-97 Not Available [facility] ([facility]) [address] [facility], [place], [address], 07/11/2024 07:08:28 07/10/2007/11/2024 CBC WITH DIFFE RENTI AL/PL ATELE T MCH 31.5 pg 26.6-3 3.0 Not Available [facility] ([facility]) [address] [facility] [address], [place], [address], 07/11/2024 07:08:28 07/10/2007/11/2024 CBC WITH DIFFE RENTI AL/PL ATELE T MCHC 33.0 g/dL 31.5-3 5.7 Not Available [facility] ([facility]) [address] [facility] [address], [place], [address], 07/11/2024 07:08:28 07/10/2007/11/2024 CBC WITH DIFFE RENTI AL/PL ATELE T RDW 12.4 % 11.7-1 5.4 Not Available [facility] ([facility]) [address] [facility] [address], [place], [address], 07/11/2024 07:08:28 07/10/2007/11/2024 CBC WITH DIFFE RENTI AL/PL ATELE T platelets 352 x10e3 /uL 150-45 0 Not Available [facility] ([facility]) [address] [facility] [address], [place], [address], 07/11/2024 07:08:28 07/10/20 24 07/11/2024 CBC WITH DIFFE RENTI AL/PL ATELE T neutrophils 67 % notest ab. Not Available [facility] ([facility]) [address] [facility] [address], [place], [address], 07/11/2024 07:08:28 07/10/2007/11/2024 CBC WITH DIFFE RENTI AL/PL ATELE T lymphs 21 % notest ab. Not Available [facility] ([facility]) [address] [facility] [address], [place], [address], 07/11/2024 07:08:28 07/10/20 24 07/11/2024 CBC WITH DIFFE RENTI AL/PL ATELE T monocytes 7 % notest ab. Not Available [facility] ([facility]) [address], [place], [address], 07/11/2024 07:08:28 07/10/20 24 07/11/2024 CBC WITH DIFFE RENTI AL/PL ATELE T eos 3 % notest ab. Not Available [facility] ([facility]) [address], [place], [address], 07/11/2024 07:08:28 07/10/20 24 07/11/2024 CBC WITH DIFFE RENTI AL/PL ATELE T basos 1 % notest ab. Not Available [facility] ([facility]) [address], [place], [address], 07/11/2024 07:08:28 07/10/20 24 07/11/2024 CBC WITH DIFFE RENTI AL/PL ATELE T neutrophils (absolute) 4.2 x10e3 /uL 1.4-7. 0 Not Available [facility] ([facility]) [address], [place], [address], 07/11/2024 07:08:28 07/10/20 24 07/11/2024 CBC WITH DIFFE RENTI AL/PL ATELE T lymphs (absolute) 1.3 x10e3 /uL 0.7-3. 1 Not Available [facility] ([facility]) [address], [place], [address], 07/11/2024 07:08:28 07/10/2007/11/2024 CBC WITH DIFFE RENTI AL/PL ATELE T monocytes(ab solute) 0.4 x10e3 /uL 0.1-0. 9 Not Available [facility] ([facility]) [address], [place], [address], 07/11/2024 07:08:28 07/10/20 24 07/11/2024 CBC WITH DIFFE RENTI AL/PL ATELE T eos (absolute) 0.2 x10e3 /uL 0.0-0. 4 Not Available [facility] ([facility]) [address], [place], [address], 07/11/2024 07:08:28 07/10/20 24 07/11/2024 CBC WITH DIFFE RENTI AL/PL ATELE T baso (absolute) 0.0 x10e3 /uL 0.0-0. 2 Not Available [facility] ([facility]) [address], [place], [address], 07/11/2024 07:08:28 07/10/20 24 07/11/2024 CBC WITH DIFFE RENTI AL/PL ATELE T immature granulocytes 1 % notest ab. Not Available [facility] ([facility]) [address], [place], [address], 07/11/2024 07:08:28 07/10/2007/11/2024 CBC WITH DIFFE RENTI AL/PL ATELE T immature grans (abs) 0.0 x10e3 /uL 0.0-0. 1 Not Available [facility] ([facility]) [address], [place], [address], 07/11/2024 07:08:28 02/13/20 25 02/13/2025 LIPID PANEL W/ CHOL/ HDL RATIO cholesterol, total 123 mg/dL 100-19 9 Not Available [facility] ([facility]) [address], [place], [address], 02/13/2025 09:08:15 02/13/20 25 02/13/2025 LIPID PANEL W/ CHOL/ HDL RATIO triglyceride s 74 mg/dL 0-149 Not Available [facility] ([facility]) [address], [place], [address], 02/13/2025 09:08:15 02/13/20 25 02/13/2025 LIPID PANEL W/ CHOL/ HDL RATIO HDL cholesterol 53 mg/dL >39 Not Available [facility] ([facility]) [address], [place], [address], 02/13/2025 09:08:15 02/13/20 25 02/13/2025 LIPID PANEL W/ CHOL/ HDL RATIO VLDL cholesterol maritza 15 mg/dL 5-40 Not Available [facility] ([facility]) [address] [place], [address], 02/13/2025 09:08:15 02/13/20 25 02/13/2025 LIPID PANEL W/ CHOL/ HDL RATIO LDL chol calc ([facility]) 55 mg/dL 0-99 Not Available [facility] ([facility]) [address] [place], [address], 02/13/2025 09:08:15 02/13/20 25 02/13/2025 LIPID PANEL W/ CHOL/ HDL RATIO T. chol/HDL ratio 2.3 ratio 0.0-4. 4 T. Chol/ HDL Ratio Men Women 1/2 Avg.R isk 3.4 3.3 Avg.R isk 5.0 4.4 2X Avg.R isk 9.6 7.1 3X Avg.R isk 23.4 11.0 Not Available [facility] ([facility]) [address] [place], [address], 02/13/2025 09:08:15 02/13/20 25 02/13/2025 TSH+F REE T4 TSH 0.975 uIU/m L 0.450- 4.500 Not Available [facility] ([facility]) [address] [place], [address], 02/13/2025 09:08:15 02/13/20 25 02/13/2025 TSH+F REE T4 T4,free(dire ct) 1.21 NG/dL 0.82-1 .77 Not Available [facility] ([facility]) [address] [place], [address], 02/13/2025 09:08:15 02/13/20 25 02/13/2025 COMP. METAB OLIC PANEL (14) glucose 103 mg/dL 70-99 above high normal Not Available [facility] ([facility]) [address] [place], [address], 02/13/2025 09:08:16 02/13/2002/13/2025 COMP. METAB OLIC PANEL (14) BUN 12 mg/dL 6-24 Not Available [facility] ([facility]) [address] [place], [address], 02/13/2025 09:08:16 02/13/20 25 02/13/2025 COMP. METAB OLIC PANEL (14) creatinine 0.77 mg/dL 0.57-1 .00 Not Available [facility] ([facility]) [address] [place], [address], 02/13/2025 09:08:16 02/13/20 25 02/13/2025 COMP. METAB OLIC PANEL (14) eGFR 96 mL/mi n/1.7 3 >59 Not Available [facility] ([facility]) [address] [place], [address], 02/13/2025 09:08:16 02/13/20 25 02/13/2025 COMP. METAB OLIC PANEL (14) BUN/creatini ne ratio 16 9-23 Not Available [facility] ([facility]) [address] [place], [address], 02/13/2025 09:08:16 02/13/20 25 02/13/2025 COMP. METAB OLIC PANEL (14) sodium 142 mmol/ L 134-14 4 Not Available [facility] ([facility]) [address], [place], [address], 02/13/2025 09:08:16 02/13/20 25 02/13/2025 COMP. METAB OLIC PANEL (14) potassium 4.6 mmol/ L 3.5-5. 2 Not Available [facility] ([facility]) [address] [place], [address], 02/13/2025 09:08:16 02/13/20 25 02/13/2025 COMP. METAB OLIC PANEL (14) chloride 105 mmol/ L 96-106 Not Available [facility] ([facility]) [address] [place], [address], 02/13/2025 09:08:16 02/13/20 25 02/13/2025 COMP. METAB OLIC PANEL (14) carbon dioxide, total 22 mmol/ L 20-29 Not Available [facility] ([facility]) [address] [place], [address], 02/13/2025 09:08:16 02/13/20 25 02/13/2025 COMP. METAB OLIC PANEL (14) calcium 9.7 mg/dL 8.7-10 .2 Not Available [facility] ([facility]) [address], [place], [address], 02/13/2025 09:08:16 02/13/20 25 02/13/2025 COMP. METAB OLIC PANEL (14) protein, total 6.6 g/dL 6.0-8. 5 Not Available [facility] ([facility]) [address], [place], [address], 02/13/2025 09:08:16 02/13/20 25 02/13/2025 COMP. METAB OLIC PANEL (14) albumin 4.5 g/dL 3.9-4. 9 Not Available [facility] ([facility]) [address], [place], [address], 02/13/2025 09:08:16 02/13/20 25 02/13/2025 COMP. METAB OLIC PANEL (14) globulin, total 2.1 g/dL 1.5-4. 5 Not Available [facility] ([facility]) [address] [place], [address], 02/13/2025 09:08:16 02/13/20 25 02/13/2025 COMP. METAB OLIC PANEL (14) bilirubin, total 0.3 mg/dL 0.0-1. 2 Not Available [facility] ([facility]) [address], [place], [address], 02/13/2025 09:08:16 02/13/20 25 02/13/2025 COMP. METAB OLIC PANEL (14) alkaline phosphatase 76 IU/L 44-121 Not Available [facility] ([facility]) [address], [place], [address], 02/13/2025 09:08:16 02/13/20 25 02/13/2025 COMP. METAB OLIC PANEL (14) AST (SGOT) 21 IU/L 0-40 Not Available [facility] ([facility]) [address], [place], [address], 02/13/2025 09:08:16 02/13/2002/13/2025 COMP. METAB OLIC PANEL (14) ALT (SGPT) 16 IU/L 0-32 Not Available [facility] ([facility]) [address], [place], [address], 02/13/2025 09:08:16 02/13/2002/13/2025 HEMOG LOBIN A1C hemoglobin A1C 5.6 % 4.8-5. 6 Predi abete s: 5.7 - 6.4 Diabe glory: >6.4 Glyce corrine contr ol for adult s with diabe glory: <7.0 Not Available [facility] ([facility]) [address], [place], [address], 02/13/2025 09:08:17 02/13/2002/13/2025 CBC WITH DIFFE RENTI AL/PL ATELE T WBC 5.9 x10e3 /uL 3.4-10 .8 Not Available [facility] ([facility]) [address], [place], [address], 02/13/2025 09:08:18 02/13/20 25 02/13/2025 CBC WITH DIFFE RENTI AL/PL ATELE T RBC 4.77 x10e6 /uL 3.77-5 .28 Not Available [facility] ([facility]) [address], [place], [address], 02/13/2025 09:08:18 02/13/2002/13/2025 CBC WITH DIFFE RENTI AL/PL ATELE T hemoglobin 14.4 g/dL 11.1-1 5.9 Not Available [facility] ([facility]) [address], [place], [address], 02/13/2025 09:08:18 02/13/2002/13/2025 CBC WITH DIFFE RENTI AL/PL ATELE T hematocrit 44.5 % 34.0-4 6.6 Not Available [facility] ([facility]) [address] [place], [address], 02/13/2025 09:08:18 02/13/2002/13/2025 CBC WITH DIFFE RENTI AL/PL ATELE T MCV 93 fL 79-97 Not Available [facility] ([facility]) [address], [place], [address], 02/13/2025 09:08:18 02/13/2002/13/2025 CBC WITH DIFFE RENTI AL/PL ATELE T MCH 30.2 pg 26.6-3 3.0 Not Available [facility] ([facility]) [address], [place], [address], 02/13/2025 09:08:18 02/13/2002/13/2025 CBC WITH DIFFE RENTI AL/PL ATELE T MCHC 32.4 g/dL 31.5-3 5.7 Not Available [facility] ([facility]) [address] [place], [address], 02/13/2025 09:08:18 02/13/2002/13/2025 CBC WITH DIFFE RENTI AL/PL ATELE T RDW 12.6 % 11.7-1 5.4 Not Available [facility] ([facility]) [address] [place], [address], 02/13/2025 09:08:18 02/13/2002/13/2025 CBC WITH DIFFE RENTI AL/PL ATELE T platelets 342 x10e3 /uL 150-45 0 Not Available [facility] ([facility]) [address] [place], [address], 02/13/2025 09:08:18 02/13/2002/13/2025 CBC WITH DIFFE RENTI AL/PL ATELE T neutrophils 60 % notest ab. Not Available [facility] ([facility]) [address], [place], [address], 02/13/2025 09:08:18 02/13/2002/13/2025 CBC WITH DIFFE RENTI AL/PL ATELE T lymphs 31 % notest ab. Not Available [facility] ([facility]) [address], [place], [address], 02/13/2025 09:08:18 02/13/2002/13/2025 CBC WITH DIFFE RENTI AL/PL ATELE T monocytes 6 % notest ab. Not Available [facility] ([facility]) [address], [place], [address], 02/13/2025 09:08:18 02/13/2002/13/2025 CBC WITH DIFFE RENTI AL/PL ATELE T eos 2 % notest ab. Not Available [facility] ([facility]) [address], [place], [address], 02/13/2025 09:08:18 02/13/2002/13/2025 CBC WITH DIFFE RENTI AL/PL ATELE T basos 1 % notest ab. Not Available [facility] ([facility]) [address], [place], [address], 02/13/2025 09:08:18 02/13/2002/13/2025 CBC WITH DIFFE RENTI AL/PL ATELE T neutrophils (absolute) 3.5 x10e3 /uL 1.4-7. 0 Not Available [facility] ([facility]) [address], [place], [address], 02/13/2025 09:08:18 02/13/20 25 02/13/2025 CBC WITH DIFFE RENTI AL/PL ATELE T lymphs (absolute) 1.8 x10e3 /uL 0.7-3. 1 Not Available [facility] ([facility]) [address], [place], [address], 02/13/2025 09:08:18 02/13/2002/13/2025 CBC WITH DIFFE RENTI AL/PL ATELE T monocytes(ab solute) 0.4 x10e3 /uL 0.1-0. 9 Not Available [facility] ([facility]) [address], [place], [address], 02/13/2025 09:08:18 02/13/2002/13/2025 CBC WITH DIFFE RENTI AL/PL ATELE T eos (absolute) 0.1 x10e3 /uL 0.0-0. 4 Not Available [facility] ([facility]) [address], [place], [address], 02/13/2025 09:08:18 02/13/2002/13/2025 CBC WITH DIFFE RENTI AL/PL ATELE T baso (absolute) 0.0 x10e3 /uL 0.0-0. 2 Not Available [facility] ([facility]) [address], [place], [address], 02/13/2025 09:08:18 02/13/2002/13/2025 CBC WITH DIFFE RENTI AL/PL ATELE T immature granulocytes 0 % notest ab. Not Available [facility] ([facility]) [address] [place], [address], 02/13/2025 09:08:18 02/13/2002/13/2025 CBC WITH DIFFE RENTI AL/PL ATELE T immature grans (abs) 0.0 x10e3 /uL 0.0-0. 1 Not Available [facility] ([facility]) [address] [place], [address], 02/13/2025 09:08:18 Result Notes None recorded. Problems Name Problem SNOMED Code Status Onset Date Resolution Date Notes Provider Name and Address Organization Details Recorded Time Hypothyroid ism 94860755 Active 2023 Katia Worthy [place], [place] - [facility] 4 14:31:05 Feeling stressed 376205186 Active 2023 BACILIO Acosta Attn: Accountin g,[address] [facility], [place], [address], [place] - [facility] 4 16:18:29 Long-term drug therapy Active 2023 BACILIO Acosta Attn: Accountin g,[address] [facility], [place], [address], [facility] 4 16:18:31 Hyperlipide alonso 13585908 Active 2023 BACILIO Acosta Attn: Accountin g,[address] [facility], [place], [address], [place] - [facility] 4 16:18:32 Prediabetes 627459462 Active 2023 BACILIO Acosta Attn: Accountin g,[address] [facility], [place], [address], [place] [facility] 4 16:18:33 Benign essential hypertensio n 6662994 Active 2023 BACILIO Acosta Attn: Accountin g,[address] [facility], [place], [address], [place] [facility] 4 16:18:36 Body mass index 30+ - obesity 252022168 Active 2024 BACILIO Acosta Attn: Accountin g,[address] [facility], [place], [address], [place] [facility] 5 16:25:25 Obesity 493614152 Active 2024 BACILIO Acosta Attn: Accountin g,[address] [facility], [place], [address], [place] [facility] 5 16:25:26 Positive screening for depression on PHQ-9 (Patient Health Questionnai re 9) 4833855363046 00 Active 2024 BACILIO Acosta Attn: David swathi,[address] [facility], [place], [address], [facility] 16:25:27 Problem Notes None recorded. [...] 12/08/2023 130/82 mm[Hg] BACILIO Acosta Attn: Accounting,[address] [place], [address], [place] [facility] 12/08/2023 12:26:00 Date Recorded Body weight Body mass index (BMI) Body height Heart rate Oxygen saturation Oxygen saturation in Arterial blood by Pulse oximetry Systolic And Diastolic Provider Name and Address Organization Details Last Updated DateTime 20886.2 2 g 29.1 kg/m2 154.94 cm 82 /min 98 % 98 % 144/90 mm[Hg] Salena Loo MA [facility] 4 11:47:07 Date Recorded Respiratory rate Systolic And Diastolic Provider Name and Address Organization Details Last Updated DateTime 12/15/2024 16 /min 130/80 mm[Hg] BACILIO Acosta Attn: Accounting,[address] [place], [address], [facility] 12/15/2024 16:36:19 Date Recorded Body height Body mass index (BMI) Body weight Heart rate Oxygen saturation Oxygen saturation in Arterial blood by Pulse oximetry Systolic And Diastolic Provider Name and Address Organization Details Last Updated DateTime 154.94 cm 30.7 kg/m2 74044.4 g 78 /min 99 % 99 % 138/78 mm[Hg] Norris Weiss MA [facility] 5 16:11:58 Date Recorded Systolic And Diastolic Provider Name and Address Organization Details Last Updated DateTime 06/11/2024 130/84 mm[Hg] BACILIO Acosta Attn: Accounting,[address] [place], [address], [facility] 06/11/2024 16:17:59 Date Recorded Body height Body mass index (BMI) Body weight Heart rate Oxygen saturation Oxygen saturation in Arterial blood by Pulse oximetry Systolic And Diastolic Provider Name and Address Organization Details Last Updated DateTime 154.94 cm 28.9 kg/m2 92508.6 3 g 86 /min 97 % 97 % 138/76 mm[Hg] Liliam Downey MA [facility] 4 15:39:17 Social History Question Answer Notes LastModified by Organizat ion Details LastModified Time Tobacco Smoking Status Never Smoker Salena Loo MA null, [facility] 12/08/2023 11:47:56 Do You Have An Advance [...] anxious, or unable to sleep at night)? [id number] Information not available 12/15/2024 Family History Relationship [...] SNOMED-CT Code Diagnosis ICD10 Code Diagnosis Note [id number] Jesus Crow MD [facility] [address] [place] [address] 12/08/2023 11:26:16 12/08/2023 12:36:49 Adult health examination 901123986 Z00.01 wellness exam completed Benign ess ential hypertension 7944187 I10 start HCTZ 12.5mg daily to help with borderline bp control. Hypothyroidism 45871591 E03.9 on synthroid 75mcg daily and due for labs Hyperlipidemia 55633081 E78.5 on crestor 10mg daily. due for fasting lipids. Long-term drug therapy 979265158 Z79.899 routine cbc, cmp, b12, folate, and iron studies due Prediabetes 872505468 R7 3.03 a1c screening due. on metformin ER 500mg daily Acute left otitis media 208193343 H66.92 start cefdinir 300mg bid course. [id number] Jesus Crow MD [facility] [address] [place] [address] 06/11/2024 15:33:13 06/11/2024 16:27:27 Benign essential hypertension 9286873 I10 Stable on hCTZ 12.5mg daily, BP is 130/84 today Hypothyroidism 45466421 E03.9 on synthroid 75mcg daily and due for labs Prediabetes 289983883 R7 3.03 a1c screening due. on metformin ER 500mg daily and refill given Hyperlipidemia 83405711 E78.5 on crestor 10mg daily. due for fasting lipids. Refill given on medication Long-term drug therapy 271922775 Z79.899 routine cbc, cmp due Feeling stressed 9262678 06 Z73.3 Refill given on alprazolam 0.5 mg 3 times daily as needed for stress/anx [facility] [id number] Jesus Crow MD [facility] [address] [place] [address] 12/15/2024 15:29:14 12/21/2024 12:02:50 Body mass index 30+ - obesity 821369341 Z68.30 bmi 30.7 Obesity 238040479 E66.9 Continue diet and exercise modificati ons Positive s creening for depression on PHQ-9 (Patient Health Questionnaire 9) 5803347760 [address]47 Z13.31 Patient scored a 7 on screening today. No acute concerns or questions. Uses p.r.n. alprazolam a lot of scoring comes from just stress Benign ess ential hypertension 4661019 I10 Stable on hCTZ 12.5mg daily, BP is 130/80 today Hypothyroidism 04729941 E03.9 on synthroid 50 mcg daily and due for labs Prediabetes 939432281 R7 3.03 a1c screening due. on metformin ER 500mg daily Hyperlipidemia 80345495 E78.5 on crestor 10mg daily. due for fasting lipids. Long-term drug therapy 748793398 Z79.899 routine cbc, cmp due Feeling stressed 6834232 06 Z73.3 Stable on alprazolam 0.5 mg 3 times daily as needed for stress/anx iety breakthrou gh Adult heal th examination 932473871 Z00.01 wellness exam completed Health Concerns Section Related Observation LastModified by Organization Detai ls LastModified Time None Recorded Concern Status LastModified by Organization Details LastModified Time None Recorded Advance Directives Directive N: Payers Insurance Date Sequence Insurance Name Policy Number Policy Ordonez Covered Member ID Ordonez Member ID Guarantor Name 01/05/2025 1 [employer] [id number] Jessie Burleson [id number] Jessie Burleson 12/08/2023 1 *SELF PAY* rachel Burleson Notes Date Note Type Note Provider Name and Address Organization Details Recorded Time 12/08/19 24 text/htm l Anxiety/DepressionReported bypatient.Notes:stable on alprazolam PRN useHyperlipidemiaReported bypatient.Notes:stable on rosuvastatin 10mg daily. due for labsThyroidReported bypatient.Notes:stable on synthroid 75mcg daily. due for labs. Prediabetes: taking metformin therapy, stable. BACILIO Acosta Attn: Accounting,[address] [place], [address], [facility] 12/20/2023 16:57:39 06/11/20 24 text/htm l Anxiety/DepressionReported bypatient.Notes:stable on alprazolam PRN useHyperlipidemiaReported bypatient.Notes:stable on rosuvastatin 10mg daily. due for labsThyroidReported bypatient.Notes:stable on synthroid 75mcg daily. due for labs. Prediabetes: taking metformin therapy, stable. BACILIO Acosta Attn: Accounting,[address], [place], [address], [facility] 07/04/2024 00:59:04 12/16/19 25 text/htm l Anxiety/DepressionReported bypatient.Notes:stable on alprazolam PRN useHyperlipidemiaReported bypatient.Notes:stable on rosuvastatin 10mg daily. due for labsThyroidReported bypatient.Notes:stable on synthroid 50mcg daily. due for labs. Prediabetes: taking metformin therapy, stable. BACILIO Acosta Attn: Accounting,[address], [place], [address], [facility] 01/03/2025 22:21:40 OBGyn Episode No OBEpisode recorded.
--- OUTSIDE RECORDS SUMMARY | 2025-04-12 02:07 | XMS_ITS | Referral Summary ---
Author Organization [address] Address [address] [place] [id number] Care Team Providers Care Manager House Name Role Phone Josselyn Garibay Primary Care [...] Comments Blood Pressure 120/82 11/27/2023 2:44 PM [employer] Pulse 82 11/27/2023 2:44 PM [employer] Temperature 36.9 C (98.4 F) 11/27/2023 2:44 PM [employer] Respiratory Rate 20 11/27/2023 2:44 PM [employer] Oxygen Saturation 99% 11/27/2023 2:44 PM [employer] Inhaled Oxygen Concentration - - Weight 71.7 kg (158 lb) 11/27/2023 2:44 PM [employer]ISING [employer] Height 165.1 cm (5' 5) 11/27/2023 2:44 PM [employer]VERTISING SALES [employer] Body Mass Index 26.29 11/27/2023 2:44 PM [employer]ISING SAL[employer] Plan of Treatment Not on file Insurance [employer] OPEN ACCESS [employer] Care Teams Manager House Relationship Specialty Start Date End Date Josselyn Garibay PA PCP - General Physician [facility] 11/27/23
--- OUTSIDE RECORDS SUMMARY | 2025-04-12 02:08 | XMS_ITS | Data Portability ---
Author Organization [facility], [place] Address [address] [place] [address] Assessment Encounter Date Assessment Date Assessment LastModified [...] y with salpingecto my (SURG) 2024 025 [facility], [address], [place], [address], 5 13:08:20 Imaging MAMMO, screening, digital, bilateral 2024 025 [facility], [address], [address], [place], [address], 5 15:39:21 Medication Orders None recorded. Patient [...] or kits canno t be used inter [facility] . Femal e Proge stero ne Range s: Folli cular phase 0.06- 0.89 ng/mL Ovula tion phase 0.12- 12.00 ng/mL Lutea l phase 1.83- 23.90 ng/mL Postm enopa usal <0.05 -0.13 ng/mL Healt hy Pregn ant Women 1st Trime ster 11.0- 44.30 2nd Trime ster 25.40 -83.3 0 3rd Trime ster 58.70 -214. 00 Not Available [facility] (Lab) [address] [place], [address], 11/10/2024 19:00:22 11/04/19 25 11/04/2024 PROLA CTIN prolactin, total 10.70 NG/mL 4.79-2 3.30 This assay was perfo rmed using [employer] ratio n reage nts and test kits. Value s obtai mahesh with other assay metho ds or kits canno t be used inter [facility] . Not Available [facility] (Lab) [address] [place], [address], 11/10/2024 19:00:23 11/04/19 25 11/04/2024 FSH, LH, ESTRA DIOL estradiol 140.0 pg/mL This assay was perfo rmed using [employer] reage nts and test kits. Value s obtai mahesh with other assay metho ds or kits canno t be used inter [facility] . Femal e Estra diol Range s: Folli cular phase 12.4- 233 pg/mL Ovula tion phase 41.0- 398 pg/mL Lutea l phase 22.3- 341 pg/mL Postm enopa usal <5-13 8 pg/mL Healt hy Pregn ant Women 1st Trime ster 154-3 243 pg/mL 2nd Trime ster 1561- 90680 pg/mL 3rd Trime ster 8525- >3000 0 pg/mL Not Available [facility] (Lab) [address] [place], [address], 11/10/2024 19:00:23 11/04/19 25 11/04/2024 FSH, LH, ESTRA DIOL FSH 9.7 mIU/m L This assay was perfo rmed using [employer] reage nts and test kits. Value s obtai mahesh with other assay metho ds or kits canno t be used inter [facility] . Femal es Folli cular : 3.5-1 2.5 mIU/m L Ovula tion: 4.7-2 1.5 mIU/m L Lutea l: 1.7-7 .7 mIU/m L Postm enopa use: 25.8- 134.8 mIU/m L Not Available [facility] (Lab) [address] [facility], [place], [address], 11/10/2024 19:00:23 11/04/19 25 11/04/2024 FSH, LH, ESTRA DIOL LH 21.2 mIU/m L This assay was perfo rmed using [employer] reage nts and test kits. Value s obtai mahesh with other assay metho ds or kits canno t be used [facility] [place] . Femal es Mid-F ollic ular: 2.4-1 2.6 mIU/m L Mid-C ycle: 14.0- 95.6 mIU/m L Mid-L uteal : 1.0-1 1.4 mIU/m L Postm enopa use: 7.7-5 8.5 mIU/m L Not Available [facility] (Lab) [address] [facility], [place], [address], 11/10/2024 19:00:23 11/04/19 25 11/04/2024 TESTO STERO [...] by [facility] [place], [place]. It has not been clear ed or appro lizbet by the U.S. Food and Drug Admin istra tion. This assay has been valid ated pursu ant to the CLIA regul ation s and is used for clini dimitry purpo ses. Not Available [facility] (Lab) [address] [facility], [place], [address], 11/10/2024 19:00:24 11/04/1911/04/2024 TESTO STERO NE, FREE( DIALY SIS) AND TOTAL (LC/M S/MS) testosterone , free 3.0 pg/mL 0.1-6. 4 This test was devel oped and its roberto tical perfo rmanc e marcella cteri stics have been deter mined by [facility] [place]. It has not been clear ed or appro lizbet by the U.S. Food and Drug Admin istra tion. This assay has been valid ated pursu ant to the CLIA regul ation s and is used for clini dimitry purpo ses. 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 Not Available [facility] [address], [place], [address], 12/26/2024 06:51:34 12/10/19 25 12/09/2024 EMPOW ER COMPR EHENS ANGEL (2+79 ) footnotes See Notes CLIA: ID #[id number] 2 Test perfo rmed by [employer]. [address] [place] [address] Mk Mckeon, Ph.D. , [facility] , Labor atory Direc tor Not Available [facility] [address], [place], [address], 12/26/2024 06:51:34 11/11/19 25 11/11/2024 US, trans vagin al No observ ation record ed. [email or web address] [place] [address], [place], [address], 11/11/2024 18:39:43 11/11/19 25 11/11/2024 US, trans vagin al No observ ation record ed. [email or web address] [address] [address], [place], [address], 11/16/2024 14:13:46 11/23/19 25 11/23/2024 MAMMO , scree kaden, digit al, bilat eral No observ ation record ed. [facility] [address], [place], [address], 11/27/2024 13:09:54 Result Notes None recorded. Problems Name Problem SNOMED Code Status Onset Date Resolution Date Notes Provider Name and Address Organization Details Recorded Time Threaten ed miscarri age [id number] Completed 201208/22/2021 Threaten ed , antepart um;Pract ice ID: 0001 Leah Lara [facility], [facility] 17:42:31 Multigra gabi of advanced maternal age [id number] Completed 201208/22/2021 Other advanced maternal age, antepart um conditio n or complica tion;Pra ctice ID: 0001 Leah Lara [facility], [facility] 17:41:51 Routine antenata l care Completed 201208/22/2021 Supervis ion of other normal pregnanc y;Practi ce ID: 0001 Leah Lara [facility], [facility] 17:42:19 Speciali zed medical examinat ion Completed 201208/22/2021 Routine gynecolo gical examinat ion;Prac elias ID: 0001 Leah Lara [facility], [facility] 17:42:28 Ultrason ography Completed 201208/22/2021 Antenata l screenin g for malforma tion using ultrason ics;Prac elias ID: 0001 Leah Lara [facility], [facility] 17:42:33 Antenata l screenin g Completed 201208/22/2021 Antenata l screenin g for malforma tion using ultrason ics;Prac elias ID: 0001 Leah Lara [facility], [facility] 17:40:48 Congenit al malforma tion [id number] Completed 201208/22/2021 Antenata l screenin g for malforma tion using ultrason ics;Prac elias ID: 0001 Leah posey, [facility] 17:40:57 Maternal care for diminish ed movement s Completed 201208/22/2021 Decrease d movement s, affectin g manageme nt of mother, antepart um conditio n or complica tion;Pra ctice ID: 0001 Leah posey, [facility] 17:41:46 Dietary manageme nt surveill ance Completed 201208/22/2021 Dietary surveill ance and counseli ng;Pract ice ID: 0001 Leah Lara [facility] 17:41:01 Uncertai n viabilit y of pregnanc y [id number] Completed 201108/22/2021 PREG W INCONCLU SIVE VIABIL;P ractice ID: 0001 Leah Lara [facility], [facility] 17:42:34 anatomy study Completed 201108/22/2021 [facility] ANAT SURVEY;P ractice ID: 0001 Leah posey, [facility] 17:41:13 Missed miscarri age [id number] Completed 201108/22/2021 Missed ;Practic e ID: 0001 Leah Lara [facility] 17:41:49 , affectin g manageme nt of mother [id number] Completed 201108/22/2021 Intraute rine , affectin g manageme nt of mother, antepart um;Pract ice ID: 0001 Leah posey [facility] 17:41:17 Dysfunct ional uterine bleeding Completed 201108/22/2021 DUB;Prac elias ID: 0001 Leah Lara [facility], [facility] 17:41:03 Noninfla mmatory disorder of the vagina 83248287 Completed 201108/22/2021 Other specifie d noninfla mmatory disorder s of vagina;P ractice ID: 0001 Leah Lara kalpesh, [facility] 17:41:58 Uses oral contrace ption 5349769 Completed 201108/22/2021 Surveill ance of contrace ptive pill;Pra ctice ID: 0001 Leah posey, [facility] 17:42:00 Screenin g for malignan t neoplasm of cervix Completed 201208/22/2021 Pap Smear;Pr actice ID: 0001 Leah Lara kalpesh, [facility] 17:42:21 Vaginiti s and vulvovag initis Completed 201208/22/2021 Vaginiti s and vulvovag initis, unspecif ied;Prac elias ID: 0001 Leah Lara [facility], [facility] 17:42:37 Pregnanc y test positive [id number] Completed 201208/22/2021 Positive Pregnanc y Test;Pra ctice ID: 0001 Leah Laresgarrett posey, [facility] 17:42:10 Amenorrh ea 16034320 Completed 201208/22/2021 AMENORRH EA;Pract ice ID: 0001 Leahbarbara Lara [facility], [facility] 17:40:46 Glucose toleranc e test during pregnanc y - baby not yet delivere d outside referenc e range 891701225 Completed 201208/22/2021 Gestatat ional Diabetes Antepart um;Pract ice ID: 0001 Leah posey, [facility] 17:40:41 Excessiv e growth affectin g manageme nt of mother 25253047 Completed 201208/22/2021 GROWTH LARGE LGA;Prac elias ID: 0001 Leah posey, [facility] 17:41:09 Primary focal hyperhid rosis of axilla [id number] Completed 201808/22/2021 Primary focal hyperhid rosis, axilla;P ractice ID: 0001 Leah Lara [facility], [facility] 17:42:12 Finding of menstrua l bleeding Completed 201808/22/2021 Excessiv e and frequent menstrua tion with regular cycle;Pr actice ID: 0001 Leah Lara [facility], [facility] 17:41:19 Finding of pattern of menstrua l cycle 323839794 Completed 201608/22/2021 Menometr orrhagia ;Recorde d Elsewher e: No Locat ion: [facility] S ource: EHR Legal Recruiter jolene: N Practi ce ID: 0001 Fausto lable Time: 06:15:00 PM Leah Larestz [facility] 17:41:34 Finding of pattern of menstrua l cycle Completed 201808/22/2021 Other specifie d irregula r menstrua tion;Pra ctice ID: 0001 Leah Lara [facility], [facility] 17:41:22 Procedur e on genitour inary system Completed 201408/22/2021 Encounte r for female steriliz ation;Re corded Elsewher e: No [facility] S ource: EHR Legal Recruiter jolene: N Practi ce ID: 0001 Fausto lable Time: 04:00:00 PM Leah Jane [facility], [facility] 17:42:[address] Concept Completed 201708/22/2021 Encntr for obgyn specialist exam (general ) (routine ) w/o abn findings ;Practic e ID: 0001 Leah Lara [facility] 17:42:26 Neoplast ic disease 56632226 Completed 201808/22/2021 Neoplasm of unsp behavior of bone, soft tissue, and skin;Pra ctice ID: 0001 Leah Larestz kalpesh [facility] 17:41:53 Atypical squamous cells of undeterm ined signific ance on cervical Papanico laou smear 547035386 Completed 201608/22/2021 Atyp squam cell of undet signfc cyto smr crvx (ASC-US) ;Recorde d Elsewher e: No Locat ion: [facility] S ource: EHR Legal Recruiter jolene: N Bev ce ID: 0001 Fausto lable Time: 08:30:00 AM Leah Lara [facility] 17:40:52 Past pregnanc y history of gestatio nal diabetes mellitus 154429884 Completed 201608/22/2021 Personal history of gestatio nal diabetes ;Recorde d Elsewher e: No Locat ion: [facility] S ource: EHR Legal Recruiter jolene: N Bev ce ID: 0001 Fausto lable Time: 03:21:25 PM Leah Lara [facility] 17:41:36 Neoplasm of uncertai n behavior of breast [id number] Completed 201108/22/2021 Neoplasm of uncertai n behavior of breast;R ecorded Elsewher e: No Locat ion: [facility] S ource: EHR Legal Recruiter jolene: N Practi ce ID: 0001 Fausto lable Time: 08:30:00 AM Leah Lara [facility] 17:41:55 Human papillom avirus deoxyrib onucleic acid detected , high risk on cervical specimen [id number] Completed 201508/22/2021 Cervical high risk HPV DNA test positive ;Recordjerel d Elsewher e: No [facility] S ource: EHR Legal Recruiter jolene: N Practi ce ID: 0001 Fausto lable Time: 04:36:45 PM Leah posey [facility] 1 17:41:43 Postpart um care Completed 201308/22/2021 Post Followup ;Recorde d Elsewher e: No Locat ion: [facility] S ource: EHR Legal Recruiter jolene: N Practi ce ID: 0001 Fausto lable Time: 01:00:00 PM Leah Lara [facility] 1 17:42:05 Right upper quadrant pain [id number] Completed 201208/22/2021 Abdomina l pain, right upper quadrant ;Recorde d Elsewher e: No Locat ion: [facility] S ource: EHR Legal Recruiter jolene: N Practi ce ID: 0001 Fausto lable Time: 11:30:00 AM Leah posey [facility] 1 17:42:17 Pelvic and perineal pain [id number] Completed 201508/22/2021 Pelvic and perineal pain;Rec orded Elsewher e: No Locat ion: [facility] S ource: EHR Legal Recruiter jolene: N Practi ce ID: 0001 Fausto lable Time: 05:00:00 PM Leah posey [facility] 1 17:42:01 Educatio n about sexually transmit jason disease preventi on Completed 201408/22/2021 Counseli ng on STDs;Rec orded Elsewher e: No Locat ion: [facility] S ource: EHR Legal Recruiter jolene: N Practi ce ID: 0001 Fausto lable Time: 02:00:00 PM Leah posey [facility] 1 17:41:05 Emotiona l state finding Completed 201708/22/2021 Anxiety depressi on;Recor ded Elsewher e: No Locat ion: [facility] beltrán [facility] S ource: EHR Legal Recruiter jolene: N Practi ce ID: 0001 Fausto lable Time: 08:30:00 AM Leah posey, [facility] 1 17:41:07 Postoper ative follow-u p visit Completed 201408/22/2021 Post operativ e follow-u p;Record ed Elsewher e: No Locat ion: Herminio jerel [facility] S ource: EHR Legal Recruiter jolene: N Practi ce ID: 0001 Fausto lable Time: 04:00:00 PM Leah posey, [facility] 1 17:42:03 Glucose level outside referenc e range [id number] Completed 201408/22/2021 OTHER ABNORMAL GLUCOSE; Recorded Elsewher e: No Locat ion: Herminio jerel [facility] S ource: EHR Legal Recruiter jolene: N Practi ce ID: 0001 Fausto lable Time: 05:01:47 PM Leah posey, [facility] 1 17:40:39 Pre-surg shelby evaluati on Completed 201408/22/2021 Pre-oper ative examinat ion, unspecif ied;Geoffrey rded Elsewher e: No Locat ion: Herminio jerel [facility] S ource: EHR Legal Recruiter jolene: N Practi ce ID: 0001 Fausto lable Time: 04:00:00 PM Leah posey, [facility] 1 17:42:07 Adult health examinat ion Completed 201408/22/2021 ROUTINE MEDICAL EXAM;Rec orded Elsewher e: No Locat ion: [facility] beltrán [facility] S ource: EHR Legal Recruiter jolene: N Practi ce ID: 0001 Fausto lable Time: 04:30:00 PM Leah posey, [facility] 17:40:44 Pregnanc y test negative [id number] Completed 201308/22/2021 Pregnanc y examinat ion or test, negative result;R ecorded Elsewher e: No Locat ion: [facility] S ource: EHR Legal Recruiter jolene: N Bev ce ID: 0001 Fausto lable Time: 01:00:00 PM Leah posey, [facility] 17:42:[address] Concept Completed 201608/22/2021 Encntr for general adult medical exam w/o abnormal findings ;Recorde d Elsewher e: No Locat ion: [facility] S ource: EHR Legal Recruiter jolene: N Bev ce ID: 0001 Fausto lable Time: 08:30:00 AM [facility] 17:42:24 History of tubal ligation 054975047 Completed 201408/22/2021 Tubal ligation status;P ractice ID: 0001 Leah posey, [facility] 17:41:38 Hypertro phic conditio n of skin 18838139 Completed 201608/22/2021 Other hypertro phic disorder s of the skin;Pra ctice ID: 0001 Leah posey, [facility] 17:41:44 False labor at or after 37 complete d weeks of gestatio n 487817730 Completed 201208/22/2021 Other threaten ed labor, antepart um;Pract ice ID: 0001 Leah Lara kalpesh, [facility] 17:41:11 Complica tion related to pregnanc y Completed 201208/22/2021 Weight Insuffic ient Antepart um;Pract ice ID: 0001 Leah posey, [facility] 17:40:55 Delivery normal [id number] Completed 201208/22/2021 Normal delivery ;Practic e ID: 0001 Leah posey, [facility] 17:40:59 Single live from singleto n pregnanc y [id number] Completed 201208/22/2021 Mother with single liveborn ;Practic e ID: 0001 Leah posey, [facility] 17:42:23 Problem Notes None recorded. Procedures Surgical History Date Name Laterality Status Provider Name and Address Organization Details Recorded Time 2024 ROBOTIC ASSISTED HYSTERECTOMY WITH SALPINGECTOMY (SURG) [facility] 20:17:12 2024 Date of Last Colonoscopy completed [facility] 02/07/2025 10:37:23 2024 Date of Last Mammogram completed [facility] 02/07/2025 10:36:38 2024 Date of Last Pap Smear completed [facility] 02/07/2025 10:36:05 2020 Orthopedic Surgery completed Leah Lara [facility] 08/23/2021 12:01:28 2018 excision of skin tag completed Leah Lara [facility] 08/23/2021 12:05:34 2016 endometrial biopsy completed Leahbarbara Lara [facility] 08/23/2021 12:06:54 2016 excision of skin tag completed Leahbarbara Lara [facility] 08/23/2021 12:06:01 2016 [facility] 08/23/2021 10:36:50 2016 Colposcopy completed Leah [facility] 08/23/2021 12:07:46 2014 fluoroscopic hysterosalpingography with contrast completed [facility] 08/23/2021 12:03:08 Imaging Results None recorded. [...] Prescrib ed Elsewher e: No Locat ion: [facility] M odify By: [email or web address] trick [...] Prescrib ed Elsewher e: No Locat ion: [facility] odify By: bossman whitehead DateTime : 04/01/20 [...] Prescrib ed Elsewher e: No Locat ion: [facility] odify By: bcjuan antonio norris DateTime : [...] Prescrib ed Elsewher e: No Locat ion: [facility] odify By: [email or web address] berthak En counter DateTime [...] Prescrib ed Elsewher e: No Locat ion: [facility] odify By: [email or web address] trick En [...] Prescrib ed Elsewher e: Yes Loca tion: [facility] odify By: az farr DateTime : 07/20/20 19 03:15:00 PM Not Available Not Available Not Available hydrocodo ne 7.5 mg-acetam inophen 325 mg tablet TAKE ONE TABLET EVERY 4-6 HOURS NEEDED FOR PAIN 11/04 completed Not Available Not Available Not Available Micronor (28) 0.35 mg tablet take 1 tablet by oral route every day 12/06 completed Prescrib ed Elsewher e: No Locat ion: [facility] odify By: [email or web address] trick En [...] Elsewher e: No Locat ion: [facility]ineda beltrán [facility] odify By: [email or web address] trick En counter DateTime : 02/21/20 15 04:29:30 PM Not Available Not Available Not Available diazepam 10 mg tablet po 1-2 hours before the procedur e 03/30 completed Prescrib ed Elsewher e: No Locat ion: [facility]a beltrán [facility] odify By: [email or web address] trick En counter DateTime : 02/21/20 15 04:29:30 PM Not Available Not Available Not Available levofloxa vicente 750 mg tablet 07/04 completed Not Available Not Available Not Available methylpre dnisolone 4 mg tablets in a dose pack FOLLOW PACKAGE DIRECTIO NS 08/22 completed Not Available Not Available Not Available Vitamin D2 1,250 mcg (50,000 unit) capsule take 1 capsule ([id number]) by oral route every week 10/21 completed Prescrib ed Elsewher e: No Locat ion: [facility] beltrán [facility] odify By: [email or web address] trick En counter DateTime : 07/07/20 13 09:30:43 AM Not Available Not Available Not Available ketorolac 60 mg/2 mL intramusc ular solution bring to the office and given 30 minuntes before procedur e 03/30 completed Prescrib ed Elsewher e: No Locat ion: [facility] beltr[facility] odify By: [email or web address] trick En counter DateTime : 02/21/20 15 04:29:30 PM Not Available Not Available Not Available Paxil 10 mg tablet take 1 tablet by oral route every day 08/22 completed Prescrib ed Elsewher e: No Locat ion: Herminio jerel [facility] odify By: juan carlos tz Feiou nter [...] Elsewher e: Yes Loca tion: Herminio jerel [facility] odify By: [email or web address] trick En counter DateTime : 03/30/20 15 04:00:00 PM Not Available Not Available Not Available Souleymane uo DHA 29 mg-1 mg-400 mg oral pack take 2 by Oral route every day 10/21 completed Prescrib ed Elsewher e: No Locat ion: [facility] jerel [facility] odify By: [email or web address] trick En counter DateTime : 03/15/20 13 04:30:00 PM Not Available Not Available Not Available Vicodin 5 mg-300 mg tablet 2 tabs po 2 hours before the procedur e and 1-2 tabs every 4 hours prn for post op pain 03/30 completed Prescrib ed Elsewher e: No Locat ion: [facility] odify By: [email or web address] trick En [...] Updated DateTime 11/17/2024 154.94 cm 31.5 kg/m2 53594.49 g 127/87 mm[Hg] Janet Rosen [facility] 11/17/2024 09:34:05 Date Recorded Body height Body mass index (BMI) Body weight Systolic And Diastolic Provider Name and Address Organization Details Last Updated DateTime 12/09/2024 154.94 cm 31.2 kg/m2 87633.74 g 134/84 mm[Hg] Daina Reynoso [facility] 12/09/2024 16:37:44 Date Recorded Body height Body mass index (BMI) Body weight Systolic And Diastolic Provider Name and Address Organization Details Last Updated DateTime 02/07/2025 154.94 cm 29.9 kg/m2 33323.59 g 134/81 mm[Hg] Daina Amadorer [facility] 02/07/2025 10:34:53 Date Recorded Body height Body mass index (BMI) Body weight Systolic And Diastolic Provider Name and Address Organization Details Last Updated DateTime 02/24/2025 154.94 cm 29.9 kg/m2 46733.59 g 132/82 mm[Hg] Daina Edgardo [facility] 02/24/2025 10:30:11 Social History Question Answer Notes LastModified by Organizat ion Details LastModified Time Tobacco Smoking Status Never Smoker Carrington posey, [facility] 10/09/2022 18:19:30 Do You Have An Advance Directive? No [email or web address] Information n ot available 08/22/2021 How Many Years Have You Consumed Alcohol? 20 [email or web address] Information not available 08/22/2021 Are You Blind Or Do You Have Difficulty Seeing? No [email or web address] Information n ot available 08/22/2021 What Is Your Level Of Caffeine Consumption? Heavy [email or web address] Information not available 08/22/2021 How Much Tobacco Do You Chew? None [email or web address] Information not available 08/22/2021 In The 14 Days Before Symptom Onset, Have You Had Close Contact With A Laboratory-confirm ed COVID-19 While That Case Was Ill? No [email or web address] Information n ot available 08/22/2021 In The 14 Days Before Symptom Onset, Have You Had Close Contact With A Person Who Is Under Investigation For COVID-19 While That Person Was Ill? No [email or web address] Information not available 08/22/2021 Have You Been To An Area Known To Be High Risk For COVID-19? No [email or web address] Information not available 08/22/2021 Are You Deaf Or Do You Have Serious Difficulty Hearing? No [email or web address] Information not available 08/22/2021 What Type Of Diet Are You Following? REGULAR [email or web address] Information n ot available 08/22/2021 What Is The Highest Grade Or Level Of School You Have Completed Or The Highest Degree You Have Received? [id number] [email or web address] Information not available 08/22/2021 Are There Any Guns Present In Your Home? No [email or web address] Information not available 08/22/2021 Do You Use Protection During Sex? No [email or web address] Information not available 08/22/2021 Do You Use Your Seat Belt Or Car Seat Routinely? Yes [email or web address] Information not available 08/22/2021 Do You Have Smoke And Carbon Monoxide Detectors In Your Home? Yes [email or web address] Information not available 08/22/2021 How Much Tobacco Do You Smoke? No Information not available 08/22/2021 Do You Use Sunscreen Routinely? No [email or web address] Information not available 08/22/2021 Have You Used IV Drugs? No [email or web address] Information not available 08/22/2021 Do You Have Difficulty Walking Or Climbing Stairs? No Information not available 10/09/2022 Sex: Unknown Functional Status Question Answer Note LastModified by Organizat ion Details LastModified Time Do you use any illicit or recreational drugs? No [email or web address] Information not available 08/22/2021 What is your level of alcohol consumption? Occasional [email or web address] Information not available 07/04/2020 Are you able to walk? YESWOREST [email or web address] Information not available 08/22/2021 Are you able to care for yourself? 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 No Information not available 10/09/2022 What is your exercise level? Occasional [email or web address] Information not available 08/22/2021 Mental Status Question Answer Note LastModified by Organization D etails LastModified Time Do you feel stressed (tense, restless, nervous, or anxious, or unable to sleep at night)? [id number] [email or web address] Information not available 08/22/2021 Family History Relationship Description Onset Age of this Age Resolved Age Notes LastModified by Organization Details LastModified Time Father No current problems or disability [email or web address] Not available 03/2025 16:21:07 Father Diabetes mellitus [email or web address] Not available 08/23 12:14:17 Mother No current problems or disability [email or web address] Not available 03/2025 16:21:07 Mother Malignant neoplasm of lung 52 [email or web address] Not available 03/2025 16:21:07 Mother Malignant neoplasm of ovary [email or web address] Not available 2024 10:50:16 Maternal Aunt Malignant tumor of breast 75 [email or web address] Not available 03/2025 16:21:07 Maternal Grandmother Malignant tumor of breast [email or web address] Not available 08/23 12:14:10 Maternal Grandfather Malignant neoplasm of lung [email or web address] Not available 2024 10:50:16 Medical History Condition [...] SNOMED-CT Code Diagnosis ICD10 Code Diagnosis Note [id number] Theresa Dennis [facility] [address] [address] 07/04/2020 17:11:46 07/04/2020 17:47:35 [id number] Theresa Dennis [facility] [address],[place] [address] 08/22/2021 17:15:47 08/22/2021 18:02:42 Menorrhagia 129443778 N92.0 plan us discussed slynd as an option, will f/u by phone Gynecologi c examination 80924634 Z01.419 [id number] Jamal Glez MD [place] [address],[place] [address] 08/28/2021 16:39:29 08/28/2021 17:27:09 Menorrhagia 118453972 N92.0 [id number] Jamal Glez MD [place] [address],[place] [address] 10/10/2021 17:46:14 10/11/2021 10:48:14 Menorrhagia 707114365 N92.0 N83.201 [id number] Theresa Dennis [facility] [address],[place] [address] 09/11/2022 17:36:03 09/13/2022 15:54:00 Gynecologic examination 45970041 Z01.419 Z11.51 Herpes simplex 82375317 B00.9 Menorrhagia 505199260 N9 2.0 plan us discussed slynd as an option, will f/u by phone [id number] Jamal Glez MD [place] [address],[place] [address] 10/09/2022 18:18:06 10/10/2022 10:28:21 Dysmenorrhea 308580639 N94.6 Menorrhagia 660733855 N9 2.0 N83.201 this patient is a [...] severe menorrhagi a and severe dysmenorrh ea. [id number] Theresa Dennis CNM [place] [address] [address] 10/31/2023 10:32:51 10/31/2023 11:02:04 Gynecologic examination 59383631 Z01.419 Z11.51 [id number] DARBY Burrell [place] [address] [address] 02/19/2024 15:21:03 02/19/2024 17:02:13 Lesion of vulva 563547236 N90.89 cx sentHSV PCR sentdiscus sed HSV [...] plan of care. Genital he rpes simplex 24885393 A60.9 [id number] Jamal Glez MD [place] [address],[place] [address] 11/04/2024 10:39:27 11/04/2024 11:54:17 Irregular periods 39212047 N92.6 Discussed possible causes of abnormal, irregular [...] options for menorrhagi a if symptoms return. [id number] Jamal Glez MD [place] [address] [address] 11/11/2024 16:56:00 11/12/2024 14:13:12 Abnormal uterine bleeding 8819197114 9100 N93.9 [id number] DARBY Burrell [place] [address],[facility] [place] [address] 11/17/2024 09:16:43 11/17/2024 11:29:00 Gynecologic examination 41624523 Z01.419 [facility] - EssurePap - done todaySTI screen - [...] answered. Screening for malignant neoplasm of breast 954449826 Z12.39 Dysmenorrhea 461676931 N 94.[address] Glez, pt int in surgical interventi on Family his tory of neoplasm of breast 485373644 Z84.89 genetic testing discussedh andout givenif desired can place order Family his tory of malignant neoplasm of ovary 638424570 Z80.41 [id number] Jamal Glez MD [place] [address] [address] 12/09/2024 16:20:30 12/09/2024 17:40:22 Menorrhagia 554877122 N92.0 N83.201 THIS PATIENT IS A 44-YEAR-OL [...] minutes in the patient's care in total. [id number] Jamal Glez MD [place] [address] [address] 02/07/2025 10:23:59 02/07/2025 11:50:59 Menorrhagia 660787513 N92.0 This patient is a 44-year-ol d female with severe menorrhagi a. We have agreed to perform robotic assisted hysterecto my with bilateral salpingect eligio. She understand s the risks, benefits, and alternativ es. She has completed the informed consent process and is ready to proceed. [id number] Jamal Glez MD [place] [address] [address] 02/14/2025 09:01:24 02/15/2025 10:14:11 [id number] Jamal Glez MD [place] [address] [address] 02/24/2025 09:50:04 02/24/2025 11:17:02 Postoperative state 09487392 Z98.890 female Patient presents for postop follow-up. [...] Member ID Guarantor Name 02/19/2024 2 [employer] [id number] Jessie Burleson [id number] Jessie Burleson 06/21/2021 1 [facility] [id number] Jessie Burleson [id number] Jessie Burleson 08/16/2022 1 [facility] [id number] Jessie Burleson [id number] Jessie Burleson 02/21/2025 1 [employer] [id number] Jessie Burleson [id number] Jessie Burleson Notes Date Note Type Note [...] of diagnosis DARBY Burrell [address], [place], [address], [facility] 11/17/2024 11:23:08 5 text/html THIS PATIENT [...] infection. Jamal Glez MD [address], [place], [address], [facility] 12/09/2024 17:25:08 5 text/html This patient [...] infection. Jamal Glez MD [address], [place], [address], [facility] 02/07/2025 11:48:16 5 text/html female Patient presents for postop follow-up. She is 1 week postop from a total robotic hysterectomy bilateral salpingectomy . She has no complaints. Her incisions are clean dry and intact. She is recovering normally. She will follow-up as needed. Jamal Glez MD [address], [place], [address], [facility] 02/24/2025 10:48:35 OBGyn Episode Ob Episode Information Episode Created Date Number of Fetuses Patient Bloodtype Patient rh Status Prepregnancy Weight lbs Domestic Partner Domestic Partner Phone Father Name Education Intern Status 07/04/20 20 1 CLOSED Fetus Data [...] Domestic Partner Domestic Partner Phone Father Name Education Intern Status 07/04/20 20 1 CLOSED Fetus Data [...] Domestic Partner Domestic Partner Phone Father Name Education Intern Status 07/04/20 20 1 CLOSED Fetus Data [...] Domestic Partner Domestic Partner Phone Father Name Education Intern Status 07/04/20 1 CLOSED Fetus Data First [...] Domestic Partner Domestic Partner Phone Father Name Education Intern Status 07/04/20 1 CLOSED Fetus Data First [...] Domestic Partner Domestic Partner Phone Father Name Education Intern Status 07/04/20 1 CLOSED Fetus Data First [...]
--- OUTSIDE RECORDS SUMMARY | 2025-04-12 02:08 | XMS_ITS | Data Portability ---
Author Organization [place] - [facility], Main Office Address [address] [place] [address] Assessment No assessment recorded. Plan of Treatment Reminders Order Date Submit Date Provider Last Modified By Organization Details Last Modified Time Details Appointments None recorded. Lab CBC w/ auto diff 2022 023 [facility] 146 [facility], 2022 Louisa Mena, [address], [place], [address], 3 15:08:18 urinalysis complete, reflex culture 2022 023 [place] [address] [facility], 2022 Louisa Mena, [address], [place], [address], 3 15:08:18 CMP, serum or plasma 2022 023 [place] [address] [facility], 2022 Louisa Mena, [address], [place], [address], 3 15:08:18 TSH + free T4, serum 2022 023 [place] [facility], 2022 Louisa Mena, [address], [place], [address], 3 14:21:23 T3, free, serum or plasma 2022 023 [facility], 2022 Louisa Mena, [address], [place], [address], 3 15:08:17 lipid panel, serum 2022 023 [place], 2022 Louisa Mena, [address] [address], [place], [address], 15:08:17 Referral None recorded. Procedures None recorded. Surgeries None recorded. Imaging None recorded. Medication Orders doxycycline hyclate 100 mg capsule 2022 023 [facility] #[id number], [address] [facility], [place], [place], [id number], 3 17:12:17 triamcinolo ne acetonide 0.1 % topical cream 2022 023 [facility] #[id number], [address] [facility], [place], [place], [id number], 3 17:12:19 Patient TargetsNo targets recorded. Patient InstructionsNo instructions recorded. Reason for Referral None Reported. Results Created Date Observation Date Name Description Value Unit Range Abnormal Flag Note LastModifiedBy Organization Detail LastModifiedTime 02/09/2002/09/2022 TRIIO DOTHY ANABELA E (T3), FREE triiodothyro nine (T3), free 3.2 pg/mL 2.0-4. 4 Not Available [facility] ([facility][1[facility]) [address] [facility], [place], [address], 02/09/2022 05:09:49 02/09/20 22 02/09/2022 HEMOG LOBIN A1C hemoglobin A1C 5.8 % 4.8-5. 6 above high normal Predi abete s: 5.7 - 6.4 Diabe glory: >6.4 Glyce corrine contr ol for adult s with diabe glory: <7.0 Not Available [facility] ([facility]) [address] [facility], [place], [address], 02/09/2022 05:09:48 02/09/20 22 02/09/2022 LIPID PANEL WITH LDL/H DL RATIO cholesterol, total 162 mg/dL 100-19 9 Not Available [facility] ([facility]) [address] [facility], [place], [address], 02/09/2022 05:09:48 02/09/20 22 02/09/2022 LIPID PANEL WITH LDL/H DL RATIO LDL chol calc ([facility]) 98 mg/dL 0-99 Not Available [facility] ([facility]) [address] [facility], [place], [address], 02/09/2022 05:09:48 02/09/20 22 02/09/2022 LIPID PANEL WITH LDL/H DL RATIO triglyceride s 87 mg/dL 0-149 Not Available [facility] ([facility]) [address] [facility], [place], [address], 02/09/2022 05:09:48 02/09/20 22 02/09/2022 LIPID PANEL WITH LDL/H DL RATIO HDL cholesterol 48 mg/dL >39 Not Available [facility] ([facility]) [address] [facility], [place], [address], 02/09/2022 05:09:48 02/09/20 22 02/09/2022 LIPID PANEL WITH LDL/H DL RATIO VLDL cholesterol maritza 16 mg/dL 5-40 Not Available [facility] ([facility]) [address] [facility] [place], [address], 02/09/2022 05:09:48 02/09/20 22 02/09/2022 LIPID PANEL WITH 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 2 LDL/H DL Ratio Men Women 1/2 Avg.R isk 1.0 1.5 Avg.R isk 3.6 3.2 2X Avg.R isk 6.2 5.0 3X Avg.R isk 8.0 6.1 Not Available [facility] ([facility]) [address] [place], [address], 02/09/2022 05:09:48 02/09/20 22 02/09/2022 TSH+F REE T4 TSH 0.446 uIU/m L 0.450- 4.500 below low normal Not Available [facility] ([facility]) [address] [place], [address], 02/09/2022 05:09:48 02/09/20 22 02/09/2022 TSH+F REE T4 T4,free(dire ct) 1.28 NG/dL 0.82-1 .77 Not Available [facility] ([facility]) [address] [place], [address], 02/09/2022 05:09:48 02/09/20 22 02/09/2022 CMP14 +EGFR eGFR 100 mL/mi n/1.7 3 >59 Not Available [facility] ([facility]) [address] [place], [address], 02/09/2022 05:09:47 02/09/20 22 02/09/2022 CMP14 +EGFR glucose 114 mg/dL 65-99 above high normal Not Available [facility] ([facility]) [address] [place], [address], 02/09/2022 05:09:47 02/09/20 22 02/09/2022 CMP14 +EGFR BUN 11 mg/dL 6-24 Not Available [facility] ([facility]) [address] [place], [address], 02/09/2022 05:09:47 02/09/20 22 02/09/2022 CMP14 +EGFR creatinine 0.76 mg/dL 0.57-1 .00 Not Available [facility] ([facility]) [address] [place], [address], 02/09/2022 05:09:47 02/09/20 22 02/09/2022 CMP14 +EGFR BUN/creatini ne ratio 14 9-23 Not Available [facility] ([facility]) [address] [facility] [place], [address], 02/09/2022 05:09:47 02/09/20 22 02/09/2022 CMP14 +EGFR sodium 138 mmol/ L 134-14 4 Not Available [facility] ([facility]) [address] [facility] [place], [address], 02/09/2022 05:09:47 02/09/20 22 02/09/2022 CMP14 +EGFR potassium 4.8 mmol/ L 3.5-5. 2 Not Available [facility] ([facility]) [address] [facility], [place], [address], 02/09/2022 05:09:47 02/09/20 22 02/09/2022 CMP14 +EGFR chloride 101 mmol/ L 96-106 Not Available [facility] ([facility]) [address] [facility] [place], [address], 02/09/2022 05:09:47 02/09/20 22 02/09/2022 CMP14 +EGFR carbon dioxide, total 20 mmol/ L 20-29 Not Available [facility] ([facility]) [address] [place], [address], 02/09/2022 05:09:47 02/09/20 22 02/09/2022 CMP14 +EGFR calcium 9.8 mg/dL 8.7-10 .2 Not Available [facility] ([facility]) [address] [place], [address], 02/09/2022 05:09:47 02/09/20 22 02/09/2022 CMP14 +EGFR protein, total 7.1 g/dL 6.0-8. 5 Not Available [facility] ([facility]) [address] [place], [address], 02/09/2022 05:09:47 02/09/20 22 02/09/2022 CMP14 +EGFR albumin 5.0 g/dL 3.8-4. 8 above high normal Not Available [facility] ([facility]) [address] [place], [address], 02/09/2022 05:09:47 02/09/20 22 02/09/2022 CMP14 +EGFR globulin, total 2.1 g/dL 1.5-4. 5 Not Available [facility] ([facility]) [address] [place], [address], 02/09/2022 05:09:47 02/09/20 22 02/09/2022 CMP14 +EGFR A/G ratio 2.4 1.2-2. 2 above high normal Not Available [facility] ([facility]) [address] [place], [address], 02/09/2022 05:09:47 02/09/2002/09/2022 CMP14 +EGFR bilirubin, total 0.3 mg/dL 0.0-1. 2 Not Available [facility] ([facility]) [address] [place], [address], 02/09/2022 05:09:47 02/09/20 22 02/09/2022 CMP14 +EGFR alkaline phosphatase 115 IU/L 44-121 Not Available [facility] ([facility]) [address] [place], [address], 02/09/2022 05:09:47 02/09/20 22 02/09/2022 CMP14 +EGFR AST (SGOT) 36 IU/L 0-40 Not Available [facility] ([facility]) [address] [place], [address], 02/09/2022 05:09:47 02/09/20 22 02/09/2022 CMP14 +EGFR ALT (SGPT) 49 IU/L 0-32 above high normal Not Available [facility] ([facility]) [address] [facility], [place], [address], 02/09/2022 05:09:47 01/15/20 23 04/16/2021 MAMMO , [...] Organization Details Recorded Time Abnormal weight gain 711164945 Active Not Available [facility] 3 02:48:40 Generalized headache 481699637 Active Not Available [facility] 3 02:48:40 Nausea and vomiting 82449609 Active Not Available [facility] 3 02:48:40 Pain of joint of wrist 813916423 Active Not Available [facility] 3 02:48:40 Feeling stressed 470411054 Active Not Available [facility] 3 02:48:40 Muscle tension 024222895 Active Not Available [facility] 3 02:48:40 Eruption 642936097 Active Not Available [facility] 3 02:48:41 Right upper quadrant pain 174313846 Active Not Available [facility] 3 02:48:41 Vitamin D deficiency 43710267 Active Not Available [facility] 3 02:48:41 Hypothyroidis m 14251886 Active 2020 Not Available [facility] 3 02:48:41 Anxiety 86671062 Active Not Available [facility] 3 02:48:41 Flood red spot 35229133 Active 2022 Not Available [facility] 3 02:48:41 Cough 04316228 Active Not Available [facility] 3 02:48:41 Hyperlipidemi a 41541632 Active Not Available [facility] 3 02:48:41 Referred pain 2346021 Active Not Available [facility] 3 02:48:41 Strain of thoracic region 85756231 Active Not Available [facility] 3 02:48:41 Common cold 26123134 Active Not Available [facility] 3 02:48:41 COVID-19 410191183 Active 2021 Not Available [facility] 3 02:48:41 Fatigue 03318926 Active Not Available [facility] 3 02:48:41 Impaired glucose tolerance 8979373 Active 2021 Not Available [facility] 3 02:48:42 Skin lesion 23188152 Active 2022 Not Available [facility] 3 02:48:42 Folliculitis 80871306 Active 2022 BACILIO Acosta [address] [facility], [address], [address] , [employer] 3 17:11:24 Acute urinary tract infection 960788449 Active 2022 BACILIO Acosta [address] [facility], [address] [place] [address], [place], [address] , [employer] 3 08:36:04 Problem Notes None recorded. Procedures Surgical History Date Name Laterality Status Provider Name and Address Organization Details Recorded Time 1 Orthopedic Surgery completed Not Available [facility] 12/04/2022 02:42:54 Imaging Results None recorded. [...] 2 mL by injection route. 03/24 completed [facility]# [id number] Not Available Not Available Not [...] administe red by the provider 06/25 completed [facility]: [id number] [id number] Not Available Not Available Not Available [facility] 10/25 (28) 1 mg-20 mcg (21)/75 mg (7) tablet 05/15 completed Not Available Not Available Not Available tranexamic acid 650 mg tablet 12/30 completed Not Available Not Available Not Available Lo Loestrin Fe 1 mg-10 mcg (24)/10 mcg (2) tablet active Not Available Not Available Not Available Carl Hickey [facility] spacer U UTD 03/15 completed Not Available [...] % 98 % 85 /min 97.9 [degF] 46698.8 9 g 120/76 mm[Hg] Not Available [facility] 3 02:46:35 Date Recorded Body mass index (BMI) Body height Body weight Provider Name and Address Organization Details Last Updated DateTime 11/20/2021 31.2 kg/m2 154.94 cm 33421.74 g Not Available [facility] 12/04/2022 02:46:42 Date Recorded Body mass index (BMI) Body height Oxygen saturation Oxygen saturation in Arterial blood by Pulse oximetry Heart rate Respiratory rate Body temperature Body weight Systolic And Diastolic Provider Name and Address Organization Details Last Updated DateTime 2 32.4 kg/m2 154.94 cm 97 % 97 % 73 /min 16 /min 98.1 [degF] 54951.4 5 g 120/78 mm[Hg] Not Available [facility] 3 02:46:35 Date Recorded Body height Body temperature Body mass index (BMI) Body weight Heart rate Oxygen saturation Oxygen saturation in Arterial blood by Pulse oximetry Systolic And Diastolic Provider Name and Address Organization Details Last Updated DateTime 3 154.94 cm 97.5 [degF] 30.6 kg/m2 02908.9 6 g 101 /min 98 % 98 % 116/74 mm[Hg] Breanna Disla RN [place] [facility] 3 16:46:02 Date Recorded Body height Oxygen saturation Oxygen saturation in Arterial blood by Pulse oximetry Heart rate Respiratory rate Body temperature Systolic And Diastolic Provider Name and Address Organization Details Last Updated DateTime 2 154.94 cm 99 % 99 % 92 /min 16 /min 97.3 [degF] 122/78 mm[Hg] Not Available [facility] 02:46:35 Social History Question Answer Notes LastModified by Organizat ion Details LastModified Time Tobacco Smoking Status Never Smoker Not Available [facility] 12/04/2022 02:39:15 What Is Your Level Of Caffeine Consumption? Moderate [id number] Information not available 12/04/2022 How Much Tobacco Do You Chew? None MIGRATION.425589 7863 Information not available 12/04/2022 In The 14 Days Before Symptom Onset, Have You Had Close Contact With A Laboratory-confirm ed COVID-19 While That Case Was Ill? No MIGRATION.[id number] 4799 Information not available 12/04/2022 In The 14 Days Before Symptom Onset, Have You Had Close Contact With A Person Who Is Under Investigation For COVID-19 While That Person Was Ill? No MIGRATION.609683 2863 Information not available 12/04/2022 What Type Of Diet Are You Following? REGULAR MIGRATION.281205 2599 Information not available 12/04/2022 Which Illicit Or Recreational Drugs Have You Used? None MIGRATION.391657 8166 Information not available 12/04/2022 Have There Been Any Changes To Your Family Or Social Situation? No MIGRATION.800477 3004 Information not available 12/04/2022 Are There Any Guns Present In Your Home? No MIGRATION.201549 8387 Information not available 12/04/2022 Do You Use Insect Repellent Routinely? No MIGRATION.325284 4957 Information not available 12/04/2022 What Was The Date Of Your Most Recent Tobacco Screening? 11/20/2021 MIGRATION.097789 6118 Information not available 12/04/2022 What Is Your Relationship Status? Single MIGRATION.337256 8409 Information not available 12/04/2022 Do You Use Your Seat Belt Or Car Seat Routinely? Yes MIGRATION.536830 4053 Information not available 12/04/2022 Do You Have Smoke And Carbon Monoxide Detectors In Your Home? Yes MIGRATION.476734 5351 Information not available 12/04/2022 How Much Tobacco Do You Smoke? No MIGRATION.540975 7395 Information not available 12/04/2022 Do You Use Sunscreen Routinely? Yes MIGRATION.085051 7413 Information not available 12/04/2022 How Many Years Have You Smoked Tobacco? 0 MIGRATION.594215 2011 Information not available 12/04/2022 Have You Recently Traveled Abroad? No MIGRATION.137422 1848 Information not available 12/04/2022 Do You Have Any Dietary Restrictions? No MIGRATION.258639 6620 Information not available 12/04/2022 Sex: Unknown Functional Status Question Answer Note LastModified by Organizat ion Details LastModified Time Do you use any illicit or recreational drugs? No MIGRATION.935152 3534 Information not available 12/04/2022 Do you or have you ever used any other forms of tobacco or nicotine? No MIGRATION.445449 5187 Information not available 12/04/2022 What is your level of alcohol consumption? Occasional MIGRATION.004456 4830 Information not available 12/04/2022 Do you or have you ever used smokeless tobacco? Never used smokeless tobacco MIGRATION.631221 3997 Information not available 12/04/2022 Are you currently employed? 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 Never used electronic cigarettes MIGRATION.357909 8889 Information not available 12/04/2022 What is your exercise level? None MIGRATION.639820 9624 Information not available 12/04/2022 Mental Status None recorded. Family History Relationship Description Onset Age of this Age Resolved Age Notes LastModified by Organization Details LastModified Time Mother Malignant neoplastic disease MIGRATION.[id number] Not available 12/04/2022 02:42:58 Unspecified Relation Myocardial infarction MIGRATION.487 [id number] Not available 12/04/2022 02:42:58 Father Type 2 diabetes mellitus MIGRATION.361 [id number] Not available 12/04/2022 02:42:58 Medical History Condition [...] HAVE YOU BEEN HOSPITALIZED OR SEEN IN [facility] IN THE PAST YEAR ? N ATHEROSCLEROSIS [...] virus, quadrivalent, preservative 0 completed Not Available [facility] 12/04/2022 02:56:10 Influenza, split virus, quadrivalent, preservative 9 completed Not Available [facility] 12/04/2022 02:56:10 influenza, unspecified formulation 6 completed Not Available [facility] 12/04/2022 02:56:10 influenza, unspecified formulation 5 completed Not Available [facility] 12/04/2022 02:56:10 influenza, unspecified formulation 4 completed Not Available [facility] 12/04/2022 02:56:10 Past Encounters Encounter ID Performer Location Encounter Start Date Encounter Closed Date Diagnosis/Indication Diagnosis SNOMED-CT Code Diagnosis ICD10 Code Diagnosis Note [id number] [facility] [place] [address] [place] [address] 12/19/2020 00:00:00 12/19/2020 17:47:50 [id number] BACILIO Acosta [facility] [place] [address] [place] [address] 12/25/2020 00:00:00 12/26/2020 15:02:54 [id number] Dwain Haskins MD [facility] [place] [address] [place] [address] 01/16/2021 00:00:00 01/16/2021 15:09:25 [id number] Dwain Haskins MD [facility] [place] [address] [place] [address] 02/13/2021 00:00:00 02/13/2021 16:22:14 [id number] Dwain Haskins MD [facility] [place] [address] [place] [address] 02/27/2021 00:00:00 02/27/2021 17:48:38 [id number] Dwain Haskins MD [facility] [place] [address] [place] [address] 04/10/2021 00:00:00 04/10/2021 16:43:00 [id number] Dwain Haskins MD [facility] [place] [address] [place] [address] 05/01/2021 00:00:00 05/01/2021 09:05:52 [id number] Dwain Haskins MD [facility] [place] [address] [place] [address] 06/12/2021 00:00:00 06/12/2021 09:40:06 [id number] BACILIO Acosta [facility] [place] [address] [place] [address] 06/25/2021 00:00:00 07/04/2021 00:27:12 [id number] BACILIO Acosta [facility] [place] [address] [place] [address] 07/19/2021 00:00:00 08/05/2021 01:26:47 [id number] Dwain Haskins MD [facility] [place] [address] [place] [address] 08/08/2021 00:00:00 08/08/2021 17:19:27 [id number] Dwain Haskins MD [facility] [place] [address] [place] [address] 11/20/2021 00:00:00 11/20/2021 15:04:54 [id number] BACILIO Acosta [facility] [place] [address] [place] [address] 12/24/2021 00:00:00 01/02/2022 00:09:09 [id number] BACILIO Acosta [facility] [place] [address] [place] [address] 07/01/2022 00:00:00 07/01/2022 23:20:36 [id number] BACILIO Acosta [facility] [place] [address] [place] [address] 11/08/2022 00:00:00 12/03/2022 17:52:28 [id number] BACILIO Acosta [facility] [place] [address] [place] [address] 12/30/2022 16:38:13 12/30/2022 17:15:55 Hyperlipidemia 29140017 E78.5 fasting lipids due before next appt, stable on statin therapy Hypothyroidism 98929312 E03.9 on supplement , due for TFTs before next appt Anxiety 17852712 F41.9 stable Long-term drug therapy 042288991 Z79.899 Folliculitis 33077230 L7 3.9 Rx for doxy 100mg bid [...] Guarantor Name 08/22/2023 1 [employer] - [employer] [id number] Jessie Burleson [id number] Jessie Burleson Notes Date Note Type Note [...] skin changes; no hair changes Not Available [facility] 01/02/2022 00:09:09 022 text/h tml Anxiety/DepressionReported bypatient.Quality:All [...] difficulties; no skin changes;fatigue;hair changes Not Available [employer] 07/01/2022 23:20:36 023 text/h tml Generic HPI TemplateReported bypatient.Location:abdomen Quality:red, small, pin prick sized spots Duration:year Not Available [employer] 12/03/2022 17:52:28 023 text/h tml Anxiety/DepressionReported bypatient.Severity:denies [...] on her bilat hips BACILIO Acosta [address] [facility], [facility] [address], [place], [address], [employer] 12/30/2022 23:17:59 OBGyn Episode No OBEpisode recorded.
--- NOTE | 2025-04-12 08:45 | WPDHPUPDATE1 ---
History and Physical Update Update Date/Time: 04/12/25 08:45 History and Physical has been reviewed, including an updated exam of the patient. There are NO changes in the patient's condition. Risks, benefits, and alternatives have been discussed and questions answered. Patient agrees to proceed with procedure.
[2025-04-12] MEDS: LACTATED RINGERS 1,000 ML 30 ML IV CONT (12:30)
[2025-04-12] MEDS: CELECOXIB 200 MG CAPSULE PO (12:33)
[2025-04-12] MEDS: ACETAMINOPHEN 500 MG TABLET 1000 MG PO (12:33)
--- NOTE | 2025-04-12 12:35 | P.PNAN_ITS ---
Anes - Initial Pre Proc Eval Procedure: Operation Date: 04/12/25 13:45 Proposed Procedures p Right Common Extensor Tendon Repair, Radial Collateral Ligament Repair - Glynn Leyva MD Date/Time: 04/12/25 12:35 Surgeon: Glynn Leyva MD Pre Op Diagnosis: rt elbow lat.epicondylitis,rt radial chau lig tear Patient Data Age: 44 Gender: F Height: 1.52 m Weight: 72.5 kg Last Vital Signs Temp 98.4 F 04/12/25 12:31 Pulse 74 04/12/25 12:31 BP 137/82 04/12/25 12:31 Pulse Ox 100 04/12/25 12:31 O2 Del Method Room Air 04/12/25 12:31 Allergies Allergy/AdvReac Type Severity Reaction Status Date / Time No Known Allergies Allergy Verified 04/12/25 12:27 Home Medications ?Medication ?Instructions ?Recorded ?Confirmed ?Type levothyroxine 50 mcg tablet 50 mcg PO DAILY 08/23/19 03/29/25 History (Synthroid) rosuvastatin 5 mg tablet 5 mg PO DAILY 08/23/19 03/29/25 History alprazolam 0.5 mg tablet 0.5 mg PO PRN PRN Anxiety 09/02/22 03/29/25 History famotidine 20 mg tablet (Pepcid) 20 mg PO DAILY 09/02/22 03/29/25 History metformin 500 mg tablet,extended 500 mg PO DAILY 09/02/22 03/29/25 History release 24 hr Fish Oil 3000 3,000 mg PO DAILY 02/01/25 03/29/25 History hydrocodone 5 mg-acetaminophen 325 1 - 2 tablet PO Q6H PRN pain #25 02/15/25 03/29/25 Rx mg tablet tabs chlorhexidine gluconate 4 % 1 applic topical ONCE #237 mL 03/29/25 Rx topical liquid (Hibiclens) hydrocodone 5 mg-acetaminophen 325 1 tablet PO Q12H PRN pain #20 tabs 04/12/25 Rx mg tablet Laboratory Tests 04/12/25 12:26 POC Capillary Glucose 75 mg/dl (65-105) Patient hx anesthesia problems: none Family hx anesthesia problems: none Results Review: All pre-operative results and documents have been reviewed as part of the pre- operative evaluation. [facility] Past Medical History Medical History Partial tear of common extensor tendon of left elbow 2020- Dr. 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 Hyperlipidemia, borderline DM, hypothyroidism, BMI 31. Informed Consent: The patient's anesthetic plan and its attendant risks and benefits were discussed with the patient/family/POA. Questions were solicited and answers provided to the satisfaction of the patient/family/POA.
[2025-04-12] MEDS: ceFAZolin 2 GM/D5W 50 ML 2 GM/50 ML BAG IVPB (12:52)
[2025-04-12] MEDS: BUPivacaine HCL 0.5% 10 ML AMP 20 ML INFILTRATE (13:14)
--- NOTE | 2025-04-12 14:19 | W.PM.PROC2 ---
Procedure Note - Detailed Date of Procedure 04/12/25 Pre-op Diagnosis rt elbow lat.epicondylitis Post-op Diagnosis Same Procedure Performed RIGHT TENNIS ELBOW RELEASE WITH COMMON EXTENSOR TENDON REPAIR Surgeon Glynn Leyva MD Anesthesia General Description of Procedure PATIENT WAS TAKEN TO THE OR AND INTUBATED. THE RIGHT UPPER EXTREMITY WAS PREPPED AND DRAPED STERIL FROM THE FINGERS TO MID ARM. THE INCISION WAS MADE AT THE LATERAL EPICONDYLE DOWN TO THE SUB CUTANEOUS TISSUES THEN TO THE FASCIA. THE COMMON EXTENSOR TENDON WAS EXPOSED. THERE WAS A THIN AMOUNT OF TENDON WITH A NEAR COMPLETE TEAR AT THE ORIGIN SITE. THE TENDON WAS DEBRIDED DOWN TO BLEEDING BONE. THE TISSUE WAS EXCISED TO GOOD TENDON MATERIAL. 3 ARTHREX SUTURE ANCHORS WITH 0.9 SUTURE WERE INSERTED AT THE LATERAL EPICONDYLE THEN THE TENDON WAS ATTACHED BACK TO THE BONE. THE REPAIR WAS EXCELLENT. THE WOUND WAS WASHED. 3-0 VICRYL WAS USED TO APPROXIMATE THE FASCIA AND 3-0 WAS USED ON THE SUB CUTANEOUS TISSUES WELL. 3-0 QUIL WAS USED A SUB CUTICULAR STITCH AND DERMABOND WAS USED ON THE SKIN. STERILE DRESSING WAS APPLIED. PLASTER WRIST SPLINT WAS PLACED. PATIENT WAS EXTUBATED. Estimated Blood Loss 5 Complications No immediate complications Condition Stable Disposition PACU
[2025-04-12] MEDS: fentaNYL CITRATE INJ (*CRX) 100 MCG/2 ML VIAL 25 MCG IV PUSH ×2 (14:32→14:35)
== END 2025-04-12 16:08 | disposition home or self-care (01) ==
PROVIDERS: PCP Physician Assistant; Visit Provider Orthopaedic Surgery
PROC: (CPT 24359; principal; 2025-04-12 13:45)
DX: M77.11 Lateral epicondylitis, right elbow (principal); E78.5 Hyperlipidemia, unspecified; E11.9 Type 2 diabetes mellitus without complications; E03.9 Hypothyroidism, unspecified; Z79.84 Long term (current) use of oral hypoglycemic drugs; Z79.891 Long term (current) use of opiate analgesic; Z98.890 Other specified postprocedural states; Z80.1 Family history of malignant neoplasm of trachea, bronchus and lung; Z82.49 Family history of ischemic heart disease and other diseases of the circulatory system
CPT/HCPCS: 24359; 82948; A9270; C1713; J0690; J1100; J2250; J2405; J2704; J3010; J7120

== ENCOUNTER 2025-07-21 00:47 | Day surgery (SDC) | payer OTHER, SELFPAY ==
[2025-06-01 08:33] VITALS: BMI 31.2
[2025-07-11 15:03] VITALS: BMI 31.2
--- OUTSIDE RECORDS SUMMARY | 2025-07-21 00:49 | XMS_ITS | Data Portability ---
Author Organization [facility] [place] [place], [place] Address [address] [place] [address] Assessment Encounter Date Assessment Date Assessment LastModified by Organization Details LastModified Time 11/17/2024 11/17/2024 Annual gynecological exam performed. Patient will come back in a year unless there are new symptoms. [email or web address] Not available 11/17/2024 09:32:45 Plan of Treatment Reminders Order Date Submit Date Provider Last Modified By Organization Details Last Modified Time Details Appointments None recorded. Lab None recorded. Referral None recorded. Procedures None recorded. Surgeries robotic assisted hysterectom y with salpingecto my (SURG) 2024 025 [facility], [address], [place], [address], 5 13:08:20 Imaging MAMMO, screening, digital, bilateral 2024 025 [facility], [address], [place], [address], 5 15:39:21 Medication Orders None recorded. Patient [...] or kits canno t be used inter [facility] . Femal e Proge stero ne Range s: Folli cular phase 0.06- 0.89 ng/mL Ovula tion phase 0.12- 12.00 ng/mL Lutea l phase 1.83- 23.90 ng/mL Postm enopa usal <0.05 -0.13 ng/mL Healt hy Pregn ant Women 1st Trime ster 11.0- 44.30 2nd Trime ster 25.40 -83.3 0 3rd Trime ster 58.70 -214. 00 Not Available [facility] (Lab) [address] [place], [address], 11/10/2024 19:00:22 11/04/19 25 11/04/2024 PROLA CTIN prolactin, total 10.70 NG/mL 4.79-2 3.30 This assay was perfo rmed using [employer] ratio n reage nts and test kits. Value s obtai mahesh with other assay metho ds or kits canno t be used inter [facility] . Not Available [facility] (Lab) [address] [place], [address], 11/10/2024 19:00:23 11/04/19 25 11/04/2024 FSH, LH, ESTRA DIOL estradiol 140.0 pg/mL This assay was perfo rmed using [employer] reage nts and test kits. Value s obtai mahesh with other assay metho ds or kits canno t be used inter [facility] . Femal e Estra diol Range s: Folli cular phase 12.4- 233 pg/mL Ovula tion phase 41.0- 398 pg/mL Lutea l phase 22.3- 341 pg/mL Postm enopa usal <5-13 8 pg/mL Healt hy Pregn ant Women 1st Trime ster 154-3 243 pg/mL 2nd Trime ster 1561- 76016 pg/mL 3rd Trime ster 8525- >3000 0 pg/mL Not Available [facility] (Lab) [address] [place], [address], 11/10/2024 19:00:23 11/04/19 25 11/04/2024 FSH, LH, ESTRA DIOL FSH 9.7 mIU/m L This assay was perfo rmed using [employer] reage nts and test kits. Value s obtai mahesh with other assay metho ds or kits canno t be used inter [facility] . Femal es Folli cular : 3.5-1 2.5 mIU/m L Ovula tion: 4.7-2 1.5 mIU/m L Lutea l: 1.7-7 .7 mIU/m L Postm enopa use: 25.8- 134.8 mIU/m L Not Available [facility] (Lab) [address] [facility], [place], [address], 11/10/2024 19:00:23 11/04/19 25 11/04/2024 FSH, LH, ESTRA DIOL LH 21.2 mIU/m L This assay was perfo rmed using [employer] reage nts and test kits. Value s obtai mahesh with other assay metho ds or kits canno t be used inter [facility] [place] . Femal es Mid-F ollic ular: 2.4-1 2.6 mIU/m L Mid-C ycle: 14.0- 95.6 mIU/m L Mid-L uteal : 1.0-1 1.4 mIU/m L Postm enopa use: 7.7-5 8.5 mIU/m L Not Available [facility] (Lab) [address] [facility], [place], [address], 11/10/2024 19:00:23 11/04/19 25 11/04/2024 TESTO STERO [...] by [facility] [place]. It has not been clear ed or appro lizbet by the U.S. Food and Drug Admin istra tion. This assay has been valid ated pursu ant to the CLIA regul ation s and is used for clini dimitry purpo ses. Not Available [facility] (Lab) [address] [facility], [place], [address], 11/10/2024 19:00:24 11/04/1911/04/2024 TESTO STERO NE, FREE( DIALY SIS) AND TOTAL (LC/M S/MS) testosterone , free 3.0 pg/mL 0.1-6. 4 This test was devel oped and its roberto tical perfo rmanc e marcella cteri stics have been deter mined by [facility] [place]. It has not been clear ed or appro lizbet by the U.S. Food and Drug Admin istra tion. This assay has been valid ated pursu ant to the CLIA regul ation s and is used for clini dimitry purpo ses. 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 Not Available [facility] (Lab) [address] , [place], [address], 11/21/2024 11:26:15 12/10/19 25 12/09/2024 OVA 1 scan result See Scanne d Result Not Available [facility] (Lab) [address], [place], [address], 12/14/2024 10:22:06 12/10/19 25 12/09/2024 EMPOW ER [...] Ameri can Colle ge of Medic al [employer]zeht [employer] and [employer]om [employer] ([employer] ) state s that VUS shoul d NOT be used in clini dimitry decis ion arsalan echevarria. Leatha Harden ck breas t cance r risk asses sment : 12.3% . Trinidad e see below for addit ional findi ngs. VUS: Gene: MSH6 , Varia nt: c.375 8T>A (p.V1 253E) Note: A heter ozygo us varia nt of [facility] malcolmsallie alexandra grier nadeen (VUS) was detec jason in the MSH6 gene as tabul ated above . Not Available [facility] [address], [place], [address], 12/26/2024 06:51:34 12/10/19 25 12/09/2024 EMPOW ER COMPR EHENS ANGEL (2+79 ) footnotes See Notes CLIA: ID #[id number] 2 Test perfo rmed by [facility]. [address] [place] [address] Mk Mckeon, Ph.D. , [facility] , Labor atory Direc tor Not Available [facility] [address], [place], [address], 12/26/2024 06:51:34 11/11/19 25 11/11/2024 US, trans vagin al No observ ation record ed. [email or web address] [place] [address], [place], [address], 11/11/2024 18:39:43 11/11/19 25 11/11/2024 US, trans vagin al No observ ation record ed. [email or web address] [address], [place], [address], 11/16/2024 14:13:46 11/23/19 25 11/23/2024 MAMMO , scree kaden, digit al, bilat eral No observ ation record ed. [facility] [address], [place], [address], 11/27/2024 13:09:54 Result Notes None recorded. Problems Name Problem SNOMED Code Status Onset Date Resolution Date Notes Provider Name and Address Organization Details Recorded Time Uncertai n viabilit y of pregnanc y 357426136 Completed 201108/22/2021 PREG W INCONCLU SIVE VIABIL;P ractice ID: 0001 Leah posey [facility] 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 17:41:55 anatomy study Completed 201108/22/2021 [facility] ANAT SURVEY;P ractice ID: 0001 Leah posey [facility] 17:41:13 Missed miscarri age [id number] Completed 201108/22/2021 Missed ;Practic e ID: 0001 Leah posey [facility] 17:41:49 , affectin g manageme nt of mother [id number] Completed 201108/22/2021 Intraute rine , affectin g manageme nt of mother, antepart um;Pract ice ID: 0001 Leah posey [facility] 17:41:17 Dysfunct ional uterine bleeding Completed 201108/22/2021 DUB;Prac elias ID: 0001 Leah posey [facility] 17:41:03 Noninfla mmatory disorder of the vagina 76510078 Completed 201108/22/2021 Other specifie d noninfla mmatory disorder s of vagina;P ractice ID: 0001 Leah posey, [facility] 17:41:58 Uses oral contrace ption 0724316 Completed 201108/22/2021 Surveill ance of contrace ptive pill;Pra ctice ID: 0001 Leah Lara [facility], [facility] 17:42:00 Screenin g for malignan t neoplasm of cervix Completed 201208/22/2021 Pap Smear;Pr actice ID: 0001 Leah Lara [facility], [facility] 17:42:21 Vaginiti s and vulvovag initis Completed 201208/22/2021 Vaginiti s and vulvovag initis, unspecif ied;Prac elias ID: 0001 Leah Lara [facility], [facility] 17:42:37 Pregnanc y test positive [id number] Completed 201208/22/2021 Positive Pregnanc y Test;Pra ctice ID: 0001 Leah Lara [facility], [facility] 17:42:10 Amenorrh ea 75028113 Completed 201208/22/2021 AMENORRH EA;Pract ice ID: 0001 Leah Lara [facility], [facility] 17:40:46 Glucose toleranc e test during pregnanc y - baby not yet delivere d outside referenc e range 105281650 Completed 201208/22/2021 Gestatat ional Diabetes Antepart um;Pract ice ID: 0001 Leah Lara [facility], [facility] 17:40:41 Excessiv e growth affectin g manageme nt of mother 66370971 Completed 201208/22/2021 GROWTH LARGE LGA;Prac elias ID: 0001 Leha Jane posey, [facility] 17:41:09 Threaten ed miscarri age 02541882 Completed 201208/22/2021 Threaten ed , antepart um;Pract ice ID: 0001 Leah Jane posey, [facility] 17:42:31 Multigra gabi of advanced maternal age 141121172 Completed 201208/22/2021 Other advanced maternal age, antepart um conditio n or complica tion;Pra ctice ID: 0001 Leah Jane posey, [facility] 17:41:51 Routine antenata l care Completed 201208/22/2021 Supervis ion of other normal pregnanc y;Practi ce ID: 0001 Leah Jane [facility], [facility] 17:42:19 Speciali zed medical examinat ion Completed 201208/22/2021 Routine gynecolo gical examinat ion;Prac elias ID: 0001 Leah Jane [facility], [facility] 17:42:28 Right upper quadrant pain 137968291 Completed 201208/22/2021 Abdomina l pain, right upper quadrant ;Recorde d Elsewher e: No Locat ion: Pineda beltr[facility] S ource: EHR Exerciser jolene: N Practi ce ID: 0001 Fausto lable Time: 11:30:00 AM Leah Jane posey [facility] 17:42:17 Ultrason ography Completed 201208/22/2021 Antenata l screenin g for malforma tion using ultrason ics;Prac elias ID: 0001 Leah posey, [facility] 17:42:33 Antenata l screenin g Completed 201208/22/2021 Antenata l screenin g for malforma tion using ultrason ics;Prac elias ID: 0001 Leah posey, [facility] 17:40:48 Congenit al malforma tion [id number] Completed 201208/22/2021 Antenata l screenin g for malforma tion using ultrason ics;Prac elias ID: 0001 Leah posey, [facility] 17:40:57 Maternal care for diminish ed movement s Completed 201208/22/2021 Decrease d movement s, affectin g manageme nt of mother, antepart um conditio n or complica tion;Pra ctice ID: 0001 Leah Laresgarrett posey, [facility] 17:41:46 Dietary manageme nt surveill ance Completed 201208/22/2021 Dietary surveill ance and counseli ng;Pract ice ID: 0001 Leah Lara [facility], [facility] 17:41:01 False labor at or after 37 complete d weeks of gestatio n [id number] Completed 201208/22/2021 Other threaten ed labor, antepart um;Pract ice ID: 0001 Leah Lara null, [facility] 17:41:11 Complica tion related to pregnanc y Completed 201208/22/2021 Weight Insuffic ient Antepart um;Pract ice ID: 0001 Leah Jane posey, [facility] 17:40:55 Delivery normal 94774475 Completed 201208/22/2021 Normal delivery ;Practic e ID: 0001 Leah posey, [facility] 17:40:59 Single live from singleto n pregnanc y 832219612 Completed 201208/22/2021 Mother with single liveborn ;Practic e ID: 0001 Leah Lara [facility], [facility] 17:42:23 Postpart um care Completed 201308/22/2021 Post Followup ;Recorde d Elsewher e: No Locat ion: [facility] S ource: EHR Exerciser jolene: N Jammieti ce ID: 0001 Fausto lable Time: 01:00:00 PM Leah Lara [facility], [facility] 17:42:05 Pregnanc y test negative [id number] Completed 201308/22/2021 Pregnanc y examinat ion or test, negative result;R ecorded Elsewher e: No Locat ion: [facility] S ource: EHR Exerciser jolene: N Bev ce ID: 0001 Fausto lable Time: 01:00:00 PM Leah Lara [facility], [facility] 17:42:09 Adult health examinat ion Completed 201408/22/2021 ROUTINE MEDICAL EXAM;Rec orded Elsewher e: No Locat ion: [facility] S ource: EHR Exerciser jolene: N Bev ce ID: 0001 Fausto lable Time: 04:30:00 PM [facility] Lara [facility] 17:40:44 Glucose level outside referenc e range [id number] Completed 201408/22/2021 OTHER ABNORMAL GLUCOSE; Recorded Elsewher e: No Locat ion: [facility] S ource: EHR Exerciser jolene: N Jammieti ce ID: 0001 Fausto lable Time: 05:01:47 PM Leah Lara [facility], [facility] 17:40:39 Educatio n about sexually transmit jason disease preventi on Completed 201408/22/2021 Counseli ng on STDs;Rec orded Elsewher e: No Locat ion: [facility] beltr[facility] S ource: EHR Exerciser jolene: N Jammieti ce ID: 0001 Fausto lable Time: 02:00:00 PM Leah posey, [facility] 17:41:05 Procedur e on genitour inary system Completed 201408/22/2021 Encounte r for female steriliz ation;Re corded Elsewher e: No Locat ion: Aurajose eduardohelen beltrán [facility] S ource: EHR Exerciser jolene: N Jammieti ce ID: 0001 Fausto lable Time: 04:00:00 PM Laeh posey [facility] 17:42:14 Pre-surg shelby evaluati on Completed 201408/22/2021 Pre-oper ative examinat ion, unspecif ied;Geoffrey rded Elsewher e: No Locat ion: [facility]ined[facility] beltr[facility] S ource: EHR Exerciser jolene: N Bev ce ID: 0001 Fausto lable Time: 04:00:00 PM Leah posey, [facility] 17:42:07 Postoper ative follow-u p visit Completed 201408/22/2021 Post operativ e follow-u p;Record ed Elsewher e: No Locat ion: Herminio jerel [facility] S ource: EHR Exerciser jolene: Sallie Pablo ce ID: 0001 Fausto lable Time: 04:00:00 PM Leah posey [facility] 17:42:03 History of tubal ligation [id number] Completed 201408/22/2021 Tubal ligation status;P janicetice ID: 0001 Leah posey, [facility] 17:41:38 Human papillom avirus deoxyrib onucleic acid detected , high risk on cervical specimen 240216131 Completed 201508/22/2021 Cervical high risk HPV DNA test positive ;Recorde d Elsewher e: No [facility]: EHR Exerciser jolene: N Jammieti ce ID: 0001 Fausto lable Time: 04:36:45 PM Leah posey [facility] 17:41:43 Pelvic and perineal pain [id number] Completed 201508/22/2021 Pelvic and perineal pain;Rec orded Elsewher e: No Locat ion: [facility] S ource: EHR Exerciser jolene: N Practi ce ID: 0001 Fausto lable Time: 05:00:00 PM Leah posey [facility] 17:42:01 Atypical squamous cells of undeterm ined signific ance on cervical Papanico laou smear [id number] Completed 201608/22/2021 Atyp squam cell of undet signfc cyto smr crvx (ASC-US) ;Recorde d Elsewher e: No Locat ion: [facility] S ource: EHR Exerciser jolene: N Jammieti ce ID: 0001 Fausto lable Time: 08:30:00 AM Leah posey [facility] 17:40:[address] Concept Completed 201608/22/2021 Encntr for general adult medical exam w/o abnormal findings ;Recorde d Elsewher e: No Locat ion: [facility] S ource: EHR Exerciser jolene: N Jammieti ce ID: 0001 Fausto lable Time: 08:30:00 AM Leah posey [facility] 17:42:24 Hypertro phic conditio n of skin 23950829 Completed 201608/22/2021 Other hypertro phic disorder s of the skin;[facility] ctice ID: 0001 Leah posey, [facility] 17:41:44 Past pregnanc y history of gestatio nal diabetes mellitus [id number] Completed 201608/22/2021 Personal history of gestatio nal diabetes ;Recorde d Elsewher e: No Locat ion: [facility] S ource: EHR Exerciser jolene: N Bev ce ID: 0001 Fausto lable Time: 03:21:25 PM Leah posey [facility] 17:41:36 Finding of pattern of menstrua l cycle Completed 201608/22/2021 Menometr orrhagia ;Recorde d Elsewher e: No Locat ion: [facility] S ource: EHR Exerciser jolene: N Bev ce ID: 0001 Fausto lable Time: 06:15:00 PM Leah posey [facility] 17:41:[address] Concept Completed 201708/22/2021 Encntr for shoe turner exam (general ) (routine ) w/o abn findings ;Practic e ID: 0001 Leah Lara kalpesh [facility] 17:42:26 Emotiona l state finding Completed 201708/22/2021 Anxiety depressi on;Recor ded Elsewher e: No Locat ion: [facility] S ource: EHR Exerciser jolene: N Jammiebessie ce ID: 0001 Fausto lable Time: 08:30:00 AM Leah posey [facility] 17:41:07 Neoplast ic disease Completed 201808/22/2021 Neoplasm of unsp behavior of bone, soft tissue, and skin;Pra ctice ID: 0001 Leah posey [facility] 17:41:53 Finding of menstrua l bleeding Completed 201808/22/2021 Excessiv e and frequent menstrua tion with regular cycle;Pr actice ID: 0001 Leah posey [facility] 17:41:19 Primary focal hyperhid rosis of axilla [id number] 805348 Completed 201808/22/2021 Primary focal hyperhid rosis, axilla;P ractice ID: 0001 [facility] 17[facility]42:12 Finding of pattern of menstrua l cycle Completed 201808/22/2021 Other specifie d irregula r menstrua tion;Pra ctice ID: 0001 [facility] 17:41:22 Problem Notes None recorded. Procedures Surgical History Date Name Laterality Status Provider Name and Address Organization Details Recorded Time 2024 ROBOTIC ASSISTED HYSTERECTOMY WITH SALPINGECTOMY (SURG) completed [facility] 02/14/2025 20:17:12 2024 Date of Last Colonoscopy completed [facility] 02/07/2025 10:37:23 2024 Date of Last Mammogram completed [facility] 02/07/2025 10:36:38 2024 Date of Last Pap Smear completed [facility] 02/07/2025 10:36:05 2020 Orthopedic Surgery completed Leah Lara [facility] 08/23/2021 12:01:28 2018 excision of skin tag completed [facility]2021 12:05:34 2016 endometrial biopsy [facility] 08/23/2021 12:06:54 2016 excision of skin tag completed [facility] 08/23/2021 12:06:01 2016 [facility] 08/23/2021 10:36:50 2016 Colposcopy completed Leah Lara [facility] 08/23/2021 12:07:46 2014 fluoroscopic hysterosalpingography with contrast completed Leahbarbara Lara [facility] 08/23/2021 12:03:08 Imaging Results None recorded. [...] Prescrib ed Elsewher e: No Locat ion: [facility] M odify By: [email or web address] trick En counter [...] Prescrib ed Elsewher e: No Locat ion: [facility] odify By: bossman whitehead DateTime : [...] Prescrib ed Elsewher e: No Locat ion: [facility] odify By: [email or web address] antonio norris DateTime : [...] Prescrib ed Elsewher e: No Locat ion: [facility] odify By: [email or web address] berthak En counter DateTime : 10/21/19 14 01:00:00 PM Not Available Not Available Not Available tramadol 50 mg tablet 07/04 completed Not Available Not Available Not Available triamcino lone acetonide 0.1 % topical cream 01/26 /2024 completed Not Available Not Available Not Available [...] Prescrib ed Elsewher e: No [facility] By: [email or web address] trick En counter DateTime [...] Prescrib ed Elsewher e: Yes Loca tion: [facility] odify By: jteodora farr DateTime : [...] Prescrib ed Elsewher e: No Locat ion: [facility] odify By: [email or web address] trick En counter [...] Elsewher e: No Locat ion: Pineda beltrán [facility] odify By: kmkirkpa trick En counter DateTime : 02/21/20 15 04:29:30 PM Not Available Not Available Not Available diazepam 10 mg tablet po 1-2 hours before the procedur e 03/30 completed Prescrib ed Elsewher e: No Locat ion: Herminio jerel [facility] odify By: [email or web address] trick En counter DateTime : 02/21/20 15 04:29:30 PM Not Available Not Available Not Available levofloxa vicente 750 mg tablet 07/04 completed Not Available Not Available Not Available methylpre dnisolone 4 mg tablets in a dose pack FOLLOW PACKAGE DIRECTIO NS 08/22 completed Not Available Not Available Not Available Vitamin D2 1,250 mcg (50,000 unit) capsule take 1 capsule (58165AR ITS) by oral route every week 10/21 completed Prescrib ed Elsewher e: No Locat ion: [facility]ined[facility] beltr[facility] odify By: kmkirkpa trick En counter DateTime : 07/07/20 13 09:30:43 AM Not Available Not Available Not Available ketorolac 60 mg/2 mL intramusc ular solution bring to the office and given 30 minuntes before procedur e 03/30 completed Prescrib ed Elsewher e: No Locat ion: Pined[facility] beltrán [facility] odify By: kmkirkpa trick En counter DateTime : 02/21/20 15 04:29:30 PM Not Available Not Available Not Available Paxil 10 mg tablet take 1 tablet by oral route every day 08/22 completed Prescrib ed Elsewher e: No Locat ion: [facility]ineda beltr[facility] odify By: lbillhar tz Encou nter DateTime [...] Prescrib ed Elsewher e: Yes Loca tion: [facility] odify By: [email or web address] trick En counter DateTime : 03/30/20 15 04:00:00 PM Not Available Not Available Not Available Souleymane uo DHA 29 mg-1 mg-400 mg oral pack take 2 by Oral route every day 10/21 completed Prescrib ed Elsewher e: No Locat ion: [facility] jerel [facility] odify By: kmkirkpa trick En counter DateTime : 03/15/20 13 04:30:00 PM Not Available Not Available Not Available Vicodin 5 mg-300 mg tablet 2 tabs po 2 hours before the procedur e and 1-2 tabs every 4 hours prn for post op pain 03/30 completed Prescrib ed Elsewher e: No Locat ion: [facility] odify By: [email or web address] trick En counter [...] Updated DateTime 11/17/2024 154.94 cm 31.5 kg/m2 63860.49 g 127/87 mm[Hg] Janet Rosen [facility] 11/17/2024 09:34:05 Date Recorded Body height Body mass index (BMI) Body weight Systolic And Diastolic Provider Name and Address Organization Details Last Updated DateTime 12/09/2024 154.94 cm 31.2 kg/m2 90953.74 g 134/84 mm[Hg] Daina Reynoso [facility] 12/09/2024 16:37:44 Date Recorded Body height Body mass index (BMI) Body weight Systolic And Diastolic Provider Name and Address Organization Details Last Updated DateTime 02/07/2025 154.94 cm 29.9 kg/m2 73459.59 g 134/81 mm[Hg] Daina Amadorer [facility] 02/07/2025 10:34:53 Date Recorded Body height Body mass index (BMI) Body weight Systolic And Diastolic Provider Name and Address Organization Details Last Updated DateTime 02/24/2025 154.94 cm 29.9 kg/m2 24555.59 g 132/82 mm[Hg] Daina Edgardo [facility] 02/24/2025 10:30:11 Social History Question Answer Notes LastModified by Organizat ion Details LastModified Time Tobacco Smoking Status Never Smoker Carrington posey, [facility] 10/09/2022 18:19:30 Do You Have An Advance Directive? No [email or web address] Information n ot available 08/22/2021 How Many Years Have You Consumed Alcohol? 20 [email or web address] Information not available 08/22/2021 Are You Blind Or Do You Have Difficulty Seeing? No [email or web address] Information n ot available 08/22/2021 What Is Your Level Of Caffeine Consumption? Heavy [email or web address] Information not available 08/22/2021 How Much Tobacco Do You Chew? None Information not available 08/22/2021 In The 14 Days Before Symptom Onset, Have You Had Close Contact With A Laboratory-confirm ed COVID-19 While That Case Was Ill? No [email or web address] Information n ot available 08/22/2021 In The 14 Days Before Symptom Onset, Have You Had Close Contact With A Person Who Is Under Investigation For COVID-19 While That Person Was Ill? No [email or web address] Information not available 08/22/2021 Have You Been To An Area Known To Be High Risk For COVID-19? No [email or web address] Information not available 08/22/2021 Are You Deaf Or Do You Have Serious Difficulty Hearing? No Information not available 08/22/2021 What Type Of Diet Are You Following? REGULAR [email or web address] Information n ot available 08/22/2021 What Is The Highest Grade Or Level Of School You Have Completed Or The Highest Degree You Have Received? [id number] [email or web address] Information not available 08/22/2021 Are There Any Guns Present In Your Home? No [email or web address] Information not available 08/22/2021 Do You Use Protection During Sex? No [email or web address] Information not available 08/22/2021 Do You Use Your Seat Belt Or Car Seat Routinely? Yes Information not available 08/22/2021 Do You Have Smoke And Carbon Monoxide Detectors In Your Home? Yes [email or web address] Information not available 08/22/2021 How Much Tobacco Do You Smoke? No [email or web address] Information not available 08/22/2021 Do You Use Sunscreen Routinely? No [email or web address] Information not available 08/22/2021 Have You Used IV Drugs? No [email or web address] Information not available 08/22/2021 Do You Have Difficulty Walking Or Climbing Stairs? No [email or web address] Information not available 10/09/2022 Sex: Unknown Functional Status Question Answer Note LastModified by Organizat ion Details LastModified Time Do you use any illicit or recreational drugs? No [email or web address] Information not available 08/22/2021 What is your level of alcohol consumption? Occasional jgumber Information not available 07/04/2020 Are you able to walk independently without assistance or assistive devices? YESWOREST [email or web address] Information not available 08/22/2021 Are you able to care for yourself independently? 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 No Information not available 10/09/2022 What is your exercise level? Occasional [email or web address] Information not available 08/22/2021 Mental Status Question Answer Note LastModified by Organization D etails LastModified Time Do you feel stressed (tense, restless, nervous, or anxious, or unable to sleep at night)? [id number] [email or web address] Information not available 08/22/2021 Family History Relationship Description Onset Age of this Age Resolved Age Notes LastModified by Organization Details LastModified Time Father No current problems or disability [email or web address] Not available 03/2025 16:21:07 Father Diabetes mellitus [email or web address] Not available 08/23 12:14:17 Mother No current problems or disability [email or web address] Not available 03/2025 16:21:07 Mother Malignant neoplasm of lung 52 [email or web address] Not available 03/2025 16:21:07 Mother Malignant neoplasm of ovary [email or web address] Not available 2024 10:50:16 Maternal Aunt Malignant neoplasm of breast 75 [email or web address] Not available 03/2025 16:21:07 Maternal Grandmother Malignant neoplasm of breast [email or web address] Not available 08/23 12:14:10 Maternal Grandfather Malignant neoplasm of lung [email or web address] Not available 2024 10:50:16 Medical History Condition Response Allergies (Food, seasonal, environmental ) N Other N Breast Cancer N Drug/Latex Allergies/Reactions N Blood Transfusion N Lung Disease N Dermatologic Disorders N Defects or Inherited Disease N Breast Problem N Gestational Diabetes N Hematologic disorders N Anesthesia Complications N History of STI Y Deep Vein Thrombosis N Polycystic ovary syndrome N Anxiety Disorder Y Autoimmune disease N Arthritis N Polyps N Infertility N History of abnormal pap Y Acid Reflux (GERD) N Cancer N Varicosities N Stroke N Neurologic/Epilepsy N Endometriosis N High Cholesterol Y Fibromyalgia N Headaches N Kidney Disease N [...] Diagnosis SNOMED-CT Code Diagnosis ICD10 Code Diagnosis IMO Codes Diagnosis Note [id number] Theresa Dennis [facility] [address],[place] [address] 07/04/2020 17:11:46 07/04/2020 17:47:35 [id number] [address],[place] [address] 08/22/2021 17:15:47 08/22/2021 18:02:42 Menorrhagia 255755021 N92.0 plan us discussed slynd as an option, will f/u by phone Gynecologi c examination 00987837 Z01.419 [id number] Jamal Glez MD [facility] [address],[place] [address] 08/28/2021 16:39:29 08/28/2021 17:27:09 Menorrhagia 420622819 N92.0 [id number] Jamal Glez MD [place] [address],[place] [address] 10/10/2021 17:46:14 10/11/2021 10:48:14 Menorrhagia 276546714 N92.0 N83.201 [id number] Theresa Dennis [facility] [address],[place] [address] 09/11/2022 17:36:03 09/13/2022 15:54:00 Gynecologic examination 76942005 Z01.419 Z11.51 Herpes simplex 76046868 B00.9 Menorrhagia 427402979 N9 2.0 plan us discussed slynd as an option, will f/u by phone [id number] Jamal Glez MD [place] [address] [address] 10/09/2022 18:18:06 10/10/2022 10:28:21 Dysmenorrhea 578798365 N94.6 Menorrhagia 321632006 N9 2.0 N83.201 this patient is a [...] severe menorrhagi a and severe dysmenorrh ea. [id number] Theresa Dennis CNM [place] [place] [address] [address] 10/31/2023 10:32:51 10/31/2023 11:02:04 Gynecologic examination 47795751 Z01.419 Z11.51 [id number] DARBY Burrell [facility] [place] [address] [address] 02/19/2024 15:21:03 02/19/2024 17:02:13 Lesion of vulva 881198033 N90.89 cx sentHSV PCR sentdiscus sed HSV [...] plan of care. Genital he rpes simplex 53944133 A60.9 [id number] Jamal Glez MD [place] [address],[place] [address] 11/04/2024 10:39:27 11/04/2024 11:54:17 Irregular periods 91150285 N92.6 Discussed possible causes of abnormal, irregular [...] options for menorrhagi a if symptoms return. [id number] Jamal Glez MD [place] [address],[facility] [place] [address] 11/11/2024 16:56:00 11/12/2024 14:13:12 Abnormal uterine bleeding 0138056486 9100 N93.9 [id number] DARBY Burrell [place] [address],[place] [address] 11/17/2024 09:16:43 11/17/2024 11:29:00 Gynecologic examination 95150929 Z01.419 [facility] - EssurePap - done todaySTI screen [...] answered. Screening for malignant neoplasm of breast 241372058 Z12.39 Dysmenorrhea 150966287 N 94.[address] Glez, pt int in surgical interventi on Family his tory of neoplasm of breast 839175970 Z84.89 genetic testing discussedh andout givenif desired can place order Family his tory of malignant neoplasm of ovary 671288142 Z80.41 [id number] Jamal Glez MD [place] [address] [address] 12/09/2024 16:20:30 12/09/2024 17:40:22 Menorrhagia 627896922 N92.0 N83.201 THIS PATIENT IS A 44-YEAR-OL [...] minutes in the patient's care in total. [id number] Jamal Glez MD [place] [address] [address] 02/07/2025 10:23:59 02/07/2025 11:50:59 Menorrhagia 795006203 N92.0 [id number] This patient is a 44-year-ol d female with severe menorrhagi a. We have agreed to perform robotic assisted hysterecto my with bilateral salpingect eligio. She understand s the risks, benefits, and alternativ es. She has completed the informed consent process and is ready to proceed. [id number] Jamal Glez MD [place] [address] [address] 02/14/2025 09:01:24 02/15/2025 10:14:11 [id number] Jamal Glez MD [place] [address] [address] 02/24/2025 09:50:04 02/24/2025 11:17:02 Postoperative state 80634305 Z98.890 [id number] female Patient presents for postop follow-up. She [...] Member ID Guarantor Name 02/19/2024 2 [employer] [id number] Jessie Burleson [id number] Jessie Burleson 06/21/2021 1 [facility] [id number] Jessie Burleson [id number] Jessie Burleson 08/16/2022 1 [facility] [id number] Jessie Burleson [id number] Jessie Burleson 02/21/2025 1 [employer] [id number] Jessie Burleson [id number] Jessie Burleson Notes Date Note Type Note Provider Name and Address Organization Details Recorded Time 5 text/html Annual GYNReported by PatientGenitourinary symptomsFor menstrual cycle, patient reportsnormal menses. For urinary symptoms, patient reportsno hematuriaandno incontinence. For vulva, patient reportsno genital lesion. For vagina, patient reportsnormal vaginal discharge.Breast symptomsFor breast, patient reportsno breast pain,no breast lump, andno nipple discharge.ContraceptionFo r current contraception, (essure).Endocrine symptomsFor sexual complaints, patient reportsno sexual complaints,no pain during intercourse, andnormal libido. For menopausal symptoms, patient reportsno menopausal symptomsandnormal vaginal lubrication.Psychological symptomsFor psychological symptoms, patient reportsno depression,no anxiety, andno pmdd.Preventative measuresFor preventive measures, patient reportsencourage self breast examination,encourage regular exercise,encourage no tobacco use, andencourage regular mammograms starting age 40.44yo wweB - essurelast pap 10/31/2023 : nilm, HPV (-)Periods painful/heavy for the past 2-3 yrs. Has MD consult scheduled with Dr. Glez to discuss surgical options.mammogram - scheduled for this monthhas not had colon cancer screening yet fam hx of mother with ovarian cancer, unknown age at diagnosismaternal aunt and maternal grandmother with BC at unknown age of diagnosis Andressa Flores, [facility] [address], [place], [address], [facility] 11/17/2024 11:23:08 5 text/html THIS PATIENT [...] infection. Jamal Glez MD [address], [place], [address], [facility] 12/09/2024 17:25:08 5 text/html This patient [...] infection. Jamal Glez MD [address], [place], [address], [facility] 02/07/2025 11:48:16 5 text/html female Patient presents for postop follow-up. She is 1 week postop from a total robotic hysterectomy bilateral salpingectomy . She has no complaints. Her incisions are clean dry and intact. She is recovering normally. She will follow-up as needed. Jamal Glez MD [address], [place], [address], [facility] 02/24/2025 10:48:35 OBGyn Episode Ob Episode Information Episode Created Date Number of Fetuses Patient Bloodtype Patient rh Status Prepregnancy Weight lbs Domestic Partner Domestic Partner Phone Father Name Surgical Specialist Status 07/04/20 20 1 CLOSED Fetus Data [...] Domestic Partner Domestic Partner Phone Father Name Surgical Specialist Status 07/04/20 20 1 CLOSED Fetus Data [...] Domestic Partner Domestic Partner Phone Father Name Surgical Specialist Status 07/04/20 20 1 CLOSED Fetus Data [...] Domestic Partner Domestic Partner Phone Father Name Surgical Specialist Status 07/04/20 20 1 CLOSED Fetus Data [...] Domestic Partner Domestic Partner Phone Father Name Surgical Specialist Status 07/04/20 20 1 CLOSED Fetus Data [...] Domestic Partner Domestic Partner Phone Father Name Surgical Specialist Status 07/04/20 20 1 CLOSED Fetus Data [...]
--- OUTSIDE RECORDS SUMMARY | 2025-07-21 00:49 | XMS_ITS | Encounter Summary ---
Author Organization [facility] Address [address] [place] [address] Care Team Providers Care Keg Header Name Role Phone Unavailable Primary Care Provider Unavailabl e Encounter Details Date Type Department Care Team (Late st Contact Info) Description 02/05/2021 Lab Requisition [facility] [address] [place] [address] Kishan Escobedo MD [address] [place] [address] Social History Tobacco Use Types [...] AM CDT) Case Report Dermatopathology Report Case: [id number] Authorizing Provider: Kishan Escobedo MD Collected: 02/02/2021 12:00 AM Ordering Location: [facility] Received: 02/05/2021 06:03 AM Pathologist: Brunilda Mackay MD Specimen: Skin, right post thigh 5:13 PM CDT DERMATOPATHOLOGY LABORATORY Final Diagnosis Specimen A. SKIN, right post thigh: SEBORRHEIC KERATOSIS, IRRITATED (L82.0) 5:13 PM CDT DERMATOPATHOLOGY LABORATORY at 1713 CDT Clinical History Irr nevus. Path#[id number] 5:13 PM CDT DERMATOPATHOLOGY LABORATORY Gross Description [...] characteristic determined by the Dermatopathology Laboratory at [facility], directed by Dr. Madie Mackay. These tests need not be, and therefore are not, approved by the [place] Food and Drug Administration. The tests are used for clinical purposes. Billing Codes Specimen Charges Stain Charges 53198 1 5:13 PM CDT DERMATOPATHOLOGY LABORATORY Embedded Images 5:13 PM CDT DERMATOPATHOLOGY LABORATORY Pathology/Cytolog y TISSUE SPECIMEN FROM SKIN / Unknown 02/02/2021 02/05/2021 6:03 AM CDT us Kishan Escobedo MD LAB - PATHOLOGY/CYTOLOGY ORDER RICH Final Result DERMATOPATHOLOGY LABORATORY [facility] - Department of Dermatology [address] [place] [address], [facility] [phone] documented in this encounter Visit Diagnoses Not on filedocumented in this encounter
--- OUTSIDE RECORDS SUMMARY | 2025-07-21 00:49 | XMS_ITS | Clinical Summary ---
Author Organization [address] Address [address] [place] [id number] Care Team Providers Care Textile Colorist Dyer Name Role Phone Josselyn Garibay Primary Care [...] Comments Blood Pressure 120/82 11/27/2023 2:44 PM CLINICAL EDUCATION CONSULTANT Pulse 82 11/27/2023 2:44 PM CLINICAL EDUCATION CONSULTANT Temperature 36.9 C (98.4 F) 11/27/2023 2:44 PM CLINICAL EDUCATION CONSULTANT Respiratory Rate 20 11/27/2023 2:44 PM CLINICAL EDUCATION CONSULTANT Oxygen Saturation 99% 11/27/2023 2:44 PM CLINICAL EDUCATION CONSULTANT Inhaled Oxygen Concentration - - Weight 71.7 kg (158 lb) 11/27/2023 2:44 PM CLINICAL EDUCATION CONSULTANT Height 165.1 cm (5' 5) 11/27/2023 2:44 PM CLINICAL EDUCATION CONSULTANT Body Mass Index 26.29 11/27/2023 2:44 PM CLINICAL EDUCATION CONSULTANT Plan of Treatment Health Maintenance Due Date Last Done Comments Breast Cancer Screening-Mammogram 1978 Cervical Cancer Screening 1978 Colon Cancer Screening-Colonoscopy 1978 Depression Screening 1978 Hepatitis C Screening 1978 Hepatitis B Screening 1996 Regular Well Visit/Exam 18-64 1996 DTaP/Tdap/Td Vaccine (2 - Td or Tdap) 08/14/2023 08/14/2013 Covid-19 Vaccine (3 - season) 2025 12/22/2020, 11/28/2020 Influenza Vaccine (#1) 2025 3, 06/20/2020, 06/20/2020, Additional history exists HPV Vaccines Aged Out No longer eligi ble based on patient's age to complete this topic Pneumococcal vaccine <65 Aged Out No longer eligible based on patient's age to complete this topic Insurance [employer] Address: [facility] [id number] [place] [address] [employer] Member Subscriber Plan / Payer (Ef fective 2022-Present) Name:Jessie Burleson Relation to Subscriber:Self Name:Jessie Burleson Payer ID:[id number] ([facility]) Type:[employer]IG[employer] HMO/PPO Address: [facility] [id number] [place] [id number] Care Teams Textile Colorist Dyer Relationship Specialty Start Date End Date Josselyn Garibay PA PCP - General Physician Distributing Clerk 11/27/23
--- OUTSIDE RECORDS SUMMARY | 2025-07-21 00:49 | XMS_ITS | Data Portability ---
Author Organization [facility] Address [address] [place] [address] Assessment Encounter Date Assessment Date Assessment LastModified by Organization Details LastModified Time 12/15/2024 12/15/2024 mammogram UTD all clear recent UTD pap smear UTD few weeks ago. Dr. Glez office. Not available 12/15/2024 16:25:01 06/15/2025 06/15/2025 mammogram UTD all clear recent UTD pap smear UTD few weeks ago. Dr. Glez office. she had a positive cologuard ordered by gyne earlier this spring, and colonoscopy is scheduled for July 21 by their office. Not available 07/03/2025 11:02:07 Plan of Treatment Reminders Order Date Submit Date Provider Last Modified By Organization Details Last Modified Time Details Appointments ANY 15 2025 03:30P M BACILIO Acosta Not available Not available Not available Lab HbA1c (hemoglob in A1c), blood 2024 025 [facility], [address], [place], [address], 06/15/2025 16:25:03 CMP, serum or plasma 2024 025 [facility], [address], [place], [address], 06/15/2025 16:25:03 CBC w/ auto diff 2024 025 [facility], [address], [place], [address], 06/15/2025 16:25:03 lipid panel, serum 2024 025 [facility], [address], [place], [address], 06/15/2025 16:25:03 TSH + free T4, serum 2024 025 [facility], [address], [place], [address], 06/15/2025 16:25:03 HbA1c (hemoglob in A1c), blood 2024 025 [facility], [address], [place], [address], 02/13/2025 09:08:17 CMP, serum or plasma 2024 025 [facility], [address], [place], [address], 02/13/2025 09:08:16 CBC w/ auto diff 2024 025 [facility], [address], [place], [address], 02/13/2025 09:08:18 lipid panel, serum 2024 025 [facility], [address], [place], [address], 02/13/2025 09:08:15 TSH + free T4, serum 2024 025 [facility], [address], [place], [address], 02/13/2025 09:08:15 HbA1c (hemoglob in A1c), blood 2023 024 [facility], [address], [place], [address], 07/11/2024 07:08:27 CMP, serum or plasma 2023 024 [facility], [address], [place], [address], 07/11/2024 07:08:26 CBC w/ auto diff 2023 024 [facility], [address], [place], [address], 07/11/2024 07:08:28 lipid panel, serum 2023 024 [facility], [address], [place], [address], 07/11/2024 07:08:24 TSH + free T4, serum 2023 024 [facility], [address], [place], [address], 07/11/2024 07:08:25 HbA1c (hemoglob in A1c), blood 2023 024 [facility], [address], [place], [address], 12/20/2023 06:18:43 CMP, serum or plasma 2023 024 [facility], [address], [place], [address], 12/20/2023 06:18:42 CBC w/ auto diff 2023 024 [facility], [address], [place], [address], 12/20/2023 06:18:44 vitamin B12 + folate, serum or blood 2023 024 [facility], [address], [place], [address], 12/20/2023 06:18:43 iron + TIBC + ferritin, serum 2023 024 [facility], [address], [place], [address], 12/20/2023 06:18:44 lipid panel, serum 2023 024 [facility], [address], [place], [address], 12/20/2023 06:18:41 TSH + free T4, serum 2023 024 [facility], [address], [place], [address], 12/20/2023 06:18:41 Referral None recorded. Procedures None recorded. Surgeries None recorded. Imaging None recorded. Medication Orders Wegovy 0.25 mg/0.5 mL subcutane ous pen injector 2024 025 [facility][id number], [address] [place], [id number], 06/15/2025 15:55:28 metformin ER 500 mg tablet,ex tended release 24 hr 2023 024 [facility], [address] [place] [address], [address], 06/11/2024 16:18:29 rosuvasta tin 10 mg tablet 2023 024 [facility], [facility] [place], [address], 06/11/2024 16:18:29 alprazola m 0.5 mg tablet 2023 024 [facility] #[id number], [address] [facility], [place], [place], [id number], 06/11/2024 16:18:34 cefdinir 300 mg capsule 2023 024 [facility] #80957, [address], [place], [place], [id number], 01/16/2024 14:18:31 hydrochlo rothiazid e 12.5 mg tablet 2023 024 [facility] #[id number], [address] [facility] [address], [place], [place], [id number], 12/20/2023 16:50:58 Patient TargetsNo targets recorded. Patient Instructions Encounter Date Encounter Id Patient Instructions Last Modified By Organization Details Last Modified Time 12/15/2024 [id number] A healthy lifestyle: care instructions Not available 12/15/2024 16:36:49 06/15/2025 [id number] A healthy lifestyle: care instructions Not available 06/15/2025 16:25:03 Reason for Referral None Reported. Results Created Date Observation Date Name Description Value Unit Range Abnormal Flag Note LastModifiedBy Organization Detail LastModifiedTime 12/18/1912/19/2023 TSH+F REE T4 TSH 0.286 uIU/m L 0.450- 4.500 below low normal Not Available [facility] ([facility]) [address] [place], [address], 12/20/2023 06:18:41 12/18/1912/19/2023 TSH+F REE T4 T4,free(dire ct) 1.71 NG/dL 0.82-1 .77 Not Available [facility] ([facility]) [address] [place], [address], 12/20/2023 06:18:41 12/18/19 24 12/19/2023 LIPID PANEL cholesterol, total 114 mg/dL 100-19 9 Not Available [facility] ([facility]) [address] [place], [address], 12/20/2023 06:18:41 12/18/19 24 12/19/2023 LIPID PANEL triglyceride s 115 mg/dL 0-149 Not Available [facility] ([facility]) [address] [place], [address], 12/20/2023 06:18:41 12/18/19 24 12/19/2023 LIPID PANEL HDL cholesterol 50 mg/dL >39 Not Available [facility] ([facility]) [address] [place], [address], 12/20/2023 06:18:41 12/18/19 24 12/19/2023 LIPID PANEL VLDL cholesterol maritza 21 mg/dL 5-40 Not Available [facility] ([facility]) [address] [place], [address], 12/20/2023 06:18:41 12/18/19 24 12/19/2023 LIPID PANEL LDL chol calc ([facility]) 43 mg/dL 0-99 Not Available [facility] ([facility]) [address] [place], [address], 12/20/2023 06:18:41 12/18/19 24 12/19/2023 CMP14 +EGFR glucose 98 mg/dL 70-99 Not Available [facility] ([facility]) [address] [place], [address], 12/20/2023 06:18:42 12/18/19 24 12/19/2023 CMP14 +EGFR BUN 11 mg/dL 6-24 Not Available [facility] ([facility]) [address] [place], [address], 12/20/2023 06:18:42 12/18/19 24 12/19/2023 CMP14 +EGFR creatinine 0.71 mg/dL 0.57-1 .00 Not Available [facility] ([facility]) [address] [facility], [place], [address], 12/20/2023 06:18:42 12/18/19 24 12/19/2023 CMP14 +EGFR eGFR 107 mL/mi n/1.7 3 >59 Not Available [facility] ([facility]) [address] [facility], [place], [address], 12/20/2023 06:18:42 12/18/19 24 12/19/2023 CMP14 +EGFR BUN/creatini ne ratio 15 9-23 Not Available [facility] ([facility]) [address] [facility], [place], [address], 12/20/2023 06:18:42 12/18/19 24 12/19/2023 CMP14 +EGFR sodium 144 mmol/ L 134-14 4 Not Available [facility] ([facility]) [address] [facility], [place], [address], 12/20/2023 06:18:42 12/18/19 24 12/19/2023 CMP14 +EGFR potassium 4.4 mmol/ L 3.5-5. 2 Not Available [facility] ([facility]) [address] [facility], [place], [address], 12/20/2023 06:18:42 12/18/19 24 12/19/2023 CMP14 +EGFR chloride 106 mmol/ L 96-106 Not Available [facility] ([facility]) [address] [facility], [place], [address], 12/20/2023 06:18:42 12/18/19 24 12/19/2023 CMP14 +EGFR carbon dioxide, total 23 mmol/ L 20-29 Not Available [facility] ([facility]) [address] [facility], [place], [address], 12/20/2023 06:18:42 12/18/19 24 12/19/2023 CMP14 +EGFR calcium 10.1 mg/dL 8.7-10 .2 Not Available [facility] ([facility]) [address] [facility] [place], [address], 12/20/2023 06:18:42 12/18/19 24 12/19/2023 CMP14 +EGFR protein, total 6.9 g/dL 6.0-8. 5 Not Available [facility] ([facility]) [address] [facility] [place], [address], 12/20/2023 06:18:42 12/18/19 24 12/19/2023 CMP14 +EGFR albumin 4.8 g/dL 3.9-4. 9 Not Available [facility] ([facility]) [address] [facility] [place], [address], 12/20/2023 06:18:42 12/18/19 24 12/19/2023 CMP14 +EGFR globulin, total 2.1 g/dL 1.5-4. 5 Not Available [facility] ([facility]) [address] [facility] [place], [address], 12/20/2023 06:18:42 12/18/19 24 12/19/2023 CMP14 +EGFR A/G ratio 2.3 1.2-2. 2 above high normal Not Available [facility] ([facility]) [address] [place], [address], 12/20/2023 06:18:42 12/18/19 24 12/19/2023 CMP14 +EGFR bilirubin, total 0.5 mg/dL 0.0-1. 2 Not Available [facility] ([facility]) [address] [place], [address], 12/20/2023 06:18:42 12/18/19 24 12/19/2023 CMP14 +EGFR alkaline phosphatase 66 IU/L 44-121 Not Available [facility] ([facility]) [address] [place], [address], 12/20/2023 06:18:42 12/18/19 24 12/19/2023 CMP14 +EGFR AST (SGOT) 13 IU/L 0-40 Not Available [facility] ([facility]) [address] [facility], [place], [address], 12/20/2023 06:18:42 12/18/19 24 12/19/2023 CMP14 +EGFR ALT (SGPT) 19 IU/L 0-32 Not Available [facility] ([facility]) [address] [facility], [place], [address], 12/20/2023 06:18:42 12/18/19 24 12/19/2023 VITAM IN B12 AND FOLAT E vitamin B12 1899 pg/mL 232-12 45 above high normal Not Available [facility] ([facility]) [address] [facility], [place], [address], 12/20/2023 06:18:42 12/18/19 24 12/20/2023 VITAM IN B12 AND FOLAT E folate (folic acid), serum 19.2 NG/mL >3.0 A serum folat e leana ntrat ion of less than 3.1 ng/mL is consi dered to repre sent clini maritza defic iency . Not Available [facility] ([facility]) [address] [facility], [place], [address], 12/20/2023 06:18:42 12/18/19 24 12/19/2023 HEMOG LOBIN A1C hemoglobin A1C 5.7 % 4.8-5. 6 above high normal Predi abete s: 5.7 - 6.4 Diabe glory: >6.4 Glyce corrine contr ol for adult s with diabe glory: <7.0 Not Available [facility] ([facility]) [address] [facility], [place], [address], 12/20/2023 06:18:43 12/18/19 24 12/19/2023 CBC WITH DIFFE RENTI AL/PL ATELE T WBC 5.4 x10e3 /uL 3.4-10 .8 Not Available [facility] ([facility]) [address] [facility], [place], [address], 12/20/2023 06:18:44 12/18/19 24 12/19/2023 CBC WITH DIFFE RENTI AL/PL ATELE T RBC 4.79 x10e6 /uL 3.77-5 .28 Not Available [facility] ([facility]) [address] [facility], [place], [address], 12/20/2023 06:18:44 12/18/19 24 12/19/2023 CBC WITH DIFFE RENTI AL/PL ATELE T hemoglobin 14.8 g/dL 11.1-1 5.9 Not Available [facility] ([facility]) [address] [place], [address], 12/20/2023 06:18:44 12/18/19 24 12/19/2023 CBC WITH DIFFE RENTI AL/PL ATELE T hematocrit 43.8 % 34.0-4 6.6 Not Available [facility] ([facility]) [address] [place], [address], 12/20/2023 06:18:44 12/18/19 24 12/19/2023 CBC WITH DIFFE RENTI AL/PL ATELE T MCV 91 fL 79-97 Not Available [facility] ([facility]) [address] [place], [address], 12/20/2023 06:18:44 12/18/19 24 12/19/2023 CBC WITH DIFFE RENTI AL/PL ATELE T MCH 30.9 pg 26.6-3 3.0 Not Available [facility] ([facility]) [address] [place], [address], 12/20/2023 06:18:44 12/18/19 24 12/19/2023 CBC WITH DIFFE RENTI AL/PL ATELE T MCHC 33.8 g/dL 31.5-3 5.7 Not Available [facility] ([facility]) [address] [facility], [place], [address], 12/20/2023 06:18:44 12/18/19 24 12/19/2023 CBC WITH DIFFE RENTI AL/PL ATELE T RDW 12.4 % 11.7-1 5.4 Not Available [facility] ([facility]) [address] [facility], [place], [address], 12/20/2023 06:18:44 12/18/19 24 12/19/2023 CBC WITH DIFFE RENTI AL/PL ATELE T platelets 327 x10e3 /uL 150-45 0 Not Available [facility] ([facility]) [address] [facility], [place], [address], 12/20/2023 06:18:44 12/18/19 24 12/19/2023 CBC WITH DIFFE RENTI AL/PL ATELE T neutrophils 61 % notest ab. Not Available [facility] ([facility]) [address] [facility], [place], [address], 12/20/2023 06:18:44 12/18/19 24 12/19/2023 CBC WITH DIFFE RENTI AL/PL ATELE T lymphs 28 % notest ab. Not Available [facility] ([facility]) [address] [facility], [place], [address], 12/20/2023 06:18:44 12/18/19 24 12/19/2023 CBC WITH DIFFE RENTI AL/PL ATELE T monocytes 8 % notest ab. Not Available [facility] ([facility]) [address] [facility], [place], [address], 12/20/2023 06:18:44 12/18/19 24 12/19/2023 CBC WITH DIFFE RENTI AL/PL ATELE T eos 2 % notest ab. Not Available [facility] ([facility]) [address] [facility], [place], [address], 12/20/2023 06:18:44 12/18/19 24 12/19/2023 CBC WITH DIFFE RENTI AL/PL ATELE T basos 1 % notest ab. Not Available [facility] ([facility]) [address] [facility], [place], [address], 12/20/2023 06:18:44 12/18/19 24 12/19/2023 CBC WITH DIFFE RENTI AL/PL ATELE T neutrophils (absolute) 3.3 x10e3 /uL 1.4-7. 0 Not Available [facility] ([facility]) [address] [facility], [place], [address], 12/20/2023 06:18:44 12/18/19 24 12/19/2023 CBC WITH DIFFE RENTI AL/PL ATELE T lymphs (absolute) 1.5 x10e3 /uL 0.7-3. 1 Not Available [facility] ([facility]) [address] [facility], [place], [address], 12/20/2023 06:18:44 12/18/19 24 12/19/2023 CBC WITH DIFFE RENTI AL/PL ATELE T monocytes(ab solute) 0.4 x10e3 /uL 0.1-0. 9 Not Available [facility] ([facility]) [address] [facility], [place], [address], 12/20/2023 06:18:44 12/18/19 24 12/19/2023 CBC WITH DIFFE RENTI AL/PL ATELE T eos (absolute) 0.1 x10e3 /uL 0.0-0. 4 Not Available [facility] ([facility]) [address] [facility], [place], [address], 12/20/2023 06:18:44 12/18/19 24 12/19/2023 CBC WITH DIFFE RENTI AL/PL ATELE T baso (absolute) 0.0 x10e3 /uL 0.0-0. 2 Not Available [facility] ([facility]) [address] [place], [address], 12/20/2023 06:18:44 12/18/19 24 12/19/2023 CBC WITH DIFFE RENTI AL/PL ATELE T immature granulocytes 0 % notest ab. Not Available [facility] ([facility]) [address] [place], [address], 12/20/2023 06:18:44 12/18/19 24 12/19/2023 CBC WITH DIFFE RENTI AL/PL ATELE T immature grans (abs) 0.0 x10e3 /uL 0.0-0. 1 Not Available [facility] ([facility]) [address] [place], [address], 12/20/2023 06:18:44 12/18/19 24 12/19/2023 FE+TI BC+FE R iron bind.cap.(TI BC) 311 ug/dL 250-45 0 Not Available [facility] ([facility]) [address] [place], [address], 12/20/2023 06:18:44 12/18/19 24 12/19/2023 FE+TI BC+FE R UIBC 210 ug/dL 131-42 5 Not Available [facility] ([facility]) [address] [place], [address], 12/20/2023 06:18:44 12/18/19 24 12/19/2023 FE+TI BC+FE R iron 101 ug/dL 27-159 Not Available [facility] ([facility]) [address] [place], [address], 12/20/2023 06:18:44 12/18/19 24 12/19/2023 FE+TI BC+FE R iron saturation 32 % 15-55 Not Available [facility] ([facility]) [address] [facility], [place], [address], 12/20/2023 06:18:44 12/18/19 24 12/19/2023 FE+TI BC+FE R ferritin 48 NG/mL 15-150 Not Available [facility] ([facility]) [address] [facility], [place], [address], 12/20/2023 06:18:44 07/10/20 24 07/11/2024 LIPID PANEL W/ CHOL/ HDL RATIO cholesterol, total 124 mg/dL 100-19 9 Not Available [facility] ([facility]) [address] [facility], [place], [address], 07/11/2024 07:08:24 07/10/20 24 07/11/2024 LIPID PANEL W/ CHOL/ HDL RATIO triglyceride s 85 mg/dL 0-149 Not Available [facility] ([facility]) [address] [facility], [place], [address], 07/11/2024 07:08:24 07/10/20 24 07/11/2024 LIPID PANEL W/ CHOL/ HDL RATIO HDL cholesterol 57 mg/dL >39 Not Available [facility] ([facility]) [address] [facility], [place], [address], 07/11/2024 07:08:24 07/10/20 24 07/11/2024 LIPID PANEL W/ CHOL/ HDL RATIO VLDL cholesterol maritza 16 mg/dL 5-40 Not Available [facility] ([facility]) [address] [place], [address], 07/11/2024 07:08:24 07/10/20 24 07/11/2024 LIPID PANEL W/ CHOL/ HDL RATIO LDL chol calc ([facility]) 51 mg/dL 0-99 Not Available [facility] ([facility]) [address] [place], [address], 07/11/2024 07:08:24 07/10/20 24 07/11/2024 LIPID PANEL W/ CHOL/ HDL RATIO T. chol/HDL ratio 2.2 ratio 0.0-4. 4 T. Chol/ HDL Ratio Men Women 1/2 Avg.R isk 3.4 3.3 Avg.R isk 5.0 4.4 2X Avg.R isk 9.6 7.1 3X Avg.R isk 23.4 11.0 Not Available [facility] ([facility]) [address] [place], [address], 07/11/2024 07:08:24 07/10/20 24 07/11/2024 TSH+F REE T4 TSH 0.723 uIU/m L 0.450- 4.500 Not Available [facility] ([facility]) [address] [place], [address], 07/11/2024 07:08:25 07/10/20 24 07/11/2024 TSH+F REE T4 T4,free(dire ct) 1.11 NG/dL 0.82-1 .77 Not Available [facility] ([facility]) [address] [place], [address], 07/11/2024 07:08:25 07/10/20 24 07/11/2024 COMP. METAB OLIC PANEL (14) glucose 95 mg/dL 70-99 Not Available [facility] ([facility]) [address] [place], [address], 07/11/2024 07:08:26 07/10/20 24 07/11/2024 COMP. METAB OLIC PANEL (14) BUN 11 mg/dL 6-24 Not Available [facility] ([facility]) [address] [place], [address], 07/11/2024 07:08:26 07/10/20 24 07/11/2024 COMP. METAB OLIC PANEL (14) creatinine 0.75 mg/dL 0.57-1 .00 Not Available [facility] ([facility]) [address] [facility], [place], [address], 07/11/2024 07:08:26 07/10/20 24 07/11/2024 COMP. METAB OLIC PANEL (14) eGFR 100 mL/mi n/1.7 3 >59 Not Available [facility] ([facility]) [address] [facility], [place], [address], 07/11/2024 07:08:26 07/10/20 24 07/11/2024 COMP. METAB OLIC PANEL (14) BUN/creatini ne ratio 15 9-23 Not Available [facility] ([facility]) [address] [facility], [place], [address], 07/11/2024 07:08:26 07/10/20 24 07/11/2024 COMP. METAB OLIC PANEL (14) sodium 142 mmol/ L 134-14 4 Not Available [facility] ([facility]) [address] [facility], [place], [address], 07/11/2024 07:08:26 07/10/20 24 07/11/2024 COMP. METAB OLIC PANEL (14) potassium 4.3 mmol/ L 3.5-5. 2 Not Available [facility] ([facility]) [address] [facility], [place], [address], 07/11/2024 07:08:26 07/10/20 24 07/11/2024 COMP. METAB OLIC PANEL (14) chloride 107 mmol/ L 96-106 above high normal Not Available [facility] ([facility]) [address] [facility], [place], [address], 07/11/2024 07:08:26 07/10/20 24 07/11/2024 COMP. METAB OLIC PANEL (14) carbon dioxide, total 23 mmol/ L 20-29 Not Available [facility] ([facility]) [address] [facility], [place], [address], 07/11/2024 07:08:26 07/10/20 24 07/11/2024 COMP. METAB OLIC PANEL (14) calcium 9.4 mg/dL 8.7-10 .2 Not Available [facility] ([facility]) [address] [facility], [place], [address], 07/11/2024 07:08:26 07/10/20 24 07/11/2024 COMP. METAB OLIC PANEL (14) protein, total 6.3 g/dL 6.0-8. 5 Not Available [facility] ([facility]) [address] [facility], [place], [address], 07/11/2024 07:08:26 07/10/2007/11/2024 COMP. METAB OLIC PANEL (14) albumin 4.4 g/dL 3.9-4. 9 Not Available [facility] ([facility]) [address] [facility], [place], [address], 07/11/2024 07:08:26 07/10/20 24 07/11/2024 COMP. METAB OLIC PANEL (14) globulin, total 1.9 g/dL 1.5-4. 5 Not Available [facility] ([facility]) [address] [facility], [place], [address], 07/11/2024 07:08:26 07/10/20 24 07/11/2024 COMP. METAB OLIC PANEL (14) bilirubin, total 0.4 mg/dL 0.0-1. 2 Not Available [facility] ([facility]) [address] [facility] [place], [address], 07/11/2024 07:08:26 07/10/2007/11/2024 COMP. METAB OLIC PANEL (14) alkaline phosphatase 69 IU/L 44-121 Not Available [facility] ([facility]) [address] [facility], [place], [address], 07/11/2024 07:08:26 07/10/2029 0707/11/2024 COMP. METAB OLIC PANEL (14) AST (SGOT) 13 IU/L 0-40 Not Available [facility] ([facility]) [address] [place], [address], 07/11/2024 07:08:26 07/10/20 24 07/11/2024 COMP. METAB OLIC PANEL (14) ALT (SGPT) 15 IU/L 0-32 Not Available [facility] ([facility]) [address] [facility], [place], [address], 07/11/2024 07:08:26 07/10/2007/11/2024 HEMOG LOBIN A1C hemoglobin A1C 5.5 % 4.8-5. 6 Predi abete s: 5.7 - 6.4 Diabe glory: >6.4 Glyce corrine contr ol for adult s with diabe glory: <7.0 Not Available [facility] ([facility]) [address] [place], [address], 07/11/2024 07:08:27 07/10/20 24 07/11/2024 CBC WITH DIFFE RENTI AL/PL ATELE T WBC 6.2 x10e3 /uL 3.4-10 .8 Not Available [facility] ([facility]) [address] [place], [address], 07/11/2024 07:08:28 07/10/20 24 07/11/2024 CBC WITH DIFFE RENTI AL/PL ATELE T RBC 4.26 x10e6 /uL 3.77-5 .28 Not Available [facility] ([facility]) [address] [place], [address], 07/11/2024 07:08:28 07/10/20 24 07/11/2024 CBC WITH DIFFE RENTI AL/PL ATELE T hemoglobin 13.4 g/dL 11.1-1 5.9 Not Available [facility] ([facility]) [address] [place], [address], 07/11/2024 07:08:28 07/10/20 24 07/11/2024 CBC WITH DIFFE RENTI AL/PL ATELE T hematocrit 40.6 % 34.0-4 6.6 Not Available [facility] ([facility]) [address] [facility], [place], [address], 07/11/2024 07:08:28 07/10/20 24 07/11/2024 CBC WITH DIFFE RENTI AL/PL ATELE T MCV 95 fL 79-97 Not Available [facility] ([facility]) [address] [facility], [place], [address], 07/11/2024 07:08:28 07/10/20 24 07/11/2024 CBC WITH DIFFE RENTI AL/PL ATELE T MCH 31.5 pg 26.6-3 3.0 Not Available [facility] ([facility]) [address] [facility], [place], [address], 07/11/2024 07:08:28 07/10/20 24 07/11/2024 CBC WITH DIFFE RENTI AL/PL ATELE T MCHC 33.0 g/dL 31.5-3 5.7 Not Available [facility] ([facility]) [address] [facility], [place], [address], 07/11/2024 07:08:28 07/10/20 24 07/11/2024 CBC WITH DIFFE RENTI AL/PL ATELE T RDW 12.4 % 11.7-1 5.4 Not Available [facility] ([facility]) [address] [place], [address], 07/11/2024 07:08:28 07/10/20 24 07/11/2024 CBC WITH DIFFE RENTI AL/PL ATELE T platelets 352 x10e3 /uL 150-45 0 Not Available [facility] ([facility]) [address] [place], [address], 07/11/2024 07:08:28 07/10/2007/11/2024 CBC WITH DIFFE RENTI AL/PL ATELE T neutrophils 67 % notest ab. Not Available [facility] ([facility]) [address] [facility], [place], [address], 07/11/2024 07:08:28 07/10/2007/11/2024 CBC WITH DIFFE RENTI AL/PL ATELE T lymphs 21 % notest ab. Not Available [facility] ([facility]) [address] [facility], [place], [address], 07/11/2024 07:08:28 07/10/2007/11/2024 CBC WITH DIFFE RENTI AL/PL ATELE T monocytes 7 % notest ab. Not Available [facility] ([facility]) [address] [facility], [place], [address], 07/11/2024 07:08:28 07/10/2007/11/2024 CBC WITH DIFFE RENTI AL/PL ATELE T eos 3 % notest ab. Not Available [facility] ([facility]) [address] [facility], [place], [address], 07/11/2024 07:08:28 07/10/2007/11/2024 CBC WITH DIFFE RENTI AL/PL ATELE T basos 1 % notest ab. Not Available [facility] ([facility]) [address] [facility], [place], [address], 07/11/2024 07:08:28 07/10/2007/11/2024 CBC WITH DIFFE RENTI AL/PL ATELE T neutrophils (absolute) 4.2 x10e3 /uL 1.4-7. 0 Not Available [facility] ([facility]) [address] [facility], [place], [address], 07/11/2024 07:08:28 07/10/2007/11/2024 CBC WITH DIFFE RENTI AL/PL ATELE T lymphs (absolute) 1.3 x10e3 /uL 0.7-3. 1 Not Available [facility] ([facility]) [address] [facility], [place], [address], 07/11/2024 07:08:28 07/10/20 24 07/11/2024 CBC WITH DIFFE RENTI AL/PL ATELE T monocytes(ab solute) 0.4 x10e3 /uL 0.1-0. 9 Not Available [facility] ([facility]) [address] [facility], [place], [address], 07/11/2024 07:08:28 07/10/20 24 07/11/2024 CBC WITH DIFFE RENTI AL/PL ATELE T eos (absolute) 0.2 x10e3 /uL 0.0-0. 4 Not Available [facility] ([facility]) [address] [facility], [place], [address], 07/11/2024 07:08:28 07/10/20 24 07/11/2024 CBC WITH DIFFE RENTI AL/PL ATELE T baso (absolute) 0.0 x10e3 /uL 0.0-0. 2 Not Available [facility] ([facility]) [address] [facility], [place], [address], 07/11/2024 07:08:28 07/10/20 24 07/11/2024 CBC WITH DIFFE RENTI AL/PL ATELE T immature granulocytes 1 % notest ab. Not Available [facility] ([facility]) [address] [facility], [place], [address], 07/11/2024 07:08:28 07/10/20 24 07/11/2024 CBC WITH DIFFE RENTI AL/PL ATELE T immature grans (abs) 0.0 x10e3 /uL 0.0-0. 1 Not Available [facility] ([facility]) [address] [place], [address], 07/11/2024 07:08:28 11/04/19 25 11/04/2024 Testo stero ne Free/ Testo stero ne.to remington in Serum or Plasm a testosterone , total text: 2-45 For addit ional infor ricki mendez e refer to http: //[facility] dina rizo.que stdia gnost ics.c om/fa q/ Total Testo stero neLCM [facility] Q165 (This link is being provi ded for infor caity nal/ educa sahra l purpo ses only. ) This test was devel oped and its roberto tical perfo rmanc e marcella cteri stics have been deter mined by [employer] kim mckinley [employer] [place], [place]. It has not been clear ed or appro lizbet by the U.S. Food and Drug Admin istra tion. This assay has been valid ated pursu ant to the CLIA regul ation s and is used for clini maritza purpo ses. Not Available Not Available 04/22/2025 13:28:55 11/04/19 25 11/04/2024 Testo stero ne Free/ Testo stero ne.to remington in Serum or Plasm a testosterone , free text: 0.1-6. 4 This test was devel oped and its roberto tical perfo rmanc e marcella cteri stics have been deter mined by [employer] kim mckinley [employer] [place], [place]. It has not been clear ed or appro lizbet by the U.S. Food and Drug Admin istra tion. This assay has been valid ated pursu ant to the CLIA regul ation s and is used for clini maritza purpo ses. Perfo rming Organ izati on Porsha rizo: Site ID: AMD Name: Stefano diane [email or web address] jamie Addre ss: [id number] [facility] [employer] [place], [place] Direc tor: Ines Flores MD PhD Not Available Not Available 04/22/2025 13:28:55 11/04/19 25 11/04/2024 Prola ctin [Mass /volu me] in Serum or Plasm a prolactin, total text: 4.79-2 3.30 This assay was perfo rmed using [employer] ratio n reage nts and test kits. Value s obtai mahesh with other assay metho ds or kits canno t be used inter bowden eably . Not Available Not Available 04/22/2025 13:28:54 11/04/19 25 11/04/2024 Proge stero ne [Mass /volu me] in Serum or Plasm a progesterone This assay was perfo rmed using [employer] [...] Trime ster 58.70 -214. 00 Not Available Not Available 04/22/2025 13:28:54 12/10/19 25 12/09/2024 Ova1 test [Pres ence] in Serum scan result See Scanne d Result Not Available Not Available 13:28:55 12/10/19 25 12/09/2024 Hered itary breas t and gynec ologi c cance r multi gene roberto sis in Blood or Tissu e by [employer] kely ics metho d report summary NEGATI VE Negat annia for 81 out of 81 genes . [...] Ameri can Colle ge of Medic al Kely ics and Genom ics (AC ) state s that VUS shoul d NOT be used in clini maritza decis ion makin g. Tyrer -Cuzi ck breas t cance r risk asses sment : 12.3% . Pleas e see below for addit ional findi ngs. 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 Not Available Not Available 04/22/2025 13:28:55 12/10/19 25 12/09/2024 Hered itary breas t and gynec ologi c cance r multi gene roberto sis in Blood or Tissu e by [employer] kely ics metho d footnotes See Notes CLIA: ID #[id number] 2 Test perfo rmed by [employer] [address] [place] [id number] Mk Mckeon, Ph.D. , FAC[facility] , Labor atory Direc tor Not Available Not Available 04/22/2025 13:28:55 12/27/19 25 12/26/2024 nonin vasiv e color ectal cance r DNA + occul t blood scree kaden, narra tive, inter preta tion, stool fecal occult blood test positi ve Not Available Not Available 15:14:42 02/13/20 25 02/13/2025 LIPID PANEL W/ CHOL/ HDL RATIO cholesterol, total 123 mg/dL 100-19 9 Not Available [facility] ([facility]) [address] [facility], [place], [address], 02/13/2025 09:08:15 02/13/20 25 02/13/2025 LIPID PANEL W/ CHOL/ HDL RATIO triglyceride s 74 mg/dL 0-149 Not Available [facility] ([facility]) [address] [facility], [place], [address], 02/13/2025 09:08:15 02/13/20 25 02/13/2025 LIPID PANEL W/ CHOL/ HDL RATIO HDL cholesterol 53 mg/dL >39 Not Available [facility] ([facility]) [address] [place], [address], 02/13/2025 09:08:15 02/13/2002/13/2025 LIPID PANEL W/ CHOL/ HDL RATIO VLDL cholesterol maritza 15 mg/dL 5-40 Not Available [facility] ([facility]) [address] [place], [address], 02/13/2025 09:08:15 02/13/20 25 02/13/2025 LIPID PANEL W/ CHOL/ HDL RATIO LDL chol calc ([facility]) 55 mg/dL 0-99 Not Available [facility] ([facility]) [address] [place], [address], 02/13/2025 09:08:15 02/13/2002/13/2025 LIPID PANEL W/ CHOL/ HDL RATIO T. chol/HDL ratio 2.3 ratio 0.0-4. 4 T. Chol/ HDL Ratio Men Women 1/2 Avg.R isk 3.4 3.3 Avg.R isk 5.0 4.4 2X Avg.R isk 9.6 7.1 3X Avg.R isk 23.4 11.0 Not Available [facility] ([facility]) [address] [place], [address], 02/13/2025 09:08:15 02/13/2002/13/2025 TSH+F REE T4 TSH 0.975 uIU/m L 0.450- 4.500 Not Available [facility] ([facility]) [address] [place], [address], 02/13/2025 09:08:15 02/13/2002/13/2025 TSH+F REE T4 T4,free(dire ct) 1.21 NG/dL 0.82-1 .77 Not Available [facility] ([facility]) [address] [place], [address], 02/13/2025 09:08:15 02/13/20 25 02/13/2025 COMP. METAB OLIC PANEL (14) glucose 103 mg/dL 70-99 above high normal Not Available [facility] ([facility]) [address] [place], [address], 02/13/2025 09:08:16 02/13/20 25 02/13/2025 COMP. METAB OLIC PANEL (14) BUN 12 mg/dL 6-24 Not Available [facility] ([facility]) [address] [place], [address], 02/13/2025 09:08:16 02/13/20 25 02/13/2025 COMP. METAB OLIC PANEL (14) creatinine 0.77 mg/dL 0.57-1 .00 Not Available [facility] ([facility]) [address] [place], [address], 02/13/2025 09:08:16 02/13/20 25 02/13/2025 COMP. METAB OLIC PANEL (14) eGFR 96 mL/mi n/1.7 3 >59 Not Available [facility] ([facility]) [address] [place], [address], 02/13/2025 09:08:16 02/13/20 25 02/13/2025 COMP. METAB OLIC PANEL (14) BUN/creatini ne ratio 16 9-23 Not Available [facility] ([facility]) [address] [place], [address], 02/13/2025 09:08:16 02/13/20 25 02/13/2025 COMP. METAB OLIC PANEL (14) sodium 142 mmol/ L 134-14 4 Not Available [facility] ([facility]) [address] [place], [address], 02/13/2025 09:08:16 02/13/20 25 02/13/2025 COMP. METAB OLIC PANEL (14) potassium 4.6 mmol/ L 3.5-5. 2 Not Available [facility] ([facility]) [address] [facility] [place], [address], 02/13/2025 09:08:16 02/13/20 25 02/13/2025 COMP. METAB OLIC PANEL (14) chloride 105 mmol/ L 96-106 Not Available [facility] ([facility]) [address] [facility] [place], [address], 02/13/2025 09:08:16 02/13/20 25 02/13/2025 COMP. METAB OLIC PANEL (14) carbon dioxide, total 22 mmol/ L 20-29 Not Available [facility] ([facility]) [address] [facility] [place], [address], 02/13/2025 09:08:16 02/13/20 25 02/13/2025 COMP. METAB OLIC PANEL (14) calcium 9.7 mg/dL 8.7-10 .2 Not Available [facility] ([facility]) [address] [facility] [place], [address], 02/13/2025 09:08:16 02/13/20 25 02/13/2025 COMP. METAB OLIC PANEL (14) protein, total 6.6 g/dL 6.0-8. 5 Not Available [facility] ([facility]) [address] [facility] [place], [address], 02/13/2025 09:08:16 02/13/20 25 02/13/2025 COMP. METAB OLIC PANEL (14) albumin 4.5 g/dL 3.9-4. 9 Not Available [facility] ([facility]) [address] [facility] [place], [address], 02/13/2025 09:08:16 02/13/20 25 02/13/2025 COMP. METAB OLIC PANEL (14) globulin, total 2.1 g/dL 1.5-4. 5 Not Available [facility] ([facility]) [address] [facility], [place], [address], 02/13/2025 09:08:16 02/13/2002/13/2025 COMP. METAB OLIC PANEL (14) bilirubin, total 0.3 mg/dL 0.0-1. 2 Not Available [facility] ([facility]) [address] [place], [address], 02/13/2025 09:08:16 02/13/20 25 02/13/2025 COMP. METAB OLIC PANEL (14) alkaline phosphatase 76 IU/L 44-121 Not Available [facility] ([facility]) [address] [facility], [place], [address], 02/13/2025 09:08:16 02/13/20 25 02/13/2025 COMP. METAB OLIC PANEL (14) AST (SGOT) 21 IU/L 0-40 Not Available [facility] ([facility]) [address] [facility], [place], [address], 02/13/2025 09:08:16 02/13/2002/13/2025 COMP. METAB OLIC PANEL (14) ALT (SGPT) 16 IU/L 0-32 Not Available [facility] ([facility]) [address] [place], [address], 02/13/2025 09:08:16 02/13/2002/13/2025 HEMOG LOBIN A1C hemoglobin A1C 5.6 % 4.8-5. 6 Predi abete s: 5.7 - 6.4 Diabe glory: >6.4 Glyce corrine contr ol for adult s with diabe glory: <7.0 Not Available [facility] ([facility]) [address] [facility], [place], [address], 02/13/2025 09:08:17 02/13/2002/13/2025 CBC WITH DIFFE RENTI AL/PL ATELE T WBC 5.9 x10e3 /uL 3.4-10 .8 Not Available [facility] ([facility]) [address] [facility], [place], [address], 02/13/2025 09:08:18 02/13/2002/13/2025 CBC WITH DIFFE RENTI AL/PL ATELE T RBC 4.77 x10e6 /uL 3.77-5 .28 Not Available [facility] ([facility]) [address] [facility], [place], [address], 02/13/2025 09:08:18 02/13/2002/13/2025 CBC WITH DIFFE RENTI AL/PL ATELE T hemoglobin 14.4 g/dL 11.1-1 5.9 Not Available [facility] ([facility]) [address] [place], [address], 02/13/2025 09:08:18 02/13/2002/13/2025 CBC WITH DIFFE RENTI AL/PL ATELE T hematocrit 44.5 % 34.0-4 6.6 Not Available [facility] ([facility]) [address] [place], [address], 02/13/2025 09:08:18 02/13/2002/13/2025 CBC WITH DIFFE RENTI AL/PL ATELE T MCV 93 fL 79-97 Not Available [facility] ([facility]) [address] [place], [address], 02/13/2025 09:08:18 02/13/2002/13/2025 CBC WITH DIFFE RENTI AL/PL ATELE T MCH 30.2 pg 26.6-3 3.0 Not Available [facility] ([facility]) [address] [place], [address], 02/13/2025 09:08:18 02/13/2002/13/2025 CBC WITH DIFFE RENTI AL/PL ATELE T MCHC 32.4 g/dL 31.5-3 5.7 Not Available [facility] ([facility]) [address] [facility], [place], [address], 02/13/2025 09:08:18 02/13/2002/13/2025 CBC WITH DIFFE RENTI AL/PL ATELE T RDW 12.6 % 11.7-1 5.4 Not Available [facility] ([facility]) [address] [facility], [place], [address], 02/13/2025 09:08:18 02/13/2002/13/2025 CBC WITH DIFFE RENTI AL/PL ATELE T platelets 342 x10e3 /uL 150-45 0 Not Available [facility] ([facility]) [address] [facility], [place], [address], 02/13/2025 09:08:18 02/13/2002/13/2025 CBC WITH DIFFE RENTI AL/PL ATELE T neutrophils 60 % notest ab. Not Available [facility] ([facility]) [address] [place], [address], 02/13/2025 09:08:18 02/13/2002/13/2025 CBC WITH DIFFE RENTI AL/PL ATELE T lymphs 31 % notest ab. Not Available [facility] ([facility]) [address] [place], [address], 02/13/2025 09:08:18 02/13/2002/13/2025 CBC WITH DIFFE RENTI AL/PL ATELE T monocytes 6 % notest ab. Not Available [facility] ([facility]) [address] [place], [address], 02/13/2025 09:08:18 02/13/2002/13/2025 CBC WITH DIFFE RENTI AL/PL ATELE T eos 2 % notest ab. Not Available [facility] ([facility]) [address] [facility], [place], [address], 02/13/2025 09:08:18 02/13/2002/13/2025 CBC WITH DIFFE RENTI AL/PL ATELE T basos 1 % notest ab. Not Available [facility] ([facility]) [address] [facility], [place], [address], 02/13/2025 09:08:18 02/13/2002/13/2025 CBC WITH DIFFE RENTI AL/PL ATELE T neutrophils (absolute) 3.5 x10e3 /uL 1.4-7. 0 Not Available [facility] ([facility]) [address] [facility], [place], [address], 02/13/2025 09:08:18 02/13/2002/13/2025 CBC WITH DIFFE RENTI AL/PL ATELE T lymphs (absolute) 1.8 x10e3 /uL 0.7-3. 1 Not Available [facility] ([facility]) [address] [facility], [place], [address], 02/13/2025 09:08:18 02/13/2002/13/2025 CBC WITH DIFFE RENTI AL/PL ATELE T monocytes(ab solute) 0.4 x10e3 /uL 0.1-0. 9 Not Available [facility] ([facility]) [address] [facility], [place], [address], 02/13/2025 09:08:18 02/13/2002/13/2025 CBC WITH DIFFE RENTI AL/PL ATELE T eos (absolute) 0.1 x10e3 /uL 0.0-0. 4 Not Available [facility] ([facility]) [address] [facility], [place], [address], 02/13/2025 09:08:18 02/13/2002/13/2025 CBC WITH DIFFE RENTI AL/PL ATELE T baso (absolute) 0.0 x10e3 /uL 0.0-0. 2 Not Available [facility] ([facility]) [address] [facility], [place], [address], 02/13/2025 09:08:18 02/13/20 25 02/13/2025 CBC WITH DIFFE RENTI AL/PL ATELE T immature granulocytes 0 % notest ab. Not Available [facility] ([facility]) [address] [facility], [place], [address], 02/13/2025 09:08:18 02/13/20 25 02/13/2025 CBC WITH DIFFE RENTI AL/PL ATELE T immature grans (abs) 0.0 x10e3 /uL 0.0-0. 1 Not Available [facility] ([facility]) [address] [facility], [place], [address], 02/13/2025 09:08:18 Result Notes None recorded. Problems Name Problem SNOMED Code Status Onset Date Resolution Date Notes Provider Name and Address Organization Details Recorded Time Hypothyroid ism 79165691 Active 2023 Katia Worthy [facility], [facility] 4 14:31:05 Feeling stressed 335576752 Active 2023 BACILIO Acosta Attn: David echevarria,[address] [place], [address], [facility] 4 16:18:29 Long-term drug therapy Active 2023 BACILIO Acosta Attn: David echevarria,[address] [place], [address], [facility] - [facility] 4 16:18:31 Hyperlipide alonso 99531942 Active 2023 BACILIO Acosta Attn: David echevarria,[address] [place], [address], [facility] - [facility] 4 16:18:32 Prediabetes 041280140 Active 2023 BACILIO Acosta Attn: David echevarria,[address] [facility], [place], [address], [place] [facility] 5 10:51:27 Benign essential hypertensio n 6590649 Active 2023 BACILIO Acosta Attn: David echevarria,[address] [facility], [place], [address], [place] [facility] 4 16:18:36 Body mass index 30+ - obesity 920020646 Active 2024 BACILIO Acosta Attn: David echevarria,[address] [facility], [place], [address], [place] [facility] 5 16:25:25 Obesity 649121088 Active 2024 BACILIO Acosta Attn: David echevarria,[address] [facility], [place], [address], [place] [facility] 5 16:25:26 Positive screening for depression on PHQ-9 (Patient Health Questionnai re 9) 1080973196384 00 Active 2024 BACILIO Acosta Attn: David echevarria,[address] [facility], [place], [address], [place] [facility] 5 10:51:37 Obese class I 6363237129631 07 Active 2024 BACILIO Acosta Attn: David echevarria,[address] [facility], [place], [address], [place] [facility] 5 16:04:47 Problem Notes None recorded. Procedures Surgical History Date Name Laterality Status Provider Name and Address Organization Details Recorded Time 04/12/20 25 release of common extensor origin at elbow completed Katia Worthy [facility] 05/02/2025 16:33:52 04/12/20 25 repair of tendon completed Shira Joseph MA [facility] 06/15/2025 15:56:53 02/15/20 25 hysterectomy completed Katia Worthy [facility] 05/02/2025 16:35:34 Imaging Results None recorded. Procedure Notes None [...] Available Not Available tizanidine 2 mg tablet Take as needed by oral route for 15 days. active Not Available Not Available No t Available trazodone 50 mg tablet TAKE 1 TO 2 TABLETS BY MOUTH EVERY NIGHT AT BEDTIME FOR SLEEP 06/11 completed Not Available Not Available Not Available hydrocodone 5 mg-acetamin ophen 325 mg tablet TAKE 1 TABLET BY MOUTH EVERY 12 HOURS NEEDED FOR PAIN 06/15 completed Not Available Not Available Not Available meloxicam 15 mg tablet Take as needed by oral route for 30 days. active Not Available Not Available No t [...] 500 mg tablet,exte nded release 24 hr TAKE 1 TABLET DAILY 2024 active Not Available Not Available Not [...] Not Available rosuvastati n 10 mg tablet TAKE 1 TABLET DAILY 2024 active Not Available Not Available Not Avai lable chlorhexidi ne gluconate 0.12 % mouthwash SWISH 1/2 OZ FOR 30 SECONDS THEN SPIT OUT 2-3 TIMES EVERY DAY active Not Available Not Available No t Available hydrochloro thiazide 12.5 mg tablet Take 1 tablet every day by oral route. active Not Available Not Available No t Available Antiseptic Skin Cleanser (chlorhexid ine) 4 % liquid CLEANSE OPERATIVE EXTREMITY IN SHOWER EVERY DAY FOR 1 WEEK PRIOR TO SURGICAL PROCEDURE active Not Available Not Available No t Available Wegovy 0.25 mg/0.5 mL subcutaneou s pen injector Inject 0.25 mg every week by subcutane ous route. 06/15 completed Not Available Not Available Not Available Vitals Date Recorded Systolic And Diastolic Provider Name and Address Organization Details Last Updated DateTime 12/08/2023 130/82 mm[Hg] BACILIO Acosta Attn: Accounting,[address] [place], [address], [place] - [facility] 12/08/2023 12:26:00 Date Recorded Body weight Body mass index (BMI) Body height Heart rate Oxygen saturation Oxygen saturation in Arterial blood by Pulse oximetry Systolic And Diastolic Provider Name and Address Organization Details Last Updated DateTime 4 95160.2 2 g 29.1 kg/m2 154.94 cm 82 /min 98 % 98 % 144/90 mm[Hg] Salena Loo MA [place] - [facility] 4 11:47:07 Date Recorded Respiratory rate Systolic And Diastolic Provider Name and Address Organization Details Last Updated DateTime 12/15/2024 16 /min 130/80 mm[Hg] BACILIO Acosta Attn: Accounting,[address] [place], [address], [facility] 12/15/2024 16:36:19 Date Recorded Body height Body mass index (BMI) Body weight Heart rate Oxygen saturation Oxygen saturation in Arterial blood by Pulse oximetry Systolic And Diastolic Provider Name and Address Organization Details Last Updated DateTime 5 154.94 cm 30.7 kg/m2 82078.4 g 78 /min 99 % 99 % 138/78 mm[Hg] Norris Weiss MA [facility] 5 16:11:58 Date Recorded Systolic And Diastolic Provider Name and Address Organization Details Last Updated DateTime 06/11/2024 130/84 mm[Hg] BACILIO Acosta Attn: Accounting,[address] [place], [address], [facility] 06/11/2024 16:17:59 Date Recorded Body height Body mass index (BMI) Body weight Heart rate Oxygen saturation Oxygen saturation in Arterial blood by Pulse oximetry Systolic And Diastolic Provider Name and Address Organization Details Last Updated DateTime 4 154.94 cm 28.9 kg/m2 05078.6 3 g 86 /min 97 % 97 % 138/76 mm[Hg] Liliam Downey MA [facility] 4 15:39:17 Date Recorded Respiratory rate Provider Name a nd Address Organization Details Last Updated DateTime 06/15/2025 18 /min BACILIO Acosta Attn: Accounting,[address] [place], [address], [facility] 06/15/2025 16:24:48 Date Recorded Body height Body mass index (BMI) Body weight Oxygen saturation Oxygen saturation in Arterial blood by Pulse oximetry Heart rate Systolic And Diastolic Provider Name and Address Organization Details Last Updated DateTime 5 154.94 cm 31.2 kg/m2 58265.7 4 g 98 % 98 % 87 /min 122/80 mm[Hg] Shira Joseph MA [place] - [facility] 15:57:56 Social History Question Answer Notes LastModified by Organizat ion Details LastModified Time Tobacco Smoking Status Never Smoker PORTIA Davila, [place] - [facility] 12/08/2023 11:47:56 Do You Have An [...] Date Of Your Most Recent Tobacco Screening? 06/15/2025 [email or web address] Information not available 06/15/2025 What Is Your Relationship Status? Single Information [...] 12/15/2024 Are you able to care for yourself independently? 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 Moderate Information not available 12/15/2024 Mental Status Question Answer Note LastModified by Organization D etails LastModified Time Do you feel stressed (tense, restless, nervous, or anxious, or unable to sleep at night)? [id number] Information not available 12/15/2024 Family History Relationship Description Onset Age of this Age Resolved Age Notes LastModified by Organization Details LastModified Time Father No current problems or disability [email or web address] Not available 12/07 11:47:49 Mother No current problems or disability [email or web address] Not available 12/07 11:47:49 Medical History No medical history recorded. Gynecological History Statement/Question Response Menses Monthly N Current Control Method Hysterectom y Date of LMP 11/22/2024 Obstetrics History GPAL:G [...] virus, quadrivalent, PF 8 completed PORTIA [place], [facility] 12/15/2024 16:07:34 Influenza, split virus, quadrivalent, PF 9 completed PORTIA [place], [facility] 12/15/2024 16:07:34 Past Encounters Encounter ID Performer Location Encounter Start Date Encounter Closed Date Diagnosis/Indication Diagnosis SNOMED-CT Code Diagnosis ICD10 Code Diagnosis IMO Codes Diagnosis Note [id number] Jesus Crow MD [facility] [address] [place] [address] 12/08/2023 11:26:16 12/08/2023 12:36:49 Adult health examination 331218206 Z00.01 wellness exam completed Benign ess ential hypertension 5941069 I10 start HCTZ 12.5mg daily to help with borderline bp control. Hypothyroidism 02867807 E03.9 on synthroid 75mcg daily and due for labs Hyperlipidemia 11670191 E78.5 on crestor 10mg daily. due for fasting lipids. Long-term drug therapy 228659228 Z79.899 routine cbc, cmp, b12, folate, and iron studies due Prediabetes 138289196 R7 3.03 a1c screening due. on metformin ER 500mg daily Acute left otitis media 129043353 H66.92 start cefdinir 300mg bid course. [id number] Jesus Crow MD [facility] [place] [address] [place] [address] 06/11/2024 15:33:13 06/11/2024 16:27:27 Benign essential hypertension 9155092 I10 Stable on hCTZ 12.5mg daily, BP is 130/84 today Hypothyroidism 50636191 E03.9 on synthroid 75mcg daily and due for labs Prediabetes 995119433 R7 3.03 a1c screening due. on metformin ER 500mg daily and refill given Hyperlipidemia 10581352 E78.5 on crestor 10mg daily. due for fasting lipids. Refill given on medication Long-term drug therapy 377443743 Z79.899 routine cbc, cmp due Feeling stressed [id number] 06 Z73.3 Refill given on alprazolam 0.5 mg 3 times daily as needed for stress/anx iety breakthrou [id number] Jesus Crow MD [facility] [employer] [place] [address] [place] [address] 12/15/2024 15:29:14 12/21/2024 12:02:50 Body mass index 30+ - obesity 975275565 Z68.30 bmi 30.7 Obesity 011633332 E66.9 Continue diet and exercise modificati ons Positive s creening for depression on PHQ-9 (Patient Health Questionnaire 9) [id number] 02338 Z13.31 Patient scored a 7 on screening today. No acute concerns or questions. Uses p.r.n. alprazolam a lot of scoring comes from just stress Benign ess ential hypertension 1042768 I10 Stable on hCTZ 12.5mg daily, BP is 130/80 today Hypothyroidism 23557551 E03.9 on synthroid 50 mcg daily and due for labs Prediabetes 276794531 R7 3.03 a1c screening due. on metformin ER 500mg daily Hyperlipidemia 03032708 E78.5 on crestor 10mg daily. due for fasting lipids. Long-term drug therapy 163483304 Z79.899 routine cbc, cmp due Feeling stressed 7425796 06 Z73.3 Stable on alprazolam 0.5 mg 3 times daily as needed for stress/anx iety breakthrou gh Adult heal th examination 315911992 Z00.01 wellness exam completed [id number] Jesus Crow MD [facility] [employer] [place] [address] [place] [address] 06/15/2025 15:47:31 06/20/2025 12:52:50 Obese class I [id number] 96968 E66.811 E66.3 [id number] Continue diet and exercise modificati ons Benign ess ential hypertension 5891877 I10 Stable on hCTZ 12.5mg daily, BP is 122/80 Hypothyroidism 83902886 E03.9 on synthroid 50 mcg daily and due for labs in August Prediabetes 695226139 R7 3.03 Last A1c 5.6% next lab due in August on metformin ER 500mg daily Hyperlipidemia 68802621 E78.5 on crestor 10mg daily. Lipid panel stable repeat fasting labs in August Feeling stressed 2931549 06 Z73.3 Stable on alprazolam 0.5 mg 3 times daily as needed for stress/anx iety breakthrou gh Long-term drug therapy 980287729 Z79.899 routine cbc, cmp due in August Positive s creening for depression on PHQ-9 (Patient Health Questionnaire 9) [id number] 38232 Z13.31 [id number] Patient scored a 5 on screening today. No acute concerns or questions. Uses p.r.n. alprazolam a lot of scoring comes from just stress Health Concerns Section Related Observation LastModified by Organization Detai ls LastModified Time None Recorded Concern Status LastModified by Organization Details LastModified Time None Recorded Advance Directives Directive N: Payers Insurance Date Sequence Insurance Name Policy Number Policy Ordonez Covered Member ID Ordonez Member ID Guarantor Name 07/04/2025 1 [employer] [id number] Jessie Burleson [id number] Jessie Burleson 12/08/2023 1 *SELF PAY* rachel Burleson Notes Date Note Type Note Provider Name and Address Organization Details Recorded Time 4 text/html HyperlipidemiaReported by [facility] on rosuvastatin 10mg daily. due for labs Anxiety/DepressionReported by [facility] on alprazolam PRN use ThyroidReported by [facility] on synthroid 75mcg daily. due for labs. Prediabetes: taking metformin therapy, stable. BACILIO Acosta Attn: [address] [place], [address], [facility] 12/20/2023 16:57:39 4 text/html HyperlipidemiaReported by [facility] on rosuvastatin 10mg daily. due for labs Anxiety/DepressionReported by [facility] on alprazolam PRN use ThyroidReported by [facility] on synthroid 75mcg daily. due for labs. Prediabetes: taking metformin therapy, stable. BACILIO Acosta Attn: [employer] [place], [address], [facility] 07/04/2024 00:59:04 5 text/html HyperlipidemiaReported by [facility] on rosuvastatin 10mg daily. due for labs ThyroidReported by [facility] on synthroid 50mcg daily. due for labs. Anxiety/DepressionReported by [facility] on alprazolam PRN use Prediabetes: taking metformin therapy, stable. BACILIO Acosta Attn: [employer] [facility], [place], [address], [facility] 01/03/2025 22:21:40 5 text/html HyperlipidemiaReported by [facility] on rosuvastatin 10mg daily. Great control LDL at 55 HDL 53 triglycerides 74 total 123 Anxiety/DepressionReported by [facility] on alprazolam PRN use ThyroidReported by [facility] on synthroid 50mcg daily. due for labs. Prediabetes: taking metformin therapy, stable. Last A1c 5.6% BACILIO Acosta Attn: [employer] [facility], [place], [address], [facility] 07/03/2025 11:02:20 OBGyn Episode No OBEpisode recorded.
--- OUTSIDE RECORDS SUMMARY | 2025-07-21 00:49 | XMS_ITS | Data Portability ---
Author Organization [place] [facility] [employer] Main Office Address [address] [place] [address] Assessment No assessment recorded. Plan of Treatment Reminders Order Date Submit Date Provider Last Modified By Organization Details Last Modified Time Details Appointments None recorded. Lab CBC w/ auto diff 2022 023 [facility] 146 [facility], 2022 Louisa Mena, [address], [place], [address], 3 15:08:18 urinalysis complete, reflex culture 2022 023 [place] [address] [facility], 2022 Louisa Mena, [address], [place], [address], 3 15:08:18 CMP, serum or plasma 2022 023 [place] [address] [facility], 2022 Louisa Mena, [address], [place], [address], 3 15:08:18 TSH + free T4, serum 2022 023 JOAQUIN [facility], 2022 Louisa Mena, [address], [place], [address], 3 14:21:23 T3, free, serum or plasma [facility]22 [facility]23 [facility], 2022 Louisa Mena, [address], [place], [address], 3 15:08:17 lipid panel, serum 2022 023 [place] 146 [facility], 2022 Louisa Mena, [place] [address] [address], [place], [address], 15:08:17 Referral None recorded. Procedures None recorded. Surgeries None recorded. Imaging None recorded. Medication Orders doxycycline hyclate 100 mg capsule 2022 023 [id number], [address] [facility], [place], [place], [id number], 3 17:12:17 triamcinolo ne acetonide 0.1 % topical cream 2022 023 [facility] #[id number], [address] [facility], [place], [place], [id number], 3 17:12:19 Patient TargetsNo targets recorded. Patient InstructionsNo instructions recorded. Reason for Referral None Reported. Results Created Date Observation Date Name Description Value Unit Range Abnormal Flag Note LastModifiedBy Organization Detail LastModifiedTime 02/09/2002/09/2022 TRIIO DOTHY ANABELA E (T3), FREE triiodothyro nine (T3), free 3.2 pg/mL 2.0-4. 4 Not Available [facility] [address] [facility], [place], [address], 02/09/2022 05:09:49 02/09/20 22 02/09/2022 HEMOG LOBIN A1C hemoglobin A1C 5.8 % 4.8-5. 6 above high normal Predi abete s: 5.7 - 6.4 Diabe glory: >6.4 Glyce corrine contr ol for adult s with diabe glory: <7.0 Not Available [facility] [address] [facility], [place], [address], 02/09/2022 05:09:48 02/09/20 22 02/09/2022 LIPID PANEL WITH LDL/H DL RATIO cholesterol, total 162 mg/dL 100-19 9 Not Available [facility] [address] [facility], [place], [address], 02/09/2022 05:09:48 02/09/20 22 02/09/2022 LIPID PANEL WITH LDL/H DL RATIO LDL chol calc ([facility] [place]) 98 mg/dL 0-99 Not Available [facility] [address] [facility], [place], [address], 02/09/2022 05:09:48 02/09/20 22 02/09/2022 LIPID PANEL WITH LDL/H DL RATIO triglyceride s 87 mg/dL 0-149 Not Available [facility] [address] [facility], [place], [address], 02/09/2022 05:09:48 02/09/20 22 02/09/2022 LIPID PANEL WITH LDL/H DL RATIO HDL cholesterol 48 mg/dL >39 Not Available [facility] [address] [facility], [place], [address], 02/09/2022 05:09:48 02/09/20 22 02/09/2022 LIPID PANEL WITH LDL/H DL RATIO VLDL cholesterol maritza 16 mg/dL 5-40 Not Available [facility] [address] [place], [address], 02/09/2022 05:09:48 02/09/20 22 02/09/2022 LIPID 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 2 LDL/H DL Ratio Men Women 1/2 Avg.R isk 1.0 1.5 Avg.R isk 3.6 3.2 2X Avg.R isk 6.2 5.0 3X Avg.R isk 8.0 6.1 Not Available [facility] [address] [place], [address], 02/09/2022 05:09:48 02/09/20 22 02/09/2022 TSH+F REE T4 TSH 0.446 uIU/m L 0.450- 4.500 below low normal Not Available [facility] [address] [place], [address], 02/09/2022 05:09:48 02/09/20 22 02/09/2022 TSH+F REE T4 T4,free(dire ct) 1.28 NG/dL 0.82-1 .77 Not Available [facility] [address] [place], [address], 02/09/2022 05:09:48 02/09/20 22 02/09/2022 CMP14 +EGFR eGFR 100 mL/mi n/1.7 3 >59 Not Available [facility] [address] [place], [address], 02/09/2022 05:09:47 02/09/20 22 02/09/2022 CMP14 +EGFR glucose 114 mg/dL 65-99 above high normal Not Available [facility] [address] [place], [address], 02/09/2022 05:09:47 02/09/20 22 02/09/2022 CMP14 +EGFR BUN 11 mg/dL 6-24 Not Available [facility] [address] [place], [address], 02/09/2022 05:09:47 02/09/20 22 02/09/2022 CMP14 +EGFR creatinine 0.76 mg/dL 0.57-1 .00 Not Available [facility] [address] [place], [address], 02/09/2022 05:09:47 02/09/20 22 02/09/2022 CMP14 +EGFR BUN/creatini ne ratio 14 9-23 Not Available [facility] [address] [place], [address], 02/09/2022 05:09:47 02/09/20 22 02/09/2022 CMP14 +EGFR sodium 138 mmol/ L 134-14 4 Not Available [facility] [address] [place], [address], 02/09/2022 05:09:47 02/09/20 22 02/09/2022 CMP14 +EGFR potassium 4.8 mmol/ L 3.5-5. 2 Not Available [facility] [address] [facility], [place], [address], 02/09/2022 05:09:47 02/09/20 22 02/09/2022 CMP14 +EGFR chloride 101 mmol/ L 96-106 Not Available [facility] [address] [place], [address], 02/09/2022 05:09:47 02/09/20 22 02/09/2022 CMP14 +EGFR carbon dioxide, total 20 mmol/ L 20-29 Not Available [facility] [address] [place], [address], 02/09/2022 05:09:47 02/09/20 22 02/09/2022 CMP14 +EGFR calcium 9.8 mg/dL 8.7-10 .2 Not Available [facility] [address] [place], [address], 02/09/2022 05:09:47 02/09/20 22 02/09/2022 CMP14 +EGFR protein, total 7.1 g/dL 6.0-8. 5 Not Available [facility] [address] [place], [address], 02/09/2022 05:09:47 02/09/20 22 02/09/2022 CMP14 +EGFR albumin 5.0 g/dL 3.8-4. 8 above high normal Not Available [facility] [address] [place], [address], 02/09/2022 05:09:47 02/09/20 22 02/09/2022 CMP14 +EGFR globulin, total 2.1 g/dL 1.5-4. 5 Not Available [facility] [address] [place], [address], 02/09/2022 05:09:47 02/09/20 22 02/09/2022 CMP14 +EGFR A/G ratio 2.4 1.2-2. 2 above high normal Not Available [facility] [address] [place], [address], 02/09/2022 05:09:47 02/09/2002/09/2022 CMP14 +EGFR bilirubin, total 0.3 mg/dL 0.0-1. 2 Not Available [facility] [address] [place], [address], 02/09/2022 05:09:47 02/09/20 22 02/09/2022 CMP14 +EGFR alkaline phosphatase 115 IU/L 44-121 Not Available [facility] [address] [place], [address], 02/09/2022 05:09:47 02/09/20 22 02/09/2022 CMP14 +EGFR AST (SGOT) 36 IU/L 0-40 Not Available [facility] [address] [place], [address], 02/09/2022 05:09:47 02/09/20 22 02/09/2022 CMP14 +EGFR ALT (SGPT) 49 IU/L 0-32 above high normal Not Available [facility] [address] [facility], [place], [address], 02/09/2022 05:09:47 01/15/20 23 04/16/2021 MAMMO , [...] Organization Details Recorded Time Abnormal weight gain 710729144 Active Not Available [facility] 3 02:48:40 Generalized headache 981626644 Active Not Available [facility] 3 02:48:40 Nausea and vomiting 16397276 Active Not Available [facility] 3 02:48:40 Pain of joint of wrist 895851680 Active Not Available [facility] 3 02:48:40 Feeling stressed 822444154 Active Not Available [facility] 3 02:48:40 Muscle tension 543244863 Active Not Available [facility] 3 02:48:40 Eruption 440941849 Active Not Available [facility] 3 02:48:41 Right upper quadrant pain 568685804 Active Not Available [facility] 3 02:48:41 Vitamin D deficiency 12272872 Active Not Available [facility] 3 02:48:41 Anxiety 46329633 Active Not Available [facility] 3 02:48:41 Cough 58700821 Active Not Available [facility] 3 02:48:41 Hyperlipidemi a 32252963 Active Not Available [facility] 3 02:48:41 Referred pain 0341080 Active Not Available [facility] 3 02:48:41 Strain of thoracic region 92449029 Active Not Available [facility] 3 02:48:41 Common cold 16069537 Active Not Available [facility] 3 02:48:41 Fatigue 56548399 Active Not Available [facility] 3 02:48:41 Hypothyroidis m 45001269 Active 2020 Not Available [facility] 3 02:48:41 Impaired glucose tolerance 6614517 Active 2021 Not Available [facility] 3 02:48:42 COVID-19 506376294 Active 2021 Not Available [facility] 3 02:48:41 Flood red spot 18959016 Active 2022 Not Available [facility] 3 02:48:41 Skin lesion 91303612 Active 2022 Not Available [facility] 3 02:48:42 Folliculitis 64850902 Active [address] [facility], [address], [address] , [employer] [facility] 3 17:11:24 Acute urinary tract infection 088540902 Active 2022 BACILIO Acosta [address] [facility], [place] [address], [place], [address] , [employer] [facility] 3 08:36:04 Problem Notes None recorded. Procedures Surgical History Date Name Laterality Status Provider Name and Address Organization Details Recorded Time 1 Orthopedic Surgery completed Not Available [facility] 12/04/2022 02:42:54 Imaging Results None recorded. Procedure [...] 2 mL by injection route. 03/24 completed [facility]# 35722- 0293-2 8 Not Available Not Available Not [...] administe red by the provider 06/25 completed [facility]: 0409-4 276-17 Not Available Not Available Not Available [facility] 10/25 (28) 1 mg-20 mcg (21)/75 mg (7) tablet 05/15 completed Not Available Not Available Not Available tranexamic acid 650 mg tablet 12/30 completed Not Available Not Available Not Available Lo Loestrin Fe 1 mg-10 mcg (24)/10 mcg (2) tablet active Not Available Not Available Not Available Carl Hickey [facility] spacer U UTD 03/15 completed Not Available [...] % 98 % 85 /min 97.9 [degF] 99325.8 9 g 120/76 mm[Hg] Not Available [facility] 3 02:46:35 Date Recorded Body mass index (BMI) Body height Pain severity - 0-10 verbal numeric rating [Score] - Reported Body weight Provider Name and Address Organization Details Last Updated DateTime 11/20/2021 31.2 kg/m2 154.94 cm 2 23792.74 g Not Available [facility] 12/04/2022 02:46:42 Date Recorded Body mass index (BMI) Body height Oxygen saturation Oxygen saturation in Arterial blood by Pulse oximetry Heart rate Respiratory rate Body temperature Body weight Systolic And Diastolic Provider Name and Address Organization Details Last Updated DateTime 2 32.4 kg/m2 154.94 cm 97 % 97 % 73 /min 16 /min 98.1 [degF] 24300.4 5 g 120/78 mm[Hg] Not Available [facility] 3 02:46:35 Date Recorded Body height Body temperature Body mass index (BMI) Body weight Heart rate Oxygen saturation Oxygen saturation in Arterial blood by Pulse oximetry Systolic And Diastolic Provider Name and Address Organization Details Last Updated DateTime 3 154.94 cm 97.5 [degF] 30.6 kg/m2 35559.9 6 g 101 /min 98 % 98 % 116/74 mm[Hg] Breanna Disla RN [place] [facility] 3 16:46:02 Date Recorded Body height Oxygen saturation Oxygen saturation in Arterial blood by Pulse oximetry Heart rate Respiratory rate Body temperature Systolic And Diastolic Provider Name and Address Organization Details Last Updated DateTime 2 154.94 cm 99 % 99 % 92 /min 16 /min 97.3 [degF] 122/78 mm[Hg] Not Available [facility] 3 02:46:35 Social History Question Answer Notes LastModified by Organizat ion Details LastModified Time Tobacco Smoking Status Never Smoker Not Available [facility] 12/04/2022 02:39:15 What Is Your Level Of Caffeine Consumption? Moderate [id number] Information not available 12/04/2022 How Much Tobacco Do You Chew? None MIGRATION.[id number] Information not available 12/04/2022 In The 14 Days Before Symptom Onset, Have You Had Close Contact With A Laboratory-confirm ed COVID-19 While That Case Was Ill? No MIGRATION.[id number] 6584 Information not available 12/04/2022 In The 14 Days Before Symptom Onset, Have You Had Close Contact With A Person Who Is Under Investigation For COVID-19 While That Person Was Ill? No MIGRATION.[id number] 2061 Information not available 12/04/2022 What Type Of Diet Are You Following? REGULAR MIGRATION.084291 2516 Information not available 12/04/2022 Which Illicit Or Recreational Drugs Have You Used? None MIGRATION.141407 0147 Information not available 12/04/2022 Have There Been Any Changes To Your Family Or Social Situation? No MIGRATION.672971 1689 Information not available 12/04/2022 Are There Any Guns Present In Your Home? No MIGRATION.250553 3804 Information not available 12/04/2022 Do You Use Insect Repellent Routinely? No MIGRATION.917121 3818 Information not available 12/04/2022 What Was The Date Of Your Most Recent Tobacco Screening? 11/20/2021 MIGRATION.879380 4042 Information not available 12/04/2022 What Is Your Relationship Status? Single MIGRATION.556862 9042 Information not available 12/04/2022 Do You Use Your Seat Belt Or Car Seat Routinely? Yes MIGRATION.850989 4797 Information not available 12/04/2022 Do You Have Smoke And Carbon Monoxide Detectors In Your Home? Yes MIGRATION.086684 3321 Information not available 12/04/2022 How Much Tobacco Do You Smoke? No MIGRATION.807374 5891 Information not available 12/04/2022 Do You Use Sunscreen Routinely? Yes MIGRATION.633192 2800 Information not available 12/04/2022 How Many Years Have You Smoked Tobacco? 0 MIGRATION.059167 1182 Information not available 12/04/2022 Have You Recently Traveled Abroad? No MIGRATION.205830 6275 Information not available 12/04/2022 Do You Have Any Dietary Restrictions? No MIGRATION.581378 7610 Information not available 12/04/2022 Sex: Unknown Functional Status Question Answer Note LastModified by [email or web address] ion Details LastModified Time Do you use any illicit or recreational drugs? No MIGRATION.761653 7909 Information not available 12/04/2022 Do you or have you ever used any other forms of tobacco or nicotine? No MIGRATION.000226 1938 Information not available 12/04/2022 What is your level of alcohol consumption? Occasional MIGRATION.935660 5134 Information not available 12/04/2022 Do you or have you ever used smokeless tobacco? Never used smokeless tobacco MIGRATION.974330 9248 Information not available 12/04/2022 Are you currently employed? 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 Never used electronic cigarettes MIGRATION.339207 2324 Information not available 12/04/2022 What is your exercise level? None MIGRATION.725416 1959 Information not available 12/04/2022 Mental Status None recorded. Family History Relationship Description Onset Age of this Age Resolved Age Notes LastModified by Organization Details LastModified Time Mother Malignant neoplastic disease [id number] Not available 12/04/2022 02:42:58 Unspecified Relation Myocardial infarction MIGRATION.[id number] Not available 12/04/2022 02:42:58 Father Type 2 diabetes mellitus MIGRATION.711 [id number] Not available 12/04/2022 02:42:58 Medical History Condition [...] HAVE YOU BEEN HOSPITALIZED OR SEEN IN [facility] IN THE PAST YEAR ? N [...] virus, quadrivalent, preservative 0 completed Not Available [facility] 12/04/2022 02:56:10 Influenza, split virus, quadrivalent, preservative 9 completed Not Available [facility] 12/04/2022 02:56:10 influenza, unspecified formulation 6 completed Not Available [facility] 12/04/2022 02:56:10 influenza, unspecified formulation 5 completed Not Available [facility] 12/04/2022 02:56:10 influenza, unspecified formulation 4 completed Not Available [facility] 12/04/2022 02:56:10 Past Encounters Encounter ID Performer Location Encounter Start Date Encounter Closed Date Diagnosis/Indication Diagnosis SNOMED-CT Code Diagnosis ICD10 Code Diagnosis IMO Codes Diagnosis Note [id number] [facility] [place] [address] [place] [address] 12/19/2020 00:00:00 12/19/2020 17:47:50 [id number] BACILIO Acosta [facility] [place] [address] [place] [address] 12/25/2020 00:00:00 12/26/2020 15:02:54 [id number] Dwain Haskins MD [facility] [place] [address] [place] [address] 01/16/2021 00:00:00 01/16/2021 15:09:25 [id number] Dwain Haskins MD [facility] [place] [address] [place] [address] 02/13/2021 00:00:00 02/13/2021 16:22:14 [id number] Dwain Haskins MD [facility] [place] [address] [place] [address] 02/27/2021 00:00:00 02/27/2021 17:48:38 [id number] Dwain Haskins MD [facility] [place] [address] [place] [address] 04/10/2021 00:00:00 04/10/2021 16:43:00 [id number] Dwain Haskins MD [facility] [place] [address] [place] [address] 05/01/2021 00:00:00 05/01/2021 09:05:52 [id number] Dwain Haskins MD [facility] [place] [address] [place] [address] 06/12/2021 00:00:00 06/12/2021 09:40:06 [id number] BACILIO Acosta [facility] [place] [address] [place] [address] 06/25/2021 00:00:00 07/04/2021 00:27:12 [id number] BACILIO Acosta [facility] [place] [address] [place] [address] 07/19/2021 00:00:00 08/05/2021 01:26:47 [id number] Dwain Haskins MD [facility] [place] [address] [place] [address] 08/08/2021 00:00:00 08/08/2021 17:19:27 [id number] Dwain Haskins MD [facility] [place] [address] [place] [address] 11/20/2021 00:00:00 11/20/2021 15:04:54 [id number] BACILIO Acosta [facility] [place] [address] [place] [address] 12/24/2021 00:00:00 01/02/2022 00:09:09 [id number] BACILIO Acosta [facility] [place] [address] [place] [address] 07/01/2022 00:00:00 07/01/2022 23:20:36 [id number] BACILIO Acosta [facility] [place] [address] [place] [address] 11/08/2022 00:00:00 12/03/2022 17:52:28 [id number] BACILIO Acosta [facility] [place] [address] [place] [address] 12/30/2022 16:38:13 12/30/2022 17:15:55 Hyperlipidemia 95838668 E78.5 fasting lipids due before next appt, stable on statin therapy Hypothyroidism 30808222 E03.9 on supplement , due for TFTs before next appt Anxiety 80812338 F41.9 stable Long-term drug therapy 301287146 Z79.899 Folliculitis 32599887 L7 3.9 Rx for doxy 100mg bid course plus triamcinol one cream Health Concerns Section Related Observation LastModified by Organization Detai ls LastModified Time None Recorded Concern Status LastModified by Organization Details LastModified Time None Recorded Advance Directives Directive None Recorded Payers Insurance Date Sequence Insurance Name Policy Number Policy Ordonez Covered Member ID Ordonez Member ID Guarantor Name 08/22/2023 1 [facility] [facility] [employer] [id number] Jessie Burleson [id number] Jessie Burleson Notes Date Note Type Note Provider Name and Address Organization Details Recorded Time 12/30/2022 text/html Anxiety/Depressi onRe ported by PatientHPIFor context, patient reportsmajor life stressors. For severity, patient reportsdenies suicidal ideations,able to maintain relationships, anddoes not interfere with activities of daily living. For associated symptoms, patient reportsdenies homicidal ideations,no significant weight gain,no significant weight loss,no visual/auditory hallucinations,no delusions, andno shortness of breath. HyperlipidemiaReport ed by PatientHPIFor duration, patient reportschronic. For control, patient reportsusually well controlled,improving , andat goal. For compliance, patient reportscompliant,com pliant with diet, andexercises. For complications, patient reportsno coronary artery disease,no peripheral artery disease, andno cardiovascular disease. HypothyroidismReport ed by PatientHPIFor onset/timing, patient reportsbetter. For context/risk, patient reportsnormal thyroid levels,no history of head or neck radiation during childhood,no history of thyroid disease,no history of hypothyroidism,no history of hyperthyroidism, andno excess iron exposure. For exercise, patient reportsgets exercise. For associated symptoms, patient reportsno cold intolerance,no heat intolerance,no weight loss,no weight gain,no double vision,no dry eyes,no hoarseness,no difficulty swallowing,no neck masses,no deepening of the voice,no fast heart rate,no increased blood pressure,no palpitations,no chest pain,no chest tightess or pressure,no constipation,no diarrhea,no vomiting,no decreased appetite,no loose stools,no irregular menstrual periods,no excessive sweating,no joint pain,no numbness,no tingling of the hands or feet,no dry skin,no tremor,no nervousness,no anxiety,no depression,no fatigue,no sleep difficulties,no skin changes, andno hair changes. pt c/o also having rash on her bilat hips Josselyn Garibay, BACILIO [address] [facility], [facility] [address], [place], [address], [place] [facility] 12/30/2022 23:17:59 OBGyn Episode No OBEpisode recorded.
--- OUTSIDE RECORDS SUMMARY | 2025-07-21 00:49 | XMS_ITS | Clinical Summary ---
Author Organization [facility] Address [address] 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 This disclosure is being madepursuant to the Care Everywhere program and may not contain all information available regarding this patient. Last updated 18.[facility] [employer] Social History Tobacco Use Types Packs/Day [...] 19+ 3-dose series) 1997 PAP SMEAR 1999 DEPRESSION SCREENING 10/06/2024 COVID-19 VACCINE (1 - 2023-2 5 season) 2025 INFLUENZA VACCINE (#1) 2025 ZOSTER VACCINE (1 [...] ID:Not on file (Home) Address: [address] [place] [id number] Payer ID:Not on file Group ID:Not on file Type:Self Pay Address: [facility]
[2025-07-21 10:06] VITALS: BP 135/86; PULSE 83; RESP 16; TEMP 36.3; O2SAT 100; BMI 31.4
--- NOTE | 2025-07-21 10:24 | WPDANESEPPF ---
Anes - Initial Pre Proc Eval Procedure: Operation Date: 07/21/25 11:30 Proposed Procedures p Screening Colonoscopy - Vamsi Coughlin MD Date/Time: 07/21/25 10:24 Surgeon: Vamsi Coughlin MD Pre Op Diagnosis: screening/positive Cologuard Patient Data Age: 44 Gender: F Height: 1.52 m Weight: 73.1 kg Last Vital Signs Temp 97.4 F L 07/21/25 10:06 Pulse 83 07/21/25 10:06 Resp 16 07/21/25 10:06 BP 135/86 07/21/25 10:06 Pulse Ox 100 07/21/25 10:06 O2 Del Method Room Air 07/21/25 10:06 Allergies Allergy/AdvReac Type Severity Reaction Status Date / Time No Known Allergies Allergy Verified 07/21/25 10:05 Home Medications ?Medication ?Instructions ?Recorded ?Confirmed ?Type levothyroxine 50 mcg tablet 50 mcg PO DAILY 08/23/19 07/21/25 History (Synthroid) rosuvastatin 5 mg tablet 5 mg PO DAILY 08/23/19 07/21/25 History alprazolam 0.5 mg tablet 0.5 mg PO PRN PRN Anxiety 09/02/22 06/24/25 History famotidine 20 mg tablet (Pepcid) 20 mg PO DAILY 09/02/22 07/21/25 History metformin 500 mg tablet,extended 500 mg PO DAILY 09/02/22 07/21/25 History release 24 hr Fish Oil 3000 3,000 mg PO DAILY 02/01/25 06/24/25 History Laboratory Tests 07/21/25 10:10 POC Capillary Glucose 86 mg/dl (65-105) Patient hx anesthesia problems: none Family hx anesthesia problems: none Results Review: All pre-operative results and documents have been reviewed as part of the pre-operative evaluation. [facility] Past Medical History Medical History Partial tear of common extensor tendon of left elbow 2020- Dr. Haskins UTI (urinary tract infection) STD (sexually transmitted disease) Surgical History Surgical History (Updated 06/24/25 @ 09:06 by Breanna Scherer MA) H/O elbow surgery RIGHT Common Extensor Tendon Repair 04/12/25- Dr. Leyva H/O dilation and curettage Family History Family History Unknown Cerebrovascular accident Heart disease Lung cancer Social History Social History Social History: caffeine use Smoking status: Never smoker Alcohol intake: current Drinks per week: 5 Substance use: never Substance use type: does not use Living arrangements: with family Occupation/Education: occupation Additional occupation/education comments: [employer] Gender identity (if verbalized by the patient): Female Spiritual care concerns: No Anes - Eval Final PreProcedure Day of Procedure 07/21/25 10:24 Patient weight: obese Heart: regular rate and rhythm Lungs: clear to auscultation Airway: Mallampati scale class II Neurological: alert and oriented Last oral intake: >/= 8 hours ASA classification: III Emergent: no Anesthetic plan: proceed Anesthesia type and monitoring: general GIVS and standard monitoring Results Review: All pre-operative results and documents have been reviewed as part of the pre-operative evaluation. Informed Consent: The patient's anesthetic plan and its attendant risks and benefits were discussed with the patient/family/POA. Questions were solicited and answers provided to the satisfaction of the patient/family/POA.
[2025-07-21] MEDS: LACTATED RINGERS 1,000 ML 150 ML IV CONT (10:37)
--- NOTE | 2025-07-21 11:07 | PM.IMHP ---
H&P: HPI History of Present Illness Date/Time: 07/21/25 11:07 Chief Complaint: Screening colonoscopy Narrative: This is the patient's first colonoscopy. There are no GI symptoms and there is no family history of colorectal cancer. Review of Systems Review of Systems: All systems reviewed & are unremarkable except as noted in HPI and below PMFSH Past Medical History Medical History (Updated 07/21/25 @ 11:08 by Vamsi Coughlin MD) Partial tear of common extensor tendon of left elbow 2020- Dr. Haskins UTI (urinary tract infection) STD (sexually transmitted disease) Surgical History Surgical History (Updated 06/24/25 @ 09:06 by Breanna Scherer MA) H/O elbow surgery RIGHT Common Extensor Tendon Repair 04/12/25- Dr. 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[employer] Gender identity (if verbalized by the patient): Female Spiritual care concerns: No Meds Home Medications and Allergies Home Medications ?Medication ?Instructions ?Recorded ?Confirmed ?Type levothyroxine 50 mcg tablet 50 mcg PO DAILY 08/23/19 07/21/25 History (Synthroid) rosuvastatin 5 mg tablet 5 mg PO DAILY 08/23/19 07/21/25 History alprazolam 0.5 mg tablet 0.5 mg PO PRN PRN Anxiety 09/02/22 06/24/25 History famotidine 20 mg tablet (Pepcid) 20 mg PO DAILY 09/02/22 07/21/25 History metformin 500 mg tablet,extended 500 mg PO DAILY 09/02/22 07/21/25 History release 24 hr Fish Oil 3000 3,000 mg PO DAILY 02/01/25 06/24/25 History Allergies Allergy/AdvReac Type Severity Reaction Status Date / Time No Known Allergies Allergy Verified 07/21/25 10:05 Vital Signs Vital Signs - 24 hr 07/21/25 10:06 Temperature 97.4 F L Pulse Rate 83 Respiratory Rate 16 Blood Pressure 135/86 Pulse Oximetry 100 Oxygen Delivery Room Air Exam Const: General: cooperative and healthy appearing Resp: Effort & Inspection: normal respiratory effort and able to speak in complete sentences Auscultation: clear to auscultation bilaterally Cardio: Rate: regular rate Rhythm: regular rhythm GI: Inspection: normal to inspection GI Palp: No No hepatosplenomegaly present Auscultation: normal bowel sounds Rectal Exam: deferred Skin: General skin exam: normal color Psych: Appearance: grossly normal Mental Status: mental status grossly normal Assessment and Plan Assessment and plan (1) Encounter for screening colonoscopy: Code(s): Z12.11 - Encounter for screening for malignant neoplasm of colon Status: Acute Assessment and Plan: The patient is deemed a good candidate for the procedure. Consent signed. Will proceed.
[2025-07-21 11:30] VITALS: BP 113/73; PULSE 77; RESP 19; O2SAT 100
[2025-07-21 11:40] VITALS: BP 112/75; PULSE 75; RESP 21; O2SAT 100
[2025-07-21 11:50] VITALS: BP 124/96; PULSE 70; RESP 23; O2SAT 100
== END 2025-07-21 11:58 | disposition home or self-care (01) ==
PROVIDERS: PCP Physician Assistant; Referring Provider Nurse Practitioner; Visit Provider Internal Medicine Gastroenterology
PROC: 0DJD8ZZ Inspection of Lower Intestinal Tract, Via Natural or Artificial Opening Endoscopic (ICD-10-PCS; CPT 45378; principal; 2025-07-21 11:30)
DX: Z12.11 Encounter for screening for malignant neoplasm of colon (principal); K57.30 Diverticulosis of large intestine without perforation or abscess without bleeding; E66.9 Obesity, unspecified; Z68.31 Body mass index [BMI] 31.0-31.9, adult; Z79.84 Long term (current) use of oral hypoglycemic drugs; Z98.890 Other specified postprocedural states; Z80.1 Family history of malignant neoplasm of trachea, bronchus and lung; Z82.49 Family history of ischemic heart disease and other diseases of the circulatory system
CPT/HCPCS: 45378; 82948; J2003; J2704; J7120